=== PATIENT | male | born 1950 | race Caucasian/White ===

== ENCOUNTER 2024-10-31 23:27 | Inpatient (IN) | payer OTHER, SELFPAY ==
[2024-10-31] VITALS (11 sets, daily range): BP systolic 95–106; BP diastolic 52–68; BMI 27.0
[2024-10-31 21:43] LABS: Glucose - Point of Care 233 mg/dl (70-99)
[2024-10-31 22:02] LABS: Hematocrit 40.4 % (39.0-52.0); Hemoglobin 13.2 g/dL (13.0-18.0); Mean Corp Hgb Conc. 32.7 g/dL (33.0-37.0); Mean Corpuscular Volume 89.6 fL (80.0-94.0); Nucleated Red Blood Cells % 0 % (-); Platelet Count 220 10^3/uL (130-400); Red Cell Dist. Width 15.3 % (11.5-14.5)
--- NOTE | 2024-10-31 22:09 | ED.GENMED ---
History of Present Illness
<Jael Neely MD - Last Filed: 10/31/24 22:11>
General
Chief Complaint: Weakness
Time Seen by Provider: 10/31/24 21:45
<Eliud Macias Jr., PA-C - Last Filed: 10/31/24 22:27>
General
Source: patient
Exam Limitations: none
Nursing documentation reviewed up to this point in time: agreed with
History of Present Illness
History of Present Illness:
74-year-old male past medical history of hypertension hyperlipidemia, diabetes, hypothyroidism presenting to the emergency department today with concerns of generalized weakness over the past few days. Had an episode where he syncopized 3 days ago
but did not seek any medical care at that time. He claims that the weakness fatigue and lightheadedness is only with exertion otherwise at rest feels generally well
Past History
<Jael Neely MD - Last Filed: 10/31/24 22:11>
Past History
ED Past Medical History: HTN, Hypercholesterolemia and IDDM
ED Past Surgical History: Appendectomy and Tonsilectomy
Social History
Tobacco: Former smoker
Alcohol: Occasional
Drug: None
Personal:
Living: with family
Employment: Employed
Family History
Family History: Early CAD (Brother with AL and CABG in his 30s. Mom with early CAD)
Review of Systems
<Eliud Macias Jr., PA-C - Last Filed: 10/31/24 22:27>
Review of Systems
Allergies reviewed?: Yes
All Other Systems: ROS reviewed and negative except as documented in HPI and ROS
Phy Exam
<Eliud Macias Jr., PA-C - Last Filed: 10/31/24 22:27>
Physical Exam
Physical Exam:
GENERAL: Alert , in no apparent distress
EYE: pupils equal and reactive
NECK: Supple, no significant adenopathy.
ENT: o/p clr, mmm.
CARDIAC: Bradycardic regular
LUNGS: Clear breath sounds bilaterally, no acute respiratory distress, no wheezes/rales/rhonchi
ABDOMEN: Soft, without focal tenderness, no r/g, no cvat
NEUROLOGICAL: Alert and oriented, no focal neuro deficits
SKIN: Warm and dry, skin intact.
MUSCULOSKELETAL: No edema, well perfused.
PSYCH: Normal and appropriate interaction.
Course
<Jael Neely MD - Last Filed: 10/31/24 22:11>
Orders/Labs/Results
Orders:
Orders
10/31/24 21:29
Electrocardiogram (*1) Urgent
Reason for Study: Bradycardia / Tachycardia
EKG- Treatment ONCE
10/31/24 21:53
Add On- LAB Urgent
Tests Added?: magnesium ,TSH free t4
CT Head W/o Iv Contrast Urgent
Comment:
Reason For Exam: fal hit head
10/31/24 21:54
Complete Blood Count/With Diff Urgent
Comprehensive Metabolic Panel Urgent
Free T4 Urgent
Comment: ADD ON
Magnesium Urgent
Comment: ADD ON
TSH Urgent
Comment: ADD ON
10/31/24 22:05
Troponin I Urgent
10/31/24 22:22
0.9% Sodium Chloride 500 ml [Nss] 500 ml IV BOLUS
Abnormal Lab Results
10/31/24 10/31/24
21:42 21:54
WBC 22.5 H 10^3/uL
(4.8-10.8)
RBC 4.51 L 10^6/uL
(4.70-6.10)
MCHC 32.7 L g/dL
(33.0-37.0)
RDW 15.3 H %
(11.5-14.5)
MPV 11.3 H fL
(7.4-10.4)
Abs Immat Gran (auto) 0.1 H 10^3/uL
(0-0.05)
Absolute Neuts (auto) 18.2 H 10^3/uL
(1.4-6.5)
Absolute Monos (auto) 2.3 H 10^3/uL
(0.1-0.6)
Neutrophils % 81.1 H %
(42.2-75.2)
Lymphocytes % 7.9 L %
(20.5-51.1)
Monocytes % 10.1 H %
(1.7-9.3)
BUN 62 H mg/dl
(9-20)
Creatinine 2.1 H mg/dL
(0.7-1.3)
Glucose 244 H mg/dl
(70-99)
Total Bilirubin 1.7 H mg/dl
(0.2-1.3)
AST 115 H U/L
(17-59)
ALT 57 H U/L
(0-50)
POC Glucose 233 H mg/dl
(70-99)
10/31/24 21:54
10/31/24 21:54
Vital Signs
Initial and Last Documented VS:
Initial Vital Signs
Temp Pulse Resp BP Pulse Ox
98.2 F 48 16 105/52 98
10/31/24 21:32 10/31/24 21:32 10/31/24 21:32 10/31/24 21:32 10/31/24 21:32
Last Documented Vital Signs
Temp Pulse Resp BP Pulse Ox
98.2 F 49 15 105/52 96
10/31/24 21:32 10/31/24 21:45 10/31/24 21:45 10/31/24 21:34 10/31/24 21:45
<Eliud Macias Jr., SHAN - Last Filed: 10/31/24 22:27>
Orders/Labs/Results
Orders:
Orders
10/31/24 21:29
Electrocardiogram (*1) Urgent
Reason for Study: Bradycardia / Tachycardia
EKG- Treatment ONCE
10/31/24 21:53
Add On- LAB Urgent
Tests Added?: magnesium ,TSH free t4
CT Head W/o Iv Contrast Urgent
Comment:
Reason For Exam: fal hit head
10/31/24 21:54
Complete Blood Count/With Diff Urgent
Comprehensive Metabolic Panel Urgent
Free T4 Urgent
Comment: ADD ON
Magnesium Urgent
Comment: ADD ON
TSH Urgent
Comment: ADD ON
10/31/24 22:05
Troponin I Urgent
10/31/24 22:22
0.9% Sodium Chloride 500 ml [Nss] 500 ml IV BOLUS
Abnormal Lab Results
10/31/24 10/31/24
21:42 21:54
WBC 22.5 H 10^3/uL
(4.8-10.8)
RBC 4.51 L 10^6/uL
(4.70-6.10)
MCHC 32.7 L g/dL
(33.0-37.0)
RDW 15.3 H %
(11.5-14.5)
MPV 11.3 H fL
(7.4-10.4)
Abs Immat Gran (auto) 0.1 H 10^3/uL
(0-0.05)
Absolute Neuts (auto) 18.2 H 10^3/uL
(1.4-6.5)
Absolute Monos (auto) 2.3 H 10^3/uL
(0.1-0.6)
Neutrophils % 81.1 H %
(42.2-75.2)
Lymphocytes % 7.9 L %
(20.5-51.1)
Monocytes % 10.1 H %
(1.7-9.3)
BUN 62 H mg/dl
(9-20)
Creatinine 2.1 H mg/dL
(0.7-1.3)
Glucose 244 H mg/dl
(70-99)
Total Bilirubin 1.7 H mg/dl
(0.2-1.3)
AST 115 H U/L
(17-59)
ALT 57 H U/L
(0-50)
POC Glucose 233 H mg/dl
(70-99)
10/31/24 21:54
10/31/24 21:54
Vital Signs
Initial and Last Documented VS:
Initial Vital Signs
Temp Pulse Resp BP Pulse Ox
98.2 F 48 16 105/52 98
10/31/24 21:32 10/31/24 21:32 10/31/24 21:32 10/31/24 21:32 10/31/24 21:32
Last Documented Vital Signs
Temp Pulse Resp BP Pulse Ox
98.2 F 49 15 105/52 96
10/31/24 21:32 10/31/24 21:45 10/31/24 21:45 10/31/24 21:34 10/31/24 21:45
<Eliud Macias Jr., PA-C - Last Filed: 10/31/24 22:27>
MDM/Problems Addressed
MDM/Problems Addressed:
74-year-old male presenting to the emergency department today with concerns of lightheadedness fatigue weakness for the past few days. Has syncopal episode a few days ago but did not seek any medical care. Initial EKG showing complete heart block.
He denies any current symptoms at rest. Heart rate in the 40s Case discussed immediately with cardiology who is aware of the case recommending serial troponins and n.p.o. after midnight. Pads were placed as well. Labs showing potential
dehydration was given some fluids also elevated white count 22.5.
<Eliud Macias Jr., PA-C - Last Filed: 10/31/24 22:27>
*Critical Care Note
Total Time (30-74mins, 75-104mins- exclusive of procedures): Not Applicable (Critical care statement: A total of 40 minutes of critical care time was provided for this patient. This includes management of unstable vital signs, evaluation of the
patient at bedside, reviewing the patient's pertinent medical records, discussion with consultants, review of old EKGs and review of)
ED Attending Note
<Jael Neely MD - Last Filed: 10/31/24 22:11>
ED Attending Note
Patient seen and examined by attending physician: Yes
I performed the substantive portion of visit, reviewed & personally made and approve the management plan that is documented in note by myself or MANSI.: Yes
ED Attending Note:
I have seen and evaluated the patient with a [id number] encounter. I have spoken to the [PA] and involved in the medical history, the physical exam, medical decision making.
Evaluation and management service: agree unless noted differently below.
Results interpretation: agree unless noted differently below.
74-year-old man with history of diabetes, hypertension, hyperlipidemia presenting to the emergency department with weakness. Patient states that he had a syncopal event a few days ago. Since then he has been extremely weak. He did hit his head.
He did not lose consciousness. He is not on any blood thinners. Per medics patient's heart rate was in the 40s. His blood pressure was normal. He denies any lightheadedness dizziness. No chest pain. No shortness of breath. No recent tick
bites or history of Lyme. No problems with his potassium that he is aware of. No recent illnesses. No problems with his thyroid. During my evaluation patient is resting comfortably. His heart rate is in the 40s. His abdomen is benign. He does
have a small abrasion to the right side of his forehead. EKG obtained per my interpretation is consistent with complete heart block. His blood pressure is normal. Pads have been placed on patient. Will check blood work including thyroid and
magnesium. Will notify cardiology.
-
Portions of this chart may have been created with voice recognition software.� Occasional wrong word or��sound alike� substitutions may have occurred due to the inherent limitations of voice recognition software.
Discharge Plan
Departure
Patient Disposition: Admit
Date of Disposition: 10/31/24
Time of Disposition: 22:26
Admit to: IMU
Admit to doctor: Timothy
Presentation/result/management discussed w/ accepting MD/DO: Hospitalist
Patient with high blood pressure during this ER visit?: No
Condition: Fair
Covid-19: Not Applicable
Discharge Problem:
Complete heart block, Leukocytosis, ROSANGELA (acute kidney injury)
Prescriptions:
No Action
losartan [Cozaar] 50 MG tablet
50 mg PO DAILY
fluticasone propionate [Flovent Diskus] 50 MCG blister with device
2 spray intranasal DAILY
citalopram 40 MG tablet
40 mg PO DAILY
simvastatin 20 MG tablet
20 mg PO DAILY
montelukast 10 MG tablet
10 mg PO QPM
metformin 500 MG tablet extended release 24 hr
500 mg PO DAILY
sitagliptin phos-metformin [Janumet] 1 EACH tablet
1 ea PO BID
insulin glargine [Lantus Solostar U-100 Insulin] 300 UNITS/3 ML insulin pen
20 units SC HS
tamsulosin [Flomax] 0.4 MG capsule
0.4 mg PO DAILY Qty: 7 0RF
cephalexin 500 MG tablet
500 mg PO TID 5 Days Qty: 15 0RF
Referrals:
Becky Steinberg MD [Family Provider, Internal Medicine]
Interventions
Interventions:
*Risk Screen - Suicide Last Done: 10/31/24 21:32
*General Assessment Last Done: 10/31/24 21:32
*Neglect/Abuse Screening Last Done: 10/31/24 21:32
*ED- Fall Risk Assessment Last Done: 10/31/24 21:53
*ED COVID-19 Vaccine History Last Done: 10/31/24 21:53
Discharge Date and Time
Print Language: [id number]
[2024-10-31 22:21] LABS: ALT (SGPT) 57 U/L (0-50); AST (SGOT) 115 U/L (17-59); Albumin 3.8 g/dl (3.5-5.0); Alkaline Phosphatase 84 U/L (38-126); Blood Urea Nitrogen 62 mg/dl (9-20); Calcium 8.7 mg/dl (8.4-10.2); Carbon Dioxide 22 mmol/L (22-30); Chloride 101 mmol/L (98-107); Estimated Creatinine Clearance 31 ml/min; Glucose 244 mg/dl (70-99); Magnesium 1.8 mg/dl (1.6-2.3); Potassium 5.1 mmol/L (3.5-5.1); Sodium 135 mmol/L (135-145); Total Protein 6.9 g/dl (6.3-8.2); eGFR 32.42
[2024-10-31] MEDS: NSS 500 IV (22:39)
[2024-10-31 22:47] LABS: TSH 3.13 uIU/ml (0.47-4.68)
[2024-10-31 23:05] LABS: Troponin I 50.900 ng/ml
--- NOTE | 2024-10-31 23:14 | HPS.HSE ---
Family Physician
-
Family Physician: Becky Steinberg
Chief Complaint
-
Fatigue, Myalgias
History of Present Illness
Patient is a 74y M with PMH significant for hypertension and DM-II who presents to ED complaining of fatigue and myalgias since last . Patient reports onset of joint pain, muscle aches and general fatigue on . he felt very
lightheaded and passed out in his home that evening. He did not seek medical attention at that time. Patient notes that he has felt extremely fatigued with nausea, body aches and severe fatigue since that time. He has felt lightheaded, but has
had no additional syncope. He thought he may have some vial illness. He tested himself at home for COVID x 2. Both were negative. After the second negative test today, he presented to the ED for further evaluation.
Patient denies any prior history of similar symptoms. No personal history of NH, CVA, etc. He does have family history of heart disease (mother, brother).
In the ED, patient denies any chest pain or dyspnea. He feels very fatigued and lightheaded with any activity.
He is noted on tele / EKG to be in heart block with heart rates in the 30s-40s.
Medical History
Past Medical History
Past Medical History: Reports Other
Additional Past Medical History:
Hypertension
DM-II
Double Vision (s/p cataract surgery)
Nephrolithiasis
Past Surgical History: Reports Other
Additional Past Surgical History:
Cataracts
Appendectomy
T&A
Cysto / Stent
Social History
Tobacco: Former Smoker (Quit smoking 20 years ago. Approx 40+ pack years total use.)
Alcohol: None
Drug: None
Living: With Family
Family History
Family History: Other (Mother: CAD Brother: CAD )
Allergies / Home Medications
Allergies reflects when Allergies were last updated in [facility] [facility].
Home Medications with original date entered in [employer] [facility]
Allergy/Medication List:
Allergies
Allergy/AdvReac Type Severity Reaction Status Date / Time
IV Contrast Allergy Unknown Uncoded 10/31/24 21:31
Home Medications
insulin glargine 100 unit/mL (3 mL) subcutaneous pen (Lantus Solostar U-100 Insulin) 40 units SC HS 04/06/14
losartan 50 mg tablet (Cozaar) 25 mg PO DAILY 04/06/14
metformin 500 mg tablet,extended release 24 hr 1,000 mg PO BID 04/06/14
sitagliptin phosphate 100 mg tablet (Januvia) 100 mg PO BID 10/31/24
thyroid (pork) 15 mg tablet (TRANSFER AND PUMPHOUSE OPERATOR Thyroid) 15 mg PO DAILY 10/31/24
Review of Systems
-
History Source: Patient
A 12 point ROS was completed and negative except as noted: Yes
Constitutional: Reports Fatigue; Denies Fever or Chills
EENT: Denies Sore Throat
Respiratory: Reports Cough; Denies Trouble Breathing
Cardiac: Reports Syncope; Denies Chest Pain or Diaphoresis
Abdomen/GI: Reports Nausea; Denies Abdominal Pain, Vomiting, Diarrhea, Bloody Stools or Black Stools
: Denies Dysuria or Frequency
Musculoskeletal: Reports Joint Pain and Muscle Pain; Denies Edema
Neurological: Reports Dizzy; Denies Headache
Psych: Denies Depression or Anxiety
Physical Exam
Vital Signs
Vital Signs
Temp Pulse Resp BP Pulse Ox
98.2 F 49 16 105/52 96
10/31/24 21:32 10/31/24 21:45 10/31/24 22:43 10/31/24 21:34 10/31/24 21:45
Physical Exam
General: Other (74y M in no acute distress. )
HEENT: Moist mucous membranes, PERRLA and Other (Poor dentition.)
Respiratory: Other (Decreased at bases. Otherwise clear. Mild cough noted during exam.)
Cardiac: S1/S2, Irregular Rhythm, Bradycardia and Murmur (II/ STEPHANIE)
GI: Soft, Non Tender, Non Distended and Normal Bowel Sounds
Musculoskeletal: No Clubbing, No Cyanosis and No Edema
Neuro: AO x 3
Laboratory Results
-
10/31/24 21:54
10/31/24 21:54
Laboratory Results
Total Bilirubin 1.7 mg/dl (0.2-1.3) H 10/31/24 21:54
AST 115 U/L (17-59) H 10/31/24 21:54
ALT 57 U/L (0-50) H 10/31/24 21:54
Alkaline Phosphatase 84 U/L (38-126) 10/31/24 21:54
Troponin I 50.900 ng/ml H* 10/31/24 22:19
Impression/Plan
-
A/P: Patient is a 74y M with PMH significant for hypertension and DM-II who presents to ED complaining of myalgias and fatigue x 5 days.
ACS / NH
- Admit for further evaluation and treatment.
- EKG with wide-complex QRS and heart block (see below).
- Initial troponin is 50.
- Suspect initial NH on with onset of syncope / symptoms.
- IV heparin, ASA.
- Follow troponin top peak, serial EKGs, etc.
- Cardiology consulted - prob ischemic evaluation.
Complete Heart Block
- Likely secondary to AMI as noted above.
- Heart rates in 30s - 40s. Patient awake and conversant. Minimal symptoms at rest.
- External pads in place.
- Monitor on telemetry overnight.
- Avoid any chronotropic medications.
- Follow for changes. Cardiology evaluation.
- PPM if needed.
ROSANGELA v CKD
- SCr = 2.1. Only prior baseline is 1.4 from 2021.
- ? ROSANGELA or progression of CKD.
- Hold ARB acutely.
- Follow for changes in renal function over the next 48-72 hours to establish baseline.
Leukocytosis
- ? stress response due to AMI, etc.
- Afebrile, no other clear signs of infection.
- COVID negative at home x 2.
- Observe off of abx for now.
- Follow temperature curve, monitor for any new / focal symptoms, etc.
Benign Hypertension
- Stable. Hold ARB acutely.
DM-II
- Stable. Continue basal insulin at decreased dose.
- Follow glucose and cover with SSI as needed.
- Update A1C.
Hypothyroidism
- TFTs are normal. Continue current thyroid replacement.
DVT Prophylaxis: On IV Heparin
Code Status: Full
[2024-11-01] VITALS (34 sets, daily range): BP systolic 93–130; BP diastolic 55–89; BMI 25.9
[2024-11-01 00:43] LABS: INR 1.44; PT 17.8 Sec (11.4-14.6)
--- NOTE | 2024-11-01 00:45 | PTCARENOTE ---
Rec'd pt from er via stretcher on monitor, pacer pads on, CHG bath done on adm, pt oriented to ICU routine, VENETIE IRA, speech garbled, oriented, cooperative, follows commands, Complete heart block rate 39, weak distal pulses, no edema, skin warm/dry, RA,
lungs decr in bases, sat p5, + bowel sounds, no bm, abd soft, NPO, urinal at bedside
0115- started on hep gtt per order
0125- c/o nausea- comp 5mg iv given
[2024-11-01 00:57] LABS: Glucose - Point of Care 229 mg/dl (70-99)
[2024-11-01] MEDS: HEPARIN 4000 UNITS IV (01:05)
[2024-11-01] MEDS: HEPARIN 25000 UNITS/250 ML IV (01:06)
[2024-11-01] MEDS: NSS 1000 IV ×3 (01:08→18:44)
[2024-11-01] MEDS: LANTUS 0.2 UNITS SC (01:16)
[2024-11-01] MEDS: COMPAZINE 5 MG IV ×2 (01:27→12:31)
[2024-11-01 01:28] LABS: APTT 31.2 Sec (23.4-35.0)
[2024-11-01 04:29] LABS: Hematocrit 38.4 % (39.0-52.0); Hemoglobin 12.7 g/dL (13.0-18.0); Mean Corp Hgb Conc. 33.1 g/dL (33.0-37.0); Mean Corpuscular Volume 88.5 fL (80.0-94.0); Platelet Count 203 10^3/uL (130-400); Red Cell Dist. Width 15.1 % (11.5-14.5)
--- NOTE | 2024-11-01 04:29 | PTCARENOTE ---
sys reviewed, bladder scanned for 240ml,
[2024-11-01 04:53] LABS: Blood Urea Nitrogen 67 mg/dl (9-20); Calcium 8.1 mg/dl (8.4-10.2); Carbon Dioxide 22 mmol/L (22-30); Chloride 105 mmol/L (98-107); Estimated Creatinine Clearance 36 ml/min; Glucose 223 mg/dl (70-99); HDL Cholesterol 33 mg/dl; LDL Cholesterol, Calculated 80 mg/dl; Potassium 4.7 mmol/L (3.5-5.1); Sodium 136 mmol/L (135-145); Very Low Density Lipoprotein 18 mg/dl (0-30); eGFR 39.01
[2024-11-01 04:57] LABS: Troponin I 43.400 ng/ml
[2024-11-01 05:41] LABS: Hepatitis C Antibody Negative (Negative)
[2024-11-01] MEDS: ARMOUR THYROID 15 MG PO (07:36)
[2024-11-01] MEDS: LOW STRENGTH ASPIRIN 81 MG PO (07:36)
[2024-11-01 07:51] LABS: Glucose - Point of Care 176 mg/dl (70-99)
--- NOTE | 2024-11-01 08:31 | CON.CAR ---
Consultation
Consultation Request
Date/Time Consultation Requested: 11/01/2024 at 0051 hours
Date/Time Consultation Performed: 11/01/2024 at 0830 hours
Requesting Provider: Christian Aguirre DO
Performing Provider: Brandon Bueno MD
Reason for Consultation: Symptomatic heart block, recent NC
Medical History
-
Chief Complaint: POLLACK, fatigue, Syncope on with back pain for hours
History of Present Illness:
PCP: Jessica Dior DO
HPI: Mr. Natanael Henson is a 74-year-old gentleman with longstanding diabetes mellitus. 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 He is and has 2 children.
On October 27 in the evening he developed upper back and shoulder pain that he described as a tightness. Shortly after that he had a syncopal episode. Later that evening he had continued pain but he thinks it only lasted about a total of 1
hour from about 6 PM to 7 PM culminating in the syncopal episode. He was able to fall asleep. That night he awoke with marked diaphoresis.
Over the next several days he noted fatigue and shortness of breath with activity. He finally came into the ER where he was in complete heart block and had a positive troponin.
Past Medical History
Past Medical History: NIDDM (Type II DM on insulin)
Past Surgical History: Appendectomy, Tonsilectomy and Other (cataract)
Social History
Tobacco: Former Smoker (1.5 to 2 PPD for 20+ years, quit 20 yrs ago)
Personal:
Living: With Family
Family History
Family History: Early CAD (brother NC in 30s, later had CABG and in his 70s) and Cancer (sister of met bladder cancer)
Allergies / Home Medications
Allergy/AdvReac Type Severity Reaction Status Date / Time
IV Contrast Allergy Unknown Uncoded 10/31/24 21:31
�Medication �Instructions �Recorded �Confirmed �Type
insulin glargine 100 unit/mL (3 40 units SC HS 04/06/14 10/31/24 History
mL) subcutaneous pen (Lantus
Solostar U-100 Insulin)
losartan 50 mg tablet (Cozaar) 25 mg PO DAILY 04/06/14 10/31/24 History
metformin 500 mg tablet,extended 1,000 mg PO BID 04/06/14 10/31/24 History
release 24 hr
sitagliptin phosphate 100 mg 100 mg PO BID 10/31/24 10/31/24 History
tablet (Januvia)
thyroid (pork) 15 mg tablet (VOCATIONAL EDUCATION TEACHER 15 mg PO DAILY 10/31/24 10/31/24 History
Thyroid)
Review of Systems
-
History Source: Patient and Family
All other systems: Negative unless noted (see HPI as well)
Constitutional: Other (fatigue, POLLACK)
Respiratory: Trouble Breathing
Abdomen/GI: No Symptoms
Physical Exam
Vital Signs
Temp Pulse Resp BP Pulse Ox
97.0 F 43 26 127/68 95
11/01/24 08:00 11/01/24 05:00 11/01/24 05:00 11/01/24 05:00 11/01/24 05:00
Lab Results
11/01/24 04:18
11/01/24 04:18
Troponin I Cancelled 11/01/24 12:51
Physical Exam
General: Well Developed, Well Nourished and No Apparent Distress
HEENT: Normocephalic and Anicteric
Respiratory: Clear
Cardiac: S1/S2 and Regular Rhythm (but slow); Negative Murmur
GI: Soft and Non Tender
Musculoskeletal: No Clubbing and No Edema
Skin: Warm and Dry
Neuro: AO x 3
Psych: Calm
Impression / Plan
-
PCP Sabina Dior DO
Recent inferior STEMI is suspected based on clinical data and EKG
Symptomatic complete heart block. The mechanism heart block is likely high vagal tone related to the recent inferior STEMI.
Acute kidney injury. Baseline creatinine not known.
Longstanding diabetes mellitus, type II on insulin
Family history of premature CAD
Former heavy smoker probably at least a [id number] history
Plan:
Agree with aspirin, heparin for now, statin
Echo
Elective cardiac catheterization with possible PCI. I would prefer catheterization today. Discussed with interventional cardiology Dr. Ferreira.He may have multivessel disease and other Rivelsa straight strategy may be appropriate. Anatomy may favor
medical treatment
He may benefit from temporary pacing support given the elevated BUN/creatinine I suspect his heart block is symptomatic beyond dyspnea on exertion and fatigue
He might require permanent pacing if heart block does not resolve in a reasonable time. With IMI heart block usually resolves
Further plans can be based upon integrating clinical data, echocardiographic data, catheterization data and clinical course
His Ansley was updated by phone call by me
Data Reviewed
-
EKG: Tracing Personally Visualized and interpreted (Sinus at 100 bpm with CHB and V rate at 41 bpm RBBB perinfarct block (widen hump at end of QRS in inf leads) inf ST-T changes of recent NC)
Radiology: Image Personally Visualized and interpreted (Portable, lungs clear)
CT Scan: Report Reviewed by me (CT head I- (no contrast): NAD)
Ultrasound: Other (I ordered echo)
Old Records: Requested (Requested labs from PCP)
[2024-11-01] MEDS: NOVOLOG FLEXPEN-MODERATE RESISTANCE 1 UNITS SC ×3 (08:32→18:43)
[2024-11-01 09:27] LABS: Glycohemoglobin (HgbA1c) 9.0 % (4.0-5.6)
[2024-11-01 09:37] LABS: APTT 45.2 Sec (23.4-35.0)
--- NOTE | 2024-11-01 10:10 | CARDSERVLU ---
Echocardiogram with [facility]ason completed after protocol screening completed. Allergies verified.
Patent IV site: __R FA___
IV site flushed with 0.9% NaCl pre and post administration.
Diluted bolus method utilized to enhance visualization of ventricular stewart.
Total volume given: __2.5__ mL
Patient tolerated all procedures well without complications.
[2024-11-01 10:51] LABS: ALT (SGPT) 66 U/L (0-50); AST (SGOT) 123 U/L (17-59); Albumin 3.6 g/dl (3.5-5.0); Alkaline Phosphatase 84 U/L (38-126); Total Protein 6.4 g/dl (6.3-8.2)
--- NOTE | 2024-11-01 11:11 | PTCARENOTE ---
Cardiology saw pt and called with with update. Echo completed. Plan; cardiac cath poss. pacer. abd US r/t LFT and c/o abd pain previously. Obtain records, obtain urine. Pt aware of POC. No change in physical assessment. CB in reach- instructed to
use.
--- NOTE | 2024-11-01 11:30 | W.PN.HOSP.TC ---
Today's Communication/Plan
-
IVF
USS abdomen
Eventual statin
Assessment / Plan
Assessment / Plan
74-year-old male with fatigue and myalgias. Patient had lightheadedness and passed out on he did not seek attention. When he fell he had some viral illness. He felt lightheaded which Made him come to the ER. Had abdominal pain and had a
large BM on . Has a cough.
EKG reviewed by me-ST elevations in inferior leads
CVS: S1-S2 normal
Chest: CTA B/L
Abdomen: Soft, mild discomfort with palpation. No guarding or rigidity. Bowel sounds present
Extremities: No edema
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
Rash- purplish on right leg, left ankle, right upper arm.
# Acute [place]
Probably happened on when he had symptoms of syncope
Continue aspirin. Add statin when LFTS better. Continue heparin drip
Hold ARB as below. Hold BB due to HB.
Troponin trending down
EKG with complete heart block and wide-complex QRS likely secondary to ischemia
External pacer pads
Cardiology consulted
Echo today
Cardiac cath planned for later today- Discussed about Possibility of KIMBERLY
# ROSANGELA , Possible CKD.
Creatinine was 1.4 in 2021
Hold ARB, hold metformin
Mixed data on pre contrast exposure bicarb prophylaxis-will proceed with bicarb prophylaxis prior to cath today.
Follow creatinine to R/O KIMBERLY
# Leukocytosis-likely stress reaction
Chest x-ray unremarkable
Check urinalysis
Watch temperature
If develops fever get blood cultures
Hanh elevated LFT and had abd pain get USS abdomen.
# Hypertension-hold ARB follow blood pressure
# Diabetes-A1c-
Patient uses Lantus insulin 40 units at night, Januvia 100 mg p.o. twice daily, metformin 1000 mg p.o. twice daily as outpatient
Got 20 units of Lantus last night
Start 40 units of Lantus tonight.
Restart Januvia once not n.p.o. anymore
Accu-Cheks and sliding scale coverage
# Hypothyroidism-continue replacement
# Hyperlipidemia-patient has had intolerance to statin in the past and also LFTs elevated. Will discuss and maybe start Pravastatin when LFTS better. benefits discussed.
# Elevated AST and ALT-USS.
# Longstanding rash at least since 2013- Pt says he got Biopsy and was told it is from Diabetes. he doesn't remember the name of the Derm.
# Ex-smoker
# DVT prophylaxis-IV heparin
# Full code
Discussed with cardiology. Plan reviewed
D/W and son at bed side
D/W RN at bed side
Get records from PCP
Total Critical Care Time 33 minutes. I was immediately available to the patient and staff. I personally examined, reviewed labs, diagnostic images/reports, interpretations, treatment plans, discussed patient care with other providers and family ,
entered orders as appropriate and documented the medical record.
Part of this note was created using voice recognition system. Occasional wrong word or��sound alike� substitutions may have inadvertently occurred due to the inherent limitations of voice recognition software. If noted kindly bring it to my
attention for correction.
Anticipated Discharge: > 48 hours
Subjective/Interval History
-
Date of Service: November 01, 2024
Objective Data
-
Labs:
Laboratory Results
11/01/24 11/01/24 11/01/24
00:23 00:51 04:18
WBC Cancelled 20.2 H
Hgb Cancelled 12.7 L
Hct Cancelled 38.4 L
Plt Count Cancelled 203
PT 17.8 H
INR 1.44
APTT 31.2 Cancelled
Sodium 136
Potassium 4.7
Chloride 105
Carbon Dioxide 22
BUN 67 H
Creatinine 1.8 H
Glucose 223 H
Calcium 8.1 L
Total Bilirubin 1.3
AST 123 H
ALT 66 H
Alkaline Phosphatase 84
11/01/24 11/01/24 11/01/24
07:46 08:23 09:07
WBC
Hgb
Hct
Plt Count
PT
INR
APTT Cancelled Cancelled 45.2 H
Sodium
Potassium
Chloride
Carbon Dioxide
BUN
Creatinine
Glucose
Calcium
Total Bilirubin
AST
ALT
Alkaline Phosphatase
11/01/24
15:30
WBC
Hgb
Hct
Plt Count
PT
INR
APTT Pending
Sodium
Potassium
Chloride
Carbon Dioxide
BUN
Creatinine
Glucose
Calcium
Total Bilirubin
AST
ALT
Alkaline Phosphatase
Vital Signs:
Vital Signs
Temp Pulse Resp BP Pulse Ox
97.0 F 43 26 127/68 96
11/01/24 08:00 11/01/24 05:00 11/01/24 05:00 11/01/24 05:00 11/01/24 08:00
I&O
10/31/24 11/01/24 11/02/24
06:59 06:59 06:59
Intake Total 540 / 675 542 / 542
Output Total 350 / 350
Balance 540 / 675 192 / 192
--- NOTE | 2024-11-01 11:51 | CM ---
Initial assessment completed with . Patient and live in a 2 story home with B/B on 2nd and 1/2 bath on 1st, 1 step to enter. 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 No HC-POA. Support system
is and step-son. PCP is Wesley Duff in [place]. PCP is Dr. Joyce Dior. Discharge POC: Anticipate home with HH VN. Preference is [facility]. Will forward referral.
[2024-11-01 11:54] LABS: Glucose - Point of Care 158 mg/dl (70-99)
[2024-11-01 13:03] LABS: Troponin I 37.900 ng/ml
--- NOTE | 2024-11-01 15:19 | PTCARENOTE ---
abd US completed, Results pending. Pt aware of outstanding Urine sample, will obtain BS if needed per protocol. Pt awaiting cardiac cath
--- NOTE | 2024-11-01 16:00 | PTCARENOTE ---
pt transported to cardiac cath.
[2024-11-01 16:18] LABS: APTT 54.8 Sec (23.4-35.0)
--- NOTE | 2024-11-01 18:19 | PTCARENOTE ---
received pt from cardiac cath. awake and alert, denies pain but endorses slight nausea. 97.7, HR 39 3rd degree HB 22 91%RA 118/59 accu check 157. right R band 10cc air, no bleeding or hematoma. brisk cap. refill. temp pacer in place rate 30 10
output. obtaining orders to restart heparin, diet, etc. spouse at bedside.
[2024-11-01 18:22] LABS: Glucose - Point of Care 157 mg/dl (70-99)
[2024-11-01 18:47] LABS: Hematocrit 38.0 % (39.0-52.0); Hemoglobin 12.2 g/dL (13.0-18.0); Mean Corp Hgb Conc. 32.1 g/dL (33.0-37.0); Mean Corpuscular Volume 90.0 fL (80.0-94.0); Platelet Count 225 10^3/uL (130-400); Red Cell Dist. Width 15.4 % (11.5-14.5)
--- NOTE | 2024-11-01 18:57 | W.PN.UPDATE ---
Update Note
Progress Note Update
Transfer orders to ICU placed, discussed with Dr. Issac Harrison (hospitalist).
[2024-11-01 18:58] LABS: APTT 73.2 Sec (23.4-35.0)
--- NOTE | 2024-11-01 19:16 | W.PN.UPDATE ---
Update Note
Progress Note Update
Called Dr. Zion Villatoro, cardiology invasive, when to resume heparin gtt. Recommendations received to resume heparin gtt at previous rate 1200 at 8pm with NO BOLUS. Orders placed and RN updated.
--- NOTE | 2024-11-01 19:50 | ITS.CL.PN ---
Anatomy And Physiology Instructor - Procedure Note
Procedure
Procedure Note:
CARDIAC CATHETERIZATION REPORT
Date of Procedure: 11/01/2024
Referring: Dr. Brandon Bueno MD
Indication: NSTEMI, complete heart block
PROCEDURE(S)
1. left heart catheterization
2. coronary angiography
3. temporary venous pacemaker insertion
ACCESS:
1. 6F right radial artery (closure: radial band)
2. 6F right internal jugular vein (sutured at 42 cm)
CATHETERS
1. 5F balloon tipped temporary venous pacemaker
2. 6F JR4
3. 6F JL3.5
MODERATE SEDATION: 45 minutes of moderate sedation was utilized. An independent medical device engineer was present to assist with and help manage the patient's level of consciousness and physiologic status.
TEMPORARY VENOUS PACEMAKER
Under fluoroscopic guidance a 5 Nepalese balloon tipped temporary venous pacemaker wire was floated into the RV and demonstrated to course medially in an UPPER SORBIAN projection away from the RV free wall. The TVP was proven to capture with a threshold of 1 mA
after which she was set the backup at a rate of 80 bpm and 10 mA output. The sheath was sewn in place at 42 cm depth and the excess catheter secured with Tegaderm.
HEMODYNAMIC DATA
LV 99/21 (EDP 28) mmHg
AO 106/57 (mean 74) mmHg
CORONARY ANGIOGRAPHY
Dominance: Right
LM: Large with minimal disease.
LAD: Large vessel giving rise to a moderate caliber D1 before wrapping around the apex. There is a 95% stenosis just distal to the takeoff of D1 and mild to moderate disease that extends to the mid vessel. The D1 itself has severe proximal disease
and a focal severe stenosis in the mid body.
LCx: Large vessel giving rise to a small OM1 and large bifurcating OM2. There is a focal 80% stenosis in proximal aspect of the the upper branch of the OM2 as well as focal up to 50% disease in the proximal aspect of the lower branch.
RCA: Large vessel that is 100% occluded distally with no collaterals. There is also a long 50% stenosis proximally and diffuse mild-moderate disease otherwise.
RADIATION: dose 389 mGy; DAP 29.3 Gy*cm2; fluoroscopy time 7.6 min
CONCLUSIONS
1. Severe three-vessel coronary artery disease as described with 100% stenosis of the distal RCA that is likely the culprit lesion for the patient's NSTEMI and complete heart block, complex bifurcation disease involving the proximal LAD and moderate
caliber diagonal, as well as complex bifurcation disease involving a large circumflex marginal branch.
2. Severely elevated LV filling pressure and no significant aortic stenosis on hemodynamic pullback
RECOMMENDATIONS
1. Heart team discussion regarding ideal revascularization strategy: Given his triple-vessel disease with diabetes and reduced ejection fraction, he fits a category of patient demonstrate to benefit most from surgical revascularization when
feasible. This would ideally be accomplished with ESPINO-LAD and additional grafts to the diagonal and both branches of the OM2. Revascularization of the LAD/diagonal could be accomplished percutaneously with moderate complexity (dedicated
bifurcation strategy would be utilized). If a percutaneous approach is chosen, the OM2 would also likely require a bifurcation strategy for revascularization and could be medically managed initially. The RPDA should not be revascularized with either
strategy as the territory appears to be infarcted based on lack of ongoing chest pain, akinesis on TTE, and lack of collateral flow.
2. Cont. heparin drip for now.
3. Con. ASA, avoid P2Y12
4. For now, no GDMT to HFrEF (BB contraindicated given CHB, BOYD/ARB/ARNI/MRA/SGLT2i held pending ROSANGELA improvement)
5. Monitor for renal recovery
6. Received 400 cc IVF in the lab for renal protection. May require diuresis but hold for now given lack of s/s of volume overload.
Copy to: Dr. Becky Steinberg MD (PCP)
Signed: Zion Villatoro MD, PhD
--- NOTE | 2024-11-01 19:59 | PTCARENOTE ---
Rec'd pt resting in bed, at bedside, denies pain, Complet heart block, R IJ temp pacer via RIJ cordis, Rate 30, v demand, R Rad site intact, TR band removal per protocal R rad art weak, Distal pulses weak, no edema, skin warm/dry, RA, lungs
decr in bases, Fine Left base crackles, sat 95, + bowel sounds, no bm, abd soft, poor appetite, urinal at bedside; Quintin gtt restarted at 1200 units/hr per order at 1999
[2024-11-01 21:07] LABS: Glucose - Point of Care 166 mg/dl (70-99)
[2024-11-01] MEDS: XANAX 0.25 MG PO (21:14)
[2024-11-01] MEDS: LANTUS 0.4 UNITS SC (21:15)
--- NOTE | 2024-11-01 21:15 | PTCARENOTE ---
scat insp wheezes, Sukumar Mercado NP aware, resp rx ordered & given by therapist, xanax 0.25mg po given for anx, temp pacer rate incr to 80, MA 10 by Sukumar Mercado NP, pt refused crestor stating he had side affects when he took it before
2119 TR band off, dsg applied, pt aware to call if any bleeding
2129- decr to 70ml/hr per order, lasix 20mg iv given per order
[2024-11-01] MEDS: VENTOLIN NEBULES 2.5 MG INH (21:16)
[2024-11-01] MEDS: CRESTOR PO (21:19)
[2024-11-01] MEDS: LASIX 20 MG IV (21:32)
--- NOTE | 2024-11-01 21:34 | W.PN.UPDATE ---
Update Note
Progress Note Update
Received patient after cardiac cath. Orders placed for pacer rate 30 MA 10 V demand and chest xray s/p pacer placement. Heparin gtt orders placed to resume at 1200 at 8pm with no bolus. Noted by Dr. Donovan 100% occluded RCA, severe LAD/diag
disease which need to be revascularized consultation for CT surgery placed for CABG vs complex stenting. Dr. Donovan advised increasing rate of pacer to 80 bpm for more chronotropy and cardiac output. Continue heparin gtt given severity of LAD.
Orders and consult placed to Ct surgery, Gasper Huitron PAC for Ctsurgery aware of consult. Patieint having some inspiratory wheezing, did have some fine crackles earlier but not now, chest xray does not show pulmonary edema. Ordered albuterol
prn nebulized treatment and 20mg IV lasix.
[2024-11-01 22:39] LABS: Urine Character Clear (Clear)
[2024-11-01 22:47] LABS: Urine Red Blood Cell 0-2 /HPF (0-2); Urine White Cell 0-2 /HPF (0-5)
--- NOTE | 2024-11-01 23:25 | PTCARENOTE ---
sys reviewed, sat 89% on RA, 2 liters nc applied, sat incr to 95, lungs w/ bibas crackles, K Jess STORYBOARD ARTIST aware- will cont to monitor
[2024-11-02] VITALS (24 sets, daily range): BP systolic 105–138; BP diastolic 67–88; BMI 26.5
--- NOTE | 2024-11-02 00:07 | PTCARENOTE ---
CHG bath done, linens changeed
[2024-11-02] MEDS: HEPARIN 25000 UNITS/250 ML IV ×2 (00:54→17:16)
[2024-11-02 02:18] LABS: Hematocrit 37.6 % (39.0-52.0); Hemoglobin 13.0 g/dL (13.0-18.0); Mean Corp Hgb Conc. 34.6 g/dL (33.0-37.0); Mean Corpuscular Volume 86.8 fL (80.0-94.0); Platelet Count 198 10^3/uL (130-400); Red Cell Dist. Width 15.3 % (11.5-14.5)
[2024-11-02 02:19] LABS: INR 1.55; PT 18.8 Sec (11.4-14.6)
[2024-11-02 02:20] LABS: APTT 44.5 Sec (23.4-35.0)
[2024-11-02 02:24] LABS: ALT (SGPT) 184 U/L (0-50); AST (SGOT) 399 U/L (17-59); Albumin 3.2 g/dl (3.5-5.0); Alkaline Phosphatase 91 U/L (38-126); Blood Urea Nitrogen 65 mg/dl (9-20); Calcium 7.3 mg/dl (8.4-10.2); Carbon Dioxide 19 mmol/L (22-30); Chloride 109 mmol/L (98-107); Estimated Creatinine Clearance 46 ml/min; Glucose 159 mg/dl (70-99); Magnesium 1.8 mg/dl (1.6-2.3); Potassium 4.6 mmol/L (3.5-5.1); Sodium 138 mmol/L (135-145); Total Protein 6.1 g/dl (6.3-8.2); eGFR 52.74
[2024-11-02] MEDS: MAGNESIUM SULFATE 102 GRAMS IV (03:21)
--- NOTE | 2024-11-02 03:23 | PTCARENOTE ---
1 gm mag sulfate hung over 1hr per order
--- NOTE | 2024-11-02 03:53 | PTCARENOTE ---
sys reviewed, lungs w/ bibas crackles,no wheezing, sat 98-99, K Jess, Warehouse Logistics Coordinator aware, will cont to monitor
[2024-11-02] MEDS: NSS 1000 IV (04:55)
--- NOTE | 2024-11-02 07:17 | CON.INTV ---
Consultation
Consultation Request
Date/Time Consultation Requested: 11/01/2024
Date/Time Consultation Performed: 11/02/2024
Requesting Provider: Christian Aguirre
Performing Provider: Mary Duke
Reason for Consultation: Acute FL
Medical History
-
Chief Complaint: Fatigue
History of Present Illness:
Patient is a 74-year-old gentleman with long history of diabetes who developed nonspecific symptoms of upper back and shoulder pain 3 days prior to her presentation to the hospital. Also reported syncope episode. He also reported significant
fatigue which eventually brought him to the emergency room. Further workup was suggestive of a complete heart block as well as elevated troponin consistent with acute myocardial infarction. Patient was noted to have inferior wall ST elevation FL.
He was taken to [facility] and had coronary angiography performed which showed 100% RCA stenosis and significant otherwise coronary artery disease. He also had a temporary pacemaker placed. Postprocedure he was admitted to ICU and bicycle subassembler
consultation was requested for further input.
Past Medical History: Reports Other
Additional Past Medical History:
Hypertension
DM-II
Double Vision (s/p cataract surgery)
Nephrolithiasis
Past Surgical History: Reports Other
Additional Past Surgical History:
Cataracts
Appendectomy
T&A
Cysto / Stent
Social History
Tobacco: Former Smoker (Quit smoking 20 years ago. Approx 40+ pack years total use.)
Alcohol: None
Drug: None
Living: With Family
Family History
Family History: Other (Mother: CAD Brother: CAD )
Allergies / Home Medications
Allergies
Allergy/AdvReac Type Severity Reaction Status Date / Time
Iodinated Contrast Media Allergy iv contrast Verified 11/01/24 18:18
Home Medications
�Medication �Instructions �Recorded �Confirmed �Last Taken �Type
insulin glargine 100 unit/mL (3 40 units SC HS Diabetes 04/06/14 10/31/24 Unknown History
mL) subcutaneous pen (Lantus
Solostar U-100 Insulin)
losartan 50 mg tablet (Cozaar) 25 mg PO DAILY Blood Pressure 04/06/14 10/31/24 Unknown History
metformin 500 mg tablet,extended 1,000 mg PO BID Diabetes 04/06/14 10/31/24 Unknown History
release 24 hr
sitagliptin phosphate 100 mg 100 mg PO BID Diabetes 10/31/24 10/31/24 Unknown History
tablet (Januvia)
thyroid (pork) 15 mg tablet (C WEB DEVELOPER 15 mg PO DAILY Thyroid 10/31/24 10/31/24 Unknown History
Thyroid)
Review of Systems
-
Hematologic/Lymphatic: Other (All 14 systems reviewed and negative except as stated above in the history of present illness.)
Vitals / Labs / Diagnostic Testing
Vital Signs
Temp Pulse Resp BP Pulse Ox
97.7 F 81 18 109/83 98
11/02/24 03:45 11/02/24 06:00 11/02/24 06:00 11/02/24 06:00 11/02/24 06:00
Lab Data
11/02/24 01:57
11/02/24 01:57
Laboratory Results
11/01/24 11/01/24 11/01/24
07:46 08:23 09:07
PT
INR
APTT Cancelled Cancelled 45.2 H
11/01/24 11/01/24 11/02/24
15:56 18:33 01:57
PT 18.8 H
INR 1.55
APTT 54.8 H 73.2 H Cancelled
11/02/24
01:57
PT
INR
APTT 44.5 H
Diagnostic Testing:
Physical Exam
-
HEENT: Normocephalic
Cardiovascular: S1/S2 and Other (Currently paced rhythm)
Respiratory: Clear and Non-Labored Respirations
GI: Soft and Non Distended
Neurology: Awake and Alert
Skin: Warm
General: Comfortable
Assessment
-
#1. Inferior wall STEMI with multivessel coronary artery disease
- 100% RCA occlusion noted, significant coronary artery disease
- S/p angiography 11/01
- Aspirin, heparin drip. Also on Zetia and rosuvastatin.
- CT surgery consult for further input regarding possible coronary artery bypass graft vs complex PCI
#2. Complete heart block
- Suspected related to RCA infarction.
- S/p temporary pacemaker, currently paced rhythm
- Avoid beta-blockers or other puma blocking agents
- With EF 35%, patient might need AICD
#3. ROSANGELA on admission with underlying CKD
- Admission creatinine was 2.1, currently 1.4 which is his baseline
- Discontinue IV fluids
#4. DM
- Currently on glargine and sliding scale insulin
#5. h/o HTN
- Hold beta-blockers in view of heart block
#6. Hypothyroidism
- Currently on thyroid Pratt
#7. h/o Smoking
- Patient states he quit many years ago however reports occasional wheezing, cough with expectoration. Suspect patient might have underlying COPD. Patient reluctant to use any inhalers. Will add as needed albuterol nebulization. Patient will
need outpatient follow-up with pulmonary clinic for pulmonary function testing and 6-minute walk test etc.
Critical Care time 65 mins -- The patient is admitted for acute critical illness for the treatment of vital organ failure and/or prevention of further life-threatening conditions. Total care includes time spent in review of history, physical exam,
medications, hemodynamic/ventilator parameters, laboratory data, imaging and discussion with house staff, pharmacy, respiratory therapy, screening nurse, and nursing.
Data:
CXR 10/2024: Right internal jugular temporary pacing wire extending into the right ventricle, distal tip directed slightly superiorly.
ECHO 10/2024: LV ejection fraction is approximately 35%, by visual assessment. Akinesis of
the basal to mid inferoseptal, inferior, and inferolateral stewart.
Enlarged right ventricular size. Reduced right ventricular systolic function.
Mild to moderate tricuspid regurgitation. Estimated pulmonary artery pressure
of 35-40 mmHg. The IVC is dilated and does not collapse.
C and Temp Pacemaker insertion 10/2024: 1. Severe three-vessel coronary artery disease as described with 100% stenosis of the distal RCA that is likely the culprit lesion for the patient's NSTEMI and complete heart block, complex bifurcation
disease involving the proximal LAD and moderate caliber diagonal, as well as complex bifurcation disease involving a large circumflex marginal branch.
2. Severely elevated LV filling pressure and no significant aortic stenosis on hemodynamic pullback
[2024-11-02 07:35] LABS: Glucose - Point of Care 130 mg/dl (70-99)
[2024-11-02] MEDS: NOVOLOG FLEXPEN-MODERATE RESISTANCE SC (08:07)
[2024-11-02] MEDS: ARMOUR THYROID 15 MG PO (08:13)
[2024-11-02] MEDS: LOW STRENGTH ASPIRIN 81 MG PO (08:16)
[2024-11-02] MEDS: ZETIA 10 MG PO (08:17)
--- NOTE | 2024-11-02 08:36 | PTCARENOTE ---
Received pt awake and alert. He is tremulous, ABSENTEE-SHAWNEE. Repeating questions. Left FAw/Heparin @1400units/hr. Right IJ Cordis with NSS @70ml/hr with TVP Rate 80, MA 10. Good peripheral pulses. No edema. Lungs with bibasilar crackles. Tolerating 2 liters
nasal cannula, pulse ox 96%. Instructed on the use of and IS. Was only able to pull in 500ml's. +BSx4. Safe environment maintained. Will continue to monitor.
[2024-11-02 09:00] LABS: APTT 60.4 Sec (23.4-35.0)
[2024-11-02] MEDS: XANAX 0.25 MG PO ×2 (09:33→20:00)
--- NOTE | 2024-11-02 09:36 | W.PN.CD ---
Today's Communication / Plan
-
IV heparin
CT Surgery evaluation
Monitor for need for a dose of Lasix
Continue Temp pacing support at 80 bpm
Very high risk situation, critially ill, more than 35 min spent caring for pt today
Impression / Plan
-
PCP Sabina Dior, DO
CAD
- Recent inferior STEMI is based on clinical data, EKG, and confirmed by finding 100% RCA
- Severe LAD, Diag, LCx/OM, and 100% RCA => CT Surgery and Interventional cardiology are discussing options for revascularization
- Anticipate CABG or PCI Thu/Thursday
- IV heparin
Symptomatic complete heart block.
- The mechanism heart block is likely high vagal tone related to the recent inferior STEMI
- Given severe LAD disease he may have distal conduction disease as well
- Temp pacer set at 80 bpm
- Today: He is still in CHB and V paced at 40 bpm
- May need device prior to discharge (would be a BiV ICD)
Acute Heart Failure, HFrEF from ischemic cardiomyopathy
- LVEF by echo 35%
- LVEDP at cath 28
-One dose of diuretic yesterday
- Monitor
- Add GDMT as clinical status allows => Mostly PRN Lasix now and after recovery from revascularization and from ROSANGELA then add GDMT as able
Acute kidney injury on top of CKD
- Likely from poor cardiac output with SC/LV dysfxn/bradycardia Baseline creatinine not known
- Baseline Cr 1.4 in 2021
- Cr better after cath and with pacing support
Longstanding diabetes mellitus, type II on insulin
Family history of premature CAD
Former heavy smoker probably at least a [id number] history
?Hx of HTN, ARB might have been for kidney protection and not HTN
Mixed hyperlipidemia with low HDL
- Goal LDL now <55
-When LFTs better => statin
Elevated LFTs
- Monitor
- May need workup
Subjective:
Comfortable at rest
Physical Exam
Vital Signs/Labs
Vital Signs
Temp Pulse Resp BP Pulse Ox
97.6 F 80 29 114/79 97
11/02/24 08:00 11/02/24 08:00 11/02/24 08:00 11/02/24 08:00 11/02/24 08:00
11/01/24 11/02/24 11/03/24
06:59 06:59 06:59
Actual Weight 79.5 kg 81.4 kg
11/02/24 01:57
11/02/24 01:57
PT 18.8 Sec (11.4-14.6) H 11/02/24 01:57
INR 1.55 11/02/24 01:57
APTT 60.4 Sec (23.4-35.0) H 11/02/24 08:32
Magnesium 1.8 mg/dl (1.6-2.3) 11/02/24 01:57
Triglycerides 94 mg/dl (10-149) 11/01/24 04:18
LDL Cholesterol, Calc 80 mg/dl 11/01/24 04:18
VLDL Cholesterol, Calc 18 mg/dl (0-30) 11/01/24 04:18
HDL Cholesterol 33 mg/dl 11/01/24 04:18
TSH 3.13 uIU/ml (0.47-4.68) 10/31/24 21:54
Free T4 1.66 ng/dl (0.78-2.19) 10/31/24 21:54
LAB Results
10/31/24 11/01/24 11/01/24
22:19 00:51 04:18
Troponin I 50.900 H* Cancelled 43.400 H*
11/01/24 11/01/24 11/01/24
06:51 12:25 12:51
Troponin I Cancelled 37.900 H* Cancelled
11/01/24
16:30
Troponin I Cancelled
Data Reviewed
-
Date of Service: November 02, 2024
--- NOTE | 2024-11-02 09:40 | W.PN.HOSP.TC ---
Today's Communication/Plan
-
Stop IV fluids
1 dose of [address] surgery decision
Suspect LFTs likely secondary to hepatic congestion
Follow creatinine
Check pricing for SGLT2 inhibitors
Assessment / Plan
Assessment / Plan
74-year-old male with fatigue and myalgias. Patient had lightheadedness and passed out on he did not seek attention. When he fell he had some viral illness. He felt lightheaded which Made him come to the ER. Had abdominal pain and had a
large BM on . Has a cough.
EKG reviewed by me-ST elevations in inferior leads
CVS: S1-S2 normal, sm at apex
Chest: CTA B/L
Abdomen: Soft, NT. No guarding or rigidity. Bowel sounds present
Extremities: No edema
TELEPHONER: Patient has tremors both resting and intention, he does have mild rigidity/cogwheeling
Rash- purplish on right leg, left ankle, right upper arm.
Ultrasound of the abdomen-fatty infiltration, simple bilateral renal cyst. Small right pleural effusion
Cardiac cath 11/01/2024-severe three-vessel CAD with 100% stenosis of distal RCA, complex bifurcation disease involving proximal LAD and moderate caliber diagonal as well as complex disease involving large circumflex marginal branch. Severe elevated
LV filling pressure. No significant AAS
Echo 11/01/2024-EF 35%. Akinesis of the basal and mid inferoseptal, inferior and inferolateral stewart. Enlarged RV size. Reduced RV SF. Mild to moderate TR. PA pressure 35 to 40 mmHg. IVC is dilated
# Acute MT
Ischemic cardiomyopathy
Probably happened on when he had symptoms of syncope
Continue aspirin. Patient is hesitant to take statin . Crestor started along with Zetia
Continue heparin drip
Hold ARB as below. Hold BB due to HB.
Troponin trending down
EKG with complete heart block and wide-complex QRS likely secondary to ischemia
Patient has transvenous pacer adjusted to heart rate 80. Pacer spikes noted on rhythm strip
Cardiology consulted and following
Echo as above
Cannot do goal-directed therapy secondary to hypotension, heart block. Hold off on beta-freddie/Arni/ARB.
Will check pricing for SGLT2 inhibitor
CT surgery evaluation-pending notes. I was told that the plan is for outpatient CABG evaluation
Patient may need pacer placement
May likely need stenting to the complex lesions prior to discharge
# ROSANGELA , Possible CKD.
Creatinine was 1.4 in 2021
Hold ARB, hold metformin
Follow creatinine to R/O KIMBERLY
Creatinine 1.4 today
# Tremors-need to rule out Parkinson disease.
May also have essential tremors-cannot use any beta-blockers because of heart block
Eventually needs to follow-up with a neurologist
# Leukocytosis-likely stress reaction
Chest x-ray unremarkable
Urinalysis unremarkable
Watch temperature
If develops fever get blood cultures
USS abdomen without any infectious etiology
# Hypertension-hold ARB follow blood pressure
# [id number]
Poor control as outpatient
Patient uses Lantus insulin 40 units at night, Januvia 100 mg p.o. twice daily, metformin 1000 mg p.o. twice daily as outpatient
Continue 40 units of Lantus .
Check pricing for SGLT2 inhibitors
Accu-Cheks and sliding scale coverage
# Hypothyroidism-continue replacement
# Hyperlipidemia-patient has had intolerance to statin in the past and also LFTs elevated. Will discuss and maybe start Pravastatin when LFTS better. benefits discussed.
# Elevated AST and ALT-USS only shows fatty liver. Suspect hepatic congestion. 20 mg of Lasix
# Longstanding rash at least since 2013- Pt says he got Biopsy and was told it is from Diabetes. he doesn't remember the name of the Derm.
# Ex-smoker
# DVT prophylaxis-IV heparin
# Full code
D/W RN at bed side
Get records from PCP
Total Critical Care Time 31 minutes. I was immediately available to the patient and staff. I personally examined, reviewed labs, diagnostic images/reports, interpretations, treatment plans, discussed patient care with other providers and family ,
entered orders as appropriate and documented the medical record.
Part of this note was created using voice recognition system. Occasional wrong word or��sound alike� substitutions may have inadvertently occurred due to the inherent limitations of voice recognition software. If noted kindly bring it to my
attention for correction.
Anticipated Discharge: > 48 hours
Subjective/Interval History
-
Date of Service: November 02, 2024
Objective Data
-
Labs:
Laboratory Results
11/02/24 11/02/24 11/02/24
01:57 01:57 08:32
WBC 18.4 H
Hgb 13.0
Hct 37.6 L
Plt Count 198
PT 18.8 H
INR 1.55
APTT Cancelled 44.5 H 60.4 H
Sodium 138
Potassium 4.6
Chloride 109 H
Carbon Dioxide 19 L
BUN 65 H
Creatinine 1.4 H
Glucose 159 H
Calcium 7.3 L
Total Bilirubin 1.2
AST 399 H
ALT 184 H
Alkaline Phosphatase 91
11/02/24
15:30
WBC
Hgb
Hct
Plt Count
PT
INR
APTT Pending
Sodium
Potassium
Chloride
Carbon Dioxide
BUN
Creatinine
Glucose
Calcium
Total Bilirubin
AST
ALT
Alkaline Phosphatase
Vital Signs:
Vital Signs
Temp Pulse Resp BP Pulse Ox
97.6 F 80 29 114/79 97
11/02/24 08:00 11/02/24 08:00 11/02/24 08:00 11/02/24 08:00 11/02/24 08:00
I&O
11/01/24 11/02/24 11/03/24
06:59 06:59 06:59
Intake Total 540 / 675 2473 / 2557 492 / 492
Output Total 2575 / 2575
Balance 540 / 675 -102 / -18 492 / 492
--- NOTE | 2024-11-02 09:57 | CONSULT.CT ---
Consultation
-
Date/Time Consultation Performed: 11/02/24 1000
Requesting Provider: Irving
Performing Provider: Muriel Escobar PA-C for Tacho Wilks MD
Reason for Consultation: CABG vs complex stenting
Patient History
Physicians
Family Physician: Jessica Dior,
Inpatient Nursing Aide: [facility]
History of Present Illness
74 y/o male with PMHx of HTN, T2DM on lantus and oral meds, double vision, CHEHALIS presents to the ED after syncopal episode and generalized weakness for several days. 6 days ago, pt returned home from food shopping and had a syncopal episode while home
alone. He awoke without recollection of the event. He did hit his head and has a small bruise medial to his right eyebrow. He reports shoulder and joint pain and had nausea with 2 episodes of near-vomiting. Overnight he had chills and diaphoresis.
He called his PCP's office the next day, but was unable to speak to her. He and his felt he might have a viral illness. He took a COVID test the following day and it was negative, but he thought it might be too early to tell, so he planned to
repeat it in 48 hours, per instructions on the test. He continued to have weakness and fatigue throughout the weekend, and 2 days later, had difficulty getting out of bed. His repeat COVID test was negative. At this point, his called 911 and he
was brought to [facility] via ambulance. He denies ARDON, dizziness, cough, chest pain, SOB, POLLACK, palpitations, back pain, urinary symptoms, diarrhea, constipation.
In the ED, WBC 22.5, cr 2.1, glucose 244, trop 50.9. CT head negative. ECG showed CHB with HR in 30s. Pacer pads were placed and he was admitted for further work-up and evaluation.
Echo showed EF 35% with akinesis of the basal to mid inferoseptal, inferior, and inferolateral stewart. Prior echo on 04/2014 showed EF of 50-55%.
Cardiac catherization showed severe three-vessel coronary artery disease with 100% stenosis of the distal RCA, complex bifurcation disease involving the proximal LAD and moderate caliber diagonal, as well as complex bifurcation disease involving a
large circumflex marginal branch.
Past Medical History
- HTN
- T2DM, on insulin
- double vision
- CHEHALIS, wears hearing aids
Past Surgical History
- tonsillectomy as child
- appendectomy
Family History
Family Medical History: Early CAD (Brother: DE/CABG; Mother: CAD)
Social History
Alcohol: Occasional
Drug: None
Tobacco: Former Smoker (cigarettes)
Personal:
Living: With Spouse
Employment: Retired
Allergies
Allergy/AdvReac Type Severity Reaction Status Date / Time
Iodinated Contrast Media Allergy iv contrast Verified 11/01/24 18:18
Home Medications
�Medication �Instructions �Recorded �Confirmed �Type
insulin glargine 100 unit/mL (3 40 units SC HS Diabetes 04/06/14 10/31/24 History
mL) subcutaneous pen (Lantus
Solostar U-100 Insulin)
losartan 50 mg tablet (Cozaar) 25 mg PO DAILY Blood Pressure 04/06/14 10/31/24 History
metformin 500 mg tablet,extended 1,000 mg PO BID Diabetes 04/06/14 10/31/24 History
release 24 hr
sitagliptin phosphate 100 mg 100 mg PO BID Diabetes 10/31/24 10/31/24 History
tablet (Januvia)
thyroid (pork) 15 mg tablet (CARE TRANSITIONS NURSE 15 mg PO DAILY Thyroid 10/31/24 10/31/24 History
Thyroid)
Review of Systems
-
History Source: Patient
General: Reports Fatigue, Night Sweats and Chills
HEENT: Denies Visual Changes (no new changes)
Respiratory: Denies SOB, POLLACK or Cough
Cardiac: Reports Nausea and Vomiting; Denies Chest Pain, Known Vascular Disease or Edema
Abdomen/GI: Denies Diarrhea or Constipation
: Denies Dysuria or Frequency
Musculoskeletal: Reports Arthralgias and Joint Pain
Skin: Reports Rash (B/L LE chronic non-pruritic rash)
Neurological: Reports Syncope and Weakness; Denies Headaches or Dizzy
Physical Exam
Vital Signs
Temp 97.6 F 11/02/24 08:00
Temp route: Oral 11/02/24 08:00
Pulse 80 11/02/24 08:00
Rhythm: V paced (venticular) 11/02/24 03:49
With- PVC's Monomorphic 11/01/24 19:48
Resp Rate 29 11/02/24 08:00
Blood pressure 114/79 11/02/24 08:00
Blood pressure extremity used: Left upper arm 11/01/24 19:43
Position: Lying 11/01/24 19:43
MAP (cuff-Adalberto Monitor) 89 11/02/24 08:00
SaO2 97 11/02/24 08:00
Nasal Cannula flow liters per minute 2 11/02/24 03:49
Oxygen Mode of Delivery Room air 11/01/24 21:20
Acceptable pain level during hospitalization? 0 10/31/24 21:32
Can the patient verbally communicate their pain? Yes 11/01/24 01:34
Actual Weight 179 lb 7.3 oz 11/02/24 03:20
Body Mass Index (BMI) 26.5 11/02/24 03:20
Labs
11/02/24 01:57
11/02/24 01:57
PT 18.8 Sec (11.4-14.6) H 11/02/24 01:57
APTT 60.4 Sec (23.4-35.0) H 11/02/24 08:32
Hemoglobin A1c 9.0 % (4.0-5.6) H 11/01/24 04:18
Troponin I Cancelled 11/01/24 16:30
Urinalysis
Urine Color Yellow 11/01/24 22:22
Urine Clarity Clear (Clear) 11/01/24 22:22
Urine pH 5.0 (5.0-9.0) 11/01/24 22:22
Ur Specific [place] 1.015 (<1.030) 11/01/24 22:22
Urine Ketones Negative (Negative) 11/01/24 22:22
Ur Occult Blood Reflex Negative (Negative) 11/01/24 22:22
Urine Bilirubin Negative (Negative) 11/01/24 22:22
Leukocyte Esterase Rfl Negative (Negative) 11/01/24 22:22
Urine RBC 0-2 /HPF (0-2) 11/01/24 22:22
Urine WBC (Reflex) 0-2 /HPF (0-5) 11/01/24 22:22
Ur Squamous Epith Cells 3-5 /LPF (Few) 11/01/24 22:22
Urine Bacteria (Reflex) Few (Negative) A 11/01/24 22:22
Urine Glucose Negative (Negative) 11/01/24 22:22
Urine Albumin (Reflex) 1+ (Neg - Trace) A 11/01/24 22:22
Diagnostic Studies
Echo 11/01/24:
LV ejection fraction is approximately 35%, by visual assessment. Akinesis of the basal to mid inferoseptal, inferior, and inferolateral stewart.
Enlarged right ventricular size. Reduced right ventricular systolic function.
Mild to moderate tricuspid regurgitation. Estimated pulmonary artery pressure of 35-40 mmHg.
Compared to previous echo on 04/06/2014, LVEF has declined (previously 50-55%) with new regional wall motion abnormalities as specified.
Cardiac Catheterization 11/01/24:
- Severe three-vessel coronary artery disease with 100% stenosis of the distal RCA that is likely the culprit lesion for the patient's NSTEMI and complete heart block, complex bifurcation disease involving the proximal LAD and moderate caliber
diagonal, as well as complex bifurcation disease involving a large circumflex marginal branch.
- Severely elevated LV filling pressure and no significant aortic stenosis on hemodynamic pullback
Exam
General: Well Developed, Well Nourished and No Apparent Distress
HEENT: Normocephalic, Moist Mucous Membranes and Other (right glabella with hematoma and small vertical scar)
Neck: Negative JVD or Carotid Bruit
Respiratory: Clear; Negative Wheezes, Crackles or Rhonchi
Cardiac: Regular Rhythm and Other (temporary wires in place and pacing at 80bpm); Negative Murmur, Rub or Gallop
GI: Soft, Non Tender and Non Distended
Skin: Warm, Dry and Other (chronic LE skin changes)
Neuro: AO x 3
Extremities: Pulses (good DP/PT pulses b/l) and Other; Negative Lower Level Edema, Lower Level Cyanosis or Lower Level Clubbing
Assessment / Plan
-
74 y/o M with PMHx of HTN, T2DM, family history of early CAD presents to ED with syncopal episode and generalized weakness, fatigue, and joint pain.
NSTEMI/CAD
- Peak troponin 50.9
- Severe multivessel CAD including total occlusion of RCA
- Continue heparin drip
- Cath will be reviewed and multidisciplinary discussion will determine if CABG or complex PCI is best option for revascularization
- If plan is for CABG, will obtain pre-op imaging and labs as needed
Complete Heart Block
- Likely from NSTEMI
- Currently with temporary pacer via right IJ, pacing at 80 bpm
- May need ICD placement prior to discharge
- Continue to hold Beta freddie
Diabetes Mellitus
- Hgb A1c = 9.0
- Lantus restarted, ISS
- Hold oral medications for now
HLD
- Started on Crestor and Zetia
Syncope/Head trauma
- Small hematoma, healing well
- No obvious sequelae
- CT head negative
- Continue to monitor
Will discuss with Dr. Wilks.
Thank you for the opportunity to participate in the care of this patient. Will follow.
[2024-11-02] MEDS: LASIX 20 MG IV (11:49)
[2024-11-02 11:58] LABS: Glucose - Point of Care 230 mg/dl (70-99)
[2024-11-02] MEDS: NOVOLOG FLEXPEN-MODERATE RESISTANCE 3 UNITS SC ×2 (12:40→18:04)
--- NOTE | 2024-11-02 14:41 | SUR.PHASEI ---
No changes. He remains 100% v-paced @80. His is at the bedside. Heparin as ordered and KVO via right IJ Cordis.
--- NOTE | 2024-11-02 15:20 | PTCARENOTE ---
Repositioned. Partial CHG bath given. SBD dressing to sacrum intact. Blanchable red on sacrum. Poor inspiratory effort. Bibasilar crackles. Asking for 'the breathing mask' a neb treatment. He stated he always feels short of breath. Pulse ox 97% on 2
liters nasal cannula. Respiratory therapist notified.
[2024-11-02] MEDS: VENTOLIN NEBULES 2.5 MG INH (15:27)
--- NOTE | 2024-11-02 15:59 | CM ---
Discharge POC: TBD. Cardiac cath done. Surgical consult. High risk.
[2024-11-02 16:13] LABS: APTT 76.1 Sec (23.4-35.0)
[2024-11-02 16:55] LABS: Glucose - Point of Care 233 mg/dl (70-99)
--- NOTE | 2024-11-02 17:23 | PTCARENOTE ---
Pt's Son Zeb provided an update over the phone at the request of his mother. Supportive care provided.
[2024-11-02] MEDS: CRESTOR PO (18:05)
[2024-11-02 22:02] LABS: Glucose - Point of Care 283 mg/dl (70-99)
[2024-11-02] MEDS: LANTUS 0.4 UNITS SC (22:02)
--- NOTE | 2024-11-02 22:21 | PTCARENOTE ---
Pt received at 19:00, Ox3-forgetful at times, flat affect. Pt stated that he felt anxious and was requesting PRN xanax, given as ordered. Hand tremors noted, unchanged. R IJ cordis w/ temporary pacer-VVI rate: 80, mA: 10. 100% vpaced. Weak but
palpable DP pulses. RA, pulse ox 93-97%, breath sounds diminished. Encouraged I/S-500cc, reinforced proper technique, instead of taking deep breath pt exhales harshly. +bowel sounds, no BM since admission, pt unsure of last prior BM. Pt voids in
urinal. mira urine. Fingerstick blood glucose = 283, lantus given as ordered, novolog sliding scale increased from moderate to high resistance. x1 order for 8 units novolog.
[2024-11-02 22:22] LABS: APTT 90.1 Sec (23.4-35.0)
[2024-11-02] MEDS: NOVOLOG FLEXPEN 8 UNITS SC (22:28)
[2024-11-03] VITALS (24 sets, daily range): BP systolic 98–143; BP diastolic 62–99; BMI 26.6
[2024-11-03] MEDS: XANAX 0.25 MG PO ×2 (02:10→19:15)
[2024-11-03 04:20] LABS: Hematocrit 39.8 % (39.0-52.0); Hemoglobin 13.0 g/dL (13.0-18.0); Mean Corp Hgb Conc. 32.7 g/dL (33.0-37.0); Mean Corpuscular Volume 89.4 fL (80.0-94.0); Platelet Count 200 10^3/uL (130-400); Red Cell Dist. Width 15.1 % (11.5-14.5)
[2024-11-03 04:40] LABS: APTT 89.5 Sec (23.4-35.0)
[2024-11-03 05:16] LABS: Blood Urea Nitrogen 43 mg/dl (9-20); Calcium 7.4 mg/dl (8.4-10.2); Carbon Dioxide 29 mmol/L (22-30); Chloride 104 mmol/L (98-107); Estimated Creatinine Clearance 59 ml/min; Glucose 184 mg/dl (70-99); Magnesium 2.1 mg/dl (1.6-2.3); Potassium 4.0 mmol/L (3.5-5.1); Sodium 138 mmol/L (135-145); eGFR > 60.00
--- NOTE | 2024-11-03 05:28 | PTCARENOTE ---
Pt desat to 83% on RA while asleep, placed back on 2L NC. Otherwise assessment unchanged. Heparin gtt continues, therapeutic.
--- NOTE | 2024-11-03 07:13 | PN.DE.MGMTRT ---
Insulin Management
- -
11/03/2024 Diabetes Management Consult
Patient admitted 10/31 with c/o weakness; NStEMI, complete heart block. Cardiac cath 11/01 - severe multivessel CAD. PMH HTN, HLD, diabetes, hypothyroid. Prior to admission was taking lantus 40 units @ hs, metformin 1000 mg BID, Januvia 100 mg
daily. A1C on admission 9%. Cr today 1.1, eGFR > 60.
Patient is awake, alert and oriented, resting in bed, able to discuss diabetes care. Family at bedside, very supportive. Patient states he has the DexCom G6 at home but did not know how to start it. Encouraged to bring it in and we will
assist, both appreciative of the help.
Currently patient is receiving lantus 40 units @ hs with high corrective insulin. Glucose range 130 to 283, received 3 units novolog corrective with each meal. Will start 5 units AC novolog today, change high corrective to moderate corrective.
Continue hs lantus 40 units.
Will not start SGLT2 due to possibility of CABG. Will not resume metformin due to s/p Cardiac Cath.
Will follow
Discussed with nurse.
Diabetes History
- -
Type of Diabetes: 2 requiring insulin
Pre-Admission Diabetes Regimen
11/03/24
04:00
Creatinine 1.1
Lab Results
Hemoglobin A1c 9.0 % (4.0-5.6) H 11/01/24 04:18
Insulin Pump Settings
IP Diabetes Regimen
11/02/24 11/02/24 11/02/24
07:34 11:57 16:54
Glucose
POC Glucose 130 H 230 H 233 H
11/02/24 11/03/24
22:01 04:00
Glucose 184 H
POC Glucose 283 H
Meal type: Lunch
Meal type: Breakfast
Amount consumed: 55%
Amount consumed: 100%
Patient Education
[2024-11-03 07:24] LABS: Glucose - Point of Care 115 mg/dl (70-99)
[2024-11-03] MEDS: NOVOLOG FLEXPEN 5 UNITS SC ×3 (07:42→16:24)
[2024-11-03] MEDS: ARMOUR THYROID 15 MG PO (08:04)
[2024-11-03] MEDS: LOW STRENGTH ASPIRIN 81 MG PO (08:04)
[2024-11-03] MEDS: ZETIA PO (08:04)
--- NOTE | 2024-11-03 08:09 | PTCARENOTE ---
[place] on hold per Dr. Harrison given elevated AST/ALT. Pt is aware.
--- NOTE | 2024-11-03 08:20 | W.PN.CD ---
Today's Communication / Plan
-
NPO@MN for PPM tomorrow
start dapa and consider low dose ARB
beta freddie after PPM
CABG next week inpatient vs. discharge and plan for outpatient in coming weeks, TBD
Impression / Plan
-
PCP Sabina Dior, DO
CAD
- Recent inferior STEMI is based on clinical data, EKG, and confirmed by finding 100% RCA
- Severe LAD, Diag, LCx/OM, and 100% RCA => MD discussion re: best revas plan - plan for CABG given complex anatomy, HFrEF, diabetes; will try to delay several weeks to allow inferior scar healing, possible discharge to home after PPM with
outpatient CABG though severity of LAD disease concerning, currently patient with no ischemic symptoms
- not having symptoms suggestive of ongoing ischemia / unstable disease, can stop IV heparin at this point
Symptomatic complete heart block.
- TVP interrogated today with CHB with sinus rate ~100, V escape at 60; put back to 80 backup rate as seems to be helping his cardiac output, promoting renal recovery, etc.
- plan for conduction system PPM tomorrow
Acute Heart Failure, HFrEF from ischemic cardiomyopathy
- LVEF by echo 35%
- LVEDP at cath 28
-improved with diuresis
- Add GDMT as clinical status allows => can start dapa, low dose ARB (noting will need to be held prior to CABG), BB after PPM
Acute kidney injury on top of CKD
- Likely from poor cardiac output with NC/LV dysfxn/bradycardia Baseline creatinine not known
- Baseline Cr 1.4 in 2021
- Cr better after cath and with pacing support
Longstanding diabetes mellitus, type II on insulin
Family history of premature CAD
Former heavy smoker probably at least a 30-jzin-dwri history
?Hx of HTN, ARB might have been for kidney protection and not HTN
Mixed hyperlipidemia with low HDL
-Goal LDL now <55
-start statin, hold if LFTs cont. to worsen
Elevated LFTs
- Monitor
- May need workup
Discussed plan extensively with nursing, patient/family, EP, and CT surgery colleagues.
Subjective:
Comfortable at rest
Physical Exam
Vital Signs/Labs
Vital Signs
Temp Pulse Resp BP Pulse Ox
36.6 C 80 29 125/75 96
11/03/24 07:30 11/03/24 07:00 11/03/24 07:00 11/03/24 07:00 11/03/24 06:00
11/02/24 11/03/24 11/04/24
06:59 06:59 06:59
Actual Weight 81.4 kg 81.7 kg
11/03/24 04:00
11/03/24 04:00
PT 18.8 Sec (11.4-14.6) H 11/02/24 01:57
INR 1.55 11/02/24 01:57
APTT 89.5 Sec (23.4-35.0) H 11/03/24 04:00
Magnesium 2.1 mg/dl (1.6-2.3) 11/03/24 04:00
Triglycerides 94 mg/dl (10-149) 11/01/24 04:18
LDL Cholesterol, Calc 80 mg/dl 11/01/24 04:18
VLDL Cholesterol, Calc 18 mg/dl (0-30) 11/01/24 04:18
HDL Cholesterol 33 mg/dl 11/01/24 04:18
TSH 3.13 uIU/ml (0.47-4.68) 10/31/24 21:54
Free T4 1.66 ng/dl (0.78-2.19) 10/31/24 21:54
LAB Results
10/31/24 11/01/24 11/01/24
22:19 00:51 04:18
Troponin I 50.900 H* Cancelled 43.400 H*
11/01/24 11/01/2411/01/25
06:51 12:25 12:51
Troponin I Cancelled 37.900 H* Cancelled
11/01/24
16:30
Troponin I Cancelled
Physical Exam
Constitutional: No acute distress
Cardiovascular: Rhythm & rate is regular
Respiratory: Respiratory effort normal
Neuro/Psych: AO x 3
Data Reviewed
-
Date of Service: November 03, 2024
Medical Decision Making: Reviewed Test Results and Review of Case with other Provider
EKG: Tracing Personally Visualized and interpreted
Echo: Tracing Personally Visualized and interpreted
X-Ray/CT/US/MRI/NUC/PET: Image Personally Visualized and interpreted
Labs: Labs Reviewed by me
[2024-11-03] MEDS: HEPARIN 25000 UNITS/250 ML IV ×2 (09:18→23:04)
[2024-11-03] MEDS: VENTOLIN NEBULES 2.5 MG INH (10:02)
--- NOTE | 2024-11-03 10:09 | W.PN.HOSP.TC ---
Today's Communication/Plan
-
Start Farxiga
Lasix 20 mg
Case management to check pricing for Entresto.
Assessment / Plan
Assessment / Plan
74-year-old male with fatigue and myalgias. Patient had lightheadedness and passed out on he did not seek attention. When he fell he had some viral illness. He felt lightheaded which Made him come to the ER. Had abdominal pain and had a
large BM on . Has a cough.
EKG reviewed by me-ST elevations in inferior leads
CVS: S1-S2 normal, sm at apex
Chest: CTA B/L
Abdomen: Soft, NT. No guarding or rigidity. Bowel sounds present
Extremities: No edema
CONTINUING EDUCATION SPECIALIST: Patient has tremors both resting and intention, he does have mild rigidity/cogwheeling
Rash- purplish on right leg, left ankle, right upper arm.
Ultrasound of the abdomen-fatty infiltration, simple bilateral renal cyst. Small right pleural effusion
Cardiac cath 11/01/2024-severe three-vessel CAD with 100% stenosis of distal RCA, complex bifurcation disease involving proximal LAD and moderate caliber diagonal as well as complex disease involving large circumflex marginal branch. Severe elevated
LV filling pressure. No significant AAS
Echo 11/01/2024-EF 35%. Akinesis of the basal and mid inferoseptal, inferior and inferolateral stewart. Enlarged RV size. Reduced RV SF. Mild to moderate TR. PA pressure 35 to 40 mmHg. IVC is dilated
# Acute IA
Ischemic cardiomyopathy
Probably happened on when he had symptoms of syncope
Continue aspirin, Crestor started along with Zetia
Continue heparin drip
Hold ARB as below. Hold BB due to HB.
Troponin trending down
EKG with complete heart block and wide-complex QRS likely secondary to ischemia
Patient has transvenous pacer adjusted to heart rate 80. With out pacer support patient still is in complete heart block-tested by cardiology in the room today
Echo as above
Cannot do goal-directed therapy secondary to hypotension, heart block. Holding off on off on beta-freddie/Arni/ARB. Probably we can start ARB/Arni soon.
Start SGLT2 inhibitor-Jardiance is $[address] surgery evaluation noted.
Patient may need pacer placement
May likely need stenting to the complex lesions prior to discharge with outpatient CABG
Cardiology and cardiothoracic surgery to come up with the plan
# ROSANGELA , CKD is unlikely.
Creatinine improving with diuresis
Creatinine was 1.4 in 2021
Follow creatinine to R/O KIMBERLY
Creatinine 1.1 today
# Tremors-need to rule out Parkinson disease.
May also have essential tremors-cannot use any beta-blockers because of heart block
Eventually needs to follow-up with a neurologist
# Leukocytosis-likely stress reaction
Chest x-ray unremarkable
Urinalysis unremarkable
Watch temperature
If develops fever get blood cultures
USS abdomen without any infectious etiology
# Hypertension-blood pressure on the low side. Possibly we can restart ARB or add Arni. No beta-blockers given heart block
# Ntlqkehv-D0a-3.0
Poor control as outpatient
Patient uses Lantus insulin 40 units at night, Januvia 100 mg p.o. twice daily, metformin 1000 mg p.o. twice daily as outpatient
Continue 40 units of Lantus . NovoLog 5 AC started
Start SGLT2 inhibitors
Accu-Cheks and sliding scale coverage
# Hypothyroidism-continue replacement
# Hyperlipidemia-patient has had intolerance to statin in the past and also LFTs elevated. Will discuss and maybe start Pravastatin when LFTS better. benefits discussed.
# Elevated AST and ALT-USS only shows fatty liver. Suspect hepatic congestion. 20 mg of Lasix again today
# Longstanding rash at least since 2013- Pt says he got Biopsy and was told it is from Diabetes. he doesn't remember the name of the Derm.
# Ex-smoker
# DVT prophylaxis-IV heparin
# Full code
D/W RN at bed side
Discussed with patient's and son at bedside
Discussed with cardiology at bedside
Total Critical Care Time 32 minutes. I was immediately available to the patient and staff. I personally examined, reviewed labs, diagnostic images/reports, interpretations, treatment plans, discussed patient care with other providers and family ,
entered orders as appropriate and documented the medical record.
Part of this note was created using voice recognition system. Occasional wrong word or��sound alike� substitutions may have inadvertently occurred due to the inherent limitations of voice recognition software. If noted kindly bring it to my
attention for correction.
Anticipated Discharge: > 48 hours
Subjective/Interval History
-
Date of Service: November 03, 2024
Objective Data
-
Labs:
Laboratory Results
11/02/24 11/03/24
22:02 04:00
WBC 15.4 H
Hgb 13.0
Hct 39.8
Plt Count 200
APTT 90.1 H 89.5 H
Sodium 138
Potassium 4.0
Chloride 104
Carbon Dioxide 29
BUN 43 H
Creatinine 1.1
Glucose 184 H
Calcium 7.4 L
Vital Signs:
Vital Signs
Temp Pulse Resp BP Pulse Ox
98 F 80 28 113/78 95
11/03/24 07:30 11/03/24 09:25 11/03/24 09:25 11/03/24 09:25 11/03/24 10:05
I&O
11/02/24 11/03/24 11/04/24
06:59 06:59 06:59
Intake Total 2473 / 2557 1706 / 1706 52 / 52
Output Total 2575 / 2575 2100 / 2100 200 / 200
Balance -102 / -18 -394 / -394 -148 / -148
[2024-11-03 10:43] LABS: ALT (SGPT) 135 U/L (0-50); AST (SGOT) 106 U/L (17-59); Albumin 3.1 g/dl (3.5-5.0); Alkaline Phosphatase 100 U/L (38-126); Total Protein 6.1 g/dl (6.3-8.2)
--- NOTE | 2024-11-03 11:19 | CM ---
Consult for Entresto pricing . Called [facility] [phone] they said can not give pricing without order and auth.
Called [employer] [phone] spoke with Theresa and Anita pt needs auth for Entresto auth [employer] .
Pt has met deductible and is a 3 tier med .
MD aware of above.
CM will continue to assess and assist with discharge planning.
PLAN Will depend of hospital course of care
[2024-11-03] MEDS: SYMBICORT 160/4.5 MCG INHALER INH (11:24)
[2024-11-03] MEDS: LASIX 20 MG IV (11:35)
[2024-11-03] MEDS: MIRALAX 17 GRAMS PO (11:37)
[2024-11-03] MEDS: SENOKOT-S 1 TABLET PO ×2 (11:37→19:15)
[2024-11-03 11:48] LABS: Vitamin D, 25-OH*** 24.4 ng/mL (30-80)
--- NOTE | 2024-11-03 11:48 | PTCARENOTE ---
2 assist OOB to the chair. Gait steady. He felt slightly dizzy, BP WNL. He remained 100% v-paced @ 80. Family at the bedside. S/P neb treatment. Expiratory wheeze resolved in right base. Fine crackles in right base remain. Lasix administered as
ordered.Safe environment maintained. Written material provided on Farxiga, diabetes & heart disease and carb counting. will bring in glucose meter to ensure he knows how to properly monitor his glucose. Safe environment maintained.
[2024-11-03 11:57] LABS: Glucose - Point of Care 86 mg/dl (70-99)
[2024-11-03 12:21] LABS: Vitamin B12 490 pg/ml (239-931)
[2024-11-03] MEDS: NSS 1000 IV (13:00)
--- NOTE | 2024-11-03 13:04 | W.PN.INTV ---
Today's Communication / Plan
Recommendations
- Add Symbicort, 2 puffs twice a day
- Continue albuterol as needed
- Agree with diuresis, monitor renal function closely
-Add MiraLAX and stool softener
Assessment
-
Patient is a 74-year-old gentleman with long history of diabetes who developed nonspecific symptoms of upper back and shoulder pain 3 days prior to her presentation to the hospital. Also reported syncope episode. He also reported significant
fatigue which eventually brought him to the emergency room. Further workup was suggestive of a complete heart block as well as elevated troponin consistent with acute myocardial infarction. Patient was noted to have inferior wall ST elevation OH.
He was taken to [facility] and had coronary angiography performed which showed 100% RCA stenosis and significant otherwise coronary artery disease. He also had a temporary pacemaker placed. Postprocedure he was admitted to ICU and software quality tester
consultation was requested for further input.
#1. Inferior wall STEMI with multivessel coronary artery disease
- 100% RCA occlusion noted, significant coronary artery disease
- S/p angiography 11/01
- Aspirin, heparin drip. Also on Zetia and rosuvastatin.
- CT surgery consult for further input regarding possible coronary artery bypass graft vs complex PCI
#2. Complete heart block
- Suspected related to RCA infarction.
- S/p temporary pacemaker, currently paced rhythm
- Avoid beta-blockers or other puma blocking agents
- With EF 35%, patient might need AICD
#2a. Heart failure with reduced ejection fraction, acute.
- Continue diuretics, currently on Lasix daily, -1.2 L fluid balance
- Creatinine improving with diuresis
- In view of recent ROSANGELA, hold off BOYD-I or ARB for now
#3. ROSANGELA on admission with underlying CKD
- Admission creatinine was 2.1, currently 1.1
- Suspect cardiorenal syndrome considering improving with diuresis, -1.2 L fluid balance last 24 hours.
#4. DM
- Currently on glargine and sliding scale insulin
#5. h/o HTN
- Hold beta-blockers in view of heart block
#6. Hypothyroidism
- Currently on thyroid [place]
#7. h/o Smoking with suspected underlying COPD
- Patient states he quit many years ago however reports occasional wheezing, cough with expectoration. Suspect patient might have underlying COPD. Patient had been reluctant to use any inhalers. Patient will need outpatient follow-up with
pulmonary clinic for pulmonary function testing and 6-minute walk test etc.
- 11/03, wheezing on exam, responded well to albuterol nebulized. Patient agree for inhaler trial, start Symbicort 160 x 4.5, 2 puffs twice a day.
Critical Care time 45 mins -- The patient is admitted for acute critical illness for the treatment of vital organ failure and/or prevention of further life-threatening conditions. Total care includes time spent in review of history, physical exam,
medications, hemodynamic/ventilator parameters, laboratory data, imaging and discussion with house staff, pharmacy, respiratory therapy, sucker machine operator, and nursing.
Data:
CXR 10/2024: Right internal jugular temporary pacing wire extending into the right ventricle, distal tip directed slightly superiorly.
ECHO 10/2024: LV ejection fraction is approximately 35%, by visual assessment. Akinesis of
the basal to mid inferoseptal, inferior, and inferolateral stewart.
Enlarged right ventricular size. Reduced right ventricular systolic function.
Mild to moderate tricuspid regurgitation. Estimated pulmonary artery pressure
of 35-40 mmHg. The IVC is dilated and does not collapse.
LHC and Temp Pacemaker insertion 10/2024: 1. Severe three-vessel coronary artery disease as described with 100% stenosis of the distal RCA that is likely the culprit lesion for the patient's NSTEMI and complete heart block, complex bifurcation
disease involving the proximal LAD and moderate caliber diagonal, as well as complex bifurcation disease involving a large circumflex marginal branch.
2. Severely elevated LV filling pressure and no significant aortic stenosis on hemodynamic pullback
Subjective Dataa
Subjective Data
Date of Service:
Date of Service: November 03, 2024
Subjective:
Comfortably sitting in bed in no acute distress. Had mild wheezing earlier and received breathing treatment.
Review of Systems
Genitourinary: Other (No new symptoms reported)
Objective Data
Data Reviewed
Vital Signs / I&O / Oxygen:
Vital Signs
Temp Pulse Resp BP Pulse Ox
97.7 F 80 23 143/88 95
11/03/24 12:00 11/03/24 11:36 11/03/24 11:36 11/03/24 11:36 11/03/24 11:36
Intake and Output
11/02/24 11/03/24 11/04/24
06:59 06:59 06:59
Intake Total 2473 / 2557 1706 / 1706 396 / 396
Output Total 2575 / 2575 2100 / 2100 650 / 650
Balance -102 / -18 -394 / -394 -254 / -254
SaO2 95
Nasal Cannula flow liters per 2
minute
Physical Exam
General: Comfortable
HEENT: Normocephalic
Cardiovascular: S1-S2
Respiratory: Wheeze (Faint end expiratory wheezing on exam)
GI: Soft and Non Distended
Neurology: Awake, Alert and Oriented
Skin: Warm
Labs/Micro/Reports
Lab Data
11/03/24 04:00
11/03/24 04:00
Laboratory Results
11/02/24 11/02/24 11/03/24
15:46 22:02 04:00
APTT 76.1 H 90.1 H 89.5 H
[2024-11-03 16:24] LABS: Glucose - Point of Care 139 mg/dl (70-99)
--- NOTE | 2024-11-03 16:33 | PTCARENOTE ---
Pt eating a snack which will also be his dinner. Glucose better managed. brought in his home glucose meter which ended up being a Dexcom G-6. Lu Pa notified via TT.
[2024-11-03] MEDS: CRESTOR PO (16:35)
--- NOTE | 2024-11-03 20:00 | PTCARENOTE ---
on assessment pt AAOx3, denies pain and SOB at this time, Vpaced on the monitor, pacer set at rate 80 and MA 10, 97% on 2L NC, pt states feeling anxious, PRN meds given, see TREVOR, NPO at 0000 for pacemaker placement in the AM, voids in urinal, hep
gtt infusing per MD order, cordis with 10ml/hour intact, call salazar in reach
[2024-11-03] MEDS: SYMBICORT 160/4.5 MCG INHALER 2 PUFF INH (20:12)
[2024-11-03 21:59] LABS: Glucose - Point of Care 124 mg/dl (70-99)
[2024-11-03] MEDS: LANTUS 0.36 UNITS SC (21:59)
[2024-11-04] VITALS (25 sets, daily range): BP systolic 91–147; BP diastolic 66–107; BMI 26.2
--- NOTE | 2024-11-04 | PTCARENOTE ---
no changes from prior assessment, denies pain and SOB, call salazar in reach
[2024-11-04] MEDS: XANAX 0.25 MG PO ×3 (02:27→23:26)
[2024-11-04 04:22] LABS: Hematocrit 36.6 % (39.0-52.0); Hemoglobin 12.3 g/dL (13.0-18.0); Mean Corp Hgb Conc. 33.6 g/dL (33.0-37.0); Mean Corpuscular Volume 87.6 fL (80.0-94.0); Platelet Count 199 10^3/uL (130-400); Red Cell Dist. Width 14.9 % (11.5-14.5)
[2024-11-04 04:31] LABS: APTT 89.1 Sec (23.4-35.0)
[2024-11-04 05:18] LABS: ALT (SGPT) 103 U/L (0-50); AST (SGOT) 77 U/L (17-59); Albumin 2.9 g/dl (3.5-5.0); Alkaline Phosphatase 78 U/L (38-126); Blood Urea Nitrogen 29 mg/dl (9-20); Calcium 7.4 mg/dl (8.4-10.2); Carbon Dioxide 30 mmol/L (22-30); Chloride 105 mmol/L (98-107); Estimated Creatinine Clearance 72 ml/min; Glucose 99 mg/dl (70-99); Potassium 4.0 mmol/L (3.5-5.1); Sodium 138 mmol/L (135-145); Total Protein 5.7 g/dl (6.3-8.2); eGFR > 60.00
--- NOTE | 2024-11-04 05:40 | PTCARENOTE ---
pt c/o anxiety, PRN meds given see TREVOR NPO at 0000, call salazar in reach
[2024-11-04] MEDS: VENTOLIN NEBULES 2.5 MG INH ×2 (07:40→19:44)
[2024-11-04] MEDS: SYMBICORT 160/4.5 MCG INHALER 2 PUFF INH ×2 (07:40→19:42)
--- NOTE | 2024-11-04 08:14 | W.ICD.CONTRA ---
Post ICD/PATTERN SCRATCHER-D
-
History of [place]?: Yes
LV Function
Left ventricular function study result?: Ejection Fraction </= 35%
ACEI/ARB/ARNI
Patient already on ACEI/ARB/ARNI: Yes
Beta-Ulises
Patient already on Beta Ulises: No
Beta Ulises Contraindication: 2nd-3rd AV Block, No Pacer
--- NOTE | 2024-11-04 08:25 | PN.DE.MGMTRT ---
Insulin Management
- -
11/04/2024: Diabetes Management Consult
Patient admitted 10/31 with c/o weakness; NSTEMI, complete heart block. Cardiac cath 11/01 - severe multivessel CAD.
PMH: HTN, HLD, T2DM and Hypothyroid. Prior to admission was taking Lantus 40 units @ hs, Metformin 1000 mg BID, Januvia 100 mg daily. A1C on admission 9%. Cr 0.9, eGFR > 60 today.
Patient awake, alert and oriented, very pleasant, resting in bed, offers no complaints, able to discuss diabetes care. Family at bedside, very supportive.
Pt is NPO for pacemaker/ICD placement today.
Patient's brought in his DexCom G6, explained to pt and that we will assist him in placing the device once plans for surgery have been finalized.
Currently patient is receiving Lantus 36 units @ hs with NovoLog 5 units AC and low corrective insulin.
Glucose range 86 to 139. Will make no changes to current regimen: Lantus 36 units @ HS, NovoLog 5 units AC and moderate corrective.
Will not start SGLT2 due to possibility of CABG. Will not resume Metformin due to s/p Cardiac Cath and planned procedure today.
Will cont to follow. Discussed with nurse at bedside.
Diabetes History
- -
Type of Diabetes: 2 requiring insulin
Pre-Admission Diabetes Regimen
11/03/24 11/04/24
04:00 04:03
Creatinine 1.1 0.9
Lab Results
Hemoglobin A1c 9.0 % (4.0-5.6) H 11/01/24 04:18
Insulin Pump Settings
IP Diabetes Regimen
11/03/24 11/03/24 11/03/24
04:00 11:55 16:23
Glucose 184 H
POC Glucose 86 139 H
11/03/24 11/04/24
21:58 04:03
Glucose 99
POC Glucose 124 H
Meal type: Breakfast
Patient Education
--- NOTE | 2024-11-04 09:39 | W.PN.UPDATE ---
Addendum entered and electronically signed by Brandon Bueno MD 11/04/24 09:47:
Today I checked his underlying rhythm is sinus/sinus tach and V pacing at 40 bpm. He is now 8 days from infarct. Will proceed to BiV ICD today. two runs NSVT in last 24 hours (5 and 6 beats, monomorphic).
Original Note:
Update Note
Progress Note Update
I have examined this patient prior to performance of the scheduled procedure. His condition is improved from the time of the History and Physical and the patient is able to undergo the scheduled procedure.
The best device for this patient less than 40 days from [place] and in need of guideline directed pacemaker therapy is an ICD given his LVEF of </= 35%. He also has severe heart failure and asymptomatic NSVT within the last 24 hours.
From the document:
JACChttps://www.jacc.org/journal/jacc.�2024 [phone]
ACC/AHA/ASE/HFSA/HRS/SCAI/SCCT/SCMR 2024 Appropriate Use Criteria for Implantable Cardioverter-Defibrillators, Cardiac Resynchronization Therapy, and Pacing
Pre-Existing CM or Permanent PM Needed
'however, when the LVEF is severely reduced (<=35%) and the patient requires permanent PM implantation early (<=0 days) following [place] or (<= months) after revascularization, ICD therapy is preferable to PM implantation (Table 2.1.4)'
[2024-11-04] MEDS: LOW STRENGTH ASPIRIN 81 MG PO (09:52)
[2024-11-04] MEDS: ARMOUR THYROID 15 MG PO (09:52)
--- NOTE | 2024-11-04 09:54 | W.PN.HOSP.TC ---
Today's Communication/Plan
-
Patient is for pacemaker/ICD today
CT surgery planned as outpatient
Can start SGLT2 inhibitors and Diovan tomorrow.
Has to be low doses in order not to drop blood pressure as he is recovering from ROSANGELA
Hold off on ARNI until plans are finalized for CT surgery
If blood pressure is stable in the afternoon we can consider another dose of Lasix today. Held as BP borderline and may need sedation.
Assessment / Plan
Assessment / Plan
74-year-old male with fatigue and myalgias. Patient had lightheadedness and passed out on he did not seek attention. When he fell he had some viral illness. He felt lightheaded which Made him come to the ER. Had abdominal pain and had a
large BM on . Has a cough.
EKG reviewed by me-ST elevations in inferior leads
CVS: S1-S2 normal, sm at apex
Chest: Few rales scattered
Abdomen: Soft, NT. No guarding or rigidity. Bowel sounds present
Extremities: No edema
Rash- purplish on right leg, left ankle, right upper arm.
Ultrasound of the abdomen-fatty infiltration, simple bilateral renal cyst. Small right pleural effusion
Cardiac cath 11/01/2024-severe three-vessel CAD with 100% stenosis of distal RCA, complex bifurcation disease involving proximal LAD and moderate caliber diagonal as well as complex disease involving large circumflex marginal branch. Severe elevated
LV filling pressure. No significant AAS
Echo 11/01/2024-EF 35%. Akinesis of the basal and mid inferoseptal, inferior and inferolateral stewart. Enlarged RV size. Reduced RV SF. Mild to moderate TR. PA pressure 35 to 40 mmHg. IVC is dilated
# Acute NC
Ischemic cardiomyopathy
Probably happened on when he had symptoms of syncope
Continue aspirin, Crestor started along with Zetia
Off heparin drip
Can be started on an ARB .
Hold BB due to heart block. Needs a beta-freddie to be started after pacemaker
ICD also planned because of NSVT
Start SGLT2 inhibitor-Jardiance is $47 per month
Hold off on ARNI until CT surgery plans finalized
Troponin trending down
EKG with complete heart block and wide-complex QRS likely secondary to ischemia
Patient has transvenous pacer adjusted to heart rate 80. With out pacer support patient still is in complete heart block-tested by cardiology in the room today
Echo as above
CT surgery evaluation noted.
Patient is for pacemaker placement today
# ROSANGELA , CKD ruled out
Creatinine improving with diuresis
# Tremors-need to rule out Parkinson disease.
May also have essential tremors-cannot use any beta-blockers because of heart block
Eventually needs to follow-up with a neurologist
# Leukocytosis-likely stress reaction
Chest x-ray unremarkable
Urinalysis unremarkable
Watch temperature
If develops fever get blood cultures
USS abdomen without any infectious etiology
# Hypertension-blood pressure on the low side. Possibly we can restart ARB or add Arni. No beta-blockers given heart block
# Lfmqhwwp-V1x-8.0
Poor control as outpatient
Patient uses Lantus insulin 40 units at night, Januvia 100 mg p.o. twice daily, metformin 1000 mg p.o. twice daily as outpatient
Continue 40 units of Lantus . NovoLog 5 AC started
Start SGLT2 inhibitors tomorrow.
Accu-Cheks and sliding scale coverage
# Hypothyroidism-continue replacement
# Hyperlipidemia-patient has had intolerance to statin in the past and also LFTs elevated. Will discuss and maybe start Pravastatin when LFTS better. benefits discussed.
# Elevated AST and ALT-USS only shows fatty liver. Suspect hepatic congestion. 20 mg of Lasix again today in the afternoon after the procedure as long as blood pressure stable
# Longstanding rash at least since 2013- Pt says he got Biopsy and was told it is from Diabetes. he doesn't remember the name of the Derm.
# Ex-smoker
# DVT prophylaxis-subcutaneous Lovenox
# Full code
Discussed with patient's and son at bedside
Discussed with nursing
Total Critical Care Time 321minutes. I was immediately available to the patient and staff. I personally examined, reviewed labs, diagnostic images/reports, interpretations, treatment plans, discussed patient care with other providers and family ,
entered orders as appropriate and documented the medical record.
Part of this note was created using voice recognition system. Occasional wrong word or��sound alike� substitutions may have inadvertently occurred due to the inherent limitations of voice recognition software. If noted kindly bring it to my
attention for correction.
Anticipated Discharge: 24 - 48 hours
Subjective/Interval History
-
Date of Service: November 04, 2024
Objective Data
-
Labs:
Laboratory Results
11/04/24
04:03
WBC 13.4 H
Hgb 12.3 L
Hct 36.6 L
Plt Count 199
APTT 89.1 H
Sodium 138
Potassium 4.0
Chloride 105
Carbon Dioxide 30
BUN 29 H
Creatinine 0.9
Glucose 99
Calcium 7.4 L
Total Bilirubin 1.0
AST 77 H
ALT 103 H
Alkaline Phosphatase 78
Vital Signs:
Vital Signs
Temp Pulse Resp BP Pulse Ox
97.3 F 80 26 105/67 93
11/04/24 07:17 11/04/24 09:42 11/04/24 09:42 11/04/24 09:42 11/04/24 09:42
I&O
11/03/24 11/04/24 11/05/24
06:59 06:59 06:59
Intake Total 1706 / 1706 984 / 1010 46 / 46
Output Total 2100 / 2100 1450 / 1450
Balance -394 / -394 -466 / -440 46 / 46
[2024-11-04] MEDS: NOVOLOG FLEXPEN SC ×3 (09:55→18:00)
--- NOTE | 2024-11-04 10:26 | PTCARENOTE ---
Report called to flower shop laborer/designer @2043.
--- NOTE | 2024-11-04 10:32 | ECGCV ---
Dr. Bueno notified of 4bt VT via TT @ 8562. He is aware of several other episodes when he assessed his overnight recordings. Pt asymptomatic.
--- NOTE | 2024-11-04 10:49 | PTCARENOTE ---
Pt to labview programmer via bed monitored with 100% v-paced @80. NSS kvo via right IJ cordis. Both FA IV's flushed and patent with blood return.
--- NOTE | 2024-11-04 12:08 | W.PN.INTV ---
Today's Communication / Plan
Recommendations
- Continue Symbicort twice a day at discharge
- Outpatient follow-up with pulmonary clinic
- Once patient transferred out of ICU, casting house laborer service will sign off.
Assessment
-
Patient is a 74-year-old gentleman with long history of diabetes who developed nonspecific symptoms of upper back and shoulder pain 3 days prior to her presentation to the hospital. Also reported syncope episode. He also reported significant
fatigue which eventually brought him to the emergency room. Further workup was suggestive of a complete heart block as well as elevated troponin consistent with acute myocardial infarction. Patient was noted to have inferior wall ST elevation CA.
He was taken to [facility] and had coronary angiography performed which showed 100% RCA stenosis and significant otherwise coronary artery disease. He also had a temporary pacemaker placed. Postprocedure he was admitted to ICU and casting house laborer
consultation was requested for further input.
#1. Inferior wall STEMI with multivessel coronary artery disease
- 100% RCA occlusion noted, significant coronary artery disease
- S/p angiography 11/01
- Aspirin, heparin drip. Also on Zetia and rosuvastatin.
- CT surgery consulted for further input regarding possible coronary artery bypass graft vs complex PCI
#2. Complete heart block
- Suspected related to RCA infarction.
- S/p temporary pacemaker, currently V paced rhythm
- Avoid beta-blockers or other puma blocking agents
- With EF 35%, patient will need AICD
- Scheduled for the AICD placement 11/04
#2a. Heart failure with reduced ejection fraction, acute.
- Fluid balance -460 mL
- Intermittently getting diuresis
- Creatinine improving with diuresis
- In view of recent ROSANGELA, hold off BOYD-I or ARB for now
#3. ROSANGELA on admission
- Admission creatinine was 2.1, currently 0.9
- Suspect cardiorenal syndrome considering improving with diuresis
- Continue to monitor
#4. DM
- Currently on glargine and sliding scale insulin
#5. h/o HTN
- Hold beta-blockers in view of heart block
#6. Hypothyroidism
- Currently on thyroid [place]
#7. h/o Smoking with suspected underlying COPD
- Patient states he quit many years ago however reports occasional wheezing, cough with expectoration. Suspect patient might have underlying COPD. Patient had been reluctant to use any inhalers. Patient will need outpatient follow-up with
pulmonary clinic for pulmonary function testing and 6-minute walk test etc.
- 11/03, wheezing on exam, responded well to albuterol nebulized. Patient agree for inhaler trial, started Symbicort 160 x 4.5, 2 puffs twice a day.
- No wheezing or cough this morning
Critical Care time 43 mins -- The patient is admitted for acute critical illness for the treatment of vital organ failure and/or prevention of further life-threatening conditions. Total care includes time spent in review of history, physical exam,
medications, hemodynamic/ventilator parameters, laboratory data, imaging and discussion with house staff, pharmacy, respiratory therapy, escrow closer, and nursing.
Data:
CXR 10/2024: Right internal jugular temporary pacing wire extending into the right ventricle, distal tip directed slightly superiorly.
ECHO 10/2024: LV ejection fraction is approximately 35%, by visual assessment. Akinesis of
the basal to mid inferoseptal, inferior, and inferolateral stewart.
Enlarged right ventricular size. Reduced right ventricular systolic function.
Mild to moderate tricuspid regurgitation. Estimated pulmonary artery pressure
of 35-40 mmHg. The IVC is dilated and does not collapse.
LHC and Temp Pacemaker insertion 10/2024: 1. Severe three-vessel coronary artery disease as described with 100% stenosis of the distal RCA that is likely the culprit lesion for the patient's NSTEMI and complete heart block, complex bifurcation
disease involving the proximal LAD and moderate caliber diagonal, as well as complex bifurcation disease involving a large circumflex marginal branch.
2. Severely elevated LV filling pressure and no significant aortic stenosis on hemodynamic pullback
Subjective Dataa
Subjective Data
Date of Service:
Date of Service: November 04, 2024
Subjective:
Patient comfortably lying in bed in no acute distress. No dyspnea reported. No chest pain. N.p.o. for the procedure.
Review of Systems
Genitourinary: Other (All 14 systems reviewed and negative except as stated above in the history of present illness.)
Objective Data
Data Reviewed
Vital Signs / I&O / Oxygen:
Vital Signs
Temp Pulse Resp BP Pulse Ox
97.6 F 80 24 110/69 94
11/04/24 10:37 11/04/24 10:00 11/04/24 10:00 11/04/24 10:00 11/04/24 10:37
Intake and Output
11/03/24 11/04/24 11/05/24
06:59 06:59 06:59
Intake Total 1706 / 1706 984 / 1010 56 / 56
Output Total 2100 / 2100 1450 / 1450
Balance -394 / -394 -466 / -440 56 / 56
SaO2 94
Nasal Cannula flow liters per 2
minute
Physical Exam
General: Comfortable
HEENT: Normocephalic
Cardiovascular: S1-S2
Respiratory: Wheeze (Faint end expiratory wheezing on exam)
GI: Soft and Non Distended
Neurology: Awake, Alert and Oriented
Skin: Warm
Labs/Micro/Reports
Lab Data
11/04/24 04:03
11/04/24 04:03
Laboratory Results
11/04/24
04:03
APTT 89.1 H
--- NOTE | 2024-11-04 13:08 | PTCARENOTE ---
Family provided update for transfer to IVU post procedure. Awaiting Dr. Bueno to provide family update.
--- NOTE | 2024-11-04 13:20 | PTCARENOTE ---
Family updated that his procedure is over and going to recovery. He is downgraded to IVU but will be coming back to this room until room becomes available. While updating the family in the room, the monitor alarmed VF with rate >200. Attempted to
call cath labx2 @ext 2043. See cath note.
--- NOTE | 2024-11-04 13:40 | PTCARENOTE ---
Family is aware of the events that occurred regarding VF w/1 shock from ICD. No questions at this time. I did state that they should clarify sometime before he goes for CT surgery his advanced directives. They agreed and will discuss this with him.
Supportive care given.
[2024-11-04] MEDS: DEXTROSE 50% SYRINGE 12.5 GRAMS IV (13:49)
--- NOTE | 2024-11-04 13:51 | PTCARENOTE ---
pt returned to procedure room 4- See [facility] documentation.
--- NOTE | 2024-11-04 13:52 | W.PN.UPDATE ---
Update Note
Progress Note Update
STS RISK SCORE
Procedure Type:�Isolated CABG
Perioperative Outcome Estimate %
Operative Mortality 4.92%
Morbidity & Mortality 18.7%
Stroke 2.38%
Renal Failure 4.95%
Reoperation 3.69%
Prolonged Ventilation 11.7%
Deep Sternal Wound Infection 0.137%
Long Hospital Stay (>14 days) 14.3%
Short Hospital Stay (<6 days)* 21.6%
Clinical Summary
Planned Surgery: Isolated CABG, Urgent, First cardiovascular surgery
Demographics: 74 year old, male, 81.4kg, 175cm, BMI: 26.6 kg/m�
Lab Values: Creatinine: 0.9 mg/dL, Hematocrit: 36.6%, WBC Count: 13.4 10�/�L, Platelet Count: 221404 cells/�L
PreOp Medications: Insulin diabetes control
Substance Abuse: Former smoker
Risk Factors / Comorbidities: Insulin-dependent Diabetes Mellitus, Hypertension
Cardiac Status: Chronic heart failure, NYHA Class II, Ejection Fraction = 35%
Coronary Artery Disease: 3 vessels diseased, Proximal LAD Stenosis >=70%, STEMI, [place]: 1 to 7 Days
Valve Disease: Trivial/Trace AR, Mild MR, Moderate TR
Arrhythmia: Recent 3?? Degree Block
[2024-11-04 13:56] LABS: Glucose - Point of Care 69 mg/dl (70-99)
--- NOTE | 2024-11-04 14:00 | PTCARENOTE ---
pt arrived from farm laborer via the bed, monitored with left arm in a sling. He is awake and alert. TAYLOR. He is describing how he just went off into a dream state and felt peace and verbalized that he is not afraid to . Supportive care provided. He
is 100% pace in the 80's, v-paved to AV paced. Good peripheral pulses. No edema. Lungs posteriorly remain dim. He was encouraged to take deep breaths more frequently due to sling and that his breath sounds are dim. He verbalized his understanding
and demonstrated deep breathing. He arrived with simple mask 6 liters. Placed on 2 liters nasal cannula. Glucose on arrival was 126, s/p hypoglycemia 15 minutes prior and received D50. +BSx4. No BM for 8 days now. Care team aware. Pt encouraged to
increase fruit/fiber intake. CHG bath provided due to episode of VF w/1 shock from ICD with diaphoresis. Rash/discoloration to his legs unchanged. Sacral foam dressing peeled back, sacrum pink and intact. Right neck incision dressing CDI. Left wrist
dressing CDI. Left ACW with medicated dressing CDI. He denies pain. Left arm sling intact. Heels elevated on pillow. His and son at the bedside. Supportive care provided. Safe environment maintained. Will continue to monitor.
[2024-11-04 14:14] LABS: Glucose - Point of Care 126 mg/dl (70-99)
--- NOTE | 2024-11-04 14:51 | ITS.CL.ICD ---
[employer] - ICD
Implantable Cardioverter Defibrillator
Procedure Report:
Date of Procedure: November 04, 2024.
Procedures: ICD implant.
Indication: Symptomatic bradycardia from complete heart block that is not anticipated to resolve. Primary prevention ICD. NYHA heart failure class: III for1 week. LVEF 35%. QRS duration 168 ms from RV pacing with a LBBB. Nonsustained ventricular
tachycardia. Ischemic cardiomyopathy. Myocardial infarction 8 days ago. Life expectancy exceed 1 year.
Performing physician: Brandon Bueno MD, [facility].
Implants:
Pulse Generator: Medtronic; Model# [id number]; Serial# [id number].
Atrial Lead: Medtronic: Model# 5076-52cm; Serial# [id number].
Right Ventricular Lead: Medtronic; Model# [id number]; Serial# [id number].
Left Ventricular Lead: Medtronic; Model# 4798-88cm; Serial# [id number].
Technique: A time out was performed. The procedure site was identified. The patient was lightly anesthetized/sedated by the anesthesia service. The plan was minimal sedation. Preoperative cefazolin was administered. The patient was prepped and
draped in the usual fashion. Local anesthetic was applied to the left prepectoral subcutaneous tissue. A 3 inch incision was made along the left deltopectoral groove. Dissection was carried to the fascia. The left cephalic vein was easily isolated
and proximal and distal control with 2-0 Vicryl suture. Using a micropuncture needle to access the cephalic vein under direct visualization a wire was advanced into the central circulation. A 7 Fr introducer was placed to allow two additional 0.35 J
wires to be advanced and a retained guidewire technique was employed. The leads were introduced with hemostatic peel away introducer sheaths. The ventricular lead was placed at the right ventricular apical septum. The ventricular lead was secured to
the pectoralis muscle and fascia with two 0-silk sutures. The atrial lead was then placed in the right atrial appendage. The atrial lead was secured to the pectoralis muscle and fascia with two 0-silk sutures. The coronary sinus was accessed with
the aid of the Attain Command Sure Valve 6250VC system with a Extended Hook sheath with less than 2 minutes of effort. Coronary sinus venography revealed a branching lateral vein of medium caliber. The left ventricular lead was placed in the lateral
vein with the aid of an inner-canula with the tip terminating between mid and apical laterally but pole 4 was basal and poled 3 basal to mid. The LV lead was fixated with clockwise turns. The LV lead was secured to the pectoralis muscle and
fascia. 8 volt pacing did not capture the diaphragm from any lead. A subcutaneous pocket was created with blunt dissection. Hemostasis was excellent. The leads were appropriately attached to the device. The pocket was irrigated with antibiotic
solution. The device and leads were placed in the pocket. The incision was closed in three layers with absorbable suture. Steri-strips and a a silver impregnated dressing were placed. Estimated blood loss was 10 ml. There were no complications.
Fluoroscopy time: 6.7 minutes and DAP 3.38 GyCM2. The device was then interrogated after skin closure. The transvenous temporary pacemaker was removed using usual technique under fluoroscopic control after the device was placed and during pocket
closure. The right internal jugular introducer sheath was removed and hemostasis achieved with manual pressure.
System Analysis:
RA lead: P: 1.1 mV; Threshold: 0.5 V @ 0.4 ms; Impedance: 361 ohms.
RV lead: R: 11.1 mV (paced from temp wire); Threshold: 0.5 V @ 0.4 ms; Impedance: 513 ohms.
LV lead (pacing V3=>V2): R: 9 mV (paced from the temp wire); Threshold: 1 V @ 0.4 ms; Impedance: 437 ohms.
The VV time from the paced configuration is 133 ms. Vector express so that there are many good pacing factors to choose from.
Final Programming: Tachy: VT/VF:188 bpm; Shailesh: DDDR 60-120 bpm.
Conclusion: Uncomplicated BiV CD implant. The ICD system is MRI safe/conditional.
Recommendation: Routine post ICD care.
cc: Jessica Dior DO.
--- NOTE | 2024-11-04 15:54 | ITS.CL.ICD ---
Rn Acute Dialysis - ICD
Implantable Cardioverter Defibrillator
Procedure Report:
Date of procedure: November 04, 2024.
Indication: Ventricular fibrillation cardiac arrest happening with in 1 hour of biventricular ICD implantation for primary prevention purposes with complete heart block, heart failure, and recent myocardial infarction. The patient has left the
procedure room and was being transported back to his room when he lost consciousness with seizure activity. ICD interrogation revealed spontaneous ventricular fibrillation with appropriate ICD shock that terminated the arrhythmia.
Procedure performed: Lead to fluoroscopy and device interrogation.
Performing physician Brandon Bueno MD.
Procedural details: The patient was brought back to the electrophysiology laboratory. The leads were examined with multiplane fluoroscopy revealing stable right atrial, right ventricular, and coronary sinus lead placement. There is no unusual
motion/movement of the leads. The ICD system was interrogated. All 3 leads had similar amplitudes, impedances, and thresholds. An echocardiogram was performed while the patient was in the electrophysiology lab. Please see the separate report. There
were no acute changes in the echocardiogram.
Conclusion: No ICD related complications that could have directly caused the patient's ventricular fibrillation arrest.
Plan: Return back to the patient's room for careful observation. If arrhythmias recur amiodarone should be initiated.
cc: Jessica Dior DO
--- NOTE | 2024-11-04 16:00 | PTCARENOTE ---
Resumed care from previous RN. Patient A&Ox4, on 2LNC, Biventricular AICD left upper chest inserted today, Left arm immobilizer in place, AV paced on the monitor, HR in the 80s, BP WNL, continent with urine.
Patient had a hypoglycemia episode in the afternoon, protocol followed.
--- NOTE | 2024-11-04 16:03 | W.PN.UPDATE ---
Update Note
Progress Note Update
EP Update:
Biventricular ICD implant went very smoothly without complication. During transport back to his hospital bed he lost consciousness and seizure type activity was identified. He then regained consciousness. ICD interrogation revealed ventricular
fibrillation and was terminated by ICD therapy. The patient was brought back to the EP lab where fluoroscopy showed stable leads. Interrogation confirmed a stable lead function. An echocardiogram revealed no acute abnormalities. He was transported
to his room.
Impression:
Spontaneous ventricular fibrillation cardiac arrest.
The fact that the VF arrest occurred less than 30 minutes after ICD implant we need to watch him closely and watch his device function.
Nonsustained VT has been seen today.
He is at high risk for recurrent VT VF but for now we will hold off on instituting amiodarone as the sustained episode might have been somehow precipitated by device implantation.
Plan:
If VT VF are seen outside of the immediate device implantation time. I would suggest that amiodarone be added to his medical regimen.
[2024-11-04 16:16] LABS: Glucose - Point of Care 162 mg/dl (70-99)
--- NOTE | 2024-11-04 16:34 | CM ---
ICD implant today. Discharge POC: Await therapy evaluation and recommendation.
[2024-11-04] MEDS: SENOKOT-S 1 TABLET PO ×2 (17:02→20:12)
[2024-11-04] MEDS: LOVENOX 40 MG SC (17:02)
[2024-11-04] MEDS: CRESTOR 20 MG PO (17:06)
[2024-11-04] MEDS: MIRALAX 17 GRAMS PO (17:06)
[2024-11-04] MEDS: ANCEF 5 IV (17:21)
[2024-11-04] MEDS: ZETIA PO (17:57)
[2024-11-04] MEDS: NSS IV (17:58)
[2024-11-04 18:01] LABS: Glucose - Point of Care 170 mg/dl (70-99)
[2024-11-04] MEDS: NOVOLOG FLEXPEN-MODERATE RESISTANCE 1 UNITS SC (18:07)
--- NOTE | 2024-11-04 20:00 | PTCARENOTE ---
Received pt. at 1900. Pt. currently awake, alert, and oriented. Denies pain/discomfort. Afebrile. Heart rhythm paced. Blood pressure normotensive. Currently on 2L nasal cannula. Lungs sound diminished. PO diet, good appetite. Voiding in urinal
without issue. Skin as documented. Discussed plan of care. Vital signs stable at this time.
[2024-11-04] MEDS: LANTUS 0.4 UNITS SC (21:49)
[2024-11-04 21:53] LABS: Glucose - Point of Care 229 mg/dl (70-99)
[2024-11-04] MEDS: TYLENOL 650 MG PO (23:25)
[2024-11-05] VITALS (24 sets, daily range): BP systolic 98–131; BP diastolic 59–78; BMI 26.1
[2024-11-05] MEDS: ANCEF 5 IV (02:56)
[2024-11-05 03:12] LABS: Glucose - Point of Care 156 mg/dl (70-99)
[2024-11-05 03:42] LABS: Hematocrit 36.5 % (39.0-52.0); Hemoglobin 11.9 g/dL (13.0-18.0); Mean Corp Hgb Conc. 32.6 g/dL (33.0-37.0); Mean Corpuscular Volume 88.0 fL (80.0-94.0); Platelet Count 198 10^3/uL (130-400); Red Cell Dist. Width 14.8 % (11.5-14.5)
[2024-11-05 04:03] LABS: Blood Urea Nitrogen 24 mg/dl (9-20); Calcium 8.2 mg/dl (8.4-10.2); Carbon Dioxide 30 mmol/L (22-30); Chloride 104 mmol/L (98-107); Estimated Creatinine Clearance 72 ml/min; Glucose 149 mg/dl (70-99); Potassium 3.9 mmol/L (3.5-5.1); Sodium 138 mmol/L (135-145); eGFR > 60.00
[2024-11-05] MEDS: NOVOLOG FLEXPEN-MODERATE RESISTANCE SC ×3 (07:35→17:21)
[2024-11-05] MEDS: NOVOLOG FLEXPEN 5 UNITS SC ×3 (07:36→17:50)
--- NOTE | 2024-11-05 07:40 | PTCARENOTE ---
Received pt awake and alert eating his breakfast. He is very pleasant. Left ACW dressing CDI with left arm splint intact. Left FA 20g and right fa#20g protective catheter both flushed and patent. Lungs dim in both bases, right base with late
expiratory wheeze and right base late inspiratory rales. RA pulse ox 98%. No BM for over a week now. I explained to him that it is imperative that he have a BM today and that he get OOB to the chair. He verbalized his understanding. Red/maroon
discoloration to his L/E's unchanged. +BSx4. Appetite improving. Voiding in the urinal. Sacrum with silicone border dressing. Skin pink and intact. Safe environment maintained. Will continue to monitor.
[2024-11-05 07:42] LABS: Glucose - Point of Care 84 mg/dl (70-99)
[2024-11-05] MEDS: SYMBICORT 160/4.5 MCG INHALER 2 PUFF INH ×2 (07:47→19:09)
[2024-11-05] MEDS: FARXIGA PO (08:42)
[2024-11-05] MEDS: ARMOUR THYROID 15 MG PO (08:42)
[2024-11-05] MEDS: DIOVAN 40 MG PO (08:44)
[2024-11-05] MEDS: SENOKOT-S 1 TABLET PO ×2 (08:44→20:14)
[2024-11-05] MEDS: VITAMIN D3 (cholecalciferol) 50 MCG PO (08:45)
[2024-11-05] MEDS: LOW STRENGTH ASPIRIN 81 MG PO (08:45)
[2024-11-05] MEDS: ZETIA 10 MG PO (08:45)
[2024-11-05] MEDS: MILK OF MAGNESIA 30 ML PO (08:45)
[2024-11-05] MEDS: MIRALAX 17 GRAMS PO (08:46)
[2024-11-05] MEDS: CRESTOR PO (08:49)
[2024-11-05] MEDS: TYLENOL 650 MG PO ×3 (09:05→22:21)
--- NOTE | 2024-11-05 09:30 | PTCARENOTE ---
2 assist OOB to chair. He stood for several minutes and was able to transfer weight from left to right & vice versa. He verbalized how weak he felt. He was encouraged to stay in the chair most of the day and that we would have him stand up hourly.
He verbalized his understanding. His is at the bedside. Left arm immobilizer remained on during transfer. Left ACW dressing remains CDI. Sacral dressing peeled back for skin assessment. Sacrum without any reddened areas.
--- NOTE | 2024-11-05 09:45 | W.PN.INTV ---
Today's Communication / Plan
Recommendations
- KCl p.o. x 1 now
- Defer beta-freddie initiation to cardiology service
- Patient likely can transfer out of ICU
Assessment
-
Patient is a 74-year-old gentleman with long history of diabetes who developed nonspecific symptoms of upper back and shoulder pain 3 days prior to her presentation to the hospital. Also reported syncope episode. He also reported significant
fatigue which eventually brought him to the emergency room. Further workup was suggestive of a complete heart block as well as elevated troponin consistent with acute myocardial infarction. Patient was noted to have inferior wall ST elevation [place].
He was taken to [facility] and had coronary angiography performed which showed 100% RCA stenosis and significant otherwise coronary artery disease. He also had a temporary pacemaker placed. Postprocedure he was admitted to ICU and horse shoer
consultation was requested for further input.
#1. Inferior wall STEMI with multivessel coronary artery disease
- 100% RCA occlusion noted, significant coronary artery disease
- S/p angiography 11/01
- Aspirin, heparin drip. Also on Zetia and rosuvastatin.
- CT surgery consulted for further input regarding possible coronary artery bypass graft vs complex PCI
#2. Complete heart block
- Suspected related to RCA infarction.
- S/p temporary pacemaker initially
- With EF 35%, s/p AICD on 11/04
#2a. Heart failure with reduced ejection fraction, acute.
- Creatinine improved with diuresis
- ROSANGELA resolved. Valsartan started
#2b. V. Fib s/p AICD firing, soon after AICD placement (11/04)
- Patient awake, alert. Did not require any CPR.
- Keeping K and Mg at 4 and respectively. Replacing Po Kcl
- Bets blockers initiation deferred to Cardiology service.
- Continue Telemetry monitoring.
#3. ROSANGELA on admission
- Admission creatinine was 2.1, improved
- Suspect cardiorenal syndrome considering improving with diuresis
- Continue to monitor
#4. DM
- Currently on glargine and sliding scale insulin
#5. h/o HTN
- better controlle
#6. Hypothyroidism
- Currently on thyroid [place]
#7. h/o Smoking with suspected underlying COPD
- Patient states he quit many years ago however reports occasional wheezing, cough with expectoration. Suspect patient might have underlying COPD. Patient had been reluctant to use any inhalers. Patient will need outpatient follow-up with
pulmonary clinic for pulmonary function testing and 6-minute walk test etc.
- 11/03, wheezing on exam, responded well to albuterol nebulized. Patient agree for inhaler trial, started Symbicort 160 x 4.5, 2 puffs twice a day
- No wheezing or cough this morning
Critical Care time 42 mins -- The patient is admitted for acute critical illness for the treatment of vital organ failure and/or prevention of further life-threatening conditions. Total care includes time spent in review of history, physical exam,
medications, hemodynamic/ventilator parameters, laboratory data, imaging and discussion with house staff, pharmacy, respiratory therapy, cutter operator tile, and nursing.
Data:
CXR 10/2024: Right internal jugular temporary pacing wire extending into the right ventricle, distal tip directed slightly superiorly.
ECHO 10/2024: LV ejection fraction is approximately 35%, by visual assessment. Akinesis of
the basal to mid inferoseptal, inferior, and inferolateral stewart.
Enlarged right ventricular size. Reduced right ventricular systolic function.
Mild to moderate tricuspid regurgitation. Estimated pulmonary artery pressure
of 35-40 mmHg. The IVC is dilated and does not collapse.
C and Temp Pacemaker insertion 10/2024: 1. Severe three-vessel coronary artery disease as described with 100% stenosis of the distal RCA that is likely the culprit lesion for the patient's NSTEMI and complete heart block, complex bifurcation
disease involving the proximal LAD and moderate caliber diagonal, as well as complex bifurcation disease involving a large circumflex marginal branch.
2. Severely elevated LV filling pressure and no significant aortic stenosis on hemodynamic pullback
Subjective Dataa
Subjective Data
Date of Service:
Date of Service: November 05, 2024
Subjective:
Comfortably sitting in chair, no acute distress
Review of Systems
Genitourinary: Other (No new events )
Objective Data
Data Reviewed
Vital Signs / I&O / Oxygen:
Vital Signs
Temp Pulse Resp BP Pulse Ox
98.6 F 82 23 105/65 95
11/05/24 08:00 11/05/24 08:44 11/05/24 08:00 11/05/24 08:44 11/05/24 08:39
Intake and Output
11/04/24 11/05/24 11/06/24
06:59 06:59 06:59
Intake Total 984 / 1010 396 / 396
Output Total 1450 / 1450 1370 / 1370
Balance -466 / -440 -974 / -974
SaO2 95
Nasal Cannula flow liters per 2
minute
Physical Exam
General: Comfortable
HEENT: Normocephalic
Cardiovascular: S1-S2
Respiratory: Wheeze (Resolved )
GI: Soft and Non Distended
Neurology: Awake, Alert and Oriented
Skin: Warm
Labs/Micro/Reports
Lab Data
11/05/24 03:28
11/05/24 03:28
[2024-11-05] MEDS: KCL 20 MEQ PO (10:10)
[2024-11-05] MEDS: FARXIGA 10 MG PO (10:10)
--- NOTE | 2024-11-05 10:32 | W.PN.HOSP.TC ---
Today's Communication/Plan
-
Bowel regimen
Hold off on SGLT2 inhibitors until CABG plans are finalized as I am being told may happen next week
Consider starting beta-freddie
watch on Tele
Assessment / Plan
Assessment / Plan
74-year-old male with fatigue and myalgias. Patient had lightheadedness and passed out on he did not seek attention. When he fell he had some viral illness. He felt lightheaded which Made him come to the ER. Had abdominal pain and had a
large BM on . Has a cough.
EKG reviewed by me-ST elevations in inferior leads
CVS: S1-S2 normal, sm at apex
Chest: Few rales scattered
Abdomen: Soft, NT. No guarding or rigidity. Bowel sounds present
Extremities: No edema
Rash- purplish on right leg, left ankle, right upper arm.
Ultrasound of the abdomen-fatty infiltration, simple bilateral renal cyst. Small right pleural effusion
Cardiac cath 11/01/2024-severe three-vessel CAD with 100% stenosis of distal RCA, complex bifurcation disease involving proximal LAD and moderate caliber diagonal as well as complex disease involving large circumflex marginal branch. Severe elevated
LV filling pressure. No significant AAS
Echo 11/01/2024-EF 35%. Akinesis of the basal and mid inferoseptal, inferior and inferolateral stewart. Enlarged RV size. Reduced RV SF. Mild to moderate TR. PA pressure 35 to 40 mmHg. IVC is dilated
# Acute [place]
Ischemic cardiomyopathy
Probably happened on when he had symptoms of syncope
Continue aspirin, Crestor started along with Zetia. He doesn't want to take Crestor. Changed to Pravastatin.
Started on an ARB .
SGLT2 inhibitor-Jardiance is $47 per month-Hold until CABG plans are finalized hold off on ARNI until CT surgery plans finalized
Troponin trending down
EKG with complete heart block and wide-complex QRS likely secondary to ischemia
Patient has transvenous pacer adjusted to heart rate 80. With out pacer support patient still is in complete heart block-tested by cardiology in the room today
Echo as above
CT surgery evaluation ongoing. Timing of CABG not determined yet
S/P Pacer/AICD placed 11/04/24
11/04/24-Patient had a brief episode of ventricular fibrillation and was terminated by ICD therapy. He was brought back to the EP lab which showed stable leads. Intervention confirmed stable lead function. Echo without any pericardial effusion.
This is felt to be secondary to device implantation therefore holding off on antiarrhythmic therapy for now.
Consider starting beta-blockers
# ROSANGELA , CKD ruled out
Creatinine improving with diuresis
# Constipation-continue bowel regimen. Magnesium citrate ordered
# Tremors-need to rule out Parkinson disease.
May also have essential tremors-cannot use any beta-blockers because of heart block
Eventually needs to follow-up with a neurologist
# Leukocytosis-likely stress reaction
Chest x-ray unremarkable
Urinalysis unremarkable
Watch temperature
If develops fever get blood cultures
USS abdomen without any infectious etiology
# Hypertension-blood pressure on the low side. Possibly we can restart ARB or add Arni. No beta-blockers given heart block
# Ompuplph-R3s-2.0
Poor control as outpatient
Patient uses Lantus insulin 40 units at night, Januvia 100 mg p.o. twice daily, metformin 1000 mg p.o. twice daily as outpatient
Continue 40 units of Lantus . NovoLog 5 AC started
SGLT2 inhibitors started. Hold as I am being told patient may get CABG during the hospital stay possibly Thursday?
Accu-Cheks and sliding scale coverage
# Hypothyroidism-continue replacement
# Hyperlipidemia-patient has had intolerance to statin in the past and also LFTs elevated. Patient does not want to take Crestor. I discussed about pravastatin and ordered.
# Elevated AST and ALT-USS only shows fatty liver. Suspect hepatic congestion. 20 mg of Lasix again today
# Longstanding rash at least since 2013- Pt says he got Biopsy and was told it is from Diabetes. he doesn't remember the name of the Derm.
# Ex-smoker
# DVT prophylaxis-subcutaneous Lovenox
# Full code
Discussed with patient's at bedside
Discussed with nursing at bedside
Time over 50 min
Part of this note was created using voice recognition system. Occasional wrong word or��sound alike� substitutions may have inadvertently occurred due to the inherent limitations of voice recognition software. If noted kindly bring it to my
attention for correction.
Anticipated Discharge: > 48 hours
Subjective/Interval History
-
Date of Service: November 05, 2024
Objective Data
-
Labs:
Laboratory Results
11/05/24
03:28
WBC 12.8 H
Hgb 11.9 L
Hct 36.5 L
Plt Count 198
Sodium 138
Potassium 3.9
Chloride 104
Carbon Dioxide 30
BUN 24 H
Creatinine 0.9
Glucose 149 H
Calcium 8.2 L
Vital Signs:
Vital Signs
Temp Pulse Resp BP Pulse Ox
98.6 F 82 23 105/65 95
11/05/24 08:00 11/05/24 08:44 11/05/24 08:00 11/05/24 08:44 11/05/24 08:39
I&O
11/04/24 11/05/24 11/06/24
06:59 06:59 06:59
Intake Total 984 / 1010 396 / 396
Output Total 1450 / 1450 1370 / 1370
Balance -466 / -440 -974 / -974
--- NOTE | 2024-11-05 11:27 | PTCARENOTE ---
Glucose 74. Clarifying mealtime Insulin with Dr. Harrison.
[2024-11-05 11:33] LABS: Glucose - Point of Care 74 mg/dl (70-99)
--- NOTE | 2024-11-05 13:08 | PTCARENOTE ---
Pt in chair since 929. S/P repositioning due to right buttock pain. No redness or bruising noted. , Now reclined in the chair. He is tired. Room conducive to rest. Call salazar within reach. Safe environment maintained.
--- NOTE | 2024-11-05 14:45 | PTCARENOTE ---
Pt stated he wasn't feeling well. He appeared tired. SBP 106, 100% v-paced 80's, glucose 116. He was assisted back to bed and given Xanax for anxiety. He stated he was tired.
[2024-11-05] MEDS: LASIX 20 MG IV (14:55)
[2024-11-05 14:59] LABS: Glucose - Point of Care 116 mg/dl (70-99)
[2024-11-05 14:59] LABS: Magnesium 2.1 mg/dl (1.6-2.3)
[2024-11-05] MEDS: XANAX 0.25 MG PO ×2 (15:01→22:21)
--- NOTE | 2024-11-05 15:30 | W.PN.CD ---
Addendum entered and electronically signed by Pito Bernabe MD 11/05/24 16:52:
Patient seen and examined in collaboration with PGY 2 Resident; agree with below.
- Patient with no cardiac complaints today.
- Physical examination: Regular rate and rhythm, no significant murmur, rubs, or gallops; clear to auscultation bilaterally; no edema.
- LVEF 35%; volume status is stable.
- Stable status-post ICD implantation.
- CABG planned for next week.
- Continue current medications.
- Discussed with patient's at bedside.
Original Note:
Documented by User: Miguel Ascencio MD, Resident 11/05/24 15:39
Today's Communication / Plan
-
* Transfer out of ICU.
* Hold off on BB/amiodarone for now.
Impression / Plan
-
PCP Sabina Dior, DO
CAD
- Recent inferior STEMI is based on clinical data, EKG, and confirmed by finding 100% RCA
- Severe LAD, Diag, LCx/OM, and 100% RCA => MD discussion re: best revas plan - plan for CABG given complex anatomy, HFrEF, diabetes
- Tentatively scheduled for OR next week.
- not having symptoms suggestive of ongoing ischemia / unstable disease
Symptomatic complete heart block.
- S/p PPM 11-04-24
V. Fib 30 minutes after ICD placement
- Spontaneous ventricular fibrillation cardiac arrest, terminated by ICD therapy.
- Nonsustained VTs observed since.
- If VT VF are seen consistently outside of the post-implantation time, can add amiodarone
Acute Heart Failure, HFrEF from ischemic cardiomyopathy
- LVEF by echo 35%
- LVEDP at cath 28
-improved with diuresis
- Add GDMT as clinical status allows => can start dapa, low dose ARB (noting will need to be held prior to CABG).
- Hold BB for now; previous SOB on BB and soft blood pressures as of now; can consider BB eventually
Acute kidney injury on top of CKD
- Likely from poor cardiac output with FL/LV dysfxn/bradycardia Baseline creatinine not known
- Baseline Cr 1.4 in 2021
- Cr better after cath and with pacing support
Longstanding diabetes mellitus, type II on insulin
Family history of premature CAD
Former heavy smoker probably at least a [id number] history
?Hx of HTN, ARB might have been for kidney protection and not HTN
Mixed hyperlipidemia with low HDL
-Goal LDL now <55
-start statin, hold if LFTs worsen
Elevated LFTs
- Monitor
- May need workup
Discussed plan extensively with nursing, patient/family, EP, and CT surgery colleagues.
Subjective:
Comfortable at rest
Physical Exam
Vital Signs/Labs
Vital Signs
Temp Pulse Resp BP Pulse Ox
98 F 81 17 99/64 95
11/05/24 14:52 11/05/24 15:00 11/05/24 15:00 11/05/24 15:00 11/05/24 15:00
11/04/24 11/05/24 11/06/24
06:59 06:59 06:59
Actual Weight 80.5 kg 80.1 kg
11/05/24 03:28
11/05/24 03:28
PT 18.8 Sec (11.4-14.6) H 11/02/24 01:57
INR 1.55 11/02/24 01:57
APTT 89.1 Sec (23.4-35.0) H 11/04/24 04:03
Magnesium 2.1 mg/dl (1.6-2.3) 11/05/24 03:28
Triglycerides 94 mg/dl (10-149) 11/01/24 04:18
LDL Cholesterol, Calc 80 mg/dl 11/01/24 04:18
VLDL Cholesterol, Calc 18 mg/dl (0-30) 11/01/24 04:18
HDL Cholesterol 33 mg/dl 11/01/24 04:18
TSH 3.13 uIU/ml (0.47-4.68) 10/31/24 21:54
Free T4 1.66 ng/dl (0.78-2.19) 10/31/24 21:54
Physical Exam
Constitutional: No acute distress and Comfortable
EENT: Anicteric and Moist mucous membranes
Cardiovascular: Rhythm & rate is regular and Pedal edema present (trace BL LE)
Respiratory: Respiratory effort normal
Neuro/Psych: AO x 3
Data Reviewed
-
Date of Service: November 05, 2024

Documented by User: Pito Bernabe MD 11/05/24 16:50
Data Reviewed
-
EKG: Tracing Personally Visualized and interpreted (Telemetry: A-V paced)
Echo: Report Reviewed by me (EF 35%)
Medical Tests (PFT, Pathology etc): Other (Cardiac catheterization: Severe multivessel CAD)
Labs: Labs Reviewed by me
--- NOTE | 2024-11-05 16:00 | TRANSFER ---
Transferred via bed to 2252, monitored with 2 liters nasal cannula. Belongings and medication from room sent with pt and given to Vielka JUAREZ. Report called to Vielka.
[2024-11-05 17:08] LABS: Glucose - Point of Care 70 mg/dl (70-99)
--- NOTE | 2024-11-05 17:27 | PTCARENOTE ---
11/05/24 1700 Received patient into [facility] via bed. Patient arrived AAO x3, Placed on potline monitor- AV paced, afebrile, VSS. Pt on 2L NC at 96%. Pt's lungs clear, decreased, rales at left base. Pt with no complaints of chest pain, shortness of breath
or palpitations. Oriented patient to room and surroundings, discussed plan of care, medications. Will continue to monitor.
[2024-11-05] MEDS: LOVENOX 40 MG SC (17:37)
[2024-11-05] MEDS: PRAVACHOL 40 MG PO (17:38)
[2024-11-05] MEDS: VENTOLIN NEBULES 2.5 MG INH (19:09)
--- NOTE | 2024-11-05 21:17 | PTCARENOTE ---
Rec'd pt at change of shift. Pt AAO*3, VSS, and AV paced on TELE monitor. Pt reports pain at pacer site, tylenol given as ordered. updated on plan of care and denies any questions or concerns. Pt resting with call salazar in reach, plan of care
ongoing, bed alarm active, and high fall risk precautions. See MAR and flowchart for full pt care and assessment.
[2024-11-05 22:18] LABS: Glucose - Point of Care 123 mg/dl (70-99)
[2024-11-05] MEDS: LANTUS 0.4 UNITS SC (22:19)
[2024-11-06] VITALS (8 sets, daily range): BP systolic 95–108; BP diastolic 59–72; BMI 25.8
[2024-11-06 04:11] LABS: ALT (SGPT) 48 U/L (0-50); AST (SGOT) 63 U/L (17-59); Albumin 3.0 g/dl (3.5-5.0); Alkaline Phosphatase 92 U/L (38-126); Blood Urea Nitrogen 21 mg/dl (9-20); Calcium 8.6 mg/dl (8.4-10.2); Carbon Dioxide 32 mmol/L (22-30); Chloride 101 mmol/L (98-107); Estimated Creatinine Clearance 65 ml/min; Glucose 108 mg/dl (70-99); Magnesium 2.1 mg/dl (1.6-2.3); Potassium 3.8 mmol/L (3.5-5.1); Sodium 138 mmol/L (135-145); Total Protein 5.7 g/dl (6.3-8.2); eGFR > 60.00
[2024-11-06 08:04] LABS: Glucose - Point of Care 64 mg/dl (70-99)
[2024-11-06] MEDS: NOVOLOG FLEXPEN-MODERATE RESISTANCE SC ×2 (08:04→13:00)
[2024-11-06] MEDS: ZETIA 10 MG PO (08:18)
[2024-11-06] MEDS: VITAMIN D3 (cholecalciferol) 50 MCG PO (08:18)
[2024-11-06] MEDS: SENOKOT-S 1 TABLET PO ×2 (08:18→20:28)
[2024-11-06] MEDS: DIOVAN 40 MG PO (08:18)
[2024-11-06] MEDS: ARMOUR THYROID 15 MG PO (08:18)
[2024-11-06] MEDS: MIRALAX 17 GRAMS PO (08:18)
[2024-11-06] MEDS: LOW STRENGTH ASPIRIN 81 MG PO (08:18)
[2024-11-06 08:24] LABS: Glucose - Point of Care 98 mg/dl (70-99)
[2024-11-06] MEDS: SYMBICORT 160/4.5 MCG INHALER 2 PUFF INH ×2 (08:26→20:05)
[2024-11-06] MEDS: NOVOLOG FLEXPEN SC (08:59)
[2024-11-06 10:19] LABS: Glucose - Point of Care 164 mg/dl (70-99)
[2024-11-06 12:13] LABS: Glucose - Point of Care 195 mg/dl (70-99)
[2024-11-06] MEDS: NOVOLOG FLEXPEN 3 UNITS SC ×2 (13:00→16:54)
[2024-11-06] MEDS: TYLENOL 650 MG PO ×2 (13:04→20:28)
--- NOTE | 2024-11-06 13:44 | W.PN.HOSP.TC ---
Today's Communication/Plan
-
Await CT surgery plans
Assessment / Plan
Assessment / Plan
74-year-old male with fatigue and myalgias. Patient had lightheadedness and passed out on he did not seek attention. When he fell he had some viral illness. He felt lightheaded which Made him come to the ER. Had abdominal pain and had a
large BM on . Has a cough.
Seen earlier. Late documentation
CT chest with IV contrast-small pericardial effusion. Coronary artery calcifications. Small bilateral pleural effusions with accompanying bilateral lower lobe subsegmental atelectasis left greater than right. Small focus of left upper lobe
opacification with some air bronchograms may represent pneumonia and/or scarring. Malignancy would be unlikely
CVS: S1-S2 normal, sm at apex
Chest: Few rales scattered
Abdomen: Soft, NT. No guarding or rigidity. Bowel sounds present
Extremities: No edema
Rash- purplish on right leg, left ankle, right upper arm.
Ultrasound of the abdomen-fatty infiltration, simple bilateral renal cyst. Small right pleural effusion
Cardiac cath 11/01/2024-severe three-vessel CAD with 100% stenosis of distal RCA, complex bifurcation disease involving proximal LAD and moderate caliber diagonal as well as complex disease involving large circumflex marginal branch. Severe elevated
LV filling pressure. No significant AAS
Echo 11/01/2024-EF 35%. Akinesis of the basal and mid inferoseptal, inferior and inferolateral stewart. Enlarged RV size. Reduced RV SF. Mild to moderate TR. PA pressure 35 to 40 mmHg. IVC is dilated
# Acute [place]
Ischemic cardiomyopathy
Probably happened on when he had symptoms of syncope
Continue aspirin, Crestor started along with Zetia. He doesn't want to take Crestor. Changed to Pravastatin.
Started on an ARB .
SGLT2 inhibitor-Jardiance is $47 per month-Hold until CABG plans are finalized hold off on ARNI until CT surgery plans finalized
Troponin trending down
EKG with complete heart block and wide-complex QRS likely secondary to ischemia
Patient has transvenous pacer adjusted to heart rate 80. With out pacer support patient still is in complete heart block-tested by cardiology in the room today
Echo as above
CT surgery evaluation ongoing. Timing of CABG not determined yet
S/P Pacer/AICD placed 11/04/24
11/04/24-Patient had a brief episode of ventricular fibrillation and was terminated by ICD therapy. He was brought back to the EP lab which showed stable leads. Intervention confirmed stable lead function. Echo without any pericardial effusion.
This is felt to be secondary to device implantation therefore holding off on antiarrhythmic therapy for now.
Consider starting beta-blockers
# ROSANGELA , CKD ruled out
Creatinine improving with diuresis
# Constipation-resolved
# Tremors-need to rule out Parkinson disease.
May also have essential tremors-cannot use any beta-blockers because of heart block
Eventually needs to follow-up with a neurologist
# Leukocytosis-likely stress reaction
Chest x-ray unremarkable
Urinalysis unremarkable
Watch temperature
If develops fever get blood cultures
USS abdomen without any infectious etiology
# Hypertension-blood pressure on the low side.
# Ilslxfbc-A1d-4.0
Poor control as outpatient
Patient uses Lantus insulin 40 units at night, Januvia 100 mg p.o. twice daily, metformin 1000 mg p.o. twice daily as outpatient
40 units of Lantus . NovoLog 5 AC started
Decreased Lantus to 36 units and NovoLog to 3 AC
SGLT2 inhibitors started. Hold as I am being told patient may get CABG during the hospital stay possibly Thursday?
Accu-Cheks and sliding scale coverage
# Hypothyroidism-continue replacement
# Hyperlipidemia-patient has had intolerance to statin in the past and also LFTs elevated. Patient does not want to take Crestor. I discussed about pravastatin and ordered.
# Elevated AST and ALT-USS only shows fatty liver. Suspect hepatic congestion. Improved
# Longstanding rash at least since 2013- Pt says he got Biopsy and was told it is from Diabetes. he doesn't remember the name of the Derm.
# Ex-smoker
# DVT prophylaxis-subcutaneous Lovenox
# Full code
Discussed with nursing at bedside
Part of this note was created using voice recognition system. Occasional wrong word or��sound alike� substitutions may have inadvertently occurred due to the inherent limitations of voice recognition software. If noted kindly bring it to my
attention for correction.
Anticipated Discharge: > 48 hours
Subjective/Interval History
-
Date of Service: November 06, 2024
Objective Data
-
Labs:
Laboratory Results
11/06/24
02:57
Sodium 138
Potassium 3.8
Chloride 101
Carbon Dioxide 32 H
BUN 21 H
Creatinine 1.0
Glucose 108 H
Calcium 8.6
Total Bilirubin 0.6
AST 63 H
ALT 48
Alkaline Phosphatase 92
Vital Signs:
Vital Signs
Temp Pulse Resp BP Pulse Ox
97.6 F 85 20 107/62 97
11/06/24 11:46 11/06/24 11:46 11/06/24 11:46 11/06/24 11:46 11/06/24 11:46
I&O
11/05/24 11/06/24 11/07/24
06:59 06:59 06:59
Intake Total 396 / 396 960 / 960
Output Total 1370 / 1370 2570 / 3070 825 / 825
Balance -974 / -974 -1610 / -2110 -825 / -825
--- NOTE | 2024-11-06 14:07 | W.PN.CD ---
Addendum entered and electronically signed by Pito Bernabe MD 11/06/24 16:47:
Patient seen and examined in collaboration with PGY 2 Resident; agree with below.
- No major events overnight; no cardiac complaints today.
- Physical examination: Regular rate and rhythm, no murmurs, rubs, or gallops; lungs clear to auscultation bilaterally; no edema.
- Telemetry: AV paced rhythm.
- Acute HFrEF (LVEF 35%); compensated on examination.
- Remains stable status-post ICD implantation.
- CABG planned for this week.
- Continue current medication regimen.
Original Note:
Documented by User: Miguel Ascencio MD, Resident 11/06/24 14:09
Today's Communication / Plan
-
* Continue current management.
* CT surgery expected this week.
Impression / Plan
-
PCP Sabina Dior, DO
CAD
- Recent inferior STEMI is based on clinical data, EKG, and confirmed by finding 100% RCA
- Severe LAD, Diag, LCx/OM, and 100% RCA => MD discussion re: best revas plan - plan for CABG given complex anatomy, HFrEF, diabetes
- Tentatively scheduled for OR next week.
- not having symptoms suggestive of ongoing ischemia / unstable disease
Symptomatic complete heart block.
- S/p PPM 11-04-24
V. Fib 30 minutes after ICD placement
- Spontaneous ventricular fibrillation cardiac arrest, terminated by ICD therapy.
- Nonsustained VTs observed since.
- If VT VF are seen consistently outside of the post-implantation time, can add amiodarone
Acute Heart Failure, HFrEF from ischemic cardiomyopathy
- LVEF by echo 35%
- LVEDP at cath 28
-improved with diuresis
- Add GDMT as clinical status allows => can start dapa, low dose ARB (noting will need to be held prior to CABG).
- Hold BB for now; previous SOB on BB and soft blood pressures as of now; can consider BB eventually
- Stable volume status.
Acute kidney injury on top of CKD
- Likely from poor cardiac output with [place]/LV dysfxn/bradycardia Baseline creatinine not known
- Baseline Cr 1.4 in 2021
- Cr better after cath and with pacing support
Longstanding diabetes mellitus, type II on insulin
Family history of premature CAD
Former heavy smoker probably at least a 11-byqz-rzhk history
?Hx of HTN, ARB might have been for kidney protection and not HTN
Mixed hyperlipidemia with low HDL
-Goal LDL now <55
-start statin, hold if LFTs worsen
Elevated LFTs
- Monitor
- May need workup
Discussed plan extensively with nursing, patient/family, EP, and CT surgery colleagues.
Subjective:
Comfortable at rest
Physical Exam
Vital Signs/Labs
Vital Signs
Temp Pulse Resp BP Pulse Ox
97.6 F 85 20 107/62 97
11/06/24 11:46 11/06/24 11:46 11/06/24 11:46 11/06/24 11:46 11/06/24 11:46
11/05/24 11/06/24 11/07/24
06:59 06:59 06:59
Actual Weight 80.1 kg 79.1 kg
11/05/24 03:28
11/06/24 02:57
PT 18.8 Sec (11.4-14.6) H 11/02/24 01:57
INR 1.55 11/02/24 01:57
APTT 89.1 Sec (23.4-35.0) H 11/04/24 04:03
Magnesium 2.1 mg/dl (1.6-2.3) 11/06/24 02:57
Triglycerides 94 mg/dl (10-149) 11/01/24 04:18
LDL Cholesterol, Calc 80 mg/dl 11/01/24 04:18
VLDL Cholesterol, Calc 18 mg/dl (0-30) 11/01/24 04:18
HDL Cholesterol 33 mg/dl 11/01/24 04:18
TSH 3.13 uIU/ml (0.47-4.68) 10/31/24 21:54
Free T4 1.66 ng/dl (0.78-2.19) 10/31/24 21:54
Physical Exam
Constitutional: No acute distress and Comfortable
EENT: Anicteric and Moist mucous membranes
Cardiovascular: Rhythm & rate is regular and Pedal edema present (trace BL LE)
Respiratory: Respiratory effort normal
Neuro/Psych: AO x 3
Data Reviewed
-
Date of Service: November 06, 2024

Documented by User: Pito Bernabe MD 11/06/24 16:45
Data Reviewed
-
EKG: Tracing Personally Visualized and interpreted (Telemetry: AV paced)
Labs: Labs Reviewed by me
[2024-11-06] MEDS: LASIX 20 MG PO (14:26)
[2024-11-06] MEDS: KCL 40 MEQ PO (14:26)
--- NOTE | 2024-11-06 16:27 | PTCARENOTE ---
11/06/24 Received patient from previous shift resting comfortably in bed. 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 Pt with no chest pain, shortness of breath or palpitations. Pt with complaints of left shoulder pain/pacer site. Tylenol given as ordered. Pt OOB
chair for a couple hours today. Pt had CT chest as ordered. Awaiting CT surgery- plan is for CABG some time this week. Discussed plan of care with patient and , answered questions, support given.
[2024-11-06 16:54] LABS: Glucose - Point of Care 197 mg/dl (70-99)
[2024-11-06] MEDS: PRAVACHOL 40 MG PO (16:55)
[2024-11-06] MEDS: NOVOLOG FLEXPEN-MODERATE RESISTANCE 1 UNITS SC (16:55)
[2024-11-06] MEDS: LOVENOX 40 MG SC (16:55)
[2024-11-06] MEDS: VENTOLIN NEBULES 2.5 MG INH (20:08)
[2024-11-06] MEDS: XANAX 0.25 MG PO (20:28)
[2024-11-06 22:03] LABS: Glucose - Point of Care 283 mg/dl (70-99)
[2024-11-06] MEDS: LANTUS 0.36 UNITS SC (22:10)
--- NOTE | 2024-11-06 22:39 | PTCARENOTE ---
~8925-0846: Handoff report received from dayshift RN. Patient AOx4, AV paced 80s-90s on tele, 2L NC satting mid 90s. Patient puresed lip breathing however denies SOB at this time, occassional dry cough present, diminished basees and RENATA crackles
present. Pt c/o pain in L shoulder s/p PPM/IACD implant, PRN tylenol given. L upper chest dressing CDI. Petechiae rash on BLE GHAZAL and Butt red (POA) at this time. Patient turning and repositioning in bed. All needs met at this time, call salazar within
reach.
~[id number]: Patient in stable condition, Lantus given per order. All needs met at this time, call salazar within reach. Handoff report given to nightshift RN.
--- NOTE | 2024-11-06 23:47 | PTCARENOTE ---
Assumed care of pt at 2300. Pt AAO*3, VSS, and AV paced on TELE monitor. Pt reports aching at pacemaker site but refuses further medication. Pt updated on plan of care and maintained on high fall risk precautions. Pt currently resting with call
salazar in reach and plan of care ongoing. See MAR and flowchart for full care and assessment.
[2024-11-07] VITALS (7 sets, daily range): BP systolic 89–110; BP diastolic 65–79; BMI 25.7
--- NOTE | 2024-11-07 00:48 | W.PN.CT ---
Assessment / Plan
-
Assessment:
-Severe 3v CAD
-Inferior VA
-Weakness/Fatigue
-Syncopal episode
-HFrEF/ICM (LVEF 35%; was 50-55% per echo 04/2014)
-CHB S/P Transvenous pacer, 11/01/24
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
-Mild-moderate TR
-HTN
-Hyperlipidemia
-Hypothyroidism
-T2DM (hgb A1C 9.0)
-ROSANGELA (peaked @ 2.1)
-Transaminitis
-Small pericardial effusion, per CTA 11/06
-Small bilateral pleural effusion, per CTA 11/06
-Former tobacco use (quit 20 years ago, ~40 pk/yr)
-Diplopia S/p cataract surgery
-LAC COURTE OREILLES S/P hearing aids
-Renal calculi S/P cystoscopy with renal stents
-S/P T&A
-S/P Appendectomy
Plan:
-Cont. current medical management per primary team
-Cont. current meds (ASA, Zetia, Pravachol, [place] Thyroid)
-Will hold both Farxiga and Valsartan 2-3 days prior to surgery
-Ongoing preop workup/medical optimization
-Will need ICD turned off in OR
-For CABG +/- SHEMAR clip, by Dr. Wilks on Monday 10/09
Subjective
-
Date of Service: November 07, 2024
Objective Data
-
PT 18.8 Sec (11.4-14.6) H 11/02/24 01:57
INR 1.55 11/02/24 01:57
APTT 89.1 Sec (23.4-35.0) H 11/04/24 04:03
Vital Signs
Vital Signs
Temp Pulse Resp BP Pulse Ox
98.3 F 83 16 102/67 98
11/06/24 21:58 11/06/24 23:00 11/06/24 21:58 11/06/24 22:00 11/06/24 23:15
CT Intake/Output/Weight
11/06/24 11/06/24 11/07/24
06:59 18:59 06:59
Intake Total 480 / 960
Output Total 1450 / 3070 1224 / 2074 / 2074
Balance -970 / -2109 -1224 / -2074 - / -2074
SaO2: 98
[2024-11-07 03:21] LABS: Glucose - Point of Care 185 mg/dl (70-99)
[2024-11-07 04:13] LABS: Hematocrit 36.1 % (39.0-52.0); Hemoglobin 11.5 g/dL (13.0-18.0); Mean Corp Hgb Conc. 31.9 g/dL (33.0-37.0); Mean Corpuscular Volume 88.0 fL (80.0-94.0); Platelet Count 171 10^3/uL (130-400); Red Cell Dist. Width 14.8 % (11.5-14.5)
[2024-11-07 04:39] LABS: ALT (SGPT) 42 U/L (0-50); AST (SGOT) 54 U/L (17-59); Albumin 2.8 g/dl (3.5-5.0); Alkaline Phosphatase 90 U/L (38-126); Blood Urea Nitrogen 19 mg/dl (9-20); Calcium 8.5 mg/dl (8.4-10.2); Carbon Dioxide 31 mmol/L (22-30); Chloride 102 mmol/L (98-107); Estimated Creatinine Clearance 65 ml/min; Glucose 192 mg/dl (70-99); Magnesium 2.0 mg/dl (1.6-2.3); Potassium 4.1 mmol/L (3.5-5.1); Sodium 136 mmol/L (135-145); Total Protein 5.5 g/dl (6.3-8.2); eGFR > 60.00
--- NOTE | 2024-11-07 05:40 | W.PN.CT ---
Today's Communication / Plan
-
Plan:
-Cont. current medical management per primary team
-Cont. current meds (ASA, Zetia, Pravachol, [place] Thyroid)
-Will hold both Farxiga and Valsartan 2-3 days prior to surgery
-Ongoing preop workup/medical optimization
-Will need ICD turned off in OR
-For CABG +/- SHEMAR clip, by Dr. Wilks on Monday 10/09
Assessment / Plan
-
Assessment:
-Severe 3v CAD
-Inferior [place]
-Weakness/Fatigue
-Syncopal episode
-HFrEF/ICM (LVEF 35%; was 50-55% per echo 04/2014)
-CHB S/P Transvenous pacer, 11/01/24
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
-Mild-moderate TR
-HTN
-Hyperlipidemia
-Hypothyroidism
-T2DM (hgb A1C 9.0)
-ROSANGELA (peaked @ 2.1)
-Transaminitis
-Small pericardial effusion, per CTA 11/06
-Small bilateral pleural effusion, per CTA 11/06
-Former tobacco use (quit 20 years ago, ~40 pk/yr)
-Diplopia S/p cataract surgery
-YUHAAVIATAM S/P hearing aids
-Renal calculi S/P cystoscopy with renal stents
-S/P T&A
-S/P Appendectomy
Discussed patient care with: Cardiology, Nursing, Respiratory Therapy, Pharmacy and Care Team
Subjective
-
Date of Service: November 07, 2024
No issues overnight. Denies CP/SOB/Weakness
Objective Data
-
Lab Results
11/07/24 03:31
11/07/24 03:31
PT 18.8 Sec (11.4-14.6) H 11/02/24 01:57
INR 1.55 11/02/24 01:57
APTT 89.1 Sec (23.4-35.0) H 11/04/24 04:03
Vital Signs
Vital Signs
Temp Pulse Resp BP Pulse Ox
98.3 F 81 16 102/72 93
11/07/24 03:24 11/07/24 03:24 11/07/24 03:24 11/07/24 03:24 11/07/24 03:24
CT Intake/Output/Weight
11/06/24 11/06/24 11/07/24
06:59 18:59 06:59
Intake Total 480 / 960
Output Total 1450 / 3070 1225 / 3175 1950 / 3175
Balance -970 / -2110 -1225 / -3175 -1950 / -3175
SaO2: 93 (RA)
Physical Exam
-
General: Awake, Oriented and AOx3
Cardiovascular: Regular rate & rhythm (A/V paced @ 84 ) and No Murmurs
Respiratory: Decreased Breath Sounds (at bases, otherwise clear)
Sternum: Stable
Extremities: No Edema
Data Reviewed
-
Lab Results: Results Reviewed
Medications: Active Meds Reviewed
Chest X-Ray: Report Reviewed and Image Reviewed
CT Scan: Report Reviewed and Image Reviewed
ECG: Report Reviewed and Image Reviewed
[2024-11-07 07:09] LABS: Glucose - Point of Care 129 mg/dl (70-99)
--- NOTE | 2024-11-07 07:51 | W.PN.CD ---
Today's Communication / Plan
-
start low dose beta freddie
hold arb/sglt2i starting today
Impression / Plan
-
PCP Sabina Dior, DO
CAD
- Recent inferior STEMI is based on clinical data, EKG, and confirmed by finding 100% RCA
- Severe LAD, Diag, LCx/OM, and 100% RCA => MD discussion re: best revas plan - plan for CABG given complex anatomy, HFrEF, diabetes
- scheduled for OR thursday
- not having symptoms suggestive of ongoing ischemia / unstable disease
Symptomatic complete heart block.
- S/p PPM 11-04-24
- device functioning normally, A sensed and V paced
V. Fib 30 minutes after ICD placement
- Spontaneous ventricular fibrillation cardiac arrest, terminated by ICD therapy.
- Nonsustained VTs observed since, non in past 24 hours
- If VT VF are seen consistently outside of the post-implantation time, can add amiodarone
Acute Heart Failure, HFrEF from ischemic cardiomyopathy
- LVEF by echo 35%
- LVEDP at cath 28
-improved with diuresis
- Add GDMT as clinical status allows => hold dapa and arb now pending OR thursday
- start low dose beta freddie now that has PPM in place
Acute kidney injury on top of CKD, resolved
- Likely from poor cardiac output with UT/LV dysfxn/bradycardia Baseline creatinine not known
- Baseline Cr 1.4 in 2021
- Cr better after cath and with pacing support
Longstanding diabetes mellitus, type II on insulin
Family history of premature CAD
Former heavy smoker probably at least a 80-itzn-mpxy history
?Hx of HTN, ARB might have been for kidney protection and not HTN
Mixed hyperlipidemia with low HDL
-Goal LDL now <55
-start statin, hold if LFTs worsen
Elevated LFTs
- Monitor
- May need workup
Subjective:
Comfortable at rest
Physical Exam
Vital Signs/Labs
Vital Signs
Temp Pulse Resp BP Pulse Ox
36.7 C 83 18 102/72 97
11/07/24 07:04 11/07/24 06:00 11/07/24 07:04 11/07/24 03:24 11/07/24 07:04
11/06/24 11/07/24 11/08/24
06:59 06:59 06:59
Actual Weight 79.1 kg 78.9 kg
11/07/24 03:31
11/07/24 03:31
PT 18.8 Sec (11.4-14.6) H 11/02/24 01:57
INR 1.55 11/02/24 01:57
APTT 89.1 Sec (23.4-35.0) H 11/04/24 04:03
Magnesium 2.0 mg/dl (1.6-2.3) 11/07/24 03:31
Triglycerides 94 mg/dl (10-149) 11/01/24 04:18
LDL Cholesterol, Calc 80 mg/dl 11/01/24 04:18
VLDL Cholesterol, Calc 18 mg/dl (0-30) 11/01/24 04:18
HDL Cholesterol 33 mg/dl 11/01/24 04:18
TSH 3.13 uIU/ml (0.47-4.68) 10/31/24 21:54
Free T4 1.66 ng/dl (0.78-2.19) 10/31/24 21:54
Physical Exam
Constitutional: No acute distress
Cardiovascular: Rhythm & rate is regular
Respiratory: Respiratory effort normal
Neuro/Psych: AO x 3
Data Reviewed
-
Date of Service: November 07, 2024
Medical Decision Making: Reviewed Test Results
Labs: Labs Reviewed by me
[2024-11-07] MEDS: SYMBICORT 160/4.5 MCG INHALER 2 PUFF INH ×2 (08:11→19:39)
[2024-11-07] MEDS: NOVOLOG FLEXPEN-MODERATE RESISTANCE SC (08:29)
--- NOTE | 2024-11-07 08:29 | PN.DE.MGMTRT ---
Insulin Management
- -
11/07/2024: Diabetes Management Follow up
Patient admitted 10/31 with c/o weakness; NSTEMI, complete heart block. Cardiac cath 11/01 - severe multivessel CAD.
PMH: HTN, HLD, T2DM and Hypothyroid. Prior to admission was taking Lantus 40 units @ hs, Metformin 1000 mg BID, Januvia 100 mg daily. A1C on admission 9%. Cr 0.9, eGFR > 60 today.
Patient awake, alert and oriented, very pleasant, resting in bed, offers no complaints, able to discuss diabetes care. at bedside, very supportive.
POD # 3 S/P pacemaker/ICD placement. Noted for an episode of Hypoglycemia yesterday morning to 64, AC NovoLog dose was reduced from 5 units to 3 units. No further episodes of hypoglycemia. Received Lantus 36 units @ HS, 3AM glucose was 192 V, FBG
127 this AM.
Will make no changes to current regimen: Lantus 36 units @ HS, NovoLog 3 units AC and low corrective.
Will not start SGLT2 due to possibility of CABG and will cont to HOLD Metformin in light of upcoming surgery.
Will cont to follow. Discussed with nurse at bedside.
Patient's brought in his DexCom G6, explained to pt and that we will assist him in placing the device once plans for surgery have been finalized.
Diabetes History
- -
Type of Diabetes: 2 requiring insulin
Pre-Admission Diabetes Regimen
11/07/24
03:31
Creatinine 1.0
Lab Results
Hemoglobin A1c 9.0 % (4.0-5.6) H 11/01/24 04:18
Insulin Pump Settings
IP Diabetes Regimen
11/06/24 11/06/24 11/06/24
10:19 12:10 16:52
Glucose
POC Glucose 164 H 195 H 197 H
11/06/24 11/07/24 11/07/24
22:02 03:21 03:31
Glucose 192 H
POC Glucose 283 H 185 H
11/07/24
07:08
Glucose
POC Glucose 129 H
Patient Education
[2024-11-07] MEDS: ARMOUR THYROID 15 MG PO (08:30)
[2024-11-07] MEDS: VITAMIN D3 (cholecalciferol) 50 MCG PO (08:30)
[2024-11-07] MEDS: SENOKOT-S 1 TABLET PO ×2 (08:31→21:27)
[2024-11-07] MEDS: ZETIA 10 MG PO (08:31)
[2024-11-07] MEDS: LOW STRENGTH ASPIRIN 81 MG PO (08:31)
[2024-11-07] MEDS: MIRALAX 17 GRAMS PO (08:31)
[2024-11-07] MEDS: NOVOLOG FLEXPEN 3 UNITS SC (08:32)
[2024-11-07] MEDS: TOPROL XL 25 MG PO (08:36)
--- NOTE | 2024-11-07 10:14 | CM ---
Reviewed chart. Mr. Domingo was transferred to IVU. Met with MrAngelo and Mrs. Domingo to review discharge plans. He states prior to admission he resides with his spouse in a two story home with one step to enter. He states he has a full flight of steps
to get to bedroom/full bathroom. He states he has a powder room on the first floor. He states prior to admission he was independent with ambulation and adls. He states he does not have any DME in the home. He states he has a prescription plan and
uses [facility]. His spouse states she will be home to assist in his care if needed. Medical work-up in progress. The discharge plan is to return home with [facility] when medically stable.
--- NOTE | 2024-11-07 10:42 | W.PN.HOSP.TC ---
Today's Communication/Plan
-
Encouraged incentive spirometry
Beta-freddie started
Hold Diovan and SGLT2 inhibitors
CT surgery plans awaited
Assessment / Plan
Assessment / Plan
74-year-old male with fatigue and myalgias. Patient had lightheadedness and passed out on he did not seek attention. When he fell he had some viral illness. He felt lightheaded which Made him come to the ER. Had abdominal pain and had a
large BM on . Has a cough.
CT chest with IV contrast-small pericardial effusion. Coronary artery calcifications. Small bilateral pleural effusions with accompanying bilateral lower lobe subsegmental atelectasis left greater than right. Small focus of left upper lobe
opacification with some air bronchograms may represent pneumonia and/or scarring. Malignancy would be unlikely
CVS: S1-S2 normal, sm at apex
Chest: Few rales scattered
Abdomen: Soft, NT. No guarding or rigidity. Bowel sounds present
Extremities: No edema
Rash- purplish on right leg, left ankle, right upper arm.
Ultrasound of the abdomen-fatty infiltration, simple bilateral renal cyst. Small right pleural effusion
Cardiac cath 11/01/2024-severe three-vessel CAD with 100% stenosis of distal RCA, complex bifurcation disease involving proximal LAD and moderate caliber diagonal as well as complex disease involving large circumflex marginal branch. Severe elevated
LV filling pressure. No significant AAS
Echo 11/01/2024-EF 35%. Akinesis of the basal and mid inferoseptal, inferior and inferolateral stewart. Enlarged RV size. Reduced RV SF. Mild to moderate TR. PA pressure 35 to 40 mmHg. IVC is dilated
# Acute [place]
Ischemic cardiomyopathy
Probably happened on when he had symptoms of syncope
Continue aspirin, Crestor started along with Zetia. He doesn't want to take Crestor. Changed to Pravastatin.
Started on an ARB .
SGLT2 inhibitor-Jardiance is $47 per month-Hold until CABG plans are finalized hold off on ARNI until CT surgery plans finalized
Troponin trending down
EKG with complete heart block and wide-complex QRS likely secondary to [id number] started
Patient has transvenous pacer adjusted to heart rate 80. With out pacer support patient still is in complete heart block-tested by cardiology in the room today
Echo as above
CT surgery evaluation ongoing. Timing of CABG not determined yet
S/P Pacer/AICD placed 11/04/24
11/04/24-Patient had a brief episode of ventricular fibrillation and was terminated by ICD therapy. He was brought back to the EP lab which showed stable leads. Intervention confirmed stable lead function. Echo without any pericardial effusion.
This is felt to be secondary to device implantation therefore holding off on antiarrhythmic therapy for now.
Beta-freddie started
# ROSANGELA , CKD ruled out
Creatinine has normalized
# Constipation-resolved
# Tremors-need to rule out Parkinson disease.
May also have essential tremors-cannot use any beta-blockers because of heart block
Eventually needs to follow-up with a neurologist
# Leukocytosis-likely stress reaction
Chest x-ray unremarkable
Urinalysis unremarkable
Watch temperature
If develops fever get blood cultures
USS abdomen without any infectious etiology
# Hypertension-blood pressure on the low side. Beta-freddie started. Diovan on hold
# [id number]-0.0
Poor control as outpatient
Patient uses Lantus insulin 40 units at night, Januvia 100 mg p.o. twice daily, metformin 1000 mg p.o. twice daily as outpatient
40 units of Lantus . NovoLog 5 AC started
Decreased Lantus to 38 units and NovoLog to 4 AC
SGLT2 inhibitors started. Hold as I am being told patient may get CABG during the hospital stay possibly thursday?
Accu-Cheks and sliding scale coverage
# Hypothyroidism-continue replacement
# Hyperlipidemia-patient has had intolerance to statin in the past and also LFTs elevated. Patient does not want to take Crestor. I discussed about pravastatin and ordered.
# Elevated AST and ALT-USS only shows fatty liver. Suspect hepatic congestion. Improved
# Longstanding rash at least since 2013- Pt says he got Biopsy and was told it is from Diabetes. he doesn't remember the name of the Derm.
# Ex-smoker
# DVT prophylaxis-subcutaneous Lovenox
# Full code
Discussed with nursing at bedside
Discussed with at bedside
Discussed with cardiology
Part of this note was created using voice recognition system. Occasional wrong word or��sound alike� substitutions may have inadvertently occurred due to the inherent limitations of voice recognition software. If noted kindly bring it to my
attention for correction.
Anticipated Discharge: > 48 hours
Subjective/Interval History
-
Date of Service: November 07, 2024
Objective Data
-
Labs:
Laboratory Results
11/07/24
03:31
WBC 12.8 H
Hgb 11.5 L
Hct 36.1 L
Plt Count 171
Sodium 136
Potassium 4.1
Chloride 102
Carbon Dioxide 31 H
BUN 19
Creatinine 1.0
Glucose 192 H
Calcium 8.5
Total Bilirubin 0.5
AST 54
ALT 42
Alkaline Phosphatase 90
Vital Signs:
Vital Signs
Temp Pulse Resp BP Pulse Ox
98.0 F 80 16 97/65 97
11/07/24 07:04 11/07/24 08:12 11/07/24 08:12 11/07/24 07:07 11/07/24 08:12
I&O
11/06/24 11/07/24 11/08/24
06:59 06:59 06:59
Intake Total 960 / 960
Output Total 2570 / 3070 3175 / 3175 275 / 275
Balance -1610 / -2110 -3175 / -3175 -275 / -275
[2024-11-07 11:34] LABS: Glucose - Point of Care 200 mg/dl (70-99)
[2024-11-07] MEDS: NOVOLOG FLEXPEN 4 UNITS SC ×2 (11:57→17:36)
[2024-11-07] MEDS: NOVOLOG FLEXPEN-MODERATE RESISTANCE 1 UNITS SC (11:58)
[2024-11-07 16:31] LABS: Glucose - Point of Care 217 mg/dl (70-99)
[2024-11-07] MEDS: NOVOLOG FLEXPEN-MODERATE RESISTANCE 3 UNITS SC (17:35)
[2024-11-07] MEDS: LOVENOX 40 MG SC (17:35)
[2024-11-07] MEDS: PRAVACHOL 40 MG PO (17:36)
[2024-11-07 21:31] LABS: Glucose - Point of Care 199 mg/dl (70-99)
[2024-11-07] MEDS: LANTUS 0.38 UNITS SC (21:32)
[2024-11-07] MEDS: TYLENOL 650 MG PO (21:41)
[2024-11-07] MEDS: XANAX 0.25 MG PO (21:42)
[2024-11-08] VITALS (8 sets, daily range): BP systolic 94–133; BP diastolic 64–84; BMI 25.7
--- NOTE | 2024-11-08 00:35 | SUR.PHASEI ---
Assumed care on pt at 1900,aaox3, AV paced on tele monitor, HR 80's, 2L O2 NC sat on mid 96%, POLLACK, occ dry crnp cough ,diminished bases. L upper chest Aquacel dressing CDI. Pt c/o generalized discomfort, tylenol PRN given at bedtime with + effect.
call salazar within reach, POC ongoing.
[2024-11-08 04:14] LABS: Blood Urea Nitrogen 20 mg/dl (9-20); Calcium 8.6 mg/dl (8.4-10.2); Carbon Dioxide 34 mmol/L (22-30); Chloride 100 mmol/L (98-107); Estimated Creatinine Clearance 65 ml/min; Glucose 150 mg/dl (70-99); Magnesium 2.0 mg/dl (1.6-2.3); Potassium 4.3 mmol/L (3.5-5.1); Sodium 137 mmol/L (135-145); eGFR > 60.00
--- NOTE | 2024-11-08 05:09 | W.PN.CT ---
Today's Communication / Plan
-
Plan:
-Cont. current medical management per primary team
-Cont. current meds (ASA, Zetia, Pravachol, [place] Thyroid)
-Will hold both Farxiga and Valsartan 2-3 days prior to surgery
-Ongoing preop workup/medical optimization
-Will need ICD turned off in OR
-For CABG +/- SHEMAR clip, by Dr. Wilks tomorrow 11/09
-Will cont. to closely monitor
Assessment / Plan
-
Assessment:
-Severe 3v CAD
-Inferior [place]
-Weakness/Fatigue
-Syncopal episode
-HFrEF/ICM (LVEF 35%; was 50-55% per echo 04/2014)
-CHB S/P Transvenous pacer, 11/01/24
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
-Mild-moderate TR
-HTN
-Hyperlipidemia
-Hypothyroidism
-T2DM (hgb A1C 9.0)
-ROSANGELA (peaked @ 2.1)
-Transaminitis
-Small pericardial effusion, per CTA 11/06
-Small bilateral pleural effusion, per CTA 11/06
-Former tobacco use (quit 20 years ago, ~40 pk/yr)
-Diplopia S/p cataract surgery
-[place] S/P hearing aids
-Renal calculi S/P cystoscopy with renal stents
-S/P T&A
-S/P Appendectomy
Discussed patient care with: Cardiology, Nursing, Respiratory Therapy, Pharmacy and Care Team
Subjective
-
Date of Service: November 08, 2024
No issues overnight. Denies CP/SOB
Objective Data
-
Lab Results
11/07/24 03:31
11/08/24 03:24
PT 18.8 Sec (11.4-14.6) H 11/02/24 01:57
INR 1.55 11/02/24 01:57
APTT 89.1 Sec (23.4-35.0) H 11/04/24 04:03
Vital Signs
Vital Signs
Temp Pulse Resp BP Pulse Ox
97.9 F 82 20 102/67 95
11/08/24 03:19 11/08/24 03:17 11/08/24 03:19 11/08/24 03:17 11/08/24 03:19
CT Intake/Output/Weight
11/07/24 11/07/24 11/08/24
06:59 18:59 06:59
Intake Total 480 / 480
Output Total 1950 / 3175 475 / 975 500 / 975
Balance -1950 / -3175 -475 / -495 -20 / -495
SaO2: 95 (2L)
Physical Exam
-
General: Awake, Oriented and AOx3
Cardiovascular: Regular rate & rhythm, No Murmurs and No Gallop
Respiratory: Decreased Breath Sounds (at bases with left basilar rhonchi)
Extremities: Edema +1
Data Reviewed
-
Lab Results: Results Reviewed
Medications: Active Meds Reviewed
Chest X-Ray: Report Reviewed and Image Reviewed
CT Scan: Report Reviewed and Image Reviewed
ECG: Report Reviewed and Image Reviewed
[2024-11-08 07:15] LABS: Glucose - Point of Care 138 mg/dl (70-99)
[2024-11-08] MEDS: SYMBICORT 160/4.5 MCG INHALER 2 PUFF INH ×2 (07:54→19:53)
--- NOTE | 2024-11-08 08:06 | PN.DE.MGMTRT ---
Insulin Management
- -
11/08/2024: Diabetes Management Follow up
Patient admitted 10/31 with c/o weakness; NSTEMI, complete heart block. Cardiac cath 11/01 - severe multivessel CAD.
PMH: HTN, HLD, T2DM and Hypothyroid. Prior to admission was taking Lantus 40 units @ hs, Metformin 1000 mg BID, Januvia 100 mg daily. A1C on admission 9%. Cr 0.9, eGFR > 60 today.
Patient awake, alert and oriented, agitated, not happy with having multiple people listen to his heart and lungs, resting in bed, states he wants to sign out AMA, Dr. Harrison @ bedside also. Patient not provoked.
POD # 4 S/P pacemaker/ICD placement.
No further episodes of hypoglycemia (64 fasting 11/06, lantus dose reduced from 40 to 38). Received Lantus 38 units @ HS, fasting this AM 138. Will continue lantus 38 units @ hs. Glucose pre meal 11/07 200 and 217. Will increase AC novolog from 4
units to 5 units with low corrective AC.
Patient for possible OR for CABG 11/09, will not resume metformin or SGLT2.
Will cont to follow. Discussed with nurse at bedside.
Patient's brought in his DexCom G6, explained to pt and that we will assist him in placing the device once plans for surgery have been finalized.
Diabetes History
- -
Type of Diabetes: 2 requiring insulin
Pre-Admission Diabetes Regimen
11/08/24
03:24
Creatinine 1.0
Lab Results
Hemoglobin A1c 9.0 % (4.0-5.6) H 11/01/24 04:18
Insulin Pump Settings
IP Diabetes Regimen
11/07/24 11/07/24 11/07/24
11:32 16:30 21:30
Glucose
POC Glucose 200 H 217 H 199 H
11/08/24 11/08/24
03:24 07:14
Glucose 150 H
POC Glucose 138 H
Meal type: Dinner
Meal type: Lunch
Amount consumed: 100%
Amount consumed: 100%
Patient Education
--- NOTE | 2024-11-08 08:22 | RESPNOTE ---
pt found off O2, RA SpO2 91-92%. pt instructed he may leave O2 off if resting.
[2024-11-08] MEDS: NOVOLOG FLEXPEN-MODERATE RESISTANCE SC (09:08)
[2024-11-08] MEDS: ARMOUR THYROID 15 MG PO (09:09)
[2024-11-08] MEDS: LOW STRENGTH ASPIRIN 81 MG PO (09:10)
[2024-11-08] MEDS: VITAMIN D3 (cholecalciferol) 50 MCG PO (09:10)
[2024-11-08] MEDS: SENOKOT-S 1 TABLET PO ×2 (09:10→19:40)
[2024-11-08] MEDS: ZETIA 10 MG PO (09:10)
[2024-11-08] MEDS: TOPROL XL 25 MG PO (09:11)
[2024-11-08] MEDS: MIRALAX PO (09:16)
[2024-11-08] MEDS: NOVOLOG FLEXPEN SC (09:21)
[2024-11-08] MEDS: NOVOLOG FLEXPEN 5 UNITS SC ×3 (09:25→17:24)
--- NOTE | 2024-11-08 09:45 | W.PN.HOSP.TC ---
Addendum entered and electronically signed by Issac Harrison MD 11/08/24 14:10:
stage 1 PI sacrum
Original Note:
Today's Communication/Plan
-
CABG planned for tomorrow
Speech evaluation
Assessment / Plan
Assessment / Plan
74-year-old male with fatigue and myalgias. Patient had lightheadedness and passed out on he did not seek attention. When he fell he had some viral illness. He felt lightheaded which Made him come to the ER. Had abdominal pain and had a
large BM on . Has a cough.
CT chest with IV contrast-small pericardial effusion. Coronary artery calcifications. Small bilateral pleural effusions with accompanying bilateral lower lobe subsegmental atelectasis left greater than right. Small focus of left upper lobe
opacification with some air bronchograms may represent pneumonia and/or scarring. Malignancy would be unlikely
CVS: S1-S2 normal, sm at apex
Chest: Few rales scattered
Abdomen: Soft, NT. No guarding or rigidity. Bowel sounds present
Extremities: No edema
Patient not in a good mood today, feels that everybody have been bothering him too much. He does not want people to take a listen to his heart and lungs multiple times a day.
Ultrasound of the abdomen-fatty infiltration, simple bilateral renal cyst. Small right pleural effusion
Cardiac cath 11/01/2024-severe three-vessel CAD with 100% stenosis of distal RCA, complex bifurcation disease involving proximal LAD and moderate caliber diagonal as well as complex disease involving large circumflex marginal branch. Severe elevated
LV filling pressure. No significant AAS
Echo 11/01/2024-EF 35%. Akinesis of the basal and mid inferoseptal, inferior and inferolateral steawrt. Enlarged RV size. Reduced RV SF. Mild to moderate TR. PA pressure 35 to 40 mmHg. IVC is dilated
CT chest-coronary calcification, small pericardial effusion, small bilateral pleural effusions with bilateral lower lobe subsegmental atelectasis. Small focus of left upper lobe opacification pneumonia/scarring. Malignancy would be unlikely cannot
be excluded short-term follow-up of the CT
# Acute [place]
Ischemic cardiomyopathy
Probably happened on when he had symptoms of syncope
Continue aspirin, Crestor started along with Zetia. He doesn't want to take Crestor. Changed to Pravastatin.
Started on an ARB , but on Hold for CABG.
SGLT2 inhibitor-Jardiance is $47 per month-Hold until CABG , hold off on ARNI until CABG
EKG with complete heart block and wide-complex QRS likely secondary to [id number] started
Patient has transvenous pacer adjusted to heart rate 80. With out pacer support patient still is in complete heart block-tested by cardiology in the room today
Echo as above
S/P Pacer/AICD placed 11/04/24
11/04/24-Patient had a brief episode of ventricular fibrillation and was terminated by ICD therapy. He was brought back to the EP lab which showed stable leads. Intervention confirmed stable lead function. Echo without any pericardial effusion.
This is felt to be secondary to device implantation therefore holding off on antiarrhythmic therapy for now.
Beta-freddie started
CABG on 11/09/24
# ROSANGELA , CKD ruled out
Creatinine has normalized
# Constipation-resolved
# Tremors-need to rule out Parkinson disease.
May also have essential tremors-cannot use any beta-blockers because of heart block
Eventually needs to follow-up with a neurologist
# Leukocytosis-likely stress reaction
If develops fever get blood cultures
USS abdomen without any infectious etiology
with lingering cough get speech eval to R/O aspiration.
# Hypertension-blood pressure on the low side. Beta-freddie started. Diovan on hold
# [id number]-9.0
Poor control as outpatient
Patient uses Lantus insulin 40 units at night, Januvia 100 mg p.o. twice daily, metformin 1000 mg p.o. twice daily as outpatient
40 units of Lantus . NovoLog 5 AC started
Decreased Lantus to 38 units and NovoLog to 4 AC
SGLT2 inhibitors started. Hold as I am being told patient may get CABG during the hospital stay possibly thursday?
Accu-Cheks and sliding scale coverage
# Hypothyroidism-continue replacement
# Hyperlipidemia-patient has had intolerance to statin in the past and also LFTs elevated. Patient does not want to take Crestor. I discussed about pravastatin and ordered.
# Elevated AST and ALT-USS only shows fatty liver. Suspect hepatic congestion. Improved
# Longstanding rash at least since 2013- Pt says he got Biopsy and was told it is from Diabetes. he doesn't remember the name of the Derm.
# Ex-smoker
# DVT prophylaxis-subcutaneous Lovenox
# Full code
Discussed with nursing at bedside
Discussed with Lu Pa at bed side.
Discussed with cardiology
Part of this note was created using voice recognition system. Occasional wrong word or��sound alike� substitutions may have inadvertently occurred due to the inherent limitations of voice recognition software. If noted kindly bring it to my
attention for correction.
Anticipated Discharge: > 48 hours
Subjective/Interval History
-
Date of Service: November 08, 2024
Objective Data
-
Labs:
Laboratory Results
11/08/24
03:24
Sodium 137
Potassium 4.3
Chloride 100
Carbon Dioxide 34 H
BUN 20
Creatinine 1.0
Glucose 150 H
Calcium 8.6
Vital Signs:
Vital Signs
Temp Pulse Resp BP Pulse Ox
98.2 F 85 16 105/64 92
11/08/24 07:01 11/08/24 09:11 11/08/24 08:00 11/08/24 09:11 11/08/24 08:00
I&O
11/07/24 11/08/24 11/09/24
06:59 06:59 06:59
Intake Total 480 / 480
Output Total 3175 / 3175 1275 / 1275
Balance -3175 / -3175 -795 / -795
[2024-11-08 11:38] LABS: Glucose - Point of Care 234 mg/dl (70-99)
--- NOTE | 2024-11-08 11:42 | W.PN.CD ---
Addendum entered and electronically signed by Bunny Quinones MD 11/08/24 14:20:
I saw and examined the patient.
The TENNIS PLAYER's note was reviewed and I agree with the note.
Comment:
74M with HTN & NIDDM who presented with upper back and shoulder tightness then had syncope and developed SOB prompting evaluation -> recent inferior STEMI based on clinical data and EKG -> LHC with MVCAD. Planning for CABG tomorrow with Dr. Wilks.
Physical exam with regular rate and rhythm, no murmurs, clear lungs, no lower extremity edema.
CABG tomorrow with Dr. Wilks. Continue aspirin and beta-freddie. Monitor telemetry for recurrent NSVT. Hold other GDMT for the OR.
Original Note:
Today's Communication / Plan
-
NSVT - 6 beats at 06:53 & 5 beats at 05:23 this morning - cannot increase BB due to BP limitations, can consider amiodarone
CABG in am with Dr. Wilks
Impression / Plan
-
I/P: 74M with HTN & NIDDM who presented with upper back and shoulder tightness then had syncope and developed SOB prompting evaluation -> recent inferior STEMI based on clinical data and EKG -> LHC with MVCAD
Outpatient Soiled Linen Distributor: will be Dr. Bueno
PCP: Sabina Dior DO
CAD
- Recent inferior STEMI is based on clinical data, EKG, and confirmed by finding 100% RCA
- LHC: Severe LAD, Diag, LCx/OM, and 100% RCA => plan for CABG given complex anatomy, HFrEF, diabetes
- Scheduled for OR TOMMORROW
- Not having symptoms suggestive of ongoing ischemia / unstable disease
Symptomatic complete heart block - S/p PPM 11-04-24
- Device functioning normally, A sensed and V paced
Ventricular fibrillation - 30 minutes after ICD placement
- Spontaneous ventricular fibrillation cardiac arrest, terminated by ICD therapy.
- NSVT on telemetry this morning, 6 beats & 5 beats
- Can consider amiodarone
HFrEF (EF 35%) - acute on chronic
Ischemic cardiomyopathy
- LVEDP at cath 28 - Diuresed
- GDMT as tolerated:
-BOYD/ARB/ARNI: Hold (for OR tomorrow)
-SGLT2 inhibitor: Hold (for OR tomorrow)
-Aldosterone agonist: Can consider post operatively if BP allows
-Beta freddie: Metoprolol succinate 25mg daily
-Isosorbide/Hydralazine:�Not indicated
-ICD: Implanted (MDT)
-Trend daily weight & I/O
Mixed hyperlipidemia
- TC 131, LDL 80, HDL 33, TG 94 -> started on pravastatin, consider high intensity statin
- Goal LDL now <55
ROSANGELA superimposed on CKD - resolved
- Likely from poor cardiac output with MN/LV dysfxn/bradycardia
- Baseline Cr 1.4 in 2021
- Cr better after cath and with pacing support
Type II DM, longstanding, uncontrolled, Hgba1c 9.0%
History of HTN, follow
Elevated LFTs, improved
Former heavy smoker probably at least a 13-qdzw-djwu history, continued cessation recommended
SUBJECTIVE:
Denies CP, SOB, and dizziness. Frustrated with length of stay.
Physical Exam
Vital Signs/Labs
Vital Signs
Temp Pulse Resp BP Pulse Ox
98.2 F 82 16 106/72 92
11/08/24 07:01 11/08/24 11:35 11/08/24 08:00 11/08/24 11:35 11/08/24 08:00
11/07/24 11/08/24 11/09/24
06:59 06:59 06:59
Actual Weight 78.9 kg 78.9 kg
11/07/24 03:31
11/08/24 03:24
PT 18.8 Sec (11.4-14.6) H 11/02/24 01:57
INR 1.55 11/02/24 01:57
APTT 89.1 Sec (23.4-35.0) H 11/04/24 04:03
Magnesium 2.0 mg/dl (1.6-2.3) 11/08/24 03:24
Triglycerides 94 mg/dl (10-149) 11/01/24 04:18
LDL Cholesterol, Calc 80 mg/dl 11/01/24 04:18
VLDL Cholesterol, Calc 18 mg/dl (0-30) 11/01/24 04:18
HDL Cholesterol 33 mg/dl 11/01/24 04:18
TSH 3.13 uIU/ml (0.47-4.68) 10/31/24 21:54
Free T4 1.66 ng/dl (0.78-2.19) 10/31/24 21:54
Physical Exam
Constitutional: No acute distress and Comfortable
EENT: Anicteric and Moist mucous membranes
Cardiovascular: Rhythm & rate is regular, Pedal edema is absent and S1S2 is normal
Respiratory: Respiratory effort normal and Lungs clear to auscul.
GI: Soft, Distention absent, Flat, Non tender and Normal bowel sounds
Neuro/Psych: AO x 3
Other: Skin (warm and dry)
Data Reviewed
-
Date of Service: November 08, 2024
Labs: Labs Reviewed by me
[2024-11-08] MEDS: NOVOLOG FLEXPEN-MODERATE RESISTANCE 3 UNITS SC ×2 (12:54→17:25)
--- NOTE | 2024-11-08 13:22 | PTOTSP ---
Dysphagia Evaluation
WFL-mild oral stage differences including prolonged but functional mastication of solids related to missing dentition. Infrequent dry cough noted in absence of PO, also noted with dry solids. Passed 3 oz swallow. Denied history of dysphagia or
repeated PNAs.
Recommend:
1. IDDSI Level 7 Regular, Thin Liquids
2. General aspiration and reflux precautions
3. Dysphagia f/u to re-assess swallowing after cardiac surgery and determine if/when instrumental swallowing assessment warranted.
--- NOTE | 2024-11-08 13:34 | PN.CDI ---
CDI
- -
CDI:
Physician Documentation Request
Admit Date: 10/31/24 23:27
Dear Doctor Hunter,
Please review the following and provide your response in the progress notes.
Clinical Indicators:
Selected Entries
11/01/24
08:00
Pressure injury stage [Present on admission Sacrum] Stage 1
Physician documentation of the type and location of wounds is required for compliant documentation. Based on the above clinical findings and your assessment, please provide the following in your progress note:
Yes, Stage 1 sacrum pressure injury, POA
No, Stage 1 sacrum pressure injury
Other (please specify)
Location of the ulcer/wound, including laterality.
Type (etiology) of ulcer/wound:
- Diabetic ulcer
- Arterial (ischemic) ulcer
- Traumatic wound
- Pressure (decubitus) ulcer
- Other
For a pressure ulcer, please also include the stage* of the ulcer:
- Stage 1 - Skin intact, non-blanchable redness
- Stage 2 - Partial thickness loss of dermis, includes intact or open blister
- Stage 3 - Full thickness tissue not including bone, tendon or muscle
- Stage 4 - Full thickness tissue loss, including exposed bone, tendon or muscle
- Unstageable - Full thickness loss in which the base of the ulcer is covered by slough (yellow, ascencio, garsia, green or brown) and/or eschar (ascencio, brown or black) in the wound bed.
- Unable to determine
Use of terms such as suspected, likely, concern for, or probable (associated with a specific diagnosis that is being evaluated, monitored, or treated as if it exists) are acceptable and can be coded in the inpatient setting, when documented at the
time of discharge.
Thank you,
Tracy Blank RN BSN CCDS
CDI Specialist
Please contact via tiger text
Please use your independent medical judgment in providing your response.
*Source: National Pressure Ulcer Advisory Panel (NPUAP)
--- NOTE | 2024-11-08 13:42 | CM ---
Reviewed chart. Met with and Mrs. Domingo to review discharge plans. Prior to admission he resides with his spouse in a two story home with one step to enter. He has a full flight of steps to get to bedroom/full bathroom. He has a powder room
on the first floor. Prior to admission he was independent with ambulation and adls. He does not have any DME in the home. He has a prescription plan and uses [facility]. His spouse will be home to assist in his care if needed. Will need
to see his functional level after surgery to see if he will have any skilled care needs. Medical work-up in progress. The discharge plan is to return hoe with his spouse and a home visit by the Transitional Care Nurse when medically stable.
Went to review pre-op and post -op routines and he requested not to given any information. Gave his spouse the Cardiothoracic Surgery Educational Booklet. The plan is for CABG on 11/09/24.
--- NOTE | 2024-11-08 14:36 | W.PN.UPDATE ---
Update Note
Progress Note Update
CARDIAC SURGERY ATTENDING:
It was my pleasure to meet with Mr. Natanael Henson and his at bedside this afternoon. I have reviewed his medical history, cardiac catheterization images, and all other pertinent studies. He will benefit from surgical coronary
revascularization. I anticipate JUSTIN to LAD, GSV to major diagonal branch, and GSVs to upper and lower branches of his obtuse marginal (lower obtuse marginal manage require intraoperative assessment). I will also consider concurrent exclusion of
his left atrial appendage. The patient's LVEF is reduced at approximate 35%. He has no significant valvular pathologies. He is currently on hospital day #8 after delayed presentation of inferior WA, suspected on , 10/27/2024. His RV
function was also slightly reduced, but based on his laboratory numbers and resolution of his ALI, I anticipate his RV function has improved. Will reassess and preoperative CHLOE. It is my hope that his procedure will not require periprocedural
mechanical circulatory systems, but will assure that these technologies are available if necessary.
I had a greater than 60-minute conversation with Mr. Henson and his . We reviewed his pathology, discussed the proposed operative intervention to great detail, reviewed the operative risks (including, but not limited to, , stroke, WA,
arrhythmia, PNA, ROSANGELA/F, bleeding, and infection), discussed expected in-hospital postprocedural course, and reviewed the expected outpatient recovery. All questions were answered to the best of my abilities. The patient is agreeable to proceed.
Given their expertise in this area, I have asked my physician business assistant colleagues to further evaluate the patient's lower extremities to be confident that we have greater saphenous vein conduit.
Thank you for the opportunity to spend the care of this kind gentleman.
Tacho Wilks MD
[phone]
STS mortality: 4.92; morbidity: 18.7
[2024-11-08 16:50] LABS: Glucose - Point of Care 235 mg/dl (70-99)
[2024-11-08] MEDS: PRAVACHOL 40 MG PO (17:24)
--- NOTE | 2024-11-08 17:31 | PTCARENOTE ---
Discussed all nursing measures prior to implementation. VSS. Discussed plan to transfer to CVICU, pre op. Report given to MINI LAB OPERATOR. Pt transferred to room 2261.
[2024-11-08] MEDS: TYLENOL 650 MG PO ×2 (18:14→22:23)
--- NOTE | 2024-11-08 18:28 | PTCARENOTE ---
Received pt from IVU RN. AAO x 3. Sitting in the chair eating dinner. C.o Lt shoulder discomfort , tylenol administered. AV paced on monitor. Pre op education given to patient and family
--- NOTE | 2024-11-08 20:00 | PTCARENOTE ---
Patient received sitting in chair, AAOX3, complains of left shoulder discomfort. 100% AV paced on monitor, no edema noted. Lungs clear, on room air. Abdomen round with hypoactive bowel sounds. Red rash noted on bilateral lower extremities. Left
chest aquacell clean dry and intact #22 g in RFA flushed and patent.
--- NOTE | 2024-11-08 21:05 | PTCARENOTE ---
Addendum entered by Luly Montes RN 11/08/24 22:06:
Patient clipped, given CHG shower, linens changed.
Original Note:
pa
[2024-11-08 21:58] LABS: Glucose - Point of Care 220 mg/dl (70-99)
[2024-11-08] MEDS: LANTUS 0.2 UNITS SC (22:23)
[2024-11-08] MEDS: LANTUS SC (22:28)
[2024-11-09] VITALS (24 sets, daily range): BP systolic 66–125; BP diastolic 44–85; BMI 25.9
[2024-11-09] MEDS: MAGNESIUM OXIDE 500 MG PO (05:00)
[2024-11-09] MEDS: LOPRESSOR 25 MG PO (05:00)
[2024-11-09] MEDS: PROTONIX 40 MG PO (05:00)
[2024-11-09] MEDS: BACTROBAN 2% OINTMENT 1 APPLIC NASAL ×2 (05:00→19:11)
[2024-11-09 05:05] LABS: Hematocrit 36.7 % (39.0-52.0); Hemoglobin 11.9 g/dL (13.0-18.0); Mean Corp Hgb Conc. 32.4 g/dL (33.0-37.0); Mean Corpuscular Volume 89.1 fL (80.0-94.0); Platelet Count 176 10^3/uL (130-400); Red Cell Dist. Width 14.9 % (11.5-14.5)
--- NOTE | 2024-11-09 05:15 | PTCARENOTE ---
CHG bath given, linens changed, pre op meds given, no changes in assessment
[2024-11-09 05:18] LABS: ALT (SGPT) 45 U/L (0-50); AST (SGOT) 44 U/L (17-59); Albumin 3.1 g/dl (3.5-5.0); Alkaline Phosphatase 80 U/L (38-126); Blood Urea Nitrogen 22 mg/dl (9-20); Calcium 8.8 mg/dl (8.4-10.2); Carbon Dioxide 37 mmol/L (22-30); Chloride 100 mmol/L (98-107); Estimated Creatinine Clearance 65 ml/min; Glucose 174 mg/dl (70-99); Magnesium 2.0 mg/dl (1.6-2.3); Potassium 4.3 mmol/L (3.5-5.1); Sodium 139 mmol/L (135-145); Total Protein 6.0 g/dl (6.3-8.2); eGFR > 60.00
--- NOTE | 2024-11-09 07:05 | PTCARENOTE ---
Patient transported to CVOR
--- NOTE | 2024-11-09 07:19 | PN.DE.MGMTRT ---
Insulin Management
- -
11/09/2024: Diabetes Management Follow up
Patient admitted 10/31 with c/o weakness; NSTEMI, complete heart block. Cardiac cath 11/01 - severe multivessel CAD.
PMH: HTN, HLD, T2DM and Hypothyroid. Prior to admission was taking Lantus 40 units @ hs, Metformin 1000 mg BID, Januvia 100 mg daily. A1C on admission 9%. Cr 1, eGFR > 60 today.
Patient in OR for CABG today at the time of my visit.
POD # 5 S/P pacemaker/ICD placement.
No further episodes of hypoglycemia (64 fasting 11/06, lantus dose reduced from 40 to 38). Received reduced dose of Lantus 20 units @ HS, fasting this AM 174. Patient to start critical care glycemic protocol s/p OR today.
Will cont to follow. Discussed with nurse.
Patient's brought in his DexCom G6, explained to pt and that we will assist him in placing the device once plans for surgery have been finalized.
Diabetes History
- -
Type of Diabetes: 2 requiring insulin
Pre-Admission Diabetes Regimen
11/09/24
04:30
Creatinine 1.0
Lab Results
Hemoglobin A1c 9.0 % (4.0-5.6) H 11/01/24 04:18
Insulin Pump Settings
IP Diabetes Regimen
11/08/24 11/08/24 11/08/24
11:37 16:49 21:57
Glucose
POC Glucose 234 H 235 H 220 H
11/09/24
04:30
Glucose 174 H
POC Glucose
Meal type: Breakfast
Amount consumed: 100%
Patient Education
[2024-11-09 08:03] LABS: ACT+ - POC 126 Seconds (82-134)
[2024-11-09 08:04] LABS: Urine Character Slightly Cloudy (Clear)
[2024-11-09] MEDS: SYMBICORT 160/4.5 MCG INHALER INH (08:12)
[2024-11-09 08:25] LABS: Urine Squamous Cell >30 /LPF (Few)
[2024-11-09 08:26] LABS: Urine Red Blood Cell 0-2 /HPF (0-2)
--- NOTE | 2024-11-09 08:51 | CM ---
Patient planned for OR today for planned CABG.
Reviewed initial assessment; patient resides w/ spouse in a private, 2 STH w/ 1 RANJAN. Patient is functionally indep. prior to admission without the use of any assisted device.
Anticipated DC plan is for home w/ CT Transitional Care RN.
CM to follow.
--- NOTE | 2024-11-09 09:06 | W.PN.UPDATE ---
Update Note
Progress Note Update
Patient is in the OR and not in the room
Transferred to CT surgery service
Please let us know if we can help again in the patient's care
[2024-11-09 10:10] LABS: ACT+ - POC 526 Seconds (82-134)
[2024-11-09 10:28] LABS: B.E. - POC 7.6 mmol/L; Glucose - POC 195 mg/dl (70-99); HCO3 - POC 32 mmol/L (21-28); Hematocrit - POC 33 % PCV (42-52); Hemodilution- POC No; Hemoglobin Calculated - POC 11.2; Ionized Calcium - POC 1.15 mmol/L (1.15-1.33); Lactate - POC 0.64 mmol/L (0.36-0.75); O2 Saturation %Calculated-POC 99.8 % (94-98); PCO2 - POC 45 mmHg (35-48); PO2 - POC 228 mmHg (83-108); POC Comment PRE; Potassium - POC 4.1 mmol/L (3.5-5.1); Sodium - POC 139 mmol/L (136-145); Specimen Type - POC Arterial; pH - POC 7.47 (7.35-7.45)
[2024-11-09 10:39] LABS: ACT+ - POC 572 Seconds (82-134)
[2024-11-09 10:54] LABS: B.E. - POC 11.4 mmol/L; Glucose - POC 158 mg/dl (70-99); HCO3 - POC 35 mmol/L (21-28); Hematocrit - POC 28 % PCV (42-52); Hemodilution- POC Yes; Hemoglobin Calculated - POC 9.6; Ionized Calcium - POC 1.06 mmol/L (1.15-1.33); Lactate - POC 0.59 mmol/L (0.36-0.75); O2 Saturation %Calculated-POC 100.0 % (94-98); PCO2 - POC 42 mmHg (35-48); PO2 - POC 472 mmHg (83-108); POC Comment CPB; Potassium - POC 4.1 mmol/L (3.5-5.1); Sodium - POC 138 mmol/L (136-145); Specimen Type - POC Arterial; pH - POC 7.53 (7.35-7.45)
[2024-11-09 11:03] LABS: ACT+ - POC 545 Seconds (82-134)
[2024-11-09 11:30] LABS: B.E. - POC 9.3 mmol/L; Glucose - POC 134 mg/dl (70-99); HCO3 - POC 32 mmol/L (21-28); Hematocrit - POC 24 % PCV (42-52); Hemodilution- POC Yes; Hemoglobin Calculated - POC 8.2; Ionized Calcium - POC 0.97 mmol/L (1.15-1.33); Lactate - POC 0.83 mmol/L (0.36-0.75); O2 Saturation %Calculated-POC 100.0 % (94-98); PCO2 - POC 32 mmHg (35-48); PO2 - POC 469 mmHg (83-108); POC Comment CPB; Potassium - POC 4.4 mmol/L (3.5-5.1); Sodium - POC 138 mmol/L (136-145); Specimen Type - POC Arterial; pH - POC 7.60 (7.35-7.45)
[2024-11-09 11:37] LABS: ACT+ - POC 484 Seconds (82-134)
[2024-11-09 11:56] LABS: B.E. - POC 9.4 mmol/L; Glucose - POC 115 mg/dl (70-99); HCO3 - POC 32 mmol/L (21-28); Hematocrit - POC 23 % PCV (42-52); Hemodilution- POC Yes; Hemoglobin Calculated - POC 7.9; Ionized Calcium - POC 1.01 mmol/L (1.15-1.33); Lactate - POC 3.35 mmol/L (0.36-0.75); O2 Saturation %Calculated-POC 100.0 % (94-98); PCO2 - POC 35 mmHg (35-48); PO2 - POC 351 mmHg (83-108); POC Comment CPB; Potassium - POC 3.7 mmol/L (3.5-5.1); Sodium - POC 141 mmol/L (136-145); Specimen Type - POC Arterial; pH - POC 7.57 (7.35-7.45)
[2024-11-09 12:05] LABS: ACT+ - POC 552 Seconds (82-134)
[2024-11-09 12:21] LABS: B.E. - POC 9.9 mmol/L; Glucose - POC 85 mg/dl (70-99); HCO3 - POC 32 mmol/L (21-28); Hematocrit - POC 23 % PCV (42-52); Hemodilution- POC Yes; Hemoglobin Calculated - POC 7.7; Ionized Calcium - POC 0.97 mmol/L (1.15-1.33); Lactate - POC 3.00 mmol/L (0.36-0.75); O2 Saturation %Calculated-POC 100.0 % (94-98); PCO2 - POC 32 mmHg (35-48); PO2 - POC 401 mmHg (83-108); POC Comment CPB; Potassium - POC 4.1 mmol/L (3.5-5.1); Sodium - POC 140 mmol/L (136-145); Specimen Type - POC Arterial; pH - POC 7.61 (7.35-7.45)
[2024-11-09 12:30] LABS: ACT+ - POC 561 Seconds (82-134)
[2024-11-09 12:49] LABS: B.E. - POC 7.6 mmol/L; Glucose - POC 88 mg/dl (70-99); HCO3 - POC 31 mmol/L (21-28); Hematocrit - POC 24 % PCV (42-52); Hemodilution- POC Yes; Hemoglobin Calculated - POC 8.3; Ionized Calcium - POC 0.98 mmol/L (1.15-1.33); Lactate - POC 2.37 mmol/L (0.36-0.75); O2 Saturation %Calculated-POC 100.0 % (94-98); PCO2 - POC 38 mmHg (35-48); PO2 - POC 411 mmHg (83-108); POC Comment WARM; Potassium - POC 4.1 mmol/L (3.5-5.1); Sodium - POC 143 mmol/L (136-145); Specimen Type - POC Arterial; pH - POC 7.52 (7.35-7.45)
[2024-11-09 12:52] LABS: ACT+ - POC 457 Seconds (82-134)
[2024-11-09 13:17] LABS: ACT+ - POC 123 Seconds (82-134)
[2024-11-09] MEDS: ANCEF 10 IV ×2 (13:18→15:07)
[2024-11-09] MEDS: ARMOUR THYROID PO (13:26)
[2024-11-09] MEDS: NOVOLOG FLEXPEN-MODERATE RESISTANCE SC ×2 (13:26)
[2024-11-09] MEDS: LOW STRENGTH ASPIRIN PO (13:26)
[2024-11-09] MEDS: NOVOLOG FLEXPEN SC ×4 (13:26→17:30)
[2024-11-09] MEDS: MIRALAX PO (13:27)
[2024-11-09] MEDS: ZETIA PO (13:27)
[2024-11-09] MEDS: SENOKOT-S PO ×2 (13:27→19:19)
[2024-11-09] MEDS: TOPROL XL PO (13:27)
[2024-11-09] MEDS: VITAMIN D3 (cholecalciferol) PO (13:27)
[2024-11-09 13:44] LABS: B.E. - POC 7.5 mmol/L; Glucose - POC 137 mg/dl (70-99); HCO3 - POC 32 mmol/L (21-28); Hematocrit - POC 25 % PCV (42-52); Hemodilution- POC Yes; Hemoglobin Calculated - POC 8.7; Ionized Calcium - POC 1.26 mmol/L (1.15-1.33); Lactate - POC 1.66 mmol/L (0.36-0.75); O2 Saturation %Calculated-POC 100.0 % (94-98); PCO2 - POC 45 mmHg (35-48); PO2 - POC 462 mmHg (83-108); Potassium - POC 3.7 mmol/L (3.5-5.1); Sodium - POC 141 mmol/L (136-145); Specimen Type - POC Arterial; pH - POC 7.46 (7.35-7.45)
--- NOTE | 2024-11-09 13:46 | W.CVOR.SURPR ---
CVOR Surgeon Immed Pre Op
-
I have examined this patient prior to performance of the scheduled procedure.
The patient's condition is unchanged from the time of the dictated/written History and
Physical and the patient is able to undergo the scheduled procedure.
--- NOTE | 2024-11-09 13:46 | W.IMMPOSTOP ---
Addendum entered and electronically signed by Tacho Wilks MD 11/09/24 14:44:
[id number]
Original Note:
Surgical Immed Post Op Note
-
CARDIAC SURGERY OPERATIVE NOTE:
Preoperative Dx:
MVCAD
S/P delayed presentation of inferior STEMI
Recent mild ROSANGELA - resolved
Recent mild ALI - resolved
Postoperative Dx:
Same
[place] syndrome
Procedures:
1) Median sternotomy
2) Lysis of left pleural-pleural adhesions w/ electrocautery (~20min)
3) Takedown of JUSTIN (narrow pedicle)
4) Endoscopic harvest/prep of RLE GSV
5) Lysis of pericardial adhesions w/ blunt & electrocautery dissection (~10min)
6) CABG x 4 (JUSTIN to LAD, GSV to D1, GSV to OM2 upper branch, GSV to OM2 lower branch)
7) ELAA (45mm AtriClip)
Surgeon:
Tacho Wilks M.D.
Assistants:
Evelina PlattAAngelo-Denny; endoscopic harvest/prep of RLE GSV; director of first impressions throughout
Evelina CostaA.-C.; closure of RLE incisions, [id number]-[id number] sternotomy closure
Anesthesia:
Eliud Phillips M.D. and Rosy Hart C.R.N.A.
Perfusion:
Yaneth Moscoso C.C.P.; XC: 104min, CPB 152min
Findings:
Dense left [id number] adhesions
Significant post-VT pericarditis w/ significant inflammation of pericardium and epicardium - minor adhesions
JUSTIN was healthy conduit w/ very brisk blood flow; ELD 2.5mm
GSV was healthy conduit w/ ELD 3.5-4.0mm
LAD with scattered calcifications throughout its course; ELD 2.75mm at midpoint anastomosis
D1 with scattered calcifications throughout its course; ELD 2.50mm
OM2 (upper) scant/mild calcifications; ELD 2.50mm
OM2 (lower) moderate scattered calcifications; ELD 2.00mm
SHEMAR was of bi-lobed windsock morphology - successfully occluded at its base; confirmed w/ post-CHLOE
Excellent flow in all grafts on transit-time U/S flow probe assessment
Pre-CHLOE: LVEF 31%, uthey-oi-cnzk MR, mild AI
Post-CHLOE: LVEF 40%, unchanged valves, SHEMAR confirmed excluded
Complications:
None
Transfusions:
1pk PLTS
1U PRBC
Implants:
AtriClip 45mm; LOT [id number]
CT x 4 (B/L pleural, inferior mediastinal, superior mediastinal)
Sternal wires x 8
Sternal 'X' plate w/ 8 - 14mm screws
Condition:
79 paced; 95/65; 46/33; CVP 25; CO/CI: 3.8/2.0 (starting CI 1.3-1.4)
GTTS: epinephrine 4, levophed 6, precedex 0.5, insulin 1
Stable/guarded to CVICU
[2024-11-09 14:30] LABS: Glucose - Point of Care 158 mg/dl (70-99)
[2024-11-09 14:44] LABS: B.E. 4.7 mmol/L; HCO3 29.8 mmol/L (21-28); O2 Saturation % 99.7 % (94-98); PCO2 46 mmHg (35-48); PO2 157 mmHg (83-108); Potassium 4.0 mMOL/L (3.5-5.1); Sodium 135 mMOL/L (136-145)
[2024-11-09 14:50] LABS: Hematocrit 25.1 % (39.0-52.0); Hemoglobin 8.5 g/dL (13.0-18.0); Platelet Count 153 10^3/uL (130-400)
[2024-11-09] MEDS: CALCIUM GLUCONATE 100 IV ×2 (14:54→17:58)
[2024-11-09 15:00] LABS: Glucose - Point of Care 153 mg/dl (70-99)
[2024-11-09 15:00] LABS: Blood Urea Nitrogen 20 mg/dl (9-20); Estimated Creatinine Clearance 81 ml/min; Glucose 152 mg/dl (70-99); INR 1.79; Magnesium 2.8 mg/dl (1.6-2.3); PT 21.3 Sec (11.4-14.6)
[2024-11-09 15:01] LABS: APTT 33.9 Sec (23.4-35.0)
--- NOTE | 2024-11-09 15:07 | W.PN.UPDATE ---
Update Note
Progress Note Update
IV fluids: 1500 mL
Crystalloid:� 1400 mL
U.O.:� 500 mL
UF:� 1800 mL
Blood:� 1 pRBC's & 1 plt
Wires:� none
Inotropes:� Epinephrine (4)
Pressors:� Levophed (2)
Sedatives:� Precedex (0.5)
�
NEURO: sedated on Precedex, pupils +2mm B/L
RESP: #8OT @22cm> 500/40%/16/5. Lungs clear B/L. 2 mediastinal (10 cc on arrival) and R/L pleural (5 cc on arrival) chest tubes to -20cm suction. Sanguineous drainage
CV: RRR +S1, S2, no S3, no�rub, no murmur. Aquacel to median sternotomy. RIJ w/[place] locked @ 49cm. PA 41/26; CVP 20; C.O 3.12/CI 1.60
ABD: round, soft, no BS
EXT: no edema, +2/4 DP pulses B/L, no femoral bruit, LLE BOYD wrap intact; R radial A-line intact
: [place] with clear yellow urine
�
A/P: POD #0 s/p CABG x 4 (ESPINO-LAD, SVG-upper OM2, SVG-lower OM2, SVG-Dx) and eLAA (#45)
CHLOE: EF�40%
- Presented as inferior STEMI on 10/31, HFrEF (30%), ischemic cardiomyopathy
- initiate DAPT & GDMT as able
- wean and extubate
- continue inotropic with Epi, wean levo as tolerated
�
# acute surgical blood loss anemia-expected
- trend CBC
�
#symptomatic CHB
- s/p MDT BiV AICD with Dr. Bueno on 11/04/24
- interrogated s/p CABG by MDT rep
# T2DM (A1C 9.0%)
- insulin infusion x 48h
- diabetic INDUSTRIAL RELATIONS OFFICER consulted
�
# Hyperlipidemia
- resume�high-intensity stain therapy when tolerating PO
#ROSANGELA on superimposed CKD
- ROSANGELA on admission with peak 2.1 and baseline 1.4 in 2021
- suspect secondary to low CO s/p STEMI
- Pre-op Cr 1.0, now
- follow BMP
[2024-11-09] MEDS: NEURONTIN PO ×3 (15:08→22:33)
[2024-11-09] MEDS: NSS 500 IV (15:09)
[2024-11-09] MEDS: TYLENOL PO ×2 (15:10→22:34)
[2024-11-09] MEDS: DEMEROL 12.5 MG IV (15:21)
--- NOTE | 2024-11-09 15:24 | PTCARENOTE ---
ca repleted, demerol given for shivering per ctnp recc. pt arousing to voice now.
--- NOTE | 2024-11-09 15:27 | PTCARENOTE ---
assumed care of patient @ 1400. received pt from CVOR intubated, sedated. Pupils equal and reactive. pt not currently arousable. AV paced with intrinsic pacemaker at 80 on tele monitor w/ occasional PVCs. +pp - E. Titrating levo to keep SBP 90-130.
CVP ~ 14, PAPs 40s/20s. 8.0 ET tube 23 @ lip on SIMV 16,500, 5/5 40 % pulling good volumes. lungs sound clear anteriorly. suctioned for thin clear secretions. belly hypoactive. [place] present draining clear yellow urine. MSI aquacel CDI, RU chest
wall pacer aquacel CDI, SVG sites covered by edgardo wrap CDI. R IJ cordis with swan at 49, R radial a line, PIV x2 all patent. central lines zeroed and flushed with good waveforms. received on levo at 4, precedex .5, insulin per protocol, epi at 4.
Per Dr. Wilks, to awake and extubate, and wean levo first keeping epi on .
output 3.12
index 1.6
SVR 1538
--- NOTE | 2024-11-09 15:37 | W.PN.CD ---
Addendum entered and electronically signed by Bunny Quinones MD 11/09/24 17:57:
I saw and examined the patient.
The TIRE REPAIRMAN's note was reviewed and I agree with the note.
Comment:
74-year-old with hypertension and diabetes who presented with recent inferior STEMI found to have multivessel coronary artery disease, now status post CABG x 4 on 11/09/[address] Wilks.
At the time of my exam he is intubated and tolerating CPAP setting. He is on levo 4 and epi 4. He opens his eyes to voice and follows simple commands. He has a regular rate and rhythm, no murmurs, clear lungs, and no lower extremity edema. [address] Postop ECG is AV paced.
Continue routine postoperative care per CT surgery. Wean vasoactive infusions as tolerated. Continue DAPT, statin, and beta-freddie. Additional GDMT on hold perioperatively. Resume as tolerated.
No recurrent NSVT on telemetry. Continue to monitor. ICD in place.
Original Note:
Today's Communication / Plan
-
Close post-op monitoring and care with weaning of drips and vent as tolerated per CT surgery/CVICU protocol.
Impression / Plan
-
I/P: 74M with HTN & NIDDM who presented with upper back and shoulder tightness then had syncope and developed SOB prompting evaluation -> recent inferior STEMI based on clinical data and EKG -> LHC with MVCAD
Outpatient Street Supervisor: will be Dr. Bueno
PCP: Sabina Dior DO
CAD, recent inferior STEMI:
-LHC: Severe LAD, Diag, LCx/OM, and 100% RCA
-now s/p CABG x 4 (JUSTIN to LAD, GSV to D1, GSV to OM2 upper branch, GSV to OM2 lower branch) and ELAA (45mm AtriClip), Dr. Wilks 11/09/24
-post-op intubated/ventilated
-CT's and [place] in place
-post-op EKG and tele paced rhythm
-intra-op CHLOE EF 31%
-on epi and levo drips currently, which require intensive monitoring
-ASA, statin, BB
Symptomatic complete heart block - S/p bi-v ICD 11-04-24
-Device functioning normally, A sensed and V paced
-follow telemetry
-dressing intact
Ventricular fibrillation - 30 minutes after ICD placement
-Spontaneous ventricular fibrillation cardiac arrest, terminated by ICD therapy.
-NSVT reported on note from yesterday, none now- follow telemetry. Can consider amiodarone.
HFrEF (EF 35%) - acute on chronic
Ischemic cardiomyopathy
-LVEDP at cath 28 - Diuresed
-GDMT as able post-op
-monitor volume status
Mixed hyperlipidemia
- TC 131, LDL 80, HDL 33, TG 94 -> started on pravastatin, consider high intensity statin prior to d/c
- Goal LDL now <55
ROSANGELA superimposed on CKD - resolved
- Likely from poor cardiac output with MS/LV dysfxn/bradycardia
- Baseline Cr 1.4 in 2021
- Cr better after cath and with pacing support
-creat now normal
Type II DM, longstanding, uncontrolled, Hgba1c 9.0%: diabetic provider following
History of HTN, follow
Elevated LFTs, improved
Former heavy smoker probably at least a 90-oqbj-srwf history, continued cessation recommended .
Physical Exam
Vital Signs/Labs
Vital Signs
Temp Pulse Resp BP Pulse Ox
97.9 F 82 16 78/50 99
11/09/24 15:00 11/09/24 15:04 11/09/24 15:00 11/09/24 15:00 11/09/24 15:04
11/08/24 11/09/24 11/10/24
06:59 06:59 06:59
Actual Weight 78.9 kg 79.5 kg
11/09/24 14:28
PT 21.3 Sec (11.4-14.6) H 11/09/24 14:28
INR 1.79 11/09/24 14:28
APTT 33.9 Sec (23.4-35.0) 11/09/24 14:28
Magnesium 2.8 mg/dl (1.6-2.3) H 11/09/24 14:28
Triglycerides 94 mg/dl (10-149) 11/01/24 04:18
LDL Cholesterol, Calc 80 mg/dl 11/01/24 04:18
VLDL Cholesterol, Calc 18 mg/dl (0-30) 11/01/24 04:18
HDL Cholesterol 33 mg/dl 11/01/24 04:18
TSH 3.13 uIU/ml (0.47-4.68) 10/31/24 21:54
Free T4 1.66 ng/dl (0.78-2.19) 10/31/24 21:54
Physical Exam
Constitutional: No acute distress
EENT: Anicteric
Cardiovascular: Rhythm & rate is regular
Respiratory: Lungs clear to auscul. and Other (intubated/ventilated)
Neuro/Psych: Other (sedated/intubated)
Other: Skin (midsternal incision dressing CDI, left pectoral dressing CDI)
Data Reviewed
-
Date of Service: November 09, 2024
EKG: Tracing Personally Visualized and interpreted (AV dual paced rhythm )
Echo: Tracing Personally Visualized and interpreted (EF 31% on intraop CHLOE)
X-Ray/CT/US/MRI/NUC/PET: Report Reviewed by me (CXR: Postop cardiothoracic surgery with support apparatus in position, as noted above. No pneumothorax.)
Labs: Labs Reviewed by me
--- NOTE | 2024-11-09 15:40 | W.PN.INTV ---
Today's Communication / Plan
Recommendations
Continue with SBT trial however pCO2 was mildly elevated so would wait until patient more awake and consider rechecking Epoc before extubating to assure that pCO2 remained stable, otherwise if he is awake with hypercapnia then would extubate to
BiPAP for 1-2 hours, and then resume BiPAP with sleep unless pCO2 normalizes prior
Postoperative management as per cardiothoracic surgery
Continue Levophed + epinephrine with goal MAP >65, goal CI >2
Trend MVO2 with goal >65�70
Maintain SaO2 >90-94%
Continue DAPT + Pravachol
Continue with PO amiodarone
Monitor for arrhythmias
Replete K>4, Mg>2
Project Management Professor/pulmonary services will continue to follow along while patient remains in the CVICU
Assessment
-
Patient is a 74-year-old gentleman with long history of diabetes who developed nonspecific symptoms of upper back and shoulder pain 3 days prior to her presentation to the hospital. Also reported syncope episode. He also reported significant
fatigue which eventually brought him to the emergency room. Further workup was suggestive of a complete heart block as well as elevated troponin consistent with acute myocardial infarction. Patient was noted to have inferior wall ST elevation [place].
He was taken to [facility] and had coronary angiography performed which showed 100% RCA stenosis and significant otherwise coronary artery disease. He also had a temporary pacemaker placed. Postprocedure he was admitted to ICU and side show entertainer
consultation was requested for further input.
#1. Inferior wall STEMI with multivessel coronary artery disease s/p CABG x 4 with left atrial appendage exclusion with 45 mm AtriClip (POD #0)
Severe three-vessel CAD seen on [facility] from 11/01/2024 with a 100% stenosis of the distal RCA which is the likely culprit of the patient's NSTEMI and complete heart block
Today (11/09/2024) patient underwent CABG x 4 with left atrial appendage exclusion
Continue aspirin, Plavix, metoprolol, Pravachol and amiodarone
Ventilator settings reviewed
FiO2 will be weaned to maintain SpO2 >90-94%
Minute ventilation will be adjusted
Arterial blood gases will be monitored
Spontaneous breathing trial will be attempted with hopeful extubation after anesthesia/sedation wear off
prn nebulized bronchodilators - not currently bronchospastic
Pulmonary artery catheter parameters will be followed
Pressors/antihypertensive/inotropes/diuretics will be provided as needed
Maintain MAP>65
Replete electrolytes with K>4, Mg>2
Monitor chest tube output (bilateral pleural chest tubes + mediastinal chest tubes x 2)
Monitor hemoglobin
Monitor platelet count and coags
Transfuse blood products as needed to maintain Hb>7g/dL, plt>50k (given post-operative status)
CT surgery managing chest tubes
Monitor blood sugar to maintain euglycemia with goal BG 110-140
Insulin drip per protocol
Aspiration precautions
VAP prevention protocol
DVT prophylaxis
Early nutrition
Early mobilization
#2. Complete heart block
Suspected related to RCA infarction.
S/p temporary pacemaker initially
With EF 35%, s/p AICD on 11/04
#2a. Heart failure with reduced ejection fraction, acute.
Creatinine improved with diuresis
ROSANGELA resolved. Valsartan started
#2b. V. Fib s/p AICD firing, soon after AICD placement (11/04)
Patient awake, alert. Did not require any CPR.
Keeping K and Mg at 4 and respectively. Replacing Po Kcl
Bets blockers initiation deferred to Cardiology service.
Continue Telemetry monitoring.
#3. ROSANGELA on admission
Admission creatinine was 2.1, improved
Suspect cardiorenal syndrome considering improving with diuresis
Continue to monitor
#4. DM
Now on insulin drip s/p CABG
Goal BG 110-140mg/dL
#5. h/o HTN
Anti-hypertensives currently on hold
#6. Hypothyroidism
Currently on thyroid [place]
#7. h/o Smoking with suspected underlying COPD
Patient states he quit many years ago however reports occasional wheezing, cough with expectoration. Suspect patient might have underlying COPD. Patient had been reluctant to use any inhalers. Patient will need outpatient follow-up with pulmonary
clinic for pulmonary function testing and 6-minute walk test etc.
Continue with Symbicort 160 mcg with prn albuterol
Continue CVICU level of care.
Critical care statement: A total of 38 minutes of critical care time was provided for this patient today. This includes management of unstable vital signs, evaluation of the patient at bedside, reviewing the patient's pertinent medical records
including radiographs, microbiology, laboratory evaluations, and discussion with primary team, consultants, pharmacy, nutrition, physical therapy, case management, charge nurse, critical care nursing, and respiratory therapy.
Data:
CXR 10/2024: Right internal jugular temporary pacing wire extending into the right ventricle, distal tip directed slightly superiorly.
CXR 11/09/2024: Postop cardiothoracic surgery with support apparatus in position
ECHO 10/2024: LV ejection fraction is approximately 35%, by visual assessment. Akinesis of
the basal to mid inferoseptal, inferior, and inferolateral stewart.
Enlarged right ventricular size. Reduced right ventricular systolic function.
Mild to moderate tricuspid regurgitation. Estimated pulmonary artery pressure
of 35-40 mmHg. The IVC is dilated and does not collapse.
LHC and Temp Pacemaker insertion 10/2024: 1. Severe three-vessel coronary artery disease as described with 100% stenosis of the distal RCA that is likely the culprit lesion for the patient's NSTEMI and complete heart block, complex bifurcation
disease involving the proximal LAD and moderate caliber diagonal, as well as complex bifurcation disease involving a large circumflex marginal branch.
2. Severely elevated LV filling pressure and no significant aortic stenosis on hemodynamic pullback
Subjective Dataa
Subjective Data
Date of Service:
Date of Service: November 09, 2024
Chief Complaint: Project Management Professor Follow Up
Subjective:
Patient was seen today after his CABG + left atrial appendage clip. We had previously been following with him and last time seen by our service was 11/05/2024. Now being called back to see him given that he is post CT surgical procedure. He
underwent a CABG x 4.
When I saw the patient, he was intubated on CPAP trial at 5/5 with 40% FiO2, with PIP at 12 cmH2O, VTe 504 cc and breathing at 19 breaths/min. Currently on epinephrine drip at 4 mcg/min, Levophed at 5 mcg/min, and on insulin drip at 3 units/hr.
Current heart rate 87, BP via A-line 98/58, BP via NIBP: 91/69 and saturating 100%. PAP 31/19 and CO/CI: 3.01/1.54, respectively. Chest tubes x [address]
Review of Systems
General: Unobtainable - Sedation (and intubated)
Objective Data
Data Reviewed
Vital Signs / I&O / Oxygen:
Vital Signs
Temp Pulse Resp BP Pulse Ox
98.0 F 85 16 102/85 94
11/09/24 04:00 11/09/24 05:01 11/08/24 19:57 11/09/24 05:01 11/09/24 05:00
Intake and Output
11/08/24 11/09/24 11/10/24
06:59 06:59 06:59
Intake Total 480 / 480
Output Total 1275 / 1275 725 / 725
Balance -795 / -795 -725 / -725
SaO2 94
Nasal Cannula flow liters per 2
minute
Physical Exam
General: Respiratory Distress (negative) and Comfortable
HEENT: Normocephalic, Anicteric and Other (ETT in place)
Cardiovascular: S1-S2, Rub (Positive), Peripheral Edema (negative) and Other (V paced)
Respiratory: Wheeze (negative), Crackles (negative), Rhonchi (negative), Non-Labored Respirations and ET Tube (Mechanical breath sounds heard bilaterally)
GI: Soft, Non Distended, Non Tender and Normal Bowel Sounds
Neurology: Tremors (negative) and Other (Sedated)
Skin: Dry, Cyanosis (negative), Jaundice (negative) and Other (Cool feet bilaterally (L >R), otherwise remainder of lower extremities are warm)
[2024-11-09 16:02] LABS: Glucose - Point of Care 161 mg/dl (70-99)
[2024-11-09 17:01] LABS: Glucose - Point of Care 135 mg/dl (70-99)
--- NOTE | 2024-11-09 17:26 | PTCARENOTE ---
pt more awake, initiating breaths on ventilator, placed on CPAP by RT at 1724
[2024-11-09] MEDS: PACERONE PO ×2 (17:28→22:33)
[2024-11-09] MEDS: PRAVACHOL PO (17:32)
[2024-11-09 17:55] LABS: B.E. - POC 3.4 mmol/L; Blood Urea Nitrogen - POC 17 mg/dl (3-120); Chloride - POC 106 mmol/L (96-111); Creatinine - POC 0.86 mg/dl (0.3-1.0); Glucose - POC 113 mg/dl (70-99); HCO3 - POC 29 mmol/L (21-28); Hematocrit - POC 25 % PCV (42-52); Hemodilution- POC No; Hemoglobin Calculated - POC 8.4; Ionized Calcium - POC 1.14 mmol/L (1.15-1.33); Lactate - POC 1.78 mmol/L (0.36-0.75); O2 Saturation %Calculated-POC 98.1 % (94-98); PCO2 - POC 50 mmHg (35-48); PO2 - POC 110 mmHg (83-108); Potassium - POC 3.7 mmol/L (3.5-5.1); Sodium - POC 144 mmol/L (136-145); Specimen Type - POC Arterial; pH - POC 7.37 (7.35-7.45)
--- NOTE | 2024-11-09 17:55 | PTCARENOTE ---
EPOC gas and 4 hour h&h drawn at bedside by ctnp. c02 is high at 50 so will wait to extubate, pt is still sleepy however no periods of anpea. H and H stable , K and CA low, will replete.
[2024-11-09] MEDS: KCL 50 IV (17:58)
[2024-11-09 18:06] LABS: Glucose - Point of Care 120 mg/dl (70-99)
[2024-11-09] MEDS: LR 250 ML IV (18:20)
[2024-11-09 18:41] LABS: B.E. - POC -0.4 mmol/L; Blood Urea Nitrogen - POC 14 mg/dl (3-120); Chloride - POC 111 mmol/L (96-111); Creatinine - POC 0.83 mg/dl (0.3-1.0); Glucose - POC 86 mg/dl (70-99); HCO3 - POC 24 mmol/L (21-28); Hematocrit - POC 20 % PCV (42-52); Hemodilution- POC No; Hemoglobin Calculated - POC 6.7; Ionized Calcium - POC 1.13 mmol/L (1.15-1.33); Lactate - POC 1.62 mmol/L (0.36-0.75); O2 Saturation %Calculated-POC 99.2 % (94-98); PCO2 - POC 39 mmHg (35-48); PO2 - POC 140 mmHg (83-108); Potassium - POC 3.6 mmol/L (3.5-5.1); Sodium - POC 146 mmol/L (136-145); Specimen Type - POC Arterial; pH - POC 7.41 (7.35-7.45)
[2024-11-09 18:54] LABS: Hematocrit 24.9 % (39.0-52.0); Hemoglobin 8.2 g/dL (13.0-18.0); Platelet Count 159 10^3/uL (130-400)
--- NOTE | 2024-11-09 19:00 | PTCARENOTE ---
bedside report received from previous RN. pt extubated @ 1840 by respiratory therapist to 6LNC. bilateral breath sounds present. POX 100%. pt AAOx4. c/o sternal incision pain. see MAR for PRN medicine technologist. V.paced/AV paced on monitor via PPM, 80s-90s.
bilateral radial and DP pulses palpable. heart tones clear. Levo gtt infusing @ 5mcg, Epi gtt infusing @ 4mcg. SBP 90s-110s. last CI 1.58, last MvO2 65.1. RIJ cordis + swan intact w KVOs infusing. right radial art line intact. CT x4 intact to -20cm
wall suction, drainage WNL, no air leak present. [place] catheter intact, draining CYU. UO adequate. hypoactive bowel sounds present. Insulin gtt infusing per glycemic protocol. all surgical sites stable. pt washed with CHG wipes. gown and linens
changed. turning/repositioning Q2H and as needed. see worklist for full assessment, VS, and interventions. pt resting between care.
[2024-11-09 19:01] LABS: Glucose - Point of Care 108 mg/dl (70-99)
[2024-11-09] MEDS: LOW STRENGTH ASPIRIN 81 MG PO (19:11)
[2024-11-09] MEDS: ANCEF 5 IV (19:11)
[2024-11-09] MEDS: DILAUDID 0.5 MG IV (19:11)
[2024-11-09] MEDS: SYMBICORT 160/4.5 MCG INHALER 2 PUFF INH (19:16)
[2024-11-09] MEDS: ZOFRAN 4 MG IV (20:45)
[2024-11-09 21:08] LABS: Glucose - Point of Care 118 mg/dl (70-99)
[2024-11-09 21:15] LABS: B.E. 3.7 mmol/L; HCO3 29.9 mmol/L (21-28); O2 Saturation % 99.0 % (94-98); PCO2 53 mmHg (35-48); PO2 135 mmHg (83-108); Potassium 5.8 mMOL/L (3.5-5.1)
[2024-11-09 22:09] LABS: Blood Urea Nitrogen 21 mg/dl (9-20); Calcium 8.9 mg/dl (8.4-10.2); Carbon Dioxide 30 mmol/L (22-30); Chloride 105 mmol/L (98-107); Estimated Creatinine Clearance 65 ml/min; Glucose 117 mg/dl (70-99); Potassium 5.9 mmol/L (3.5-5.1); Sodium 139 mmol/L (135-145); eGFR > 60.00
[2024-11-09 22:34] LABS: Glucose - Point of Care 117 mg/dl (70-99)
[2024-11-09] MEDS: DEXTROSE 50% SYRINGE 25 GRAMS IV (22:34)
[2024-11-09] MEDS: NOVOLIN R 10 UNITS IV (22:37)
[2024-11-09] MEDS: CALCIUM GLUCONATE 500 MG IV (22:45)
[2024-11-09 23:48] LABS: Glucose - Point of Care 152 mg/dl (70-99)
--- NOTE | 2024-11-09 23:49 | PTCARENOTE ---
Assumed care of patient at 2300. Patient is AOx4, follows commands appropriately, moves all extremities. Lung sounds are diminished at the bases, saO2 97% on 2L via NC, CTx4: 2xmeds draining red sanguineous to one atrium and R/L pleural draining red
sanguineous to another atrium. Patient has nonproductive occasional moist cough. Heart sounds are audible, there is a rub present on auscultation, patient has normal palpable radial pulses and weak but palpable dorsalis pedis pulses. Patient has
trace R pedal edema. Patient has PPM with DDDR settings 60-130. Patient is 100% paced vpaced with occasional av pacing. There is a [place] draining clear yellow urine. Patient has hypoactive BS in all four quadrants and reports nausea following intake
of ice chips maintained NPO for now. Patient has sternal incision with aquacell dressing that is CDI, L chest incision with aquacell dressing that is CDI, R groin puncture approx with surg adhesive [employer], RLE incision with BOYD wrap that is CDI.
Patient has generalized rash purpura in appearance predominantly in the BLE and R elbow that was present prior to admission. Patient has R IJ cordis with swan floated at 49cm, R FA PIV, R hand PIV and R Radial radha. Patient is on the following
gtts: insulin gtt col 2, Levo@6, Epi@4, Cordis/VIP KVO. No c/o pain at this time. Call salazar within reach.
[2024-11-10] VITALS (30 sets, daily range): BP systolic 59–120; BP diastolic 60–78; BMI 27.6
[2024-11-10 00:26] LABS: B.E. 3.8 mmol/L; HCO3 29.1 mmol/L (21-28); O2 Saturation % 99.1 % (94-98); PCO2 47 mmHg (35-48); PO2 106 mmHg (83-108); Potassium 5.6 mMOL/L (3.5-5.1)
[2024-11-10 00:46] LABS: Glucose - Point of Care 125 mg/dl (70-99)
[2024-11-10] MEDS: LOKELMA 10 GRAM PO ×2 (01:25→19:59)
--- NOTE | 2024-11-10 02:15 | PTCARENOTE ---
Post insulin administration for hyperkalemia sugar checks completed last accucheck showed bs of 125. Insulin gtt titrated per protocol. ABG drawn and K revealed to be 5.6 from 5.8. Received orders for lokelma. Attempted ice chips and sips with
patient prior to ensure patient could tolerate po intake. Patient able to tolerate lokelma without nausea.
[2024-11-10 03:10] LABS: Glucose - Point of Care 99 mg/dl (70-99)
[2024-11-10] MEDS: ANCEF 5 IV ×2 (03:15→12:09)
[2024-11-10] MEDS: MUCINEX 600 MG PO ×3 (03:15→21:58)
[2024-11-10] MEDS: LR 250 ML IV (03:58)
[2024-11-10 04:00] LABS: Hematocrit 25.8 % (39.0-52.0); Hemoglobin 8.5 g/dL (13.0-18.0); Mean Corp Hgb Conc. 32.9 g/dL (33.0-37.0); Mean Corpuscular Volume 87.8 fL (80.0-94.0); Platelet Count 164 10^3/uL (130-400); Red Cell Dist. Width 15.5 % (11.5-14.5)
[2024-11-10 04:10] LABS: Blood Urea Nitrogen 23 mg/dl (9-20); Calcium 8.6 mg/dl (8.4-10.2); Carbon Dioxide 30 mmol/L (22-30); Chloride 106 mmol/L (98-107); Estimated Creatinine Clearance 54 ml/min; Glucose 114 mg/dl (70-99); Magnesium 2.5 mg/dl (1.6-2.3); Potassium 5.7 mmol/L (3.5-5.1); Sodium 139 mmol/L (135-145); eGFR > 60.00
[2024-11-10] MEDS: ROXICODONE 5 MG PO ×3 (04:19→21:51)
[2024-11-10 05:12] LABS: Glucose - Point of Care 122 mg/dl (70-99)
[2024-11-10] MEDS: NOVOLIN R INSULIN INFUSION 100 IV (05:34)
--- NOTE | 2024-11-10 05:37 | PTCARENOTE ---
Patient reassessed. Remains V/AV paced on the monitor. AM labs obtained. EKG obtained. K at 5.7 this AM. Patient given 250 LR for low UOP low CI. Last UOP for hour was 15 mL. CI at 1.77. CT PA aware. Given 5 Lizy for pain. Pain at 1 on reassessment.
Levo @4. Epi@4.
[2024-11-10] MEDS: ADRENALIN 250 IV (05:59)
[2024-11-10] MEDS: TYLENOL 1000 MG PO ×3 (06:09→21:51)
--- NOTE | 2024-11-10 06:38 | W.PN.CT ---
Today's Communication / Plan
-
-pod #1
-hemodynamically and neurologically intact, in nsr with V-pacing, occasional PVCs
-elevated K 5.8-5.9 last night - tx with Ca gluconate, Insulin with D50, and Lokelma 10 gram x1--K 5.7 this am. Gave 40 iv Lasix before 7am. Re-check bmp @ 9 am
-CI 1.77, CO 3.46, SVR 1479, mVO2 45.1. Drips: Epi 4, Levo 4, Insulin
-CT outputs: 2 meds 190/250 , 2 pleur 192/310 in 12/24 hrs
-wean Epi as tolerated
-maintain swan, cordis, a-line, [place]
-encourage IS, OOB
Assessment / Plan
-
- s/p CABG x 4 (JUSTIN to LAD, GSV to D1, GSV to OM2 upper branch, GSV to OM2 lower branch); ELAA (45mm AtriClip); Lysis of pericardial adhesions w/ blunt & electrocautery dissection; Lysis of left pleural-pleural adhesions w/ electrocautery on
11/09/[address] Wilks, pod #1
- Pre-CHLOE: LVEF 31%, [id number]-af-fyfq MR, mild AI
- Post-CHLOE: LVEF 40%, unchanged valves, SHEMAR confirmed excluded
-Severe 3v CAD
-Inferior SC
-Weakness/Fatigue
-Syncopal episode
-HFrEF/ICM (LVEF 35%; was 50-55% per echo 04/2014)
-CHB S/P Transvenous pacer, 11/01/24
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
-Mild-moderate TR
-HTN
-Hyperlipidemia
-Hypothyroidism
-T2DM (hgb A1C 9.0)
-ROSANGELA (peaked @ 2.1)
-Transaminitis
-Small pericardial effusion, per CTA 11/06
-Small bilateral pleural effusion, per CTA 11/06
-Former tobacco use (quit 20 years ago, ~40 pk/yr)
-Diplopia S/p cataract surgery
-PASS[place]QU[place]DY S/P hearing aids
-Renal calculi S/P cystoscopy with renal stents
-S/P T&A
-S/P Appendectomy
-Acute postop blood loss anemia
-Acute postop atelectasis
-Acute postop pericarditis
-Acute postop hyperkalemia
-Acute postop hypovolemia with subsequent hypervolemia
Discussed patient care with: Nursing and Care Team
Subjective
-
Date of Service: November 10, 2024
Objective Data
-
PT 21.3 Sec (11.4-14.6) H 11/09/24 14:28
INR 1.79 11/09/24 14:28
APTT 33.9 Sec (23.4-35.0) 11/09/24 14:28
Vital Signs
Vital Signs
Temp Pulse Resp BP Pulse Ox
98.6 F 84 20 114/78 98
11/10/24 00:00 11/10/24 00:30 11/10/24 00:00 11/10/24 00:28 11/10/24 00:30
CT Intake/Output/Weight
11/09/24 11/09/24 11/10/24
06:59 18:59 06:59
Intake Total 573.0 / 1077.5 504.5 / 1077.5
Output Total 725 / 725 503 / 973 470 / 973
Balance -725 / -725 70.0 / 104.5 34.5 / 104.5
SaO2: 98
Physical Exam
-
General: Awake and AOx3
Cardiovascular: Regular rate & rhythm, No Murmurs and Rub
Respiratory: Decreased Breath Sounds
Sternum: Stable
Incision: Clean, Dry and Intact
Extremities: No Edema (2+ DP on L and 1+ DP on R)
Abdomen: soft, nontender, nondistended, +decreased bowel sounds
Data Reviewed
-
Lab Results: Results Reviewed
Medications: Active Meds Reviewed
Chest X-Ray: Report Reviewed and Image Reviewed
ECG: Report Reviewed and Image Reviewed
[2024-11-10] MEDS: LASIX 40 MG IV (06:44)
[2024-11-10 07:15] LABS: Glucose - Point of Care 125 mg/dl (70-99)
[2024-11-10] MEDS: SYMBICORT 160/4.5 MCG INHALER 2 PUFF INH ×2 (07:41→20:30)
--- NOTE | 2024-11-10 07:47 | PN.DE.MGMTRT ---
Insulin Management
- -
11/10/2024: Diabetes Management Follow up
Patient admitted 10/31 with c/o weakness; NSTEMI, complete heart block. Cardiac cath 11/01 - severe multivessel CAD.
PMH: HTN, HLD, T2DM and Hypothyroid. Prior to admission was taking Lantus 40 units @ hs, Metformin 1000 mg BID, Januvia 100 mg daily. A1C on admission 9%. Cr 1, eGFR > 60 today.
POD 1 s/p CABG x 4 today. Patient is awake alert and oriented able to discuss diabetes care. He is very receptive today.
Patient on critical care glycemic protocol, glucose range 117 to 153, requiring .8 to 3.5 units of insulin per hour. Per protocol will continue glycemic protocol insulin infusion and assess for readiness to transition in AM 6/13.
Will cont to follow. Discussed with nurse.
Patient's brought in his DexCom G6, explained to pt and that we will assist him in placing the device once plans for surgery have been finalized.
POD # 6 S/P pacemaker/ICD placement.
Diabetes History
- -
Type of Diabetes: 2 requiring insulin
Pre-Admission Diabetes Regimen
11/09/24 11/09/24 11/10/24
14:28 21:34 03:33
Creatinine 0.8 1.0 1.2
Lab Results
Hemoglobin A1c 9.0 % (4.0-5.6) H 11/01/24 04:18
Insulin Pump Settings
IP Diabetes Regimen
11/09/24 11/09/24 11/09/24
14:24 14:28 14:58
Glucose 152 H
POC Glucose 158 H 153 H
11/09/24 11/09/24 11/09/24
16:00 17:00 18:05
Glucose
POC Glucose 161 H 135 H 120 H
11/09/24 11/09/24 11/09/24
18:59 21:07 21:34
Glucose 117 H
POC Glucose 108 H 118 H
11/09/24 11/09/24 11/10/24
22:32 23:44 00:44
Glucose
POC Glucose 117 H 152 H 125 H
11/10/24 11/10/24 11/10/24
03:08 03:33 05:07
Glucose 114 H
POC Glucose 99 122 H
11/10/24
07:05
Glucose
POC Glucose 125 H
Patient Education
--- NOTE | 2024-11-10 08:00 | PTCARENOTE ---
Received from overnight houseperson RN; AAOx3, responds spontaneously to RN and follows commands; [place]; Tremors throughout all extremities; Anxious, flat, forgetful; VSS; AV paced with PVC's on monitor; Left chest AICD and PPM in place - settings DDDR 60-130;
+1 right pedal edema; +1 DP and +2 radial pulses; Shallow respirations; Productive, harsh cough with ascencio, thick sputum; CTx4 connected to -20 cm wall suction draining serosanguineous drainage - no tidaling, crepitus, or air leak; Lungs diminished at
bases; Hypoactive BS; [place] catheter draining clear, yellow urine; Surgical incisions intact; PIVx2 - #22 RAC, #18 right hand; Right radial A-line in place, RIJ Cordis with [place]-gaurav floated to 49 cm - all lines zeroed and level; Levo, epinephrine,
and insulin infusing - see nursing flowsheets for further details; See nursing documentation for further information
--- NOTE | 2024-11-10 08:07 | W.PN.ANS.POP ---
Anesthesia Post Operative
- Anesthesia Post Op Note
Vital Signs Stable-See Nursing Note: Yes
Airway Patent: Yes
Adequate Pain Control: Yes
Change in Mental Status: No
Current Postoperative Nausea & Vomiting: No
Anesthesia Complications: No
General Anesthetic Recall: No
Unplanned Admission: No
Post Op Hydration Adequate: Yes
- -
Selected Entries
11/10/24
07:31 11/10/24
07:45 11/10/24
07:47
Pulse 85
Resp Rate 16
SaO2 97
Nasal Cannula flow liters per minute 2
Arterial Systolic Pressure 128
Arterial Diastolic Pressure 61
MAP (V-Ruvv-Yafhfbv Monitor) 81
Pulmonary Artery Systolic Pressure 33
Pulmonary Artery Diastolic Pressure 17
Right Atrial Pressure (RA) 12
Cardiac Output 3.76
Cardiac Index 1.93
--- NOTE | 2024-11-10 08:10 | W.PN.INTV ---
Today's Communication / Plan
Recommendations
Continue weaning down Levophed + epinephrine drips as tolerated
Goal MAP >65+ keep CI >2
MVO2 is low at 45 - > continue to monitor and goal is >65-70
Postoperative management as per cardiothoracic surgery
Maintain SaO2 >90-94%
Continue DAPT + Pravachol
Continue with PO amiodarone
Monitor for arrhythmias
Goal BG 110-140; continue insulin gtt, which will stop tomorrow
Replete K>4, Mg>2
Distribution Field Technician/pulmonary services will continue to follow along while patient remains in the CVICU
Assessment
-
Patient is a 74-year-old gentleman with long history of diabetes who developed nonspecific symptoms of upper back and shoulder pain 3 days prior to her presentation to the hospital. Also reported syncope episode. He also reported significant
fatigue which eventually brought him to the emergency room. Further workup was suggestive of a complete heart block as well as elevated troponin consistent with acute myocardial infarction. Patient was noted to have inferior wall ST elevation [place].
He was taken to [facility] and had coronary angiography performed which showed 100% RCA stenosis and significant otherwise coronary artery disease. He also had a temporary pacemaker placed. Postprocedure he was admitted to ICU and plastic molding operator
consultation was requested for further input.
#1. Inferior wall STEMI with multivessel coronary artery disease s/p CABG x 4 with left atrial appendage exclusion with 45 mm AtriClip (POD #1)
Severe three-vessel CAD seen on [facility] from 11/01/2024 with a 100% stenosis of the distal RCA which is the likely culprit of the patient's NSTEMI and complete heart block
On 11/09/2024, he underwent CABG x 4 with left atrial appendage exclusion
Continue aspirin, Plavix, metoprolol, Pravachol and amiodarone
Patient was successfully extubated on 11/09/2024, and is currently on 2 L/min nasal cannula saturating 98% and breathing comfortably
Continue to wean down O2 flow rate to maintain SpO2 >90-94%
prn nebulized bronchodilators - not currently bronchospastic
Encourage incentive spirometer use q1hr while awake
Pulmonary artery catheter parameters will be followed
Pressors/antihypertensive/inotropes/diuretics will be provided as needed
Maintain MAP>65
Replete electrolytes with K>4, Mg>2
Monitor chest tube output (bilateral pleural chest tubes + mediastinal chest tubes x 2)
Monitor hemoglobin
Monitor platelet count and coags
Transfuse blood products as needed to maintain Hb>7g/dL, plt>50k (given post-operative status)
CT surgery managing chest tubes
Monitor blood sugar to maintain euglycemia with goal BG 110-140
Insulin drip per protocol
Aspiration precautions
DVT prophylaxis
Early nutrition
Early mobilization
#2. Complete heart block
Suspected related to RCA infarction.
S/p temporary pacemaker initially
With EF 35%, s/p AICD on 11/04
#2a. Heart failure with reduced ejection fraction, acute.
Creatinine improved with diuresis
ROSANGELA resolved. Valsartan started on 11/05 with last dose on 11/06 --> currently off all antihypertensives as he is now on Levophed + epinephrine drips
Defer GDMT to cardiology depending on BP, sCr and serum [K] levels
#2b. V. Fib s/p AICD firing, soon after AICD placement (11/04)
Patient awake, alert. Did not require any CPR.
Keeping K and Mg at 4 and respectively. Replacing Po Kcl
Bets blockers initiation deferred to Cardiology service.
Continue Telemetry monitoring.
#3. ROSANGELA on admission
Admission creatinine was 2.1, improved and is now 1.3
Suspect cardiorenal syndrome considering improving with diuresis
Continue to monitor
#4. DM2 (uncontrolled with HbA1c: 9 on 11/01/2024)
Now on insulin drip s/p CABG
Goal BG 110-140mg/dL
#5. h/o HTN
Anti-hypertensives currently on hold
#6. Hypothyroidism
Was taking thyroid [place] from 11/01 until 11/08/2024; recommend to restart this
#7. h/o Smoking with suspected underlying COPD
Patient states he quit many years ago however reports occasional wheezing, cough with expectoration. Suspect patient might have underlying COPD. Patient had been reluctant to use any inhalers. Patient will need outpatient follow-up with pulmonary
clinic for pulmonary function testing and 6-minute walk test etc.
Continue with Symbicort 160 mcg with prn albuterol
Continue CVICU level of care.
Critical care statement: A total of 41 minutes of critical care time was provided for this patient today. This includes management of unstable vital signs, evaluation of the patient at bedside, reviewing the patient's pertinent medical records
including radiographs, microbiology, laboratory evaluations, and discussion with primary team, consultants, pharmacy, nutrition, physical therapy, case management, charge nurse, critical care nursing, and respiratory therapy.
Data:
CXR 10/2024: Right internal jugular temporary pacing wire extending into the right ventricle, distal tip directed slightly superiorly.
CXR 11/09/2024: Postop cardiothoracic surgery with support apparatus in position
ECHO 10/2024: LV ejection fraction is approximately 35%, by visual assessment. Akinesis of
the basal to mid inferoseptal, inferior, and inferolateral stewart.
Enlarged right ventricular size. Reduced right ventricular systolic function.
Mild to moderate tricuspid regurgitation. Estimated pulmonary artery pressure
of 35-40 mmHg. The IVC is dilated and does not collapse.
LHC and Temp Pacemaker insertion 10/2024: 1. Severe three-vessel coronary artery disease as described with 100% stenosis of the distal RCA that is likely the culprit lesion for the patient's NSTEMI and complete heart block, complex bifurcation
disease involving the proximal LAD and moderate caliber diagonal, as well as complex bifurcation disease involving a large circumflex marginal branch.
2. Severely elevated LV filling pressure and no significant aortic stenosis on hemodynamic pullback
Subjective Dataa
Subjective Data
Date of Service:
Date of Service: November 10, 2024
Chief Complaint: Distribution Field Technician Follow Up
Subjective:
Patient seen and evaluated today at bedside. Patient's , Ansley, present at bedside. Patient currently on 2 L/min nasal cannula saturating 98%. Currently on Levophed at 1 mcg/min, epinephrine at 3 mcg/min, and insulin at 2 units/hr. Heart
rate 80, BP via A-line 93/49, BP via NIBP 89/64, PAP 30/16, and CO/CI: 3.73/1.91, respectively. Patient currently denies ARDON, nausea, fevers or chills, although he does feel weak, fatigued, low energy and overall does not feel well.
Review of Systems
General: Other (Negative unless mentioned above)
Objective Data
Data Reviewed
Vital Signs / I&O / Oxygen:
Vital Signs
Temp Pulse Resp BP Pulse Ox
98.9 F 83 17 104/71 97
11/10/24 16:00 11/10/24 16:00 11/10/24 16:00 11/10/24 16:00 11/10/24 16:00
Intake and Output
11/09/24 11/10/24 11/11/24
06:59 06:59 06:59
Intake Total 1479.5 / 1532.1 703.2 / 703.2
Output Total 725 / 725 1325 / 1375 770 / 770
Balance -725 / -725 154.5 / 157.1 -66.8 / -66.8
SaO2 [SIMV] 100
SaO2 97
Nasal Cannula flow liters per 2
minute
Physical Exam
General: Respiratory Distress (negative) and Comfortable
HEENT: Normocephalic and Anicteric
Cardiovascular: S1-S2, Rub (Positive) and Peripheral Edema (negative)
Respiratory: Wheeze (negative), Crackles (Bilateral (L >R)), Rhonchi (negative) and Non-Labored Respirations
GI: Soft, Distended (Abdominal obesity), Non Tender and Normal Bowel Sounds
Neurology: Awake, Tremors (negative) and Other (Drowsy)
Skin: Dry, Cyanosis (negative), Jaundice (negative) and Other (Cool feet bilaterally (L >R), otherwise remainder of lower extremities are warm)
Labs/Micro/Reports
Lab Data
11/10/24 03:33
Laboratory Results
11/09/24 11/10/24
21:03 00:19
pH 7.36 7.40
pCO2 53 H 47
pO2 135 H 106
HCO3 29.9 H 29.1 H
O2 Delivery Level
[2024-11-10] MEDS: MAGNESIUM OXIDE PO (08:25)
--- NOTE | 2024-11-10 08:32 | PTOTSP ---
INFORMATION OFFICER Note
New orders required s/p anesthesia for CABG. Will f/u if/when orders received.
[2024-11-10] MEDS: ZETIA 10 MG PO (08:39)
[2024-11-10] MEDS: VITAMIN D3 (cholecalciferol) 50 MCG PO (08:39)
[2024-11-10] MEDS: PROTONIX 40 MG PO (08:39)
[2024-11-10] MEDS: LIDOCAINE 4% PATCH 1 PATCH TOPICAL (08:40)
[2024-11-10] MEDS: PACERONE 200 MG PO ×3 (08:40→21:52)
[2024-11-10] MEDS: PLAVIX 75 MG PO (08:40)
[2024-11-10] MEDS: SENOKOT-S 1 TABLET PO (08:40)
[2024-11-10] MEDS: LOW STRENGTH ASPIRIN 81 MG PO (08:40)
[2024-11-10] MEDS: NEURONTIN 100 MG PO ×3 (08:40→21:52)
[2024-11-10] MEDS: BACTROBAN 2% OINTMENT 1 APPLIC NASAL ×2 (08:41→20:06)
[2024-11-10 09:24] LABS: Glucose - Point of Care 76 mg/dl (70-99)
[2024-11-10] MEDS: NOVOLOG FLEXPEN SC ×3 (09:34→16:35)
[2024-11-10 10:05] LABS: Blood Urea Nitrogen 26 mg/dl (9-20); Calcium 8.5 mg/dl (8.4-10.2); Carbon Dioxide 29 mmol/L (22-30); Chloride 104 mmol/L (98-107); Estimated Creatinine Clearance 50 ml/min; Glucose 82 mg/dl (70-99); Potassium 5.4 mmol/L (3.5-5.1); Sodium 138 mmol/L (135-145); eGFR 57.65
--- NOTE | 2024-11-10 10:05 | W.PN.CD ---
Today's Communication / Plan
-
Agree with care
As recovers will add GDMT for HFrEF
Impression / Plan
-
Background: 74M with HTN & NIDDM who presented with upper back and shoulder tightness then had syncope and developed SOB prompting evaluation -> recent inferior STEMI based on clinical data and EKG -> [facility] with [facility]
Outpatient Geospatial Applications Developer: will be Dr. Bueno
PCP: Sabina Dior, DO
CAD, recent inferior STEMI
- CABG on 11/09/2024
Multivessel CAD
Teetee's noted at time of CABG based on appearance of pericardium
Ischemic cardiomyopathy, LVEF at [facility] at CABG 11/10/2024: 31%, by echo about 35%
Acquired complete heart block
Spontaneous VF arrest (less than 30 min after biv ICD placed 11/04/2024)
NSVT more than 4 days from AK and before VF arrest
HFrEF (EF 35%), LVEDP at cath 28
Mixed hyperlipidemia (mild) TC 131, LDL 80, HDL 33, TG 94. Goal LDL < 55.
ROSANGELA superimposed on CKD - resolved. Likely from poor cardiac output with AK/LV dysfxn/bradycardia
- Baseline Cr 1.4 in 2021
Type II DM, longstanding, uncontrolled, Hgba1c 9.0%: diabetic provider following
History of HTN
Elevated LFTs, improved
Former heavy smoker probably at least a [id number]-udba history, continued cessation recommended
Subjective:
Chest sore, looks great
Physical Exam
Vital Signs/Labs
Vital Signs
Temp Pulse Resp BP Pulse Ox
98.5 F 81 18 93/61 98
11/10/24 09:00 11/10/24 10:00 11/10/24 09:00 11/10/24 10:00 11/10/24 09:45
11/09/24 11/10/24 11/11/24
06:59 06:59 06:59
Actual Weight 79.5 kg 84.7 kg
11/10/24 03:33
PT 21.3 Sec (11.4-14.6) H 11/09/24 14:28
INR 1.79 11/09/24 14:28
APTT 33.9 Sec (23.4-35.0) 11/09/24 14:28
Magnesium 2.5 mg/dl (1.6-2.3) H 11/10/24 03:33
Triglycerides 94 mg/dl (10-149) 11/01/24 04:18
LDL Cholesterol, Calc 80 mg/dl 11/01/24 04:18
VLDL Cholesterol, Calc 18 mg/dl (0-30) 11/01/24 04:18
HDL Cholesterol 33 mg/dl 11/01/24 04:18
TSH 3.13 uIU/ml (0.47-4.68) 10/31/24 21:54
Free T4 1.66 ng/dl (0.78-2.19) 10/31/24 21:54
Physical Exam
Constitutional: No acute distress
EENT: Anicteric
Cardiovascular: Rhythm & rate is regular and Pedal edema is absent
Respiratory: Respiratory effort normal and Lungs clear to auscul.
GI: Soft and Distention absent
Neuro/Psych: AO x 3
Data Reviewed
-
Date of Service: November 10, 2024
[2024-11-10 10:13] LABS: Glucose - Point of Care 85 mg/dl (70-99)
[2024-11-10 11:07] LABS: Glucose - Point of Care 116 mg/dl (70-99)
--- NOTE | 2024-11-10 12:00 | PTCARENOTE ---
Epinephrine and norepinephrine infusions continuing to be weaned; BMP rechecked
--- NOTE | 2024-11-10 12:02 | CM ---
CM following for DC planning needs.
Patient is POD#[address] Surgery.
DC plan remains for home w/ CT Transitional Care RN. Pt. resides w/ spouse in a private, [facility]. 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
CM to follow.
[2024-11-10] MEDS: NSS IV (13:14)
[2024-11-10 13:17] LABS: Glucose - Point of Care 106 mg/dl (70-99)
[2024-11-10 13:17] LABS: Glucose - Point of Care 166 mg/dl (70-99)
[2024-11-10 14:10] LABS: Glucose - Point of Care 161 mg/dl (70-99)
[2024-11-10 16:12] LABS: Glucose - Point of Care 119 mg/dl (70-99)
--- NOTE | 2024-11-10 16:49 | PTCARENOTE ---
Epinephrine weaned as per CVNP Brenda C.; Patient resting comfortably in bed; Patient allergies updated in patient chart
[2024-11-10 18:03] LABS: Glucose - Point of Care 197 mg/dl (70-99)
[2024-11-10] MEDS: PRAVACHOL 40 MG PO (18:09)
[2024-11-10] MEDS: LEVOPHED 250 IV (18:38)
[2024-11-10 19:03] LABS: Blood Urea Nitrogen 33 mg/dl (9-20); Calcium 8.2 mg/dl (8.4-10.2); Carbon Dioxide 26 mmol/L (22-30); Chloride 101 mmol/L (98-107); Estimated Creatinine Clearance 41 ml/min; Glucose 191 mg/dl (70-99); Potassium 5.9 mmol/L (3.5-5.1); Sodium 132 mmol/L (135-145); eGFR 44.93
[2024-11-10 19:16] LABS: Glucose - Point of Care 158 mg/dl (70-99)
[2024-11-10] MEDS: BUMEX 2 MG IV (19:52)
[2024-11-10] MEDS: NOVOLIN R 10 UNITS IV (19:53)
--- NOTE | 2024-11-10 20:00 | PTCARENOTE ---
Assumed care of Patient @1900. Alert and oriented Pupils round, reactive, and equal. has baseline tremors. AV paced 100% on monitor, heart rate 80's. On levo @1, Epi @ 2. VSS; DP present and weak and radial pulses present; Lungs clear, 2L NC
CT X 4 draining serosanguineous, ;Normal active BS; Temp [place] catheter in place draining yellow clear. Urine output low, bumex given; Trace/ +1 generalized edema present; A-line in right radial artery - line zeroed and level; Right IJ TLC present,
PIV X 2, insulin infusing; K+ 5.9 Ca+ Gluconate, D50 Lokelma and insulin given .. See nursing flowsheets for further details.
[2024-11-10] MEDS: DEXTROSE 50% SYRINGE 25 GRAMS IV (20:08)
[2024-11-10] MEDS: CALCIUM GLUCONATE 1000 MG IV (20:14)
[2024-11-10 20:53] LABS: Glucose - Point of Care 118 mg/dl (70-99)
[2024-11-10] MEDS: SENOKOT-S PO (21:29)
[2024-11-10 21:52] LABS: B.E. 0.8 mmol/L; HCO3 25.3 mmol/L (21-28); O2 Saturation % 99.0 % (94-98); PCO2 39 mmHg (35-48); PO2 94 mmHg (83-108); Potassium 4.7 mMOL/L (3.5-5.1)
[2024-11-10] MEDS: FLEXERIL 5 MG PO (21:53)
[2024-11-10] MEDS: REMOVE LIDOCAINE PATCH 1 PATCH REMOVE (21:58)
[2024-11-10 22:05] LABS: Glucose - Point of Care 83 mg/dl (70-99)
[2024-11-10 22:06] LABS: Potassium 4.7 mmol/L (3.5-5.1)
[2024-11-10 23:28] LABS: Glucose - Point of Care 119 mg/dl (70-99)
[2024-11-11] VITALS (32 sets, daily range): BP systolic 74–117; BP diastolic 52–76; PULSE 80; BMI 28.0
[2024-11-11 00:37] LABS: Glucose - Point of Care 108 mg/dl (70-99)
--- NOTE | 2024-11-11 00:57 | PTCARENOTE ---
Patient resting comfortable, VSS, Remains on Levo @1, CI 1.84- Epi weaned to 1.5 per provider order. Bumex given Urine output improved. Repeat labs K 4.7. please see workflow for detail assessment.
[2024-11-11 01:17] LABS: Glucose - Point of Care 90 mg/dl (70-99)
[2024-11-11 02:07] LABS: Potassium 4.8 mmol/L (3.5-5.1)
[2024-11-11 02:50] LABS: Glucose - Point of Care 89 mg/dl (70-99)
[2024-11-11] MEDS: ADRENALIN 250 IV (02:51)
[2024-11-11 03:09] LABS: Hematocrit 23.9 % (39.0-52.0); Hemoglobin 7.6 g/dL (13.0-18.0); Mean Corp Hgb Conc. 31.8 g/dL (33.0-37.0); Mean Corpuscular Volume 89.8 fL (80.0-94.0); Platelet Count 161 10^3/uL (130-400); Red Cell Dist. Width 15.8 % (11.5-14.5)
[2024-11-11 03:46] LABS: Blood Urea Nitrogen 36 mg/dl (9-20); Calcium 8.0 mg/dl (8.4-10.2); Carbon Dioxide 31 mmol/L (22-30); Chloride 99 mmol/L (98-107); Estimated Creatinine Clearance 38 ml/min; Glucose 83 mg/dl (70-99); Magnesium 2.4 mg/dl (1.6-2.3); Potassium 5.1 mmol/L (3.5-5.1); Sodium 135 mmol/L (135-145); eGFR 41.78
--- NOTE | 2024-11-11 04:19 | PTCARENOTE ---
Patient VSS , contines on Levo @ 1 an Epi @1.5. Patient denies pain at this time. Bathed and labs drawn.
[2024-11-11 05:08] LABS: Glucose - Point of Care 93 mg/dl (70-99)
[2024-11-11] MEDS: TYLENOL 1000 MG PO ×2 (05:50→18:26)
--- NOTE | 2024-11-11 06:37 | W.PN.CT ---
Today's Communication / Plan
-
-pod #2
-hemodynamically and neurologically intact, av-paced, occasional PVCs
-elevated K 5.9 last night - tx with Ca gluconate, Insulin with D50, Lokelma 10 gram x1 and 2 mg iv Bumex. K 5.1 this am
-CI 1.61, CO 3.13, SVR 1328, mVO2 59.0. Drips: Epi 1.5, Insulin. Levo is off
-CT outputs: 2 meds 160/340 , 2 pleur 185/385 in 12/24 hrs
-Cr is trending up - 1.7 today (1.6 on 11/10). Hg 7.6 today. Will give 1 pRBC and more Bumex today
-follow Cr and K
-wean Epi as tolerated
-maintain swan, cordis, a-line, England
-encourage IS, OOB
Assessment / Plan
-
- s/p CABG x 4 (JUSTIN to LAD, GSV to D1, GSV to OM2 upper branch, GSV to OM2 lower branch); ELAA (45mm AtriClip); Lysis of pericardial adhesions w/ blunt & electrocautery dissection; Lysis of left pleural-pleural adhesions w/ electrocautery on
11/09/[address] Wilks, pod #2
- Pre-[facility]: LVEF 31%, [id number] MR, mild AI
- Post-[facility]: LVEF 40%, unchanged valves, SHEMAR confirmed excluded
-Severe 3v CAD
-Inferior MT
-Weakness/Fatigue
-Syncopal episode
-HFrEF/ICM (LVEF 35%; was 50-55% per echo 04/2014)
-CHB S/P Transvenous pacer, 11/01/24
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
-Mild-moderate TR
-HTN
-Hyperlipidemia
-Hypothyroidism
-T2DM (hgb A1C 9.0)
-ROSANGELA (peaked @ 2.1)
-Transaminitis
-Small pericardial effusion, per CTA 11/06
-Small bilateral pleural effusion, per CTA 11/06
-Former tobacco use (quit 20 years ago, ~40 pk/yr)
-Diplopia S/p cataract surgery
-NENANA S/P hearing aids
-Renal calculi S/P cystoscopy with renal stents
-S/P T&A
-S/P Appendectomy
-Acute postop blood loss anemia
-Acute postop atelectasis
-Acute postop pericarditis
-Acute postop hyperkalemia
-Acute postop hypovolemia with subsequent hypervolemia
Discussed patient care with: Nursing and Care Team
Subjective
-
Date of Service: November 11, 2024
Objective Data
-
Lab Results
11/11/24 02:57
11/11/24 02:57
PT 21.3 Sec (11.4-14.6) H 11/09/24 14:28
INR 1.79 11/09/24 14:28
APTT 33.9 Sec (23.4-35.0) 11/09/24 14:28
Vital Signs
Vital Signs
Temp Pulse Resp BP Pulse Ox
99.3 F 81 18 109/68 98
11/11/24 06:00 11/11/24 06:00 11/11/24 06:00 11/11/24 06:00 11/11/24 06:00
CT Intake/Output/Weight
11/10/24 11/10/24 11/11/24
06:59 18:59 06:59
Intake Total 906.5 / 1532.1 802.8 / 1808.6 1005.8 / 1808.6
Output Total 822 / 1375 910 / 2405 1495 / 2405
Balance 84.5 / 157.1 -107.2 / -596.4 -489.2 / -596.4
SaO2: 98
Physical Exam
-
General: Awake and AOx3
Cardiovascular: Regular rate & rhythm, No Murmurs and Rub
Respiratory: Decreased Breath Sounds
Sternum: Stable
Incision: Clean, Dry and Intact
Extremities: No Edema (2+ DP on L and 1+ DP on R)
Abdomen: soft, nontender, nondistended, +decreased bowel sounds
Data Reviewed
-
Lab Results: Results Reviewed
Medications: Active Meds Reviewed
Chest X-Ray: Report Reviewed and Image Reviewed
ECG: Report Reviewed and Image Reviewed
[2024-11-11 07:02] LABS: Glucose - Point of Care 107 mg/dl (70-99)
[2024-11-11] MEDS: SYMBICORT 160/4.5 MCG INHALER 2 PUFF INH ×2 (07:34→17:39)
--- NOTE | 2024-11-11 07:53 | PN.DE.MGMTRT ---
Insulin Management
- -
11/11/2024: Diabetes Management Follow up
Patient admitted 10/31 with c/o weakness; NSTEMI, complete heart block. Cardiac cath 11/01 - severe multivessel CAD.
PMH: HTN, HLD, T2DM and Hypothyroid. Prior to admission was taking Lantus 40 units @ hs, Metformin 1000 mg BID, Januvia 100 mg daily. A1C on admission 9%. Cr 1, eGFR > 60 today.
POD # 2 s/p CABG x 4. Patient is awake alert and oriented. resting in bed, flat affect, unable to discuss diabetes care.
Remains on critical care glycemic protocol, glucose range 89 to 108, requiring 0.4 to 2 units of insulin per hour.
Will plan to transition off glycemic protocol insulin infusion today at 14:30.
Give NPH 20 units @ 1300, turn insulin drip off at 14:30. Start Lantus 25 units @ HS, AC NovoLog 4 units and moderate corrective with meals @ 16:30.
Pt was requiring higher dose of Lantus 38 units prior to surgery, however, he is noted for poor appetite and not eating much.
He may require Lantus dose adjusted as his appetite improves and glucose starts to trend up.
Will cont to follow. Discussed with nurse and instructed to hold AC insulin if pt does not eat.
Patient's brought in his DexCom G6, explained to pt and that we will assist him in placing the device once plans for surgery have been finalized.
POD # 6 S/P pacemaker/ICD placement.
Diabetes History
- -
Type of Diabetes: 2 requiring insulin
Pre-Admission Diabetes Regimen
11/10/24 11/10/24 11/11/24
09:20 17:58 02:57
Creatinine 1.3 1.6 H 1.7 H
Lab Results
Hemoglobin A1c 9.0 % (4.0-5.6) H 11/01/24 04:18
Insulin Pump Settings
IP Diabetes Regimen
11/10/24 11/10/24 11/10/24
09:20 10:11 11:06
Glucose 82
POC Glucose 76 85 116 H
11/10/24 11/10/24 11/10/24
12:04 13:06 14:07
Glucose
POC Glucose 106 H 166 H 161 H
11/10/24 11/10/24 11/10/24
16:10 17:57 17:58
Glucose 191 H
POC Glucose 119 H 197 H
11/10/24 11/10/24 11/10/24
19:15 20:51 22:04
Glucose
POC Glucose 158 H 118 H 83
11/10/24 11/11/24 11/11/24
23:27 00:36 01:16
Glucose
POC Glucose 119 H 108 H 90
11/11/24 11/11/24 11/11/24
02:49 02:57 05:06
Glucose 83
POC Glucose 89 93
11/11/24
06:59
Glucose
POC Glucose 107 H
Meal type: Dinner
Meal type: Breakfast
Amount consumed: 80%
Amount consumed: 80%
Patient Education
[2024-11-11] MEDS: NOVOLOG FLEXPEN 4 UNITS SC ×2 (08:03→16:37)
[2024-11-11] MEDS: BACTROBAN 2% OINTMENT 1 APPLIC NASAL ×2 (08:04→20:00)
[2024-11-11] MEDS: LIDOCAINE 4% PATCH TOPICAL (08:07)
--- NOTE | 2024-11-11 08:10 | W.PN.INTV ---
Today's Communication / Plan
Recommendations
Continue weaning down Levophed + epinephrine drips as tolerated
Goal MAP >65+ keep CI >2
MVO2 improved from 45.1 yesterday to was high at 59 earlier this morning- > continue to monitor and goal is >65-70
Postoperative management as per cardiothoracic surgery
Maintain SaO2 >90-94%
Continue DAPT + Pravachol
Continue with PO amiodarone
Monitor for arrhythmias
Goal BG 110-140; continue insulin gtt
Replete K>4, Mg>2
Outpatient Program Coordinator/pulmonary services will continue to follow along while patient remains in the CVICU
Assessment
-
Patient is a 74-year-old gentleman with long history of diabetes who developed nonspecific symptoms of upper back and shoulder pain 3 days prior to her presentation to the hospital. Also reported syncope episode. He also reported significant
fatigue which eventually brought him to the emergency room. Further workup was suggestive of a complete heart block as well as elevated troponin consistent with acute myocardial infarction. Patient was noted to have inferior wall ST elevation [place].
He was taken to [facility] and had coronary angiography performed which showed 100% RCA stenosis and significant otherwise coronary artery disease. He also had a temporary pacemaker placed. Postprocedure he was admitted to ICU and division operations manager
consultation was requested for further input.
#1. Inferior wall STEMI with multivessel coronary artery disease s/p CABG x 4 with left atrial appendage exclusion with 45 mm AtriClip (POD #2)
Severe three-vessel CAD seen on [facility] from 11/01/2024 with a 100% stenosis of the distal RCA which is the likely culprit of the patient's NSTEMI and complete heart block
On 11/09/2024, he underwent CABG x 4 with left atrial appendage exclusion
Continue aspirin, Plavix, Pravachol and amiodarone; metoprolol DC'd
Patient was successfully extubated on 11/09/2024, and is currently on 2 L/min nasal cannula saturating 97% and breathing comfortably
Continue to wean down O2 flow rate to maintain SpO2 >90-94%
prn nebulized bronchodilators - not currently bronchospastic
Encourage incentive spirometer use q1hr while awake
Pulmonary artery catheter parameters will be followed
Pressors/antihypertensive/inotropes/diuretics will be provided as needed
Maintain MAP>65
Replete electrolytes with K>4, Mg>2
Monitor chest tube output (bilateral pleural chest tubes + mediastinal chest tubes x 2)
Monitor hemoglobin
Monitor platelet count and coags
Transfuse blood products as needed to maintain Hb>7g/dL, plt>50k (given post-operative status)
CT surgery managing chest tubes
Monitor blood sugar to maintain euglycemia with goal BG 110-140
Insulin drip per protocol
Aspiration precautions
DVT prophylaxis
Early nutrition
Early mobilization
#2. Complete heart block
Suspected related to RCA infarction.
S/p temporary pacemaker initially
With EF 35%, s/p AICD on 11/04
#2a. Heart failure with reduced ejection fraction, acute.
Creatinine had improved with diuresis, but now back in ROSANGELA since 11/10
Valsartan started on 11/05 with last dose on 11/06 --> currently off all antihypertensives as he is now on Levophed + epinephrine drips
Defer GDMT to cardiology depending on BP, sCr and serum [K] levels
#2b. V. Fib s/p AICD firing, soon after AICD placement (11/04)
Patient awake, alert. Did not require any CPR.
Replete K>4, Mg>2
Bets blockers initiation deferred to Cardiology service.
Continue Telemetry monitoring.
#3. ROSANGELA on admission
Admission creatinine was 2.1; had improved to 1 but now is back to 1.6-1.7 as of 11/10
Suspect cardiorenal syndrome considering improving with diuresis
Continue to monitor
#4. DM2 (uncontrolled with HbA1c: 9 on 11/01/2024)
Now on insulin drip s/p CABG
Goal BG 110-140mg/dL
#5. h/o HTN
Anti-hypertensives currently on hold
#6. Hypothyroidism
Was taking thyroid Dora from 11/01 until 11/08/2024; recommend to restart this
#7. h/o Smoking with suspected underlying COPD
Patient states he quit many years ago however reports occasional wheezing, cough with expectoration. Suspect patient might have underlying COPD. Patient had been reluctant to use any inhalers. Patient will need outpatient follow-up with pulmonary
clinic for pulmonary function testing and 6-minute walk test etc.
Continue with Symbicort 160 mcg with prn albuterol
Continue CVICU level of care.
Critical care statement: A total of 37 minutes of critical care time was provided for this patient today. This includes management of unstable vital signs, evaluation of the patient at bedside, reviewing the patient's pertinent medical records
including radiographs, microbiology, laboratory evaluations, and discussion with primary team, consultants, pharmacy, nutrition, physical therapy, case management, charge nurse, critical care nursing, and respiratory therapy.
Data:
CXR 10/2024: Right internal jugular temporary pacing wire extending into the right ventricle, distal tip directed slightly superiorly.
CXR 11/09/2024: Postop cardiothoracic surgery with support apparatus in position
ECHO 10/2024: LV ejection fraction is approximately 35%, by visual assessment. Akinesis of
the basal to mid inferoseptal, inferior, and inferolateral stewart.
Enlarged right ventricular size. Reduced right ventricular systolic function.
Mild to moderate tricuspid regurgitation. Estimated pulmonary artery pressure
of 35-40 mmHg. The IVC is dilated and does not collapse.
LHC and Temp Pacemaker insertion 10/2024: 1. Severe three-vessel coronary artery disease as described with 100% stenosis of the distal RCA that is likely the culprit lesion for the patient's NSTEMI and complete heart block, complex bifurcation
disease involving the proximal LAD and moderate caliber diagonal, as well as complex bifurcation disease involving a large circumflex marginal branch.
2. Severely elevated LV filling pressure and no significant aortic stenosis on hemodynamic pullback
Subjective Dataa
Subjective Data
Date of Service:
Date of Service: November 11, 2024
Chief Complaint: Outpatient Program Coordinator Follow Up
Subjective:
Patient was seen and evaluated today at bedside. Resting in bed in no acute distress. Currently on insulin drip at 0.2 units/hr, Levophed at 1 mcg/min, and epinephrine at 1 mcg/min. Currently saturating 97% on 2 L/min nasal cannula, heart rate
80, BP via A-line 101/48, PAP 36/18, and CO/CI: 3.7/1.9, respectively. Patient remains drowsy and feels fatigued but denies SOB, ARDON, nausea, fevers or chills.
Review of Systems
General: Other (Negative unless mentioned above)
Objective Data
Data Reviewed
Vital Signs / I&O / Oxygen:
Vital Signs
Temp Pulse Resp BP Pulse Ox
99.3 F 80 15 101/65 97
11/11/24 09:00 11/11/24 09:00 11/11/24 09:00 11/11/24 09:00 11/11/24 09:00
Intake and Output
11/10/24 11/11/24 11/12/24
06:59 06:59 06:59
Intake Total 1479.5 / 1532.1 1808.6 / 1808.6 173.7 / 173.7
Output Total 1325 / 1375 2405 / 2405 325 / 325
Balance 154.5 / 157.1 -596.4 / -596.4 -151.3 / -151.3
SaO2 [SIMV] 100
SaO2 97
Nasal Cannula flow liters per 2
minute
Physical Exam
General: Respiratory Distress (negative) and Comfortable
HEENT: Normocephalic and Anicteric
Cardiovascular: S1-S2, Rub (Positive) and Peripheral Edema (negative)
Respiratory: Wheeze (negative), Crackles (Bilateral (L >R)), Rhonchi (negative), Non-Labored Respirations and Chest Tube (Mediastinal chest tubes x 2 & bilateral pleural chest tubes)
GI: Soft, Distended (Abdominal obesity), Non Tender and Normal Bowel Sounds
Neurology: Awake, Tremors (negative) and Other (Drowsy at times)
Skin: Dry, Cyanosis (negative), Jaundice (negative) and Other (Cool feet bilaterally (L >R), otherwise remainder of lower extremities are warm)
Labs/Micro/Reports
Lab Data
11/11/24 02:57
11/11/24 02:57
Laboratory Results
11/10/24
21:39
pH 7.42
pCO2 39
pO2 94
HCO3 25.3
O2 Delivery Level
[2024-11-11] MEDS: BUMEX 2 MG IV (08:19)
[2024-11-11] MEDS: LOW STRENGTH ASPIRIN 81 MG PO (08:21)
[2024-11-11] MEDS: VITAMIN D3 (cholecalciferol) 50 MCG PO (08:21)
[2024-11-11] MEDS: MUCINEX 600 MG PO ×2 (08:21→20:07)
[2024-11-11] MEDS: SENOKOT-S 1 TABLET PO ×2 (08:21→20:05)
[2024-11-11] MEDS: ZETIA 10 MG PO (08:21)
[2024-11-11] MEDS: PLAVIX 75 MG PO (08:22)
[2024-11-11] MEDS: PROTONIX 40 MG PO (08:22)
[2024-11-11] MEDS: NEURONTIN 100 MG PO (08:22)
[2024-11-11] MEDS: PACERONE 200 MG PO ×3 (08:24→22:22)
[2024-11-11 09:09] LABS: Glucose - Point of Care 173 mg/dl (70-99)
--- NOTE | 2024-11-11 09:29 | PTCARENOTE ---
Received from biological chemist RN; AAOx3, drowsy but responds spontaneously to RN and follows commands; CHILKOOT; Tremors throughout all extremities; Flat, forgetful; VSS; AV paced with PVC's on monitor; Friction rub present; Left chest AICD and PPM in place
- settings DDDR 60-130; Trace B/L LE edema; +1 DP and +2 radial pulses; Shallow respirations; Productive, harsh cough with ascencio, thick sputum; CTx4 connected to -20 cm wall suction draining serosanguineous drainage - no tidaling, crepitus, or air
leak; Lungs diminished at bases; IS 500 ml; Hypoactive BS; [place] catheter draining clear, yellow urine; Surgical incisions intact; PIVx2 - #22 RAC, #18 right hand; Right radial A-line in place, RIJ Cordis with Fork-gaurav floated to 49 cm - all lines
zeroed and level; Levo, epinephrine, and insulin infusing - see nursing flowsheets for further details; See nursing documentation for further information
CO: 4.04
CI: 2.07
SVR: 1,029
[2024-11-11 11:10] LABS: Glucose - Point of Care 137 mg/dl (70-99)
--- NOTE | 2024-11-11 11:39 | PTCARENOTE ---
assumed care of patient @ 1100. Assisted previous RN pulling chest tubes, all 4 chest tubes pulled and tied w/o incident. pt tolerated well. Pt AOx3, drowsy this morning, flat affect and spirits. pt feels like he is never going to get better.
emotional support and reassurance provided . pt AV paced current 80 BPM. Lungs diminished at the bases on 2L satting high 90s. belly round, obese, poor appetite. encouraged to eat. Stenal aquacel CDI, Pacer site GHAZAL CDI, sacral foam intact. R IJ
cordis with swan at 49, R radial a line, piv x2 all patent. central lines zeroed, flushed. epi at 1, levo per protocol. plan to give NPH at 1300 and turn drip off at 1430. call salazar within reach .
[2024-11-11 12:32] LABS: Glucose - Point of Care 84 mg/dl (70-99)
[2024-11-11 13:05] LABS: Glucose - Point of Care 98 mg/dl (70-99)
[2024-11-11] MEDS: NOVOLOG FLEXPEN SC (13:06)
[2024-11-11] MEDS: NOVOLIN N vial 0.2 UNITS SC (13:09)
--- NOTE | 2024-11-11 14:51 | PTCARENOTE ---
insulin drip d/cd. long conversation w/ patient about need for progressive mobility. with the help of 2 other RNs, assisted pt to side of bed, then stood and walked to chair. pt c/o mild dizziness, slightly unsteady gait. pt now resting in chair
comfortably. epi turned off per CTNP
[2024-11-11 14:58] LABS: Glucose - Point of Care 231 mg/dl (70-99)
[2024-11-11] MEDS: TYLENOL PO (15:11)
[2024-11-11 15:48] LABS: Glucose - Point of Care 222 mg/dl (70-99)
[2024-11-11] MEDS: NOVOLOG FLEXPEN 2 UNITS SC (16:12)
--- NOTE | 2024-11-11 16:19 | CM ---
dc plans remain home with f/u ct transitional care nurse when medically stable
[2024-11-11 16:34] LABS: Glucose - Point of Care 226 mg/dl (70-99)
--- NOTE | 2024-11-11 17:04 | W.PN.CD ---
Today's Communication / Plan
-
Agree with care
As improves add GDMT for CAD/HFrEF
Impression / Plan
-
Background: 74M with HTN & NIDDM who presented with upper back and shoulder tightness then had syncope and developed SOB prompting evaluation -> recent inferior STEMI based on clinical data and EKG -> C with [facility]
Outpatient Hand Carver: will be Dr. Bueno
PCP: Sabina Dior, DO
CAD, recent inferior STEMI
- CABG on 11/09/2024
Multivessel CAD
Teetee's noted at time of CABG based on appearance of pericardium
Ischemic cardiomyopathy, LVEF at [facility] at CABG 11/10/2024: 31%, by echo about 35%
Acquired complete heart block
Spontaneous VF arrest (less than 30 min after biv ICD placed 11/04/2024). MDT checked device on 11/10/2024 => leads perfect.
NSVT more than 4 days from GA and before VF arrest. Several episodes of NSVT in last 24-48 hours (after CABG)
HFrEF (EF 35%), LVEDP at cath 28
Mixed hyperlipidemia (mild) TC 131, LDL 80, HDL 33, TG 94. Goal LDL < 55.
ROSANGELA superimposed on CKD - resolved. Likely from poor cardiac output with GA/LV dysfxn/bradycardia
- Baseline Cr 1.4 in 2021
Type II DM, longstanding, uncontrolled, Hgba1c 9.0%: diabetic provider following
History of HTN
Elevated LFTs, improved
Former heavy smoker probably at least a [id number] history, continued cessation recommended
Subjective:
Feeling a bit better
Physical Exam
Vital Signs/Labs
Vital Signs
Temp Pulse Resp BP Pulse Ox
99.6 F 82 16 108/76 97
11/11/24 16:00 11/11/24 16:00 11/11/24 16:00 11/11/24 15:00 11/11/24 16:00
11/10/24 11/11/24 11/12/24
06:59 06:59 06:59
Actual Weight 84.7 kg 85.8 kg
11/11/24 02:57
11/11/24 02:57
PT 21.3 Sec (11.4-14.6) H 11/09/24 14:28
INR 1.79 11/09/24 14:28
APTT 33.9 Sec (23.4-35.0) 11/09/24 14:28
Magnesium 2.4 mg/dl (1.6-2.3) H 11/11/24 02:57
Triglycerides 94 mg/dl (10-149) 11/01/24 04:18
LDL Cholesterol, Calc 80 mg/dl 11/01/24 04:18
VLDL Cholesterol, Calc 18 mg/dl (0-30) 11/01/24 04:18
HDL Cholesterol 33 mg/dl 11/01/24 04:18
TSH 3.13 uIU/ml (0.47-4.68) 10/31/24 21:54
Free T4 1.66 ng/dl (0.78-2.19) 10/31/24 21:54
Physical Exam
Constitutional: No acute distress
EENT: Anicteric
Cardiovascular: Rhythm & rate is regular and Pedal edema is absent
Respiratory: Respiratory effort normal and Lungs clear to auscul.
GI: Soft and Distention absent
Other: Cardiac Device Site (Dressing removed by me. Steri Strips left, looks perfect)
Data Reviewed
-
Date of Service: November 11, 2024
[2024-11-11] MEDS: NOVOLOG FLEXPEN-MODERATE RESISTANCE SC (17:11)
[2024-11-11] MEDS: PRAVACHOL 40 MG PO (18:27)
--- NOTE | 2024-11-11 19:02 | PTCARENOTE ---
c.i off epi 1.95, orders recieved to de line. assisted pt back into bed
[2024-11-11 19:55] LABS: Glucose - Point of Care 277 mg/dl (70-99)
--- NOTE | 2024-11-11 20:00 | PTCARENOTE ---
Assumed care of patient @1900. Patient alert and oriented, follows all commands. Affect Flat,, patient stated he is is tired and discouraged slow progress. AV 100% paced. BP stable drips off. HR in 80's. Patient was de-lined, PA catheter removed,
dressing changed on Cordis CDI and Right Radial Arterial line removed. Pressure held for 5 minutes, pressure, dressing applied. CDI. 2 X PIV CDI flushed. On 2 L NC, saturation at 97%. Lungs clear and diminished at bases. Able to clear
secretions with productive cough. Bowels sounds present on aucitation. England drain clear yellow urine. Patient pain managed with PRN medication, Please see workfkow for detail assessment.
[2024-11-11] MEDS: ROXICODONE 5 MG PO (20:06)
[2024-11-11] MEDS: FLEXERIL 5 MG PO (20:06)
[2024-11-11] MEDS: REMOVE LIDOCAINE PATCH 1 PATCH REMOVE (22:18)
[2024-11-11] MEDS: NSS 500 IV (22:18)
[2024-11-11] MEDS: LANTUS 0.25 UNITS SC (22:26)
[2024-11-11 22:29] LABS: Glucose - Point of Care 252 mg/dl (70-99)
[2024-11-12] VITALS (24 sets, daily range): BP systolic 72–117; BP diastolic 53–76; PULSE 79; O2SAT 94–97; BMI 27.8
--- NOTE | 2024-11-12 | PTCARENOTE ---
Patient resting comfortably, call light within reach, VSS.
--- NOTE | 2024-11-12 04:01 | W.PN.CT ---
Addendum entered and electronically signed by Tacho Wilks MD 11/12/24 09:11:
I saw and examined the patient.
The PA's note was reviewed and I agree with the note.
Comment:
POD#3 s/p CABG x 4, ELAA
Doing well. Off inotropes and vasopressors; de-lined
Creat 1.8 today, continue to follow, continue diuresis
OOB/IS/ambulate
Original Note:
Today's Communication / Plan
-
-pod #3
-no issues overnight, feels sleepy - Gabapentin is held, minimize narcotics
-av-paced with occasional PVCs
-Epi was weaned off 11/11 and delined
-got 1 pRBC on 11/11 for Hg 7.6 - Hg today 8.5
-diuresed with 2 mg iv Bumex on 11/11 (UO 1400)
-Cr continues to trend up - 1.8 today (1.7 on 11/11, 1.6 on 11/10 and 1.0 preop). UO 50-75 per hr
-K has been elevated upto 5.9 postop, requiring several doses of Ca, Insulin w/D50 and Lokelma. K 4.1 today - follow
-holding BB d/t low BP 90s
-holding Colchicine, Farxiga, and Mg d/t elevated Cr
-encourage IS, OOB
Assessment / Plan
-
- s/p CABG x 4 (JUSTIN to LAD, GSV to D1, GSV to OM2 upper branch, GSV to OM2 lower branch); ELAA (45mm AtriClip); Lysis of pericardial adhesions w/ blunt & electrocautery dissection; Lysis of left pleural-pleural adhesions w/ electrocautery on
11/09/[address] Wilks, pod #3
- Pre-[facility]LO[facility]: LVEF 31%, uravg-xt-ozuc MR, mild AI
- Post-[facility]E: LVEF 40%, unchanged valves, SHEMAR confirmed excluded
-Severe 3v CAD
-Inferior HI
-Weakness/Fatigue
-Syncopal episode
-HFrEF/ICM (LVEF 35%; was 50-55% per echo 04/2014)
-CHB S/P Transvenous pacer, 11/01/24
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
-Mild-moderate TR
-HTN
-Hyperlipidemia
-Hypothyroidism
-T2DM (hgb A1C 9.0)
-ROSANGELA (peaked @ 2.1)
-Transaminitis
-Small pericardial effusion, per CTA 11/06
-Small bilateral pleural effusion, per CTA 11/06
-Former tobacco use (quit 20 years ago, ~40 pk/yr)
-Diplopia S/p cataract surgery
-NOTTAWASEPPI POTAWATOMI S/P hearing aids
-Renal calculi S/P cystoscopy with renal stents
-S/P T&A
-S/P Appendectomy
-Acute postop blood loss anemia
-Acute postop atelectasis
-Acute postop pericarditis
-Acute postop hyperkalemia
-Acute postop hypovolemia with subsequent hypervolemia
Discussed patient care with: Nursing and Care Team
Subjective
-
Date of Service: November 12, 2024
Objective Data
-
PT 21.3 Sec (11.4-14.6) H 11/09/24 14:28
INR 1.79 11/09/24 14:28
APTT 33.9 Sec (23.4-35.0) 11/09/24 14:28
Vital Signs
Vital Signs
Temp Pulse Resp BP Pulse Ox
97.5 F 80 18 97/64 99
11/12/24 01:00 11/12/24 01:15 11/12/24 01:00 11/12/24 01:00 11/12/24 01:15
CT Intake/Output/Weight
11/11/24 11/11/24 11/12/24
06:59 18:59 06:59
Intake Total 1005.8 / 1808.6 775.9 / 1030.9 255 / 1030.9
Output Total 1495 / 2405 1610 / 5 345 / 5
Balance -489.2 / -596.4 -834.1 / -924.1 -90 / -924.1
SaO2: 99
Physical Exam
-
General: Awake and AOx3
Cardiovascular: Regular rate & rhythm, No Murmurs and Rub
Respiratory: Decreased Breath Sounds
Sternum: Stable
Incision: Clean, Dry and Intact
Extremities: No Edema (2+ DP on L and 1+ DP on R)
Abdomen: soft, nontender, nondistended, +decreased bowel sounds
Data Reviewed
-
Lab Results: Results Reviewed
Medications: Active Meds Reviewed
Chest X-Ray: Report Reviewed and Image Reviewed
ECG: Report Reviewed and Image Reviewed
[2024-11-12 04:14] LABS: Hematocrit 26.1 % (39.0-52.0); Hemoglobin 8.5 g/dL (13.0-18.0); Mean Corp Hgb Conc. 32.6 g/dL (33.0-37.0); Mean Corpuscular Volume 89.4 fL (80.0-94.0); Platelet Count 162 10^3/uL (130-400); Red Cell Dist. Width 15.2 % (11.5-14.5)
--- NOTE | 2024-11-12 04:17 | PTCARENOTE ---
patient sleeping, vital signs stable on 2 L NC 99%, salinas care completed. labs sent
[2024-11-12 04:31] LABS: Blood Urea Nitrogen 45 mg/dl (9-20); Calcium 7.6 mg/dl (8.4-10.2); Carbon Dioxide 30 mmol/L (22-30); Chloride 98 mmol/L (98-107); Estimated Creatinine Clearance 36 ml/min; Glucose 120 mg/dl (70-99); Magnesium 2.2 mg/dl (1.6-2.3); Potassium 4.1 mmol/L (3.5-5.1); Sodium 133 mmol/L (135-145); eGFR 39.01
[2024-11-12] MEDS: TYLENOL 1000 MG PO ×3 (06:23→21:56)
[2024-11-12 07:41] LABS: Glucose - Point of Care 99 mg/dl (70-99)
[2024-11-12] MEDS: NOVOLOG FLEXPEN-MODERATE RESISTANCE SC ×2 (07:41→11:38)
[2024-11-12] MEDS: NOVOLOG FLEXPEN 4 UNITS SC ×3 (07:41→16:52)
[2024-11-12] MEDS: LIDOCAINE 4% PATCH TOPICAL (07:47)
[2024-11-12] MEDS: BACTROBAN 2% OINTMENT 1 APPLIC NASAL ×2 (08:15→20:31)
[2024-11-12] MEDS: ZETIA 10 MG PO (08:16)
[2024-11-12] MEDS: VITAMIN D3 (cholecalciferol) 50 MCG PO (08:16)
[2024-11-12] MEDS: PLAVIX 75 MG PO (08:16)
[2024-11-12] MEDS: PROTONIX 40 MG PO (08:16)
[2024-11-12] MEDS: MUCINEX 600 MG PO ×2 (08:16→20:31)
[2024-11-12] MEDS: SENOKOT-S 1 TABLET PO ×2 (08:16→20:31)
[2024-11-12] MEDS: LOW STRENGTH ASPIRIN 81 MG PO (08:16)
[2024-11-12] MEDS: PACERONE 200 MG PO ×3 (08:16→21:56)
[2024-11-12] MEDS: SYMBICORT 160/4.5 MCG INHALER 2 PUFF INH ×2 (08:22→17:41)
--- NOTE | 2024-11-12 08:22 | W.PN.INTV ---
Today's Communication / Plan
Recommendations
Postoperative management as per cardiothoracic surgery
All chest tubes removed and PA catheter removed
Goal MAP >65
Maintain SaO2 >90-94%
Continue DAPT + Pravachol
Continue with PO amiodarone
Monitor for arrhythmias
Encourage incentive spirometer
Goal BG 110-140
Replete K>4, Mg>2
Patient is being downgraded to CVICU�telemetry status. No additional recommendations at this time. Fish Cutting Machine Operator/Pulmonary service will now sign off. Please reconsult if there are any additional questions/concerns, or if patient's respiratory
status deteriorates.
Assessment
-
Patient is a 74-year-old gentleman with long history of diabetes who developed nonspecific symptoms of upper back and shoulder pain 3 days prior to her presentation to the hospital. Also reported syncope episode. He also reported significant
fatigue which eventually brought him to the emergency room. Further workup was suggestive of a complete heart block as well as elevated troponin consistent with acute myocardial infarction. Patient was noted to have inferior wall ST elevation [place].
He was taken to Fluid Pump Operator and had coronary angiography performed which showed 100% RCA stenosis and significant otherwise coronary artery disease. He also had a temporary pacemaker placed. Postprocedure he was admitted to ICU and transportation supervisor
consultation was requested for further input.
#1. Inferior wall STEMI with multivessel coronary artery disease s/p CABG x 4 with left atrial appendage exclusion with 45 mm AtriClip (POD #2)
Severe three-vessel CAD seen on [facility] from 11/01/2024 with a 100% stenosis of the distal RCA which is the likely culprit of the patient's NSTEMI and complete heart block
On 11/09/2024, he underwent CABG x 4 with left atrial appendage exclusion
Continue aspirin, Plavix, Pravachol and amiodarone; metoprolol DC'd
Patient was successfully extubated on 11/09/2024, and is currently on 2 L/min nasal cannula saturating 97-98% and breathing comfortably
Continue to wean down O2 flow rate to maintain SpO2 >90-94%
If unable to wean off oxygen or if resting SaO2 is <96% on room air then check home O2 assessment prior to discharge
prn nebulized bronchodilators - not currently bronchospastic
Encourage incentive spirometer use q1hr while awake
PA catheter removed
Pressors/antihypertensive/inotropes/diuretics will be provided as needed
Maintain MAP>65
Replete electrolytes with K>4, Mg>2
All 4 chest tubes pulled yesterday (bilateral pleural chest tubes + mediastinal chest tubes x 2)
Monitor hemoglobin
Monitor platelet count and coags
Transfuse blood products as needed to maintain Hb>7g/dL, plt>50k (given post-operative status)
Monitor blood sugar to maintain euglycemia with goal BG 110-140
Insulin now DC'd; recommend to use ISS to maintain BG goal as above
Aspiration precautions
DVT prophylaxis
Early nutrition
Early mobilization
#2. Complete heart block
Suspected related to RCA infarction.
S/p temporary pacemaker initially
With EF 35%, s/p AICD on 11/04
#2a. Heart failure with reduced ejection fraction, acute.
Creatinine had improved with diuresis, but now back in ROSANGELA since 11/10
Valsartan started on 11/05 with last dose on 11/06 --> currently off all antihypertensives; was on Levophed and epinephrine drip yesterday, now DC'd
Defer GDMT to cardiology depending on BP, sCr and serum [K] levels
#2b. V. Fib s/p AICD firing, soon after AICD placement (11/04)
Patient awake, alert. Did not require any CPR.
Replete K>4, Mg>2
Bets blockers initiation deferred to Cardiology service.
Continue Telemetry monitoring.
#3. ROSANGELA on admission
Admission creatinine was 2.1; had improved to 1 but now is back to 1.8 as of 11/12
Suspect cardiorenal syndrome considering improving with diuresis
Continue to monitor
#4. DM2 (uncontrolled with HbA1c: 9 on 11/01/2024)
Now off insulin drip
Recommend to use ISS to keep BG at goal of 110-140mg/dL
#5. h/o HTN
Anti-hypertensives currently on hold
#6. Hypothyroidism
Was taking thyroid [place] from 11/01 until 11/08/2024; recommend to restart this
#7. h/o Smoking with suspected underlying COPD
Patient states he quit many years ago however reports occasional wheezing, cough with expectoration. Suspect patient might have underlying COPD. Patient had been reluctant to use any inhalers. Patient will need outpatient follow-up with pulmonary
clinic for pulmonary function testing and 6-minute walk test etc.
Continue with Symbicort 160 mcg with prn albuterol
Patient is being downgraded to CVICU�telemetry status. No additional recommendations at this time. Fish Cutting Machine Operator/Pulmonary service will now sign off. Thank you for allowing us to be involved in the care of this patient. Please reconsult if there
are any additional questions/concerns, or if patient's respiratory status deteriorates.
Data:
CXR 10/2024: Right internal jugular temporary pacing wire extending into the right ventricle, distal tip directed slightly superiorly.
CXR 11/09/2024: Postop cardiothoracic surgery with support apparatus in position
ECHO 10/2024: LV ejection fraction is approximately 35%, by visual assessment. Akinesis of
the basal to mid inferoseptal, inferior, and inferolateral stewart.
Enlarged right ventricular size. Reduced right ventricular systolic function.
Mild to moderate tricuspid regurgitation. Estimated pulmonary artery pressure
of 35-40 mmHg. The IVC is dilated and does not collapse.
LHC and Temp Pacemaker insertion 10/2024: 1. Severe three-vessel coronary artery disease as described with 100% stenosis of the distal RCA that is likely the culprit lesion for the patient's NSTEMI and complete heart block, complex bifurcation
disease involving the proximal LAD and moderate caliber diagonal, as well as complex bifurcation disease involving a large circumflex marginal branch.
2. Severely elevated LV filling pressure and no significant aortic stenosis on hemodynamic pullback
Total time spent today was 58 minutes for this encounter. Time includes reviewing laboratory test/imaging results, reviewing pertinent medical records, obtaining and reviewing medical history, performing an appropriate exam, ordering medications,
tests and procedures. Time also includes documentation of this encounter, coordinating patient care and communicating with other healthcare professionals. Total time does not include separately billed tests performed on this date of service.
Subjective Dataa
Subjective Data
Date of Service:
Date of Service: November 12, 2024
Chief Complaint: Fish Cutting Machine Operator Follow Up
Subjective:
Patient seen and evaluated today at bedside. Doing well, resting in bed in no acute distress. Saturating 98% on 2 L/min. BP 105/66 and heart rate 80. Feels tired overall, denies ARDON, nausea, fevers or chills.
Review of Systems
General: Other (Negative unless mentioned above)
Objective Data
Data Reviewed
Vital Signs / I&O / Oxygen:
Vital Signs
Temp Pulse Resp BP Pulse Ox
97.8 F 80 15 107/67 97
11/12/24 12:00 11/12/24 12:00 11/12/24 12:00 11/12/24 12:00 11/12/24 12:00
Intake and Output
11/11/24 11/12/24 11/13/24
06:59 06:59 06:59
Intake Total 1808.6 / 1808.6 1105.9 / 1115.9 300 / 300
Output Total 2405 / 2405 2250 / 2290 235 / 235
Balance -596.4 / -596.4 -1144.1 / -1174.1 65 / 65
SaO2 [SIMV] 100
SaO2 97
Nasal Cannula flow liters per 2
minute
Physical Exam
General: Respiratory Distress (negative) and Comfortable
HEENT: Normocephalic and Anicteric
Cardiovascular: S1-S2, Rub (Positive) and Peripheral Edema (negative)
Respiratory: Wheeze (negative), Crackles (Bilateral (L >R)), Rhonchi (negative) and Non-Labored Respirations
GI: Soft, Distended (Abdominal obesity), Non Tender and Normal Bowel Sounds
Neurology: Awake, Tremors (negative) and Other (Drowsy at times)
Skin: Dry, Cyanosis (negative), Jaundice (negative) and Other (Cool feet bilaterally (L >R), otherwise remainder of lower extremities are warm)
Labs/Micro/Reports
Lab Data
11/12/24 03:43
11/12/24 03:43
--- NOTE | 2024-11-12 08:25 | PTCARENOTE ---
Patient received from night assistant resting oob in chair, sleepy but arousable and appropriate. AV paced w/LCW ppm, SaO2 @ 97% on 2lnc. RIJ Cordis w/kvo infusing. All procedural sites stable. England catheter to gravity. Patient updated to plan of care
for the day, in agreement. See work list for full assessment and interventions performed.
[2024-11-12 11:41] LABS: Glucose - Point of Care 143 mg/dl (70-99)
[2024-11-12] MEDS: NSS IV (11:41)
[2024-11-12] MEDS: BUMEX 2 MG IV (11:49)
--- NOTE | 2024-11-12 12:04 | PTCARENOTE ---
VS obtained, assessment stable. OOB having lunch, at bedside.
--- NOTE | 2024-11-12 16:10 | PTCARENOTE ---
VS obtained, assessment unchanged. at bedside. Dinner ordered. States pain controlled at this time.
[2024-11-12 16:45] LABS: Glucose - Point of Care 284 mg/dl (70-99)
[2024-11-12] MEDS: NOVOLOG FLEXPEN-MODERATE RESISTANCE 5 UNITS SC (16:52)
[2024-11-12 16:55] LABS: Glucose - Point of Care 261 mg/dl (70-99)
[2024-11-12] MEDS: PRAVACHOL 40 MG PO (18:01)
--- NOTE | 2024-11-12 20:00 | PTCARENOTE ---
assumed care of pt from previous RN. pt A&Ox4, resting in chair at time of assessment. 100% A/V paced w/ PPM. POX 99% on 2 L NC. abd s/n, +BS. salinas catheter draining clear, yellow urine. all surgical sites stable, CDI. R IJ cordis w/ KVO. PIV x2
intact. see worklist for complete nursing assessment, interventions, VS, and I&Os.
[2024-11-12] MEDS: REMOVE LIDOCAINE PATCH REMOVE (20:31)
[2024-11-12 21:56] LABS: Glucose - Point of Care 260 mg/dl (70-99)
[2024-11-12] MEDS: LANTUS 0.25 UNITS SC (21:56)
[2024-11-13] VITALS (30 sets, daily range): BP systolic 77–135; BP diastolic 47–85; PULSE 81; BMI 27.7
--- NOTE | 2024-11-13 | PTCARENOTE ---
assessment remains unchanged. VSS. U/O >0.5ml/kg/h.
[2024-11-13] MEDS: FLEXERIL 5 MG PO ×2 (03:25→19:33)
[2024-11-13] MEDS: ROXICODONE 2.5 MG PO ×2 (03:25→08:45)
--- NOTE | 2024-11-13 04:00 | PTCARENOTE ---
no acute changes. VSS. AM labs collected and sent. POx 92-95% on RA.
[2024-11-13 04:16] LABS: Hematocrit 26.8 % (39.0-52.0); Hemoglobin 8.8 g/dL (13.0-18.0); Mean Corp Hgb Conc. 32.8 g/dL (33.0-37.0); Mean Corpuscular Volume 89.0 fL (80.0-94.0); Platelet Count 217 10^3/uL (130-400); Red Cell Dist. Width 15.2 % (11.5-14.5)
[2024-11-13 04:32] LABS: Blood Urea Nitrogen 44 mg/dl (9-20); Calcium 7.5 mg/dl (8.4-10.2); Carbon Dioxide 35 mmol/L (22-30); Chloride 96 mmol/L (98-107); Estimated Creatinine Clearance 43 ml/min; Glucose 125 mg/dl (70-99); Magnesium 2.2 mg/dl (1.6-2.3); Potassium 3.5 mmol/L (3.5-5.1); Sodium 135 mmol/L (135-145); eGFR 48.55
--- NOTE | 2024-11-13 05:23 | W.PN.CT ---
Addendum entered and electronically signed by Tacho Wilks MD 11/13/24 09:44:
I saw and examined the patient.
The PA's note was reviewed and I agree with the note.
Comment:
POD#4 s/p CABG x 4, ELAA, ARIAS
Doing well. No overnight events.
Creat down to 1.5 today
Start midodrine for orthostatic hypotension
OOB/IS/ambulate
Original Note:
Today's Communication / Plan
-
-pod #4
-av-paced on tele
-diuresed with 2 mg iv Bumex on 11/12 (UO 2450)
-Cr trend 1.8->1.5 today
-now K down to 3.5 today
-holding BB d/t low BP 90s
-holding Colchicine, Farxiga, and Mg d/t elevated Cr
-encourage IS, OOB
Assessment / Plan
-
- s/p CABG x 4 (JUSTIN to LAD, GSV to D1, GSV to OM2 upper branch, GSV to OM2 lower branch); ELAA (45mm AtriClip); Lysis of pericardial adhesions w/ blunt & electrocautery dissection; Lysis of left pleural-pleural adhesions w/ electrocautery on
11/09/[address] Wilks, pod #4
- Pre-CHLOE: LVEF 31%, [id number] MR, mild AI
- Post-CHLOE: LVEF 40%, unchanged valves, SHEMAR confirmed excluded
-Severe 3v CAD
-Inferior NC
-Weakness/Fatigue
-Syncopal episode
-HFrEF/ICM (LVEF 35%; was 50-55% per echo 04/2014)
-CHB S/P Transvenous pacer, 11/01/24
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
-Mild-moderate TR
-HTN
-Hyperlipidemia
-Hypothyroidism
-T2DM (hgb A1C 9.0)
-ROSANGELA (peaked @ 2.1)
-Transaminitis
-Small pericardial effusion, per CTA 11/06
-Small bilateral pleural effusion, per CTA 11/06
-Former tobacco use (quit 20 years ago, ~40 pk/yr)
-Diplopia S/p cataract surgery
-[place] S/P hearing aids
-Renal calculi S/P cystoscopy with renal stents
-S/P T&A
-S/P Appendectomy
-Acute postop blood loss anemia
-Acute postop atelectasis
-Acute postop pericarditis
-Acute postop hyperkalemia
-Acute postop hypovolemia with subsequent hypervolemia
Subjective
-
Date of Service: November 13, 2024
Objective Data
-
Lab Results
11/13/24 03:36
11/13/24 03:36
PT 21.3 Sec (11.4-14.6) H 11/09/24 14:28
INR 1.79 11/09/24 14:28
APTT 33.9 Sec (23.4-35.0) 11/09/24 14:28
Vital Signs
Vital Signs
Temp Pulse Resp BP Pulse Ox
98 F 80 14 98/61 92
11/13/24 00:00 11/13/24 05:00 11/13/24 04:00 11/13/24 05:00 11/13/24 04:00
CT Intake/Output/Weight
11/12/24 11/12/24 11/13/24
06:59 18:59 06:59
Intake Total 330 / 1115.9 480 / 590 110 / 590
Output Total 640 / 2290 1485 / 2490 1005 / 2490
Balance -310 / -1174.1 -1005 / -1900 -895 /
SaO2: 92
Physical Exam
-
General: Awake, Oriented and AOx3
Cardiovascular: Regular rate & rhythm and No Murmurs
Respiratory: Clear, Equal and Decreased Breath Sounds
Sternum: Stable
Incision: Clean and Intact
Extremities: Edema +1
Data Reviewed
-
Lab Results: Results Reviewed
Medications: Active Meds Reviewed
Chest X-Ray: Report Reviewed
ECG: Report Reviewed
[2024-11-13] MEDS: TYLENOL 1000 MG PO ×2 (06:07→13:03)
[2024-11-13 07:53] LABS: Glucose - Point of Care 125 mg/dl (70-99)
--- NOTE | 2024-11-13 08:00 | PTCARENOTE ---
report received from previous RN. Pt OOB in chair. AAOX3. pt reports mild sternal pain- prn oxycodone given. 100% Av paced on telemetry heart rate 80s. pulses palpable +1 edema in lower extremities. pt on 2L nasal cannula, sat 97%. lung sounds
diminished in bases. active bowel sounds tolerating diet. salinas draining clear yellow urine. surgical sites CDI. right IJ cordis infusing KVO. see worklist for full nursing assessment and interventions.
[2024-11-13] MEDS: SYMBICORT 160/4.5 MCG INHALER 2 PUFF INH ×2 (08:21→17:39)
[2024-11-13] MEDS: NOVOLOG FLEXPEN-MODERATE RESISTANCE SC (08:34)
[2024-11-13] MEDS: LIDOCAINE 4% PATCH TOPICAL (08:35)
[2024-11-13] MEDS: PACERONE 200 MG PO ×3 (08:35→21:57)
[2024-11-13] MEDS: LOW STRENGTH ASPIRIN 81 MG PO (08:35)
[2024-11-13] MEDS: VITAMIN D3 (cholecalciferol) 50 MCG PO (08:35)
[2024-11-13] MEDS: PLAVIX 75 MG PO (08:35)
[2024-11-13] MEDS: BACTROBAN 2% OINTMENT 1 APPLIC NASAL (08:36)
[2024-11-13] MEDS: SENOKOT-S 1 TABLET PO ×2 (08:36→19:34)
[2024-11-13] MEDS: MUCINEX 600 MG PO ×2 (08:36→19:36)
[2024-11-13] MEDS: NOVOLOG FLEXPEN 4 UNITS SC ×3 (08:36→17:32)
[2024-11-13] MEDS: PROTONIX 40 MG PO (08:36)
[2024-11-13] MEDS: ZETIA 10 MG PO (08:36)
[2024-11-13] MEDS: KCL 20 MEQ PO (08:44)
[2024-11-13 11:43] LABS: Glucose - Point of Care 166 mg/dl (70-99)
[2024-11-13] MEDS: NOVOLOG FLEXPEN-MODERATE RESISTANCE 1 UNITS SC ×2 (11:44→17:32)
--- NOTE | 2024-11-13 11:48 | PTCARENOTE ---
pt remains OOB in chair. started on midodrine, low blood pressure noted whenever pt would stand. resting comfortably between care. no further changes in assessment noted.
--- NOTE | 2024-11-13 16:00 | PTCARENOTE ---
vitals stable. no changes in assessment noted.
[2024-11-13 16:25] LABS: Glucose - Point of Care 166 mg/dl (70-99)
[2024-11-13] MEDS: PRAVACHOL 40 MG PO (17:31)
[2024-11-13] MEDS: NSS 500 IV (17:33)
[2024-11-13] MEDS: TYLENOL 650 MG PO (19:34)
--- NOTE | 2024-11-13 21:00 | PTCARENOTE ---
Assumed care of patient at 1900. OOB to chair, Family at bedside. Patient alet and oriented, Follows all commands. Baseline tremors. 100% AV paced, pulses normal on palpitation. on 2 L NC, Lungs clear diminished at bases. Bowels sounds present,
belly soft non tender, round. Cordis and 2 PIVs patent, dressing CDI, Strenal dressing in place, Chest tube site open to air. Patient bathed, shaved and had CHG bath, linens changes, and ambulated back to bed with 1 person assist. Unstable on
feet, walker used England output is clear and yellow, England care completed.
[2024-11-13] MEDS: LANTUS 0.25 UNITS SC (21:58)
[2024-11-13 22:00] LABS: Glucose - Point of Care 150 mg/dl (70-99)
[2024-11-13] MEDS: ROXICODONE 5 MG PO (22:03)
[2024-11-13] MEDS: REMOVE LIDOCAINE PATCH REMOVE (23:47)
[2024-11-13] MEDS: TYLENOL PO (23:47)
[2024-11-14] VITALS (22 sets, daily range): BP systolic 83–140; BP diastolic 53–90; PULSE 82–94; O2SAT 99; BMI 27.8
--- NOTE | 2024-11-14 | PTCARENOTE ---
patient resting comfortably. VVS. denies pain .
[2024-11-14 05:18] LABS: Hematocrit 26.2 % (39.0-52.0); Hemoglobin 8.7 g/dL (13.0-18.0); Mean Corp Hgb Conc. 33.2 g/dL (33.0-37.0); Mean Corpuscular Volume 91.3 fL (80.0-94.0); Platelet Count 267 10^3/uL (130-400); Red Cell Dist. Width 15.7 % (11.5-14.5)
[2024-11-14 05:21] LABS: Blood Urea Nitrogen 38 mg/dl (9-20); Calcium 7.5 mg/dl (8.4-10.2); Carbon Dioxide 34 mmol/L (22-30); Chloride 99 mmol/L (98-107); Estimated Creatinine Clearance 50 ml/min; Glucose 107 mg/dl (70-99); Potassium 3.6 mmol/L (3.5-5.1); Sodium 137 mmol/L (135-145); eGFR 57.65
--- NOTE | 2024-11-14 05:22 | PTCARENOTE ---
Labs drawn, patietn resting, AV paced, Vital signs stable.
--- NOTE | 2024-11-14 05:24 | W.PN.CT ---
Addendum entered and electronically signed by Tacho Wilks MD 11/14/24 07:05:
I saw and examined the patient.
The PA's note was reviewed and I agree with the note.
Comment:
BP currently 140/90.
Creat improving
Continue diuresis
OOB
Original Note:
Today's Communication / Plan
-
-pod #5
-PPM, av-paced on tele
-diuresed with 2 mg iv Bumex on 11/13 (UOP 975 in 24 hrs)
-Cr trend 1.8->1.5->1.3 today
-holding BB d/t low BP 90s, was orthostatic 11/13 and started [id number] mg TID
-holding Colchicine, Farxiga, and Mg d/t elevated Cr
-encourage IS, OOB
Assessment / Plan
-
- s/p CABG x 4 (JUSTIN to LAD, GSV to D1, GSV to OM2 upper branch, GSV to OM2 lower branch); ELAA (45mm AtriClip); Lysis of pericardial adhesions w/ blunt & electrocautery dissection; Lysis of left pleural-pleural adhesions w/ electrocautery on
11/09/[address] Wilks, pod #5
- Pre-CHLOE: LVEF 31%, ariax-cv-ronv MR, mild AI
- Post-CHLOE: LVEF 40%, unchanged valves, SHEMAR confirmed excluded
-Severe 3v CAD
-Inferior IL
-Weakness/Fatigue
-Syncopal episode
-HFrEF/ICM (LVEF 35%; was 50-55% per echo 04/2014)
-CHB S/P Transvenous pacer, 11/01/24
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
-Mild-moderate TR
-HTN
-Hyperlipidemia
-Hypothyroidism
-T2DM (hgb A1C 9.0)
-ROSANGELA (peaked @ 2.1)
-Transaminitis
-Small pericardial effusion, per CTA 11/06
-Small bilateral pleural effusion, per CTA 11/06
-Former tobacco use (quit 20 years ago, ~40 pk/yr)
-Diplopia S/p cataract surgery
-[place] S/P hearing aids
-Renal calculi S/P cystoscopy with renal stents
-S/P T&A
-S/P Appendectomy
-Acute postop blood loss anemia
-Acute postop atelectasis
-Acute postop pericarditis
-Acute postop hyperkalemia
-Acute postop hypovolemia with subsequent hypervolemia
Subjective
-
Date of Service: November 14, 2024
Objective Data
-
Lab Results
11/14/24 04:36
11/14/24 04:36
PT 21.3 Sec (11.4-14.6) H 11/09/24 14:28
INR 1.79 11/09/24 14:28
APTT 33.9 Sec (23.4-35.0) 11/09/24 14:28
Vital Signs
Vital Signs
Temp Pulse Resp BP Pulse Ox
98.3 F 82 20 102/66 92
11/13/24 19:00 11/14/24 05:00 11/14/24 05:00 11/14/24 05:00 11/14/24 05:00
CT Intake/Output/Weight
11/13/24 11/13/24 11/14/24
06:59 18:59 06:59
Intake Total 120 / 610 110 / 420 310 / 420
Output Total 1040 / 2555 430 / 1070 640 / 1070
Balance -920 / -1945 -320 / -650 -330 / -650
SaO2: 92
Physical Exam
-
General: Awake and Oriented
Cardiovascular: Regular rate & rhythm and No Murmurs
Respiratory: Clear and Equal
Sternum: Stable
Incision: Clean, Dry and Intact
Extremities: No Edema and No Erythema
Data Reviewed
-
Lab Results: Results Reviewed
Medications: Active Meds Reviewed
Chest X-Ray: Report Reviewed
ECG: Report Reviewed
[2024-11-14] MEDS: VENTOLIN NEBULES 2.5 MG INH (05:58)
[2024-11-14] MEDS: ATIVAN 0.5 MG IV (06:02)
[2024-11-14] MEDS: BUMEX 2 MG IV ×2 (06:05→13:06)
[2024-11-14] MEDS: TYLENOL 1000 MG PO ×2 (06:05→22:18)
--- NOTE | 2024-11-14 06:40 | PTCARENOTE ---
535am -patient called stated he felt SOB and couldn't breathe, Provider at bedside. Xray order and completed, Neb treatment done, Ativan .5mg given. Patietn lung sounds diminished andwet, with expiatory wheeze.
--- NOTE | 2024-11-14 07:46 | PN.DE.MGMTRT ---
Insulin Management
- -
11/14/2024: Diabetes Management Follow up
Patient admitted 10/31 with c/o weakness; NSTEMI, complete heart block. Cardiac cath 11/01 - severe multivessel CAD.
PMH: HTN, HLD, T2DM and Hypothyroid. Prior to admission was taking Lantus 40 units @ hs, Metformin 1000 mg BID, Januvia 100 mg daily. A1C on admission 9%. Cr 1, eGFR > 60 today.
POD # 5 s/p CABG x 4. Patient is awake alert and oriented. resting in bed, flat affect, able to discuss diabetes care. at bedside, very supportive.
Patient transitioned from glycemic protocol to Lantus 25 units @ HS with novolog 4 units with moderate corrective AC. Glucose range 11/13 125 to 166.
11/14 Fasting glucose 107. Will continue Lantus 25 units @ hs, increase AC novolopg to 5 units.
Will cont to follow. Discussed with nurse
Patient's brought in his DexCom G6, explained to pt and that we will assist him in placing the device once plans for surgery have been finalized.
Diabetes History
- -
Type of Diabetes: 2 requiring insulin
Pre-Admission Diabetes Regimen
11/14/24
04:36
Creatinine 1.3
Lab Results
Hemoglobin A1c 9.0 % (4.0-5.6) H 11/01/24 04:18
Insulin Pump Settings
IP Diabetes Regimen
11/13/24 11/13/24 11/13/24
07:51 11:42 16:24
Glucose
POC Glucose 125 H 166 H 166 H
11/13/24 11/14/24
21:59 04:36
Glucose 107 H
POC Glucose 150 H
Meal type: Dinner
Meal type: Breakfast
Amount consumed: 90%
Amount consumed: 100%
Patient Education
[2024-11-14] MEDS: SYMBICORT 160/4.5 MCG INHALER 2 PUFF INH ×2 (08:04→20:21)
[2024-11-14] MEDS: NOVOLOG FLEXPEN-MODERATE RESISTANCE SC ×2 (08:31→16:44)
[2024-11-14 08:32] LABS: Glucose - Point of Care 121 mg/dl (70-99)
[2024-11-14] MEDS: MUCINEX 600 MG PO ×2 (09:11→20:18)
[2024-11-14] MEDS: PROTONIX 40 MG PO (09:11)
[2024-11-14] MEDS: VITAMIN D3 (cholecalciferol) 50 MCG PO (09:12)
[2024-11-14] MEDS: SENOKOT-S 1 TABLET PO ×2 (09:12→20:19)
[2024-11-14] MEDS: ZETIA 10 MG PO (09:12)
[2024-11-14] MEDS: PLAVIX 75 MG PO (09:12)
[2024-11-14] MEDS: LOW STRENGTH ASPIRIN 81 MG PO (09:12)
[2024-11-14] MEDS: PACERONE 200 MG PO ×3 (09:12→22:18)
[2024-11-14] MEDS: NOVOLOG FLEXPEN 4 UNITS SC ×2 (09:13→11:48)
[2024-11-14] MEDS: LIDOCAINE 4% PATCH TOPICAL (09:13)
[2024-11-14] MEDS: KCL 40 MEQ PO ×2 (09:17→13:06)
--- NOTE | 2024-11-14 10:07 | PTCARENOTE ---
Patient received from power and recovery shift engineer resting in bed, sleepy but arousable, recent Ativan administration. Neuro wnl. AV paced via cm, SaO2 @ 97% on 2lnc. RIJ Cordis w/kvo infusing. [place] catheter to gravity. All procedural sites stable. After brief nap,
patient more awake and alert - assisted oob to chair for breakfast. Patient updated to plan of care for the day, in agreement. See work list for full assessment and interventions performed.
[2024-11-14 11:48] LABS: Glucose - Point of Care 207 mg/dl (70-99)
[2024-11-14] MEDS: NOVOLOG FLEXPEN-MODERATE RESISTANCE 3 UNITS SC (11:48)
--- NOTE | 2024-11-14 11:54 | W.PN.CD ---
Today's Communication / Plan
-
Continue IV diuresis
GDMT on hold for orthostasis requiring midodrine
Impression / Plan
-
Background: 74M with HTN & NIDDM who presented with upper back and shoulder tightness then had syncope and developed SOB prompting evaluation -> recent inferior STEMI based on clinical data and EKG -> LHC with MVCAD
Outpatient Electrical And Electronic Assembler: will be Dr. Bueno
PCP: Sabina Dior, DO
CAD, recent inferior STEMI found to have multivessel disease:
-LHC: Severe LAD, Diag, LCx/OM, and 100% RCA
-now s/p CABG x 4 (JUSTIN to LAD, GSV to D1, GSV to OM2 upper branch, GSV to OM2 lower branch) and ELAA (45mm AtriClip), Dr. Wilks 11/09/24
-CT's and England removed
-post-op EKG and tele paced rhythm
-intra-op CHLOE EF 31%
-ASA, statin
-All GDMT on hold for orthostasis requiring midodrine
HFrEF (EF 35%) - acute on chronic
Ischemic cardiomyopathy
-LVEDP at cath 28 - Diuresed
-GDMT as able post-op
-continue IV diuresis
Symptomatic complete heart block - S/p bi-v ICD 11-04-24
-Device functioning normally, A sensed and V paced
-follow telemetry
Ventricular fibrillation - 30 minutes after ICD placement
-Spontaneous ventricular fibrillation cardiac arrest, terminated by ICD therapy.
-NSVT reported on note from yesterday, none now- follow telemetry. Can consider amiodarone.
Mixed hyperlipidemia
- TC 131, LDL 80, HDL 33, TG 94 -> started on pravastatin, consider high intensity statin prior to d/c
- Goal LDL now <55
ROSANGELA superimposed on CKD - resolved
- Likely from poor cardiac output with FL/LV dysfxn/bradycardia
- Baseline Cr 1.4 in 2021
- Cr better after cath and with pacing support
- creat now normal
Type II DM, longstanding, uncontrolled, Hgba1c 9.0%: diabetic provider following
History of HTN, follow
Elevated LFTs, improved
Former heavy smoker probably at least a 21-eouh-ogox history, continued cessation recommended .
Subjective:
Symptoms stable.
Physical Exam
Vital Signs/Labs
Vital Signs
Temp Pulse Resp BP Pulse Ox
98.2 F 80 21 108/63 97
11/14/24 07:25 11/14/24 11:00 11/14/24 08:19 11/14/24 11:00 11/14/24 09:55
11/13/24 11/14/24 11/15/24
06:59 06:59 06:59
Actual Weight 187 lb 6.287 oz 188 lb 4.396 oz
11/14/24 04:36
PT 21.3 Sec (11.4-14.6) H 11/09/24 14:28
INR 1.79 11/09/24 14:28
APTT 33.9 Sec (23.4-35.0) 11/09/24 14:28
Magnesium 2.2 mg/dl (1.6-2.3) 11/13/24 03:36
Triglycerides 94 mg/dl (10-149) 11/01/24 04:18
LDL Cholesterol, Calc 80 mg/dl 11/01/24 04:18
VLDL Cholesterol, Calc 18 mg/dl (0-30) 11/01/24 04:18
HDL Cholesterol 33 mg/dl 11/01/24 04:18
TSH 3.13 uIU/ml (0.47-4.68) 10/31/24 21:54
Free T4 1.66 ng/dl (0.78-2.19) 10/31/24 21:54
Physical Exam
Constitutional: No acute distress and Comfortable
Cardiovascular: Rhythm & rate is regular, Pedal edema present (Left greater than right), S1S2 is normal and Murmur/rub/gallop absent
Respiratory: Respiratory effort normal and Crackles Present
Neuro/Psych: AO x 3
Other: Other (Sternal bandage in place)
Data Reviewed
-
Date of Service: November 14, 2024
Medical Decision Making: Reviewed Test Results, Independent Historian Assessment, Test Interpretation and Review of Case with other Provider
EKG: Tracing Personally Visualized and interpreted
Echo: Report Reviewed by me
Labs: Labs Reviewed by me
--- NOTE | 2024-11-14 12:05 | PTCARENOTE ---
VS obtained, assessment unchanged. MANSI updated to status. Labs obtained. at bedside for visit.
[2024-11-14 12:33] LABS: Blood Urea Nitrogen 37 mg/dl (9-20); Calcium 7.4 mg/dl (8.4-10.2); Carbon Dioxide 35 mmol/L (22-30); Chloride 98 mmol/L (98-107); Estimated Creatinine Clearance 50 ml/min; Glucose 183 mg/dl (70-99); Magnesium 2.1 mg/dl (1.6-2.3); Potassium 3.7 mmol/L (3.5-5.1); Sodium 137 mmol/L (135-145); eGFR 57.65
[2024-11-14] MEDS: CALCIUM CHLORIDE 10% SYRINGE 60 MG IV (13:19)
[2024-11-14] MEDS: NSS IV (13:20)
[2024-11-14] MEDS: TYLENOL PO (13:47)
--- NOTE | 2024-11-14 16:01 | PTCARENOTE ---
VS obtained, assessment stable. Patient w/frequent voids since afternoon Bumex administration. Dozing intermittently. Cordis d/c'd. at bedside, dinner ordered.
[2024-11-14 16:43] LABS: Glucose - Point of Care 110 mg/dl (70-99)
[2024-11-14] MEDS: NOVOLOG FLEXPEN 5 UNITS SC (16:44)
[2024-11-14] MEDS: PRAVACHOL 40 MG PO (17:54)
[2024-11-14] MEDS: CALCIUM GLUCONATE 130 MG IV (20:18)
[2024-11-14] MEDS: REMOVE LIDOCAINE PATCH REMOVE (20:19)
--- NOTE | 2024-11-14 20:36 | PTCARENOTE ---
received pt from previous rn. pt AAOx4, VSS, 100% A/V paced per tele monitor HR 80, trace generalized edema, +pulses, pox 97% on 1L NC, lungs diminished w/ expiratory wheeze, +bs, pt voiding clear yellow urine in urinal. all surgical sites intact.
pivx2 intact, plan of care discussed and questions encouraged.
[2024-11-14 22:09] LABS: Glucose - Point of Care 85 mg/dl (70-99)
[2024-11-14] MEDS: LANTUS SC (22:27)
[2024-11-14 23:12] LABS: Glucose - Point of Care 97 mg/dl (70-99)
[2024-11-15] VITALS (20 sets, daily range): BP systolic 87–156; BP diastolic 54–137; PULSE 81; BMI 26.9
--- NOTE | 2024-11-15 00:12 | PTCARENOTE ---
pt resting comfortably in bed, VSS, 100% A/V paced per tele monitor HR 80. assessment remains unchanged.
--- NOTE | 2024-11-15 00:57 | W.PN.CT ---
Today's Communication / Plan
-
Plan:
-No major issues overnight. Hemodynamically and neurologically intact
-Has been hypotensive postop requiring midodrine, currently on hold given improved BP
-Had some orthostasis with attempt to ambulate with PT/OT yesterday
-Postop confusion has resolved after discontinuation of Ativan
-Postop ROSANGELA has resolved, cr 1.3 peaked to 1.8, 0.8-1.2 preop
-Tolerated Bumex 2mg IV BID yesterday, check wt today
-Held Lantus last night, glucose was 85 mg/dl, it's 97 this AM
-Encourage use of IS
-OOB into chair
-PT/OT following
-Acute rehab vs home in 1-2 days
Assessment / Plan
-
- s/p CABG x 4 (JUSTIN to LAD, GSV to D1, GSV to OM2 upper branch, GSV to OM2 lower branch); ELAA (45mm AtriClip); Lysis of pericardial adhesions w/ blunt & electrocautery dissection; Lysis of left pleural-pleural adhesions w/ electrocautery on
11/09/[address] Wilks, pod #6
- Pre-CHLOE: LVEF 31%, [id number] MR, mild AI
- Post-CHLOE: LVEF 40%, unchanged valves, SHEMAR confirmed excluded
-Severe 3v CAD
-Inferior [place]
-Weakness/Fatigue
-Syncopal episode
-HFrEF/ICM (LVEF 35%; was 50-55% per echo 04/2014)
-CHB S/P Transvenous pacer, 11/01/24
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
-Mild-moderate TR
-HTN
-Hyperlipidemia
-Hypothyroidism
-T2DM (hgb A1C 9.0)
-ROSANGELA (peaked @ 2.1)
-Transaminitis
-Small pericardial effusion, per CTA 11/06
-Small bilateral pleural effusion, per CTA 11/06
-Former tobacco use (quit 20 years ago, ~40 pk/yr)
-Diplopia S/p cataract surgery
-WAMPANOAG S/P hearing aids
-Renal calculi S/P cystoscopy with renal stents
-S/P T&A
-S/P Appendectomy
-Acute postop blood loss anemia
-Acute postop atelectasis
-Acute postop pericarditis
-Acute postop hyperkalemia
-Acute postop hypovolemia with subsequent hypervolemia
-Acute postop Orthostasis
-Acute postop confusion/delirium
-Acute postop ROSANGELA
Discussed patient care with: Cardiology, Nursing, Respiratory Therapy, Pharmacy and Care Team
Subjective
-
Date of Service: November 15, 2024
Pt c/o mild incisional pain, otherwise feels well
Objective Data
-
PT 21.3 Sec (11.4-14.6) H 11/09/24 14:28
INR 1.79 11/09/24 14:28
APTT 33.9 Sec (23.4-35.0) 11/09/24 14:28
Vital Signs
Vital Signs
Temp Pulse Resp BP Pulse Ox
98.2 F 80 20 107/65 97
11/15/24 00:06 11/15/24 00:00 11/15/24 00:06 11/14/24 20:25 11/15/24 00:06
CT Intake/Output/Weight
11/14/24 11/14/24 11/15/24
06:59 18:59 06:59
Intake Total 320 / 430 680 / 680
Output Total 700 / 1305 3215 / 3465 250 / 3465
Balance -380 / -875 -2535 / -2785 -250 / -2785
SaO2: 97 (2L)
Physical Exam
-
General: Awake, Oriented and AOx3
Cardiovascular: Regular rate & rhythm, No Murmurs, No Rub and No Gallop
Respiratory: Decreased Breath Sounds (at bases, otherwise clear)
Sternum: Stable
Incision: Clean, Dry, Intact and Dressing Intact
Extremities: Other (+trace edema)
Data Reviewed
-
Lab Results: Results Reviewed
Medications: Active Meds Reviewed
Chest X-Ray: Report Reviewed and Image Reviewed
ECG: Report Reviewed and Image Reviewed
[2024-11-15 03:57] LABS: Hematocrit 26.5 % (39.0-52.0); Hemoglobin 8.7 g/dL (13.0-18.0); Mean Corp Hgb Conc. 32.8 g/dL (33.0-37.0); Mean Corpuscular Volume 90.4 fL (80.0-94.0); Platelet Count 295 10^3/uL (130-400); Red Cell Dist. Width 15.9 % (11.5-14.5)
--- NOTE | 2024-11-15 04:16 | PTCARENOTE ---
routine labs obtained, VSS, 100% A/V per tele monitor
[2024-11-15 04:18] LABS: Blood Urea Nitrogen 32 mg/dl (9-20); Calcium 8.6 mg/dl (8.4-10.2); Carbon Dioxide 35 mmol/L (22-30); Chloride 98 mmol/L (98-107); Estimated Creatinine Clearance 50 ml/min; Glucose 97 mg/dl (70-99); Magnesium 2.0 mg/dl (1.6-2.3); Potassium 3.8 mmol/L (3.5-5.1); Sodium 139 mmol/L (135-145); eGFR 57.65
[2024-11-15] MEDS: CALCIUM GLUCONATE 130 MG IV (05:47)
[2024-11-15] MEDS: TYLENOL 1000 MG PO ×3 (05:48→22:11)
[2024-11-15] MEDS: KCL 40 MEQ PO (05:48)
[2024-11-15] MEDS: SYMBICORT 160/4.5 MCG INHALER 2 PUFF INH ×2 (07:28→20:14)
[2024-11-15] MEDS: MUCINEX 600 MG PO ×2 (07:36→20:11)
[2024-11-15] MEDS: SENOKOT-S 1 TABLET PO ×2 (07:36→20:11)
[2024-11-15] MEDS: PROTONIX 40 MG PO (07:37)
[2024-11-15] MEDS: PACERONE 200 MG PO ×3 (07:37→22:11)
[2024-11-15] MEDS: ZETIA 10 MG PO (07:37)
[2024-11-15] MEDS: VITAMIN D3 (cholecalciferol) 50 MCG PO (07:37)
[2024-11-15] MEDS: LOW STRENGTH ASPIRIN 81 MG PO (07:37)
[2024-11-15] MEDS: PLAVIX 75 MG PO (07:37)
[2024-11-15 07:42] LABS: Glucose - Point of Care 110 mg/dl (70-99)
[2024-11-15] MEDS: LIDOCAINE 4% PATCH TOPICAL (07:44)
[2024-11-15] MEDS: NOVOLOG FLEXPEN-MODERATE RESISTANCE SC ×2 (07:44→16:50)
[2024-11-15] MEDS: NOVOLOG FLEXPEN 5 UNITS SC ×3 (07:45→16:51)
--- NOTE | 2024-11-15 08:24 | PN.DE.MGMTRT ---
Insulin Management
- -
11/15/2024: Diabetes Management Follow up
Patient admitted 10/31 with c/o weakness; NSTEMI, complete heart block. Cardiac cath 11/01 - severe multivessel CAD.
PMH: HTN, HLD, T2DM and Hypothyroid. Prior to admission was taking Lantus 40 units @ hs, Metformin 1000 mg BID, Januvia 100 mg daily. A1C on admission 9%. Cr 1, eGFR > 60 today.
POD # 6 s/p CABG x 4. Patient is awake alert and oriented. resting in bed, flat affect, able to discuss diabetes care. at bedside, very supportive.
Patient transitioned from glycemic protocol to Lantus 25 units @ HS with novolog 4 units with moderate corrective AC. Glucose range 11/14 1207 to 85. HS lantus held. Patient states he had a very light dinner, described dinner as only having ~ 15
grams CHO.
11/15 Fasting glucose 110. Will reduce Lantus 22 units @ hs, continue AC novolog 5 units with low corrective..
Will cont to follow. Discussed with nurse
Patient's brought in his DexCom G6, explained to pt and that we will assist him in placing the device once plans for surgery have been finalized.
Diabetes History
- -
Type of Diabetes: 2 requiring insulin
Pre-Admission Diabetes Regimen
11/14/24 11/15/24
12:02 03:47
Creatinine 1.3 1.3
Lab Results
Hemoglobin A1c 9.0 % (4.0-5.6) H 11/01/24 04:18
Insulin Pump Settings
IP Diabetes Regimen
11/14/24 11/14/24 11/14/24
08:29 11:46 12:02
Glucose 183 H
POC Glucose 121 H 207 H
11/14/24 11/14/24 11/14/24
16:41 22:08 23:09
Glucose
POC Glucose 110 H 85 97
11/15/24 11/15/24
03:47 07:41
Glucose 97
POC Glucose 110 H
Meal type: Dinner
Meal type: Lunch
Meal type: Breakfast
Amount consumed: 100%
Amount consumed: 100%
Amount consumed: 100%
Patient Education
[2024-11-15] MEDS: BUMEX 2 MG IV (08:46)
[2024-11-15] MEDS: KCL 20 MEQ PO ×2 (08:47→16:00)
--- NOTE | 2024-11-15 08:49 | W.PN.CD ---
Today's Communication / Plan
-
Agree with care
In the office we will lower pacing rate to 70 soon and in 3 months will lower to 60 bpm
Will add gdmt for CAD/HFrEF as he recovers
Impression / Plan
-
Background: 74M with HTN & NIDDM who presented with upper back and shoulder tightness then had syncope and developed SOB prompting evaluation -> recent inferior STEMI based on clinical data and EKG -> [facility] with [facility]
Outpatient Retort Unloader: will be Dr. Bueno
PCP: Sabina Dior, DO
CAD, recent inferior STEMI found to have multivessel disease:
-LHC: Severe LAD, Diag, LCx/OM, and 100% RCA
-now s/p CABG x 4 (JUSTIN to LAD, GSV to D1, GSV to OM2 upper branch, GSV to OM2 lower branch) and ELAA (45mm AtriClip), Dr. Wilks 11/09/24
-CT's and [place] removed
-post-op EKG and tele paced rhythm
-intra-op CHLOE EF 31%
-ASA, statin
-All GDMT on hold for orthostasis requiring midodrine
HFrEF (EF 35%) - acute on chronic
Ischemic cardiomyopathy
-LVEDP at cath 28 - Diuresed
-GDMT as able post-op
-continue IV diuresis
Symptomatic complete heart block - S/p bi-v ICD 11-04-24
-Device functioning normally, A sensed and V paced
-follow telemetry
Ventricular fibrillation - 30 minutes after ICD placement
-Spontaneous ventricular fibrillation cardiac arrest, terminated by ICD therapy.
-NSVT days after MA and days after ICD implant
- If sustained VT/VF recurs will consider a longer course of amio
Amio
- Stop amio per usual CT protocol
Mixed hyperlipidemia
- TC 131, LDL 80, HDL 33, TG 94 -> started on pravastatin, consider high intensity statin prior to d/c
- Goal LDL now <55
ROSANGELA superimposed on CKD - resolved
- Likely from poor cardiac output with MA/LV dysfxn/bradycardia
- Baseline Cr 1.4 in 2021
- Cr better after cath and with pacing support
- creat now normal
Type II DM, longstanding, uncontrolled, Hgba1c 9.0%: diabetic provider following
History of HTN, follow
Elevated LFTs, improved
Former heavy smoker probably at least a [id number]-geky history, continued cessation recommended .
Subjective:
Feels better
Physical Exam
Vital Signs/Labs
Vital Signs
Temp Pulse Resp BP Pulse Ox
98.0 F 80 18 104/61 95
11/15/24 04:15 11/15/24 07:39 11/15/24 07:39 11/15/24 07:37 11/15/24 07:39
11/14/24 11/15/24 11/16/24
06:59 06:59 06:59
Actual Weight 85.4 kg 82.6 kg
11/15/24 03:47
11/15/24 03:47
PT 21.3 Sec (11.4-14.6) H 11/09/24 14:28
INR 1.79 11/09/24 14:28
APTT 33.9 Sec (23.4-35.0) 11/09/24 14:28
Magnesium 2.0 mg/dl (1.6-2.3) 11/15/24 03:47
Triglycerides 94 mg/dl (10-149) 11/01/24 04:18
LDL Cholesterol, Calc 80 mg/dl 11/01/24 04:18
VLDL Cholesterol, Calc 18 mg/dl (0-30) 11/01/24 04:18
HDL Cholesterol 33 mg/dl 11/01/24 04:18
TSH 3.13 uIU/ml (0.47-4.68) 10/31/24 21:54
Free T4 1.66 ng/dl (0.78-2.19) 10/31/24 21:54
Physical Exam
Constitutional: No acute distress
EENT: Anicteric
Cardiovascular: Rhythm & rate is regular and Pedal edema is absent
Respiratory: Respiratory effort normal and Lungs clear to auscul.
GI: Soft and Distention absent
Data Reviewed
-
Date of Service: November 15, 2024
--- NOTE | 2024-11-15 09:33 | PTCARENOTE ---
Pt received from printing services coordinator RN. Pt Ox3, he's upset bc he feels that he is no longer progressing in his recovery. Reviewed the progress that we have already made today but pt still discouraged. He also tells me he feels like his days/nights are
flipped, he plans to try and stay awake during the day today, turning all lights on, watching tv, etc. 100% AV paced on tele, midodrine given, TEDs in place. Pt walked with PT without feeling dizzy. Towards the end of therapy, he did start feeling
SOB with his sat dropping to 87% on RA. 2L NC placed, O2 quickly rebounded to 98%. Pt using urinal without difficulty, 2mg Bumex IV given. Incisional sites intact. Call salazar within reach, Pt makes needs known.
[2024-11-15] MEDS: LANTUS 0.1 UNITS SC (11:21)
[2024-11-15 11:22] LABS: Glucose - Point of Care 223 mg/dl (70-99)
[2024-11-15] MEDS: NOVOLOG FLEXPEN-MODERATE RESISTANCE 3 UNITS SC (11:22)
[2024-11-15] MEDS: NSS IV (12:17)
[2024-11-15] MEDS: FARXIGA 10 MG PO (14:38)
[2024-11-15] MEDS: BUMEX 2 MG PO (16:00)
--- NOTE | 2024-11-15 16:00 | PTCARENOTE ---
Received from Pat RN; AAOx3, responds spontaneously to RN and follows commands; ANVIK; Tremors throughout all extremities; Anxious, flat, and very discouraged; VSS; AV paced on monitor; Left chest AICD and PPM in place - settings DDDR 60-130; Trace
B/L LE; +1 DP and +2 radial pulses; Shallow respirations; Lungs diminished at bases; Frequent urination; Surgical incisions intact; PIVx2 - #22 RAC, #18 right hand; See nursing documentation for further information
--- NOTE | 2024-11-15 16:11 | CM ---
CM following for DC planning needs.
Met w/ patient and spouse at bedside.
We reviewed DC plan for home w/ PT versus ARU versus SNF. Pt. very resistant initially to consider rehab. He states that he will be going home. I expressed concern that he is an assist x2 with only his spouse at home. He then stated 'send me
wherever, I am an old man'. Emotional support provided. We reviewed different levels of inpatient rehab to include SNF versus Acute and some options.
I reiterated that the decision is his and we do not have to make a decision at this moment. I told him that we can see how he progresses in therapy and go from there.
Will follow.
[2024-11-15 16:51] LABS: Glucose - Point of Care 128 mg/dl (70-99)
[2024-11-15] MEDS: PRAVACHOL 40 MG PO (17:39)
[2024-11-15] MEDS: REMOVE LIDOCAINE PATCH 1 PATCH REMOVE (20:12)
[2024-11-15 22:11] LABS: Glucose - Point of Care 135 mg/dl (70-99)
[2024-11-15] MEDS: LANTUS 0.22 UNITS SC (22:15)
[2024-11-16] VITALS (18 sets, daily range): BP systolic 97–157; BP diastolic 59–124; PULSE 80–81; O2SAT 91–93
[2024-11-16 04:59] LABS: Hematocrit 28.1 % (39.0-52.0); Hemoglobin 9.2 g/dL (13.0-18.0); Mean Corp Hgb Conc. 32.7 g/dL (33.0-37.0); Mean Corpuscular Volume 90.4 fL (80.0-94.0); Platelet Count 332 10^3/uL (130-400); Red Cell Dist. Width 16.6 % (11.5-14.5)
[2024-11-16 05:14] LABS: Blood Urea Nitrogen 30 mg/dl (9-20); Calcium 8.4 mg/dl (8.4-10.2); Carbon Dioxide 35 mmol/L (22-30); Chloride 98 mmol/L (98-107); Estimated Creatinine Clearance 41 ml/min; Glucose 82 mg/dl (70-99); Magnesium 1.9 mg/dl (1.6-2.3); Potassium 3.4 mmol/L (3.5-5.1); Sodium 139 mmol/L (135-145); eGFR 44.93
[2024-11-16] MEDS: TYLENOL 1000 MG PO ×3 (06:14→22:20)
--- NOTE | 2024-11-16 06:42 | W.PN.CT ---
Today's Communication / Plan
-
-pod#7
-no issues overnight, overall looks better. Hemodynamically and neurologically intact
-getting Midodrine tid for orthostasis with ambulation. Pt has chronic vertigo as well
-diuresed with Bumex 2 mg iv bid on 11/15
-elevated bicarb- ? Diamox
-Cr 1.6 today (up from 1.3)
-Lantus was decreased
-encourage IS, OOB
-continue PT/OT
-appreciate everyone's input
Assessment / Plan
-
- s/p CABG x 4 (JUSTIN to LAD, GSV to D1, GSV to OM2 upper branch, GSV to OM2 lower branch); ELAA (45mm AtriClip); Lysis of pericardial adhesions w/ blunt & electrocautery dissection; Lysis of left pleural-pleural adhesions w/ electrocautery on
11/09/[address] Wilks, pod #7
- Pre-CHLOE: LVEF 31%, [id number]-rp-[id number] MR, mild AI
- Post-CHLOE: LVEF 40%, unchanged valves, SHEMAR confirmed excluded
-Severe 3v CAD
-Inferior [place]
-Weakness/Fatigue
-Syncopal episode
-HFrEF/ICM (LVEF 35%; was 50-55% per echo 04/2014)
-CHB S/P Transvenous pacer, 11/01/24
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
-Mild-moderate TR
-HTN
-Hyperlipidemia
-Hypothyroidism
-T2DM (hgb A1C 9.0)
-ROSANGELA (peaked @ 2.1)
-Transaminitis
-Small pericardial effusion, per CTA 11/06
-Small bilateral pleural effusion, per CTA 11/06
-Former tobacco use (quit 20 years ago, ~40 pk/yr)
-Diplopia S/p cataract surgery
-IGIUGIG S/P hearing aids
-Renal calculi S/P cystoscopy with renal stents
-S/P T&A
-S/P Appendectomy
-Hx Vertigo
-Acute postop blood loss anemia
-Acute postop atelectasis
-Acute postop pericarditis
-Acute postop hyperkalemia
-Acute postop hypovolemia with subsequent hypervolemia
-Acute postop Orthostasis
-Acute postop confusion/delirium
-Acute postop ROSANGELA
Discussed patient care with: Nursing and Care Team
Subjective
-
Date of Service: November 16, 2024
Objective Data
-
Lab Results
11/16/24 04:16
11/16/24 04:16
PT 21.3 Sec (11.4-14.6) H 11/09/24 14:28
INR 1.79 11/09/24 14:28
APTT 33.9 Sec (23.4-35.0) 11/09/24 14:28
Vital Signs
Vital Signs
Temp Pulse Resp BP Pulse Ox
98.1 F 81 18 112/73 99
11/15/24 23:00 11/15/24 23:00 11/15/24 23:00 11/15/24 22:11 11/15/24 23:00
CT Intake/Output/Weight
11/15/24 11/15/24 11/16/24
06:59 18:59 06:59
Intake Total 400 / 400
Output Total 575 / 3790 1075 / 1875 800 / 1875
Balance -575 / -3110 -1075 / -1475 -400 / -1475
SaO2: 99
Physical Exam
-
General: Awake and AOx3
Cardiovascular: Regular rate & rhythm (av-paced), No Murmurs and No Rub
Respiratory: Decreased Breath Sounds
Sternum: Stable
Incision: Clean, Dry and Intact
Extremities: Edema +1 (TEDs on b/l)
Abomen: soft, nontender, nondistended, no nausea, + bowel sounds, +BMs x3 on 11/15
Data Reviewed
-
Lab Results: Results Reviewed
Medications: Active Meds Reviewed
Chest X-Ray: Report Reviewed and Image Reviewed
ECG: Report Reviewed and Image Reviewed
--- NOTE | 2024-11-16 07:43 | PN.DE.MGMTRT ---
Insulin Management
- -
11/16/2024: Diabetes Management Follow up
Patient admitted 10/31 with c/o weakness; NSTEMI, complete heart block. Cardiac cath 11/01 - severe multivessel CAD.
PMH: HTN, HLD, T2DM and Hypothyroid. Prior to admission was taking Lantus 40 units @ hs, Metformin 1000 mg BID, Januvia 100 mg daily. A1C on admission 9%. Cr 1, eGFR > 60 today.
POD # 7 s/p CABG x 4. Patient is awake alert and oriented. resting in bed, flat affect, able to discuss diabetes care. at bedside, very supportive.
11/14 Glucose range 207 to 85 @ HS. HS lantus held. Patient states he had a very light dinner, described dinner as only having ~ 15 grams CHO.
11/15 Fasting glucose 110. HS Lantus reduced to 22 units, continued AC novolog 5 units with low corrective. Glucose pre lunch 223. 10 units lantus administered ~ 12pm due to lantus being held previous HS.
11/16 Fasting glucose 82. Will further reduce lantus to 20 units. Will continue 5 units novolog AC.
Will cont to follow. Discussed with nurse
Patient's brought in his DexCom G6, explained to pt and that we will assist him in placing the device once he is closer to discharge.
Diabetes History
- -
Type of Diabetes: 2 requiring insulin
Pre-Admission Diabetes Regimen
11/16/24
04:16
Creatinine 1.6 H
Lab Results
Hemoglobin A1c 9.0 % (4.0-5.6) H 11/01/24 04:18
Insulin Pump Settings
IP Diabetes Regimen
11/15/24 11/15/24 11/15/24
11:19 16:48 22:10
Glucose
POC Glucose 223 H 128 H 135 H
11/16/24
04:16
Glucose 82
POC Glucose
Meal type: Dinner
Amount consumed: 90%
Patient Education
[2024-11-16 07:49] LABS: Glucose - Point of Care 85 mg/dl (70-99)
[2024-11-16] MEDS: SYMBICORT 160/4.5 MCG INHALER 2 PUFF INH ×2 (07:52→19:42)
--- NOTE | 2024-11-16 08:00 | PTCARENOTE ---
received pt from previous rn. walking rounds completed. AAOx3. Anxious. Flat. VSS, 100% A/V paced on monitor HR 80. +pulses. trace generalized edema. pox 97% on 2L. 95% RA while in chair. lungs diminished but clear. appetite fair. pt voiding clear
yellow urine in urinal. received IV bumex this AM. all surgical sites intact. pivx2 patent. will continue to monitor.
[2024-11-16] MEDS: BUMEX 2 MG IV (09:09)
[2024-11-16] MEDS: VITAMIN D3 (cholecalciferol) 50 MCG PO (09:10)
[2024-11-16] MEDS: PLAVIX 75 MG PO (09:10)
[2024-11-16] MEDS: FARXIGA 10 MG PO (09:11)
[2024-11-16] MEDS: ZETIA 10 MG PO (09:11)
[2024-11-16] MEDS: PROTONIX 40 MG PO (09:11)
[2024-11-16] MEDS: LOW STRENGTH ASPIRIN 81 MG PO (09:12)
[2024-11-16] MEDS: LIDOCAINE 4% PATCH TOPICAL (09:12)
[2024-11-16] MEDS: PACERONE 200 MG PO ×3 (09:12→22:21)
[2024-11-16] MEDS: MUCINEX 600 MG PO ×2 (09:12→20:00)
[2024-11-16] MEDS: NSS IV (09:13)
[2024-11-16] MEDS: SENOKOT-S PO (09:13)
[2024-11-16] MEDS: NOVOLOG FLEXPEN-MODERATE RESISTANCE SC (09:13)
[2024-11-16] MEDS: KCL 20 MEQ PO (09:20)
[2024-11-16] MEDS: NOVOLOG FLEXPEN 5 UNITS SC ×3 (09:21→17:32)
[2024-11-16] MEDS: CALCIUM GLUCONATE 100 IV (09:21)
[2024-11-16] MEDS: VENTOLIN NEBULES 2.5 MG INH (10:03)
--- NOTE | 2024-11-16 10:41 | W.PN.CD ---
Today's Communication / Plan
-
Meds limited by symptomatic orthostasis
Plan to stop AMIO per usual CT protocol
As improves will add GDMT for HFrEF
Impression / Plan
-
Background: 74M with HTN & NIDDM who presented with upper back and shoulder tightness then had syncope and developed SOB prompting evaluation -> recent inferior STEMI based on clinical data and EKG -> [facility] with [facility]
Outpatient Tractor Trailer Moving Van Driver: will be Dr. Bueno
PCP: Sabina Dior, DO
Orthostasis
- Likely will need rehab
- Increasing activity will help
ROSANGELA
- Perhaps over diuresed
CAD
- recent inferior STEMI, found to have multivessel disease:
- now s/p CABG
HFrEF
- LVEF about 35% preop
- Intraop CHLOE prior to CABG LVEF 31%
- Intraop CHLOE post CABG/on support LVEF 40%
Ischemic cardiomyopathy
-LVEDP at cath 28 - Diuresed
Symptomatic complete heart block
- S/p bi-v ICD 11/04/2024
Ventricular fibrillation, about 30 minutes after ICD placement
Amio: Stop amio per usual CT protocol.
Mixed hyperlipidemia, goal LDL now <55
Type II DM, longstanding, uncontrolled, Hgba1c 9.0%: diabetic provider following
History of HTN, follow
Former heavy smoker probably at least a 93-[id number]-uyxf history, continued cessation recommended .
Subjective:
Feels better
Physical Exam
Vital Signs/Labs
Vital Signs
Temp Pulse Resp BP Pulse Ox
98 F 85 18 97/67 92
11/16/24 08:00 11/16/24 10:04 11/16/24 10:04 11/16/24 09:09 11/16/24 10:04
06/17/25 06/18/25 06/19/25
06:59 06:59 06:59
Actual Weight 82.6 kg
11/16/24 04:16
11/16/24 04:16
PT 21.3 Sec (11.4-14.6) H 11/09/24 14:28
INR 1.79 11/09/24 14:28
APTT 33.9 Sec (23.4-35.0) 11/09/24 14:28
Magnesium 1.9 mg/dl (1.6-2.3) 11/16/24 04:16
Triglycerides 94 mg/dl (10-149) 11/01/24 04:18
LDL Cholesterol, Calc 80 mg/dl 11/01/24 04:18
VLDL Cholesterol, Calc 18 mg/dl (0-30) 11/01/24 04:18
HDL Cholesterol 33 mg/dl 11/01/24 04:18
TSH 3.13 uIU/ml (0.47-4.68) 10/31/24 21:54
Free T4 1.66 ng/dl (0.78-2.19) 10/31/24 21:54
Physical Exam
Constitutional: No acute distress
Cardiovascular: Rhythm & rate is regular and Pedal edema is absent
Respiratory: Respiratory effort normal and Lungs clear to auscul.
GI: Soft and Distention absent
Other: Cardiac Device Site (Normal. steri strips intact)
Data Reviewed
-
Date of Service: November 16, 2024
--- NOTE | 2024-11-16 11:59 | PTCARENOTE ---
moved to 2241. report given to Amelia JUAREZ.
[2024-11-16 12:18] LABS: Glucose - Point of Care 182 mg/dl (70-99)
[2024-11-16] MEDS: NOVOLOG FLEXPEN-MODERATE RESISTANCE 1 UNITS SC (12:18)
--- NOTE | 2024-11-16 12:19 | CM ---
CM following for DC planning needs.
PT completed re-eval today. Recommendation continues to be for acute rehab. Per PT, patient is now agreeable.
Met w/ patient at bedside. Spouse also present. Pt. now is agreeable to rehab. His preference would be for [facility] . He would prefer not to leave .
I initiated referrals to [facility] as alternative choice.
I have requested PMR evaluation.
Plan is for acute rehab placement; preference is for [facility].
Will need [employer] authorization.
Will follow.
--- NOTE | 2024-11-16 12:39 | PTCARENOTE ---
Received patient as a transfer from CVICU into 2240. Patient was transferred while sitting in his recliner chair, his at the bedside. He denies any pain but states that he 'just doesn't sleep'. CT surgery INTERNATIONAL LOGISTICS MANAGER in to speak with him about a psych
consult, which he is agreeable to. Affect flat and appears very discouraged. 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 Tried to use the urinal while
in the chair but unsuccessful and requested to walk to the bathroom. Assisted with the rolling walker to the bathroom. Passed a small soft bowel movement. Does appear POLLACK and requested O2, states he feels better with oxygen on, he was not
orthostatic. Pulse ox on RA 92%, placed on 2L NC. Call salazar in reach, eating lunch now.
[2024-11-16] MEDS: DIAMOX 125 MG PO (13:21)
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
--- NOTE | 2024-11-16 16:17 | PTCARENOTE ---
Rec'd Pt A,A+OX3, denies pain presently. AV paced on the monitor tech. Pt assisted to BR, once he is standing he ambulates well. He does have some difficulty getting out of chair and required assist of 1 to stand.
[2024-11-16 17:00] LABS: Glucose - Point of Care 208 mg/dl (70-99)
[2024-11-16] MEDS: NOVOLOG FLEXPEN-MODERATE RESISTANCE 3 UNITS SC (17:31)
[2024-11-16] MEDS: PRAVACHOL 40 MG PO (17:31)
[2024-11-16] MEDS: SENOKOT-S 1 TABLET PO (20:00)
[2024-11-16] MEDS: FLUSH (NSS) 1 FLUSH IV (20:01)
[2024-11-16] MEDS: REMOVE LIDOCAINE PATCH 1 PATCH REMOVE (20:17)
--- NOTE | 2024-11-16 21:00 | PTCARENOTE ---
Received pt at change of shift resting in bed, family at bedside. AV-paced on the monitor, HR in the 80's. Surgical sites C.D.I. pt denies any pain. Sternal precautions maintained. pt on 2LO2, satting 98%. IS performed, with result of 1,000.
Informed pt to call before getting OOB. Call salazar within reach.
[2024-11-16 22:05] LABS: Glucose - Point of Care 259 mg/dl (70-99)
[2024-11-16] MEDS: ATIVAN 0.5 MG PO (22:20)
[2024-11-16] MEDS: LANTUS 0.2 UNITS SC (22:22)
[2024-11-17] VITALS (11 sets, daily range): BP systolic 96–135; BP diastolic 62–79; PULSE 78–81; O2SAT 97; BMI 26.0
[2024-11-17 03:26] LABS: Hematocrit 28.9 % (39.0-52.0); Hemoglobin 9.2 g/dL (13.0-18.0); Mean Corp Hgb Conc. 31.8 g/dL (33.0-37.0); Mean Corpuscular Volume 91.5 fL (80.0-94.0); Platelet Count 371 10^3/uL (130-400); Red Cell Dist. Width 16.4 % (11.5-14.5)
[2024-11-17 03:55] LABS: Blood Urea Nitrogen 29 mg/dl (9-20); Calcium 8.7 mg/dl (8.4-10.2); Carbon Dioxide 34 mmol/L (22-30); Chloride 98 mmol/L (98-107); Estimated Creatinine Clearance 34 ml/min; Glucose 138 mg/dl (70-99); Magnesium 2.0 mg/dl (1.6-2.3); Potassium 3.7 mmol/L (3.5-5.1); Sodium 140 mmol/L (135-145); eGFR 36.56
[2024-11-17] MEDS: TYLENOL 1000 MG PO ×3 (06:04→21:52)
[2024-11-17 06:47] LABS: Glucose - Point of Care 114 mg/dl (70-99)
[2024-11-17] MEDS: NOVOLOG FLEXPEN-MODERATE RESISTANCE SC ×2 (07:27→16:41)
[2024-11-17] MEDS: SYMBICORT 160/4.5 MCG INHALER 2 PUFF INH ×2 (07:41→21:00)
--- NOTE | 2024-11-17 07:59 | W.PN.CT ---
Today's Communication / Plan
-
-pod#8
-no issues overnight, overall looks better. Hemodynamically and neurologically intact
-Midodrine was decreased to 5 bid for orthostasis with ambulation. Pt has chronic vertigo as well
-diuresed with Bumex 2 mg iv and Diamox on 11/16
-Cr is trending up - 1.9 today (up from 1.6 on 11/16 and 1.3 on 11/15)
-wt is 175 lbs, which if what it was preop. Will hold off on diuresis
-Lantus was decreased
-await Physiatry eval
-encourage IS, OOB
-continue PT/OT
-appreciate everyone's input
Assessment / Plan
-
- s/p CABG x 4 (JUSTIN to LAD, GSV to D1, GSV to OM2 upper branch, GSV to OM2 lower branch); ELAA (45mm AtriClip); Lysis of pericardial adhesions w/ blunt & electrocautery dissection; Lysis of left pleural-pleural adhesions w/ electrocautery on
11/09/[address] Wilks, pod #8
- Pre-CHLOE: LVEF 31%, [id number] MR, mild AI
- Post-CHLOE: LVEF 40%, unchanged valves, SHEMAR confirmed excluded
-Severe 3v CAD
-Inferior PA
-Weakness/Fatigue
-Syncopal episode
-HFrEF/ICM (LVEF 35%; was 50-55% per echo 04/2014)
-CHB S/P Transvenous pacer, 11/01/24
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
-Mild-moderate TR
-HTN
-Hyperlipidemia
-Hypothyroidism
-T2DM (hgb A1C 9.0)
-ROSANGELA (peaked @ 2.1)
-Transaminitis
-Small pericardial effusion, per CTA 11/06
-Small bilateral pleural effusion, per CTA 11/06
-Former tobacco use (quit 20 years ago, ~40 pk/yr)
-Diplopia S/p cataract surgery
-[place] [place] S/P hearing aids
-Renal calculi S/P cystoscopy with renal stents
-S/P T&A
-S/P Appendectomy
-Hx Vertigo
-Acute postop blood loss anemia
-Acute postop atelectasis
-Acute postop pericarditis
-Acute postop hyperkalemia
-Acute postop hypovolemia with subsequent hypervolemia
-Acute postop Orthostasis
-Acute postop confusion/delirium
-Acute postop ROSANGELA
Discussed patient care with: Nursing and Care Team
Subjective
-
Date of Service: November 17, 2024
Objective Data
-
Lab Results
11/17/24 03:01
11/17/24 03:01
PT 21.3 Sec (11.4-14.6) H 11/09/24 14:28
INR 1.79 11/09/24 14:28
APTT 33.9 Sec (23.4-35.0) 11/09/24 14:28
Vital Signs
Vital Signs
Temp Pulse Resp BP Pulse Ox
97.7 F 80 16 106/66 98
11/17/24 06:40 11/17/24 07:44 11/17/24 07:44 11/17/24 06:42 11/17/24 07:44
CT Intake/Output/Weight
11/16/24 11/17/24 11/17/24
18:59 06:59 18:59
Intake Total 600 / 840 240 / 840
Output Total 1125 / 1675 550 / 1675 200 / 200
Balance -525 / -835 -310 / -835 -200 / -200
SaO2: 98
Physical Exam
-
General: Awake and AOx3
Cardiovascular: Regular rate & rhythm (av-paced), No Murmurs and No Rub
Respiratory: Decreased Breath Sounds
Sternum: Stable
Incision: Clean, Dry and Intact
Abomen: soft, nontender, nondistended, no nausea, + bowel sounds, +BMs
Extremities: Edema +1 (TEDs on b/l)
Data Reviewed
-
Lab Results: Results Reviewed
Medications: Active Meds Reviewed
Chest X-Ray: Report Reviewed and Image Reviewed
ECG: Report Reviewed and Image Reviewed
[2024-11-17] MEDS: ARMOUR THYROID 15 MG PO (08:00)
--- NOTE | 2024-11-17 08:34 | PTCARENOTE ---
Patient resting in bed this morning, appears calm, states he did sleep last night. Breakfast ordered, agreeable to get oob when it arrives.
[2024-11-17] MEDS: FARXIGA PO ×2 (08:45→09:30)
[2024-11-17] MEDS: MUCINEX 600 MG PO ×2 (08:45→20:05)
[2024-11-17] MEDS: LOW STRENGTH ASPIRIN 81 MG PO (08:45)
[2024-11-17] MEDS: PROTONIX 40 MG PO (08:46)
[2024-11-17] MEDS: PLAVIX 75 MG PO (08:46)
[2024-11-17] MEDS: PACERONE 200 MG PO ×3 (08:46→21:52)
[2024-11-17] MEDS: VITAMIN D3 (cholecalciferol) 50 MCG PO (08:46)
[2024-11-17] MEDS: ZETIA 10 MG PO (08:46)
[2024-11-17] MEDS: SENOKOT-S 1 TABLET PO ×2 (08:46→20:05)
[2024-11-17] MEDS: ZOLOFT 25 MG PO (08:47)
--- NOTE | 2024-11-17 08:47 | PN.DE.MGMTRT ---
Insulin Management
- -
11/17/2024: Diabetes Management Follow up
Patient admitted 10/31 with c/o weakness; NSTEMI, complete heart block. Cardiac cath 11/01 - severe multivessel CAD.
PMH: HTN, HLD, T2DM and Hypothyroid. Prior to admission was taking Lantus 40 units @ hs, Metformin 1000 mg BID, Januvia 100 mg daily. A1C on admission 9%. Cr 1.9, eGFR > 36.56 today.
POD # 8 s/p CABG x 4. Patient is awake alert and oriented. resting in bed, flat affect, able to discuss diabetes care. at bedside, very supportive.
11/16 Fasting glucose 82. Pre meal glucose 182 to 208. Received 20 units lantus @ HS with 5 units novolog AC.
11/17 Fasting glucose 138 venous. Will continue lantus 20 units @ HS. Will consider increasing AC novolog to 6 units if pre lunch glucose elevated.
Will cont to follow. Discussed with nurse
Patient's brought in his DexCom G6, explained to pt and that we will assist him in placing the device once he is closer to discharge.
Diabetes History
- -
Type of Diabetes: 2 requiring insulin
Pre-Admission Diabetes Regimen
11/17/24
03:01
Creatinine 1.9 H
Lab Results
Hemoglobin A1c 9.0 % (4.0-5.6) H 11/01/24 04:18
Insulin Pump Settings
IP Diabetes Regimen
11/16/24 11/16/24 11/16/24
12:17 16:58 22:04
Glucose
POC Glucose 182 H 208 H 259 H
11/17/24 11/17/24
03:01 06:46
Glucose 138 H
POC Glucose 114 H
Meal type: Dinner
Meal type: Lunch
Amount consumed: 100%
Amount consumed: 75%
Patient Education
[2024-11-17] MEDS: FLUSH (NSS) 2 FLUSH IV (08:48)
[2024-11-17] MEDS: LIDOCAINE 4% PATCH 1 PATCH TOPICAL (08:48)
[2024-11-17] MEDS: NOVOLOG FLEXPEN 5 UNITS SC (08:49)
--- NOTE | 2024-11-17 09:08 | W.PN.CD ---
Today's Communication / Plan
-
- creatinine 1.9
- stop Bumex and monitor
-I reviewed with the nurse . he did not receive diuretic this morning
Impression / Plan
-
Background: 74M with HTN & NIDDM who presented with upper back and shoulder tightness then had syncope and developed SOB prompting evaluation -> recent inferior STEMI based on clinical data and EKG -> [facility] with [facility]
Outpatient Assistant Chief Train Dispatcher: will be Dr. Bueno
PCP: Sabina Dior, DO
Orthostasis
- Likely will need rehab
- Increasing activity will help
ROSANGELA
- creatinine 1.9
- stop Bumex and monitor
CAD
- recent inferior STEMI, found to have multivessel disease:
- now s/p CABG
HFrEF
- LVEF about 35% preop
- Intraop CHLOE prior to CABG LVEF 31%
- Intraop CHLOE post CABG/on support LVEF 40%
Ischemic cardiomyopathy
-LVEDP at cath 28 - Diuresed
Symptomatic complete heart block
- S/p bi-v ICD 11/04/2024
Ventricular fibrillation, about 30 minutes after ICD placement
Amio: Stop amio per usual CT protocol.
Mixed hyperlipidemia, goal LDL now <55
Type II DM, longstanding, uncontrolled, Hgba1c 9.0%: diabetic provider following
History of HTN, follow
Former heavy smoker probably at least a [id number]-bfzo history, continued cessation recommended .
Subjective:
Feels better
Physical Exam
Vital Signs/Labs
Vital Signs
Temp Pulse Resp BP Pulse Ox
97.7 F 80 16 106/66 98
11/17/24 06:40 11/17/24 07:44 11/17/24 07:44 11/17/24 06:42 11/17/24 08:02
11/16/24 11/17/2411/18/25
06:59 06:59 06:59
Actual Weight 79.8 kg
11/17/24 03:01
11/17/24 03:01
PT 21.3 Sec (11.4-14.6) H 11/09/24 14:28
INR 1.79 11/09/24 14:28
APTT 33.9 Sec (23.4-35.0) 11/09/24 14:28
Magnesium 2.0 mg/dl (1.6-2.3) 11/17/24 03:01
Triglycerides 94 mg/dl (10-149) 11/01/24 04:18
LDL Cholesterol, Calc 80 mg/dl 11/01/24 04:18
VLDL Cholesterol, Calc 18 mg/dl (0-30) 11/01/24 04:18
HDL Cholesterol 33 mg/dl 11/01/24 04:18
TSH 3.13 uIU/ml (0.47-4.68) 10/31/24 21:54
Free T4 1.36 ng/dl (0.78-2.19) 11/17/24 03:01
Physical Exam
Constitutional: No acute distress
Cardiovascular: Rhythm & rate is regular
Respiratory: Wheeze Absent, Rhonchi Absent and Other (decreasedat bases )
GI: Soft
Neuro/Psych: Alert
Data Reviewed
-
Date of Service: November 17, 2024
Medical Decision Making: Reviewed Test Results
X-Ray/CT/US/MRI/NUC/PET: Report Reviewed by me
Medical Tests (PFT, Pathology etc): Report Reviewed by me
Labs: Labs Reviewed by me
[2024-11-17 12:00] LABS: Glucose - Point of Care 203 mg/dl (70-99)
--- NOTE | 2024-11-17 12:12 | PTCARENOTE ---
Patient ambulated in the rivero with PT/OT using rolling walker and O2 2L NC. Patient needs lots of encouragement, very anxious. Returned to bed and dressing removed from his right neck and sternal aquacel removed and open to air. Informed patient
that he is far enough out post op that he could shower later this afternoon, resting now and seems to be considering it.
[2024-11-17] MEDS: NOVOLOG FLEXPEN SC (12:15)
[2024-11-17] MEDS: NOVOLOG FLEXPEN-MODERATE RESISTANCE 3 UNITS SC (12:16)
[2024-11-17] MEDS: NOVOLOG FLEXPEN 6 UNITS SC ×2 (12:17→16:40)
[2024-11-17] MEDS: NSS IV (14:49)
--- NOTE | 2024-11-17 15:28 | W.PN.UPDATE ---
Update Note
Progress Note Update
patient seen chart reviewed. spoke with nursing. wiife at bedside. patient is very willing if not eager to talk about his painful childhood and how it impacted his life. he cannot dispel the notion that he is worthless and has done nothing with his
life despite significant evidence to the contrary. sometimes he feels he has become his dad and he used the example of being short with his this am (which the nurse had told me about) 'how can i change who i am?' discussed with him that he
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
) and he is not the person his family made him out to be. strongly encourage him to engage in psychotherapy. have added melatonin 5 mg to hs meds. he did sleep five or six hours with ativan eventually. continue zoloft. increase depending on
response will follow
[2024-11-17 16:33] LABS: Glucose - Point of Care 133 mg/dl (70-99)
[2024-11-17] MEDS: PRAVACHOL 40 MG PO (17:22)
[2024-11-17] MEDS: REMOVE LIDOCAINE PATCH 1 PATCH REMOVE (20:05)
[2024-11-17] MEDS: MELATONIN 5 MG PO (21:52)
[2024-11-17] MEDS: LANTUS 0.2 UNITS SC (21:52)
[2024-11-17 21:53] LABS: Glucose - Point of Care 145 mg/dl (70-99)
[2024-11-17] MEDS: ATIVAN 0.5 MG PO (21:53)
--- NOTE | 2024-11-17 23:24 | PTCARENOTE ---
Patient received at change of shift resting in the bed. Reports mild pain to his right buttocks which has been ongoing problem for him. Repositioned for comfort. AV paced on telemetry. Oxygen saturation 97-98% on 2L, patient requesting to keep
oxygen on for comfort. Surgical sites intact, see worklist intervention. PRN lorazepam given due to anxiety. Plan of care discussed. Sternal precautions discussed. Call salazar within reach. Care ongoing.
[2024-11-18] VITALS (11 sets, daily range): BP systolic 107–150; BP diastolic 69–90; PULSE 82; BMI 26.0
[2024-11-18 04:38] LABS: Blood Urea Nitrogen 29 mg/dl (9-20); Calcium 8.7 mg/dl (8.4-10.2); Carbon Dioxide 32 mmol/L (22-30); Chloride 102 mmol/L (98-107); Estimated Creatinine Clearance 36 ml/min; Glucose 116 mg/dl (70-99); Potassium 3.7 mmol/L (3.5-5.1); Sodium 141 mmol/L (135-145); eGFR 39.01
--- NOTE | 2024-11-18 04:58 | W.PN.CT ---
Today's Communication / Plan
-
-pod#9
-no issues overnight, hemodynamically and neurologically intact. Looks and feels more SOB today
-diuresed with Bumex 2 mg iv and Diamox on 11/16- diuretics were held 11/17 d/t rising Cr upto 1.9- Cr 1.8 today
-wt is 176 lbs today, was 175 preop.
-Midodrine was decreased to 5 bid for orthostasis with ambulation. Pt has chronic vertigo as well
-await Physiatry eval
-encourage IS, OOB
-continue PT/OT
-appreciate everyone's input
Assessment / Plan
-
- s/p CABG x 4 (JUSTIN to LAD, GSV to D1, GSV to OM2 upper branch, GSV to OM2 lower branch); ELAA (45mm AtriClip); Lysis of pericardial adhesions w/ blunt & electrocautery dissection; Lysis of left pleural-pleural adhesions w/ electrocautery on
11/09/[address] Wilks, pod #9
- Pre-CHLOE: LVEF 31%, [id number] MR, mild AI
- Post-CHLOE: LVEF 40%, unchanged valves, SHEMAR confirmed excluded
-Severe 3v CAD
-Inferior SC
-Weakness/Fatigue
-Syncopal episode
-HFrEF/ICM (LVEF 35%; was 50-55% per echo 04/2014)
-CHB S/P Transvenous pacer, 11/01/24
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
-Mild-moderate TR
-HTN
-Hyperlipidemia
-Hypothyroidism
-T2DM (hgb A1C 9.0)
-ROSANGELA (peaked @ 2.1)
-Transaminitis
-Small pericardial effusion, per CTA 11/06
-Small bilateral pleural effusion, per CTA 11/06
-Former tobacco use (quit 20 years ago, ~40 pk/yr)
-Diplopia S/p cataract surgery
-[place] S/P hearing aids
-Renal calculi S/P cystoscopy with renal stents
-S/P T&A
-S/P Appendectomy
-Hx Vertigo
-Acute postop blood loss anemia
-Acute postop atelectasis
-Acute postop pericarditis
-Acute postop hyperkalemia
-Acute postop hypovolemia with subsequent hypervolemia
-Acute postop Orthostasis
-Acute postop confusion/delirium
-Acute postop ROSANGELA
Discussed patient care with: Nursing and Care Team
Subjective
-
Date of Service: November 18, 2024
Objective Data
-
Lab Results
11/17/24 03:01
11/18/24 03:49
PT 21.3 Sec (11.4-14.6) H 11/09/24 14:28
INR 1.79 11/09/24 14:28
APTT 33.9 Sec (23.4-35.0) 11/09/24 14:28
Vital Signs
Vital Signs
Temp Pulse Resp BP Pulse Ox
97.4 F 80 18 108/70 96
11/18/24 03:41 11/18/24 03:40 11/18/24 03:41 11/18/24 03:40 11/18/24 03:41
CT Intake/Output/Weight
11/17/24 11/17/24 11/18/24
06:59 18:59 06:59
Intake Total 240 / 840 400 / 400
Output Total 550 / 1675 200 / 1000 800 / 1000
Balance -310 / -835 200 / -600 -800 / -600
SaO2: 96
Physical Exam
-
General: Awake and AOx3
Cardiovascular: Regular rate & rhythm (av-paced), No Murmurs and No Rub
Respiratory: Decreased Breath Sounds
Sternum: Stable
Incision: Clean, Dry and Intact
Abomen: soft, nontender, nondistended, no nausea, + bowel sounds, +BMs
Extremities: Edema +1 (TEDs on b/l)
Data Reviewed
-
Lab Results: Results Reviewed
Medications: Active Meds Reviewed
Chest X-Ray: Report Reviewed and Image Reviewed
ECG: Report Reviewed and Image Reviewed
[2024-11-18] MEDS: TYLENOL 1000 MG PO ×3 (05:11→22:34)
[2024-11-18] MEDS: SYMBICORT 160/4.5 MCG INHALER 2 PUFF INH ×2 (07:45→19:35)
--- NOTE | 2024-11-18 07:51 | PN.DE.MGMTRT ---
Insulin Management
- -
11/18/2024: Diabetes Management Follow up
Patient admitted 10/31 with c/o weakness; NSTEMI, complete heart block. Cardiac cath 11/01 - severe multivessel CAD.
PMH: HTN, HLD, T2DM and Hypothyroid. Prior to admission was taking Lantus 40 units @ hs, Metformin 1000 mg BID, Januvia 100 mg daily. A1C on admission 9%. Cr 1.9, eGFR > 36.56 today.
POD # 9 s/p CABG x 4. Patient is awake alert and oriented. resting in bed, flat affect, able to discuss diabetes care. at bedside, very supportive.
11/17 Fasting glucose 116 venous. Pre meal glucose yesterday 133 and 145 with one pre lunch elevation requiring corrective, Novolog AC increased to 6 units with dinner. Will continue lantus 20 units @ HS with AC novolog to 6 units.
Will cont to follow. Discussed with nurse
Patient's brought in his DexCom G6, explained to pt and that we will assist him in placing the device once he is closer to discharge.
Diabetes History
- -
Type of Diabetes: 2 requiring insulin
Pre-Admission Diabetes Regimen
11/18/24
03:49
Creatinine 1.8 H
Lab Results
Hemoglobin A1c 9.0 % (4.0-5.6) H 11/01/24 04:18
Insulin Pump Settings
IP Diabetes Regimen
11/17/24 11/17/24 11/17/24
11:58 16:32 21:51
Glucose
POC Glucose 203 H 133 H 145 H
11/18/24
03:49
Glucose 116 H
POC Glucose
Meal type: Dinner
Meal type: Lunch
Meal type: Breakfast
Amount consumed: 50%
Amount consumed: 100%
Amount consumed: 100%
Patient Education
[2024-11-18 07:59] LABS: Glucose - Point of Care 113 mg/dl (70-99)
[2024-11-18] MEDS: NOVOLOG FLEXPEN 6 UNITS SC ×3 (09:17→16:56)
[2024-11-18] MEDS: NOVOLOG FLEXPEN-MODERATE RESISTANCE SC ×2 (09:18→12:13)
[2024-11-18] MEDS: ZETIA 10 MG PO (09:18)
[2024-11-18] MEDS: ZOLOFT 25 MG PO (09:19)
[2024-11-18] MEDS: VITAMIN D3 (cholecalciferol) 50 MCG PO (09:19)
[2024-11-18] MEDS: LOW STRENGTH ASPIRIN 81 MG PO (09:19)
[2024-11-18] MEDS: PROTONIX 40 MG PO (09:19)
[2024-11-18] MEDS: ARMOUR THYROID 15 MG PO (09:20)
[2024-11-18] MEDS: PLAVIX 75 MG PO (09:24)
[2024-11-18] MEDS: MUCINEX 600 MG PO ×2 (09:24→20:22)
[2024-11-18] MEDS: PACERONE 200 MG PO ×3 (09:24→22:34)
[2024-11-18] MEDS: SENOKOT-S 1 TABLET PO ×2 (09:25→20:22)
[2024-11-18] MEDS: LIDOCAINE 4% PATCH TOPICAL (09:30)
--- NOTE | 2024-11-18 10:48 | W.PN.CD ---
Today's Communication / Plan
-
Recommend increasing midodrine back to 5 mg 3 times daily
Continue to hold diuresis
Impression / Plan
-
Background: 74M with HTN & NIDDM who presented with upper back and shoulder tightness then had syncope and developed SOB prompting evaluation -> recent inferior STEMI based on clinical data and EKG -> [facility] with [facility]
Outpatient Principal Network Architect: will be Dr. Bueno
PCP: Sabina Dior, DO
Orthostasis
- Likely will need rehab
- Increasing activity will help
- Increase midodrine back 5mg TID. May need 10mg
ROSANGELA
- creatinine improving with holding diuretics
CAD
- recent inferior STEMI, found to have multivessel disease:
- now s/p CABG
- continue ASA, statin, Zetia
- BB on hold for orhtostasis
HFrEF
- LVEF about 35% preop
- Intraop CHLOE prior to CABG LVEF 31%
- Intraop CHLOE post CABG/on support LVEF 40%
- add back GDMT as tolerated
Ischemic cardiomyopathy
-LVEDP at cath 28 - Diuresed
Symptomatic complete heart block
- S/p bi-v ICD 11/04/2024
Ventricular fibrillation, about 30 minutes after ICD placement
Mixed hyperlipidemia, goal LDL now <55
Type II DM, longstanding, uncontrolled, Hgba1c 9.0%: diabetic provider following
History of HTN, follow
Former heavy smoker probably at least a 04-efux-ydie history, continued cessation recommended .
Subjective:
Still clammy, SOB, lightheaded with activity
Physical Exam
Vital Signs/Labs
Vital Signs
Temp Pulse Resp BP Pulse Ox
97.7 F 83 16 113/63 96
11/18/24 06:55 11/18/24 09:24 11/18/24 07:47 11/18/24 09:24 11/18/24 07:47
11/17/24 11/18/24 11/19/24
06:59 06:59 06:59
Actual Weight 175 lb 14.862 oz 176 lb 2.389 oz
11/17/24 03:01
11/18/24 03:49
PT 21.3 Sec (11.4-14.6) H 11/09/24 14:28
INR 1.79 11/09/24 14:28
APTT 33.9 Sec (23.4-35.0) 11/09/24 14:28
Magnesium 2.0 mg/dl (1.6-2.3) 11/17/24 03:01
Triglycerides 94 mg/dl (10-149) 11/01/24 04:18
LDL Cholesterol, Calc 80 mg/dl 11/01/24 04:18
VLDL Cholesterol, Calc 18 mg/dl (0-30) 11/01/24 04:18
HDL Cholesterol 33 mg/dl 11/01/24 04:18
TSH 3.13 uIU/ml (0.47-4.68) 10/31/24 21:54
Free T4 1.36 ng/dl (0.78-2.19) 11/17/24 03:01
Physical Exam
Constitutional: No acute distress and Comfortable
Cardiovascular: Rhythm & rate is regular, Pedal edema present, S1S2 is normal and Murmur/rub/gallop absent
Respiratory: Respiratory effort normal and Crackles Present
Neuro/Psych: AO x 3
Data Reviewed
-
Date of Service: November 18, 2024
Medical Decision Making: Reviewed Test Results, Independent Historian Assessment, Test Interpretation and Review of Case with other Provider
EKG: Tracing Personally Visualized and interpreted
Echo: Report Reviewed by me
Labs: Labs Reviewed by me
[2024-11-18] MEDS: ATIVAN 0.5 MG PO ×2 (12:13→20:22)
[2024-11-18 12:14] LABS: Glucose - Point of Care 118 mg/dl (70-99)
[2024-11-18] MEDS: NSS IV (12:28)
--- NOTE | 2024-11-18 14:56 | CM ---
Reviewed chart. Mr Ceballos was transferred to IVU. Met with Mr. and Mrs. Domingo to review discharge plans. He states he is not feeling well today. Telephone call to [facility] to review. [facility] liaison states he is a candidate for acute
rehab. pending approval form insurance. Awaiting PM&&R evaluation. He will need pre-cert with [employer]. Referral made to [facility] and [facility] if he is not approved for acute rehab. Gave Mrs. Domingo my
card. Prior to admission he resides with his spouse in a two story home with one step to enter. He has a full flight of steps to get to bedroom/full bathroom. He has a powder room ont he first floor. Prior to admission he was independent with
ambulation and adls. He does not have any DME in the home. He has a prescription plan and uses [facility]. Medical work-up in progress. The discharge plan is to go to [facility]. if approved for admission and approved by insurance when
medically stable.
[2024-11-18 16:55] LABS: Glucose - Point of Care 257 mg/dl (70-99)
[2024-11-18] MEDS: NOVOLOG FLEXPEN-MODERATE RESISTANCE 5 UNITS SC (16:55)
[2024-11-18] MEDS: PRAVACHOL 40 MG PO (17:38)
--- NOTE | 2024-11-18 18:08 | PTCARENOTE ---
pt continues to be paced on the monitor, hr in the 80s, vss. Pt ambulated with PT/OT using rolling walker and O2 1L NC. Pt OOB to chair and tolerated well. Pt needs lots of encouragement, very anxious. Ativan given as ordered, see MAR. Pt educated
on plan of care and pt verbalized understanding. at bedside to visit. call salazar within reach.
[2024-11-18] MEDS: FLUSH (NSS) 1 FLUSH IV (20:22)
[2024-11-18] MEDS: KCL 40 MEQ PO (20:22)
[2024-11-18] MEDS: REMOVE LIDOCAINE PATCH REMOVE (21:24)
[2024-11-18 21:44] LABS: Glucose - Point of Care 148 mg/dl (70-99)
[2024-11-18] MEDS: MELATONIN 5 MG PO (22:34)
[2024-11-18] MEDS: LANTUS 0.2 UNITS SC (22:35)
[2024-11-19] VITALS (12 sets, daily range): BP systolic 107–154; BP diastolic 66–93; PULSE 87–97; BMI 26.0
--- NOTE | 2024-11-19 01:46 | PTCARENOTE ---
Received pt at change of shift OOB in the chair. AV-paced on tele, HR in the 80's. Surgical sites C.D.I. Sternal precautions maintained. pt denies any pain. pt POLLACK, on 1LO2 satting 97%. Weaned down to RA, pt satting 93%. pt requested O2 for comfort.
1L reapplied. IS encouraged and pt performed with result of 1,000. PRN Ativan given per pt request. Fall risk precautions maintained, pt calls appropriately. Call salazar within reach.
[2024-11-19 03:50] LABS: Glucose - Point of Care 121 mg/dl (70-99)
[2024-11-19 04:15] LABS: Blood Urea Nitrogen 27 mg/dl (9-20); Calcium 8.8 mg/dl (8.4-10.2); Carbon Dioxide 38 mmol/L (22-30); Chloride 103 mmol/L (98-107); Estimated Creatinine Clearance 43 ml/min; Glucose 128 mg/dl (70-99); Magnesium 2.2 mg/dl (1.6-2.3); Potassium 4.1 mmol/L (3.5-5.1); Sodium 143 mmol/L (135-145); eGFR 48.55
--- NOTE | 2024-11-19 04:15 | PTCARENOTE ---
patient called for assistance of the RN to get pulled up in bed. patient states getting some sleep overnight. patient appeared diaphoretic. denies any lightheadedness/dizziness. blood sugar checked- 121. low urine output-mira urine. bladder scan-
140. patient denies any discomfort. bp stable. AM labs completed and sent.
--- NOTE | 2024-11-19 05:30 | W.PN.CT ---
Today's Communication / Plan
-
Plan:
-No major issues overnight. Hemodynamically and neurologically intact
-On Midodrine given soft BP postop/orthostasis
-Creatinine is improving, 1.5 today, was 1.8 yesterday
-Awaiting Physiatry evaluation
-OOB into chair/Ambulate
-PT/OT f/u
-Diabetes education/management f/u
-Replete electrolytes
-Eventual acute rehab placement
Assessment / Plan
-
- s/p CABG x 4 (JUSTIN to LAD, GSV to D1, GSV to OM2 upper branch, GSV to OM2 lower branch); ELAA (45mm AtriClip); Lysis of pericardial adhesions w/ blunt & electrocautery dissection; Lysis of left pleural-pleural adhesions w/ electrocautery on
11/09/[address] Wilks, pod #11
- Pre-CHLOE: LVEF 31%, [id number] MR, mild AI
- Post-CHLOE: LVEF 40%, unchanged valves, SHEMAR confirmed excluded
-Severe 3v CAD
-Inferior SC
-Weakness/Fatigue
-Syncopal episode
-HFrEF/ICM (LVEF 35%; was 50-55% per echo 04/2014)
-CHB S/P Transvenous pacer, 11/01/24
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
-Mild-moderate TR
-HTN
-Hyperlipidemia
-Hypothyroidism
-T2DM (hgb A1C 9.0)
-ROSANGELA (peaked @ 2.1)
-Transaminitis
-Small pericardial effusion, per CTA 11/06
-Small bilateral pleural effusion, per CTA 11/06
-Former tobacco use (quit 20 years ago, ~40 pk/yr)
-Diplopia S/p cataract surgery
-[place] S/P hearing aids
-Renal calculi S/P cystoscopy with renal stents
-S/P T&A
-S/P Appendectomy
-Hx Vertigo
-Acute postop blood loss anemia
-Acute postop atelectasis
-Acute postop pericarditis
-Acute postop hyperkalemia
-Acute postop hypovolemia with subsequent hypervolemia
-Acute postop Orthostasis
-Acute postop confusion/delirium
-Acute postop ROSANGELA
Discussed patient care with: Cardiology, Nursing, Respiratory Therapy, Pharmacy and Care Team
Subjective
-
Date of Service: November 19, 2024
Objective Data
-
Lab Results
11/17/24 03:01
11/19/24 03:44
PT 21.3 Sec (11.4-14.6) H 11/09/24 14:28
INR 1.79 11/09/24 14:28
APTT 33.9 Sec (23.4-35.0) 11/09/24 14:28
Vital Signs
Vital Signs
Temp Pulse Resp BP Pulse Ox
97.8 F 80 22 107/89 96
11/19/24 03:40 11/19/24 05:00 11/19/24 03:40 11/19/24 03:40 11/19/24 03:40
CT Intake/Output/Weight
11/18/24 11/18/24 11/19/24
06:59 18:59 06:59
Intake Total 240 / 720 480 / 720
Output Total 800 / 1000 200 / 200
Balance -800 / -600 240 / 520 280 / 520
SaO2: 96
Physical Exam
-
General: Awake, Oriented and AOx3
Cardiovascular: Regular rate & rhythm (A/V paced), No Murmurs, No Rub and No Gallop
Respiratory: Decreased Breath Sounds
Sternum: Stable
Incision: Clean, Dry, Intact and Dressing Intact
Extremities: Other (+trace edema)
Data Reviewed
-
Lab Results: Results Reviewed
Medications: Active Meds Reviewed
Chest X-Ray: Report Reviewed and Image Reviewed
ECG: Report Reviewed and Image Reviewed
[2024-11-19] MEDS: TYLENOL 1000 MG PO (06:06)
[2024-11-19] MEDS: CALCIUM GLUCONATE 130 MG IV ×2 (06:06→23:31)
[2024-11-19 06:58] LABS: Glucose - Point of Care 132 mg/dl (70-99)
[2024-11-19] MEDS: SYMBICORT 160/4.5 MCG INHALER 2 PUFF INH ×2 (07:47→19:40)
[2024-11-19] MEDS: ATIVAN 0.5 MG PO ×2 (08:21→19:39)
[2024-11-19] MEDS: NOVOLOG FLEXPEN 6 UNITS SC ×3 (08:21→17:37)
[2024-11-19] MEDS: NOVOLOG FLEXPEN-MODERATE RESISTANCE SC ×3 (08:21→17:38)
[2024-11-19] MEDS: SENOKOT-S 1 TABLET PO ×2 (08:22→19:39)
[2024-11-19] MEDS: PLAVIX 75 MG PO (08:22)
[2024-11-19] MEDS: PROTONIX 40 MG PO (08:22)
[2024-11-19] MEDS: ARMOUR THYROID 15 MG PO (08:23)
[2024-11-19] MEDS: VITAMIN D3 (cholecalciferol) 50 MCG PO (08:23)
[2024-11-19] MEDS: ZOLOFT 25 MG PO (08:23)
[2024-11-19] MEDS: MUCINEX 600 MG PO ×2 (08:24→19:39)
[2024-11-19] MEDS: PACERONE 200 MG PO ×3 (08:24→22:42)
[2024-11-19] MEDS: ZETIA 10 MG PO (08:24)
[2024-11-19] MEDS: LOW STRENGTH ASPIRIN 81 MG PO (08:25)
[2024-11-19] MEDS: LIDOCAINE 4% PATCH TOPICAL (08:25)
--- NOTE | 2024-11-19 11:28 | W.PN.UPDATE ---
Update Note
Progress Note Update
Pt seen with present, chart reviewed. Pt sitting up in chair, alert and oriented, calm, interacting, affect/mood dysphoric, no acute distress. Pt c/o feeling anxious and having trouble sleeping here. Received prn Ativan last night at HS and
at 821 this morning, which reportedly helps. Pt is tolerating trial of Zoloft/Sertraline, denies side effects, states appetite is good.
Imp: Unspecified depression, anxiety, R/o PTSD
Rec: continue Sertraline 25 mg daily
Outpatient therapy when medically stable/upon return to outpatient setting
Will follow
[2024-11-19 11:58] LABS: Glucose - Point of Care 119 mg/dl (70-99)
[2024-11-19] MEDS: TYLENOL 650 MG PO (13:19)
[2024-11-19] MEDS: NSS IV (13:25)
--- NOTE | 2024-11-19 13:37 | PTCARENOTE ---
pt is av paced on the monitor, hr n the 80s, vss. pt oob to chair for breakfast. pt worked w/ pt today and ambulated in room. pts 02 down to 87% on RA. Pt c/o feeling dizzy. Pt sat in chair and recovered well. Pt put on 1 LO2 NC. Pt now 96% on RA.
Pt resting in chair and visiting w/ . pt and educated on plan of care and both verbalized understanding. call salazar within reach.
--- NOTE | 2024-11-19 13:39 | W.PN.CD ---
Today's Communication / Plan
-
Cont Midodrine
likely diuresis tomorrow
OOB when able
Impression / Plan
-
Background: 74M with HTN & NIDDM who presented with upper back and shoulder tightness then had syncope and developed SOB prompting evaluation -> recent inferior STEMI based on clinical data and EKG -> [facility] with [facility]
Outpatient [place]: will be Dr. Bueno
PCP: Sabina Dior, DO
Orthostasis
- Likely will need rehab
- Increasing activity will help
- Increase midodrine back 5mg TID. May need 10mg
ROSANGELA
- creatinine improving with holding diuretics
- likley restart tomorrow
CAD
- recent inferior STEMI, found to have multivessel disease:
- now s/p CABG
- continue ASA, statin, Zetia
- BB on hold for orhtostasis
HFrEF
- LVEF about 35% preop
- Intraop CHLOE prior to CABG LVEF 31%
- Intraop CHLOE post CABG/on support LVEF 40%
- add back GDMT as tolerated
- Cr improving
- likely resume diuretics tomorrow
- weight stable
Ischemic cardiomyopathy
-LVEDP at cath 28 - Diuresed
Symptomatic complete heart block
- S/p bi-v ICD 11/04/2024
Ventricular fibrillation, about 30 minutes after ICD placement
Mixed hyperlipidemia, goal LDL now <55
Type II DM, longstanding, uncontrolled, Hgba1c 9.0%: diabetic provider following
History of HTN, follow
Former heavy smoker probably at least a 13-uajh-ixqg history, continued cessation recommended .
Subjective:
SOB lightheaded slow interval improvements
Physical Exam
Vital Signs/Labs
Vital Signs
Temp Pulse Resp BP Pulse Ox
97.8 F 84 18 118/73 96
11/19/24 11:59 11/19/24 13:22 11/19/24 11:59 11/19/24 13:22 11/19/24 11:59
11/18/24 11/19/24 11/20/24
06:59 06:59 06:59
Actual Weight 176 lb 2.389 oz 175 lb 14.862 oz
11/17/24 03:01
11/19/24 03:44
PT 21.3 Sec (11.4-14.6) H 11/09/24 14:28
INR 1.79 11/09/24 14:28
APTT 33.9 Sec (23.4-35.0) 11/09/24 14:28
Magnesium 2.2 mg/dl (1.6-2.3) 11/19/24 03:44
Triglycerides 94 mg/dl (10-149) 11/01/24 04:18
LDL Cholesterol, Calc 80 mg/dl 11/01/24 04:18
VLDL Cholesterol, Calc 18 mg/dl (0-30) 11/01/24 04:18
HDL Cholesterol 33 mg/dl 11/01/24 04:18
TSH 3.13 uIU/ml (0.47-4.68) 10/31/24 21:54
Free T4 1.36 ng/dl (0.78-2.19) 11/17/24 03:01
Physical Exam
Constitutional: No acute distress
EENT: Anicteric
Cardiovascular: Rhythm & rate is regular and Pedal edema present
Respiratory: Other (poor air movement b/l )
GI: Soft
Neuro/Psych: Alert and Oriented
Data Reviewed
-
Date of Service: November 19, 2024
Medical Decision Making: Reviewed Test Results
EKG: Tracing Personally Visualized and interpreted (paced)
Echo: Report Reviewed by me
Labs: Labs Reviewed by me
[2024-11-19 17:36] LABS: Glucose - Point of Care 144 mg/dl (70-99)
[2024-11-19] MEDS: DIAMOX 250 MG PO (17:38)
[2024-11-19] MEDS: PRAVACHOL 40 MG PO (17:38)
--- NOTE | 2024-11-19 18:04 | PTCARENOTE ---
pt c/o 'feeling like needing to urinate but only going 15/20 mL at a time.' notified Aniyah Brown, ordered UA sent as ordered. pt continues to be paced on the monitor, hr in the 80s, vss. 02 95% on 2L NC. pt educated on plan of care and pt
verbalized understanding. call salazar within reach.
[2024-11-19 18:06] LABS: Urine Character Clear (Clear)
[2024-11-19 18:15] LABS: Urine Squamous Cell 0-2 /LPF (Few)
[2024-11-19 18:16] LABS: Urine White Cell 30-40 /HPF (0-5)
[2024-11-19] MEDS: BUMEX 2 MG IV ×2 (19:27→23:12)
[2024-11-19] MEDS: KCL 40 MEQ PO (19:39)
[2024-11-19] MEDS: DUONEB 3 ML INH (19:39)
[2024-11-19] MEDS: REMOVE LIDOCAINE PATCH REMOVE (19:43)
--- NOTE | 2024-11-19 22:00 | PTCARENOTE ---
Patient received at change of shift resting in the bed. Patient reportedly feels short of breath while at rest, states he does not feel well overall. Oxygen saturation on 3L NC 97-99%. The patient does appear tachypneic with labored breathing. Stat
Bumex given as ordered. Respiratory therapist in to administer breathing treatment. Patient repositioned to high-fowlers. The patient also reports feeling anxious, PRN lorazepam given. UOP 100cc since being given diuretic, CT surgery PADionisioC aware and
in to evaluate patient. AV paced on telemetry. Pain minimal and well controlled on current pain regimen per patient. Plan of care discussed including sternal precautions. See worklist and interventions for further information. Call salazar within
reach. Care ongoing.
--- NOTE | 2024-11-19 22:27 | PTCARENOTE ---
Patient voided 10cc urine, bladder scan post void 164cc. CT surgery PAFelicita aware. Stat labs ordered, drawn and sent.
[2024-11-19 22:37] LABS: Glucose - Point of Care 182 mg/dl (70-99)
[2024-11-19] MEDS: MELATONIN 5 MG PO (22:42)
[2024-11-19] MEDS: BENADRYL 25 MG PO (22:42)
[2024-11-19] MEDS: LANTUS 0.2 UNITS SC (22:43)
[2024-11-19 22:48] LABS: Blood Urea Nitrogen 31 mg/dl (9-20); Calcium 8.8 mg/dl (8.4-10.2); Carbon Dioxide 32 mmol/L (22-30); Chloride 102 mmol/L (98-107); Estimated Creatinine Clearance 38 ml/min; Glucose 169 mg/dl (70-99); Magnesium 2.0 mg/dl (1.6-2.3); Potassium 4.4 mmol/L (3.5-5.1); Sodium 141 mmol/L (135-145); eGFR 41.78
[2024-11-19] MEDS: MORPHINE SULFATE 1 MG IV (23:08)
[2024-11-20] VITALS (8 sets, daily range): BP systolic 116–135; BP diastolic 67–87; BMI 25.8
--- NOTE | 2024-11-20 03:16 | PTCARENOTE ---
Urine output from indwelling urinary catheter 1175mL, clear yellow. Patient reports continued shortness of breath. Oxygen saturation on 3L NC 98%. Patient continues to appear tachypneic and dyspneic at rest. AM labs drawn and sent. Bed scale weight
obtained due to patient's continued SOB and generalized weakness. CXR ordered for this morning by CT surgery SHAN. Care ongoing.
[2024-11-20 03:31] LABS: Hematocrit 31.3 % (39.0-52.0); Hemoglobin 9.4 g/dL (13.0-18.0); Mean Corp Hgb Conc. 30.0 g/dL (33.0-37.0); Mean Corpuscular Volume 94.6 fL (80.0-94.0); Platelet Count 390 10^3/uL (130-400); Red Cell Dist. Width 16.9 % (11.5-14.5)
[2024-11-20 03:58] LABS: Blood Urea Nitrogen 30 mg/dl (9-20); Calcium 9.6 mg/dl (8.4-10.2); Carbon Dioxide 33 mmol/L (22-30); Chloride 101 mmol/L (98-107); Estimated Creatinine Clearance 41 ml/min; Glucose 170 mg/dl (70-99); Magnesium 2.0 mg/dl (1.6-2.3); Potassium 4.5 mmol/L (3.5-5.1); Sodium 141 mmol/L (135-145); eGFR 44.93
--- NOTE | 2024-11-20 05:44 | W.PN.CT ---
Today's Communication / Plan
-
Plan:
-No major issues overnight. Hemodynamically and neurologically intact
-Pt c/o feeling SOB yesterday despite O2sats of 98% on 3L Nasal Cannula, noted to be tachypneic and belly breathing at times
-Suspected pulmonary edema with ProBnP 24795 pg/ml. Unable to fully empty bladder, salinas placed by me with 2mg IV Lasix given
-24hrs u/o 2000 mL (1325 mL post salinas reinsertion). Will check cxr and ABG, may need Pulmonary consult
-On Midodrine given soft BP postop/orthostasis. Consider decreasing and weaning off, BP has improved
-Creatinine is improving, 1.6 today 1.7 yesterday
-Awaiting Physiatry evaluation
-OOB into chair/Ambulate
-PT/OT f/u
-Diabetes education/management f/u
-Eventual acute rehab placement
Assessment / Plan
-
- s/p CABG x 4 (JUSTIN to LAD, GSV to D1, GSV to OM2 upper branch, GSV to OM2 lower branch); ELAA (45mm AtriClip); Lysis of pericardial adhesions w/ blunt & electrocautery dissection; Lysis of left pleural-pleural adhesions w/ electrocautery on
11/09/[address] Wilks, pod #12
- Pre-CHLOE: LVEF 31%, [id number] MR, mild AI
- Post-CHLOE: LVEF 40%, unchanged valves, SHEMAR confirmed excluded
-Severe 3v CAD
-Inferior [place]
-Weakness/Fatigue
-Syncopal episode
-HFrEF/ICM (LVEF 35%; was 50-55% per echo 04/2014)
-CHB S/P Transvenous pacer, 11/01/24
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
-Mild-moderate TR
-HTN
-Hyperlipidemia
-Hypothyroidism
-T2DM (hgb A1C 9.0)
-ROSANGELA (peaked @ 2.1)
-Transaminitis
-Small pericardial effusion, per CTA 11/06
-Small bilateral pleural effusion, per CTA 11/06
-Former tobacco use (quit 20 years ago, ~40 pk/yr)
-Diplopia S/p cataract surgery
-[place] S/P hearing aids
-Renal calculi S/P cystoscopy with renal stents
-S/P T&A
-S/P Appendectomy
-Hx Vertigo
-Acute postop blood loss anemia
-Acute postop atelectasis
-Acute postop pericarditis
-Acute postop hyperkalemia
-Acute postop hypovolemia with subsequent hypervolemia
-Acute postop Orthostasis
-Acute postop confusion/delirium
-Acute postop ROSANGELA
Discussed patient care with: Cardiology, Nursing, Respiratory Therapy, Pharmacy and Care Team
Subjective
-
Date of Service: November 20, 2024
Pt c/o SOB despite O2sats of 98% on 3L nasal cannula
Objective Data
-
Lab Results
11/20/24 03:10
11/20/24 03:10
PT 21.3 Sec (11.4-14.6) H 11/09/24 14:28
INR 1.79 11/09/24 14:28
APTT 33.9 Sec (23.4-35.0) 11/09/24 14:28
Vital Signs
Vital Signs
Temp Pulse Resp BP Pulse Ox
97.7 F 80 24 128/68 98
11/20/24 03:03 11/20/24 05:00 11/20/24 03:03 11/20/24 03:01 11/20/24 03:03
CT Intake/Output/Weight
11/19/24 11/19/24 11/20/24
06:59 18:59 06:59
Intake Total 480 / 720 240 / 370 130 / 370
Output Total 400 / 400 325 / 1800 1475 / 1800
Balance 80 / 320 -85 / -1430 -1345 / -1430
SaO2: 98 (3L)
Physical Exam
-
General: Awake, Oriented and AOx3
Cardiovascular: Regular rate & rhythm, No Murmurs and No Gallop
Respiratory: Decreased Breath Sounds (rhonchi on left)
Sternum: Stable
Incision: Clean, Dry, Intact and Dressing Intact
Extremities: Other (+trace edema)
Data Reviewed
-
Lab Results: Results Reviewed
Medications: Active Meds Reviewed
Chest X-Ray: Report Reviewed and Image Reviewed
ECG: Report Reviewed and Image Reviewed
[2024-11-20 07:01] LABS: B.E. 7.3 mmol/L; HCO3 33.7 mmol/L (21-28); O2 Saturation % 99.5 % (94-98); PCO2 57 mmHg (35-48); PO2 99 mmHg (83-108)
[2024-11-20] MEDS: SYMBICORT 160/4.5 MCG INHALER 2 PUFF INH ×2 (07:39→19:57)
[2024-11-20 07:40] LABS: Glucose - Point of Care 153 mg/dl (70-99)
[2024-11-20 09:06] LABS: Procalcitonin 0.05 ng/ml (0.0-0.25)
[2024-11-20] MEDS: NOVOLOG FLEXPEN 6 UNITS SC ×2 (09:11→11:52)
[2024-11-20] MEDS: NOVOLOG FLEXPEN-MODERATE RESISTANCE 1 UNITS SC (09:12)
[2024-11-20] MEDS: MUCINEX 600 MG PO ×2 (09:14→19:48)
[2024-11-20] MEDS: PACERONE 200 MG PO ×3 (09:14→21:58)
[2024-11-20] MEDS: LOW STRENGTH ASPIRIN 81 MG PO (09:14)
[2024-11-20] MEDS: ZETIA 10 MG PO (09:15)
[2024-11-20] MEDS: PLAVIX 75 MG PO (09:15)
[2024-11-20] MEDS: SENOKOT-S 1 TABLET PO ×2 (09:15→19:48)
[2024-11-20] MEDS: PROTONIX 40 MG PO (09:15)
[2024-11-20] MEDS: VITAMIN D3 (cholecalciferol) 50 MCG PO (09:15)
[2024-11-20] MEDS: ZOLOFT 25 MG PO (09:16)
[2024-11-20] MEDS: LIDOCAINE 4% PATCH TOPICAL (09:16)
[2024-11-20] MEDS: ARMOUR THYROID 15 MG PO (09:16)
[2024-11-20] MEDS: FLUSH (NSS) 2 FLUSH IV ×2 (09:17→16:16)
--- NOTE | 2024-11-20 10:26 | PTCARENOTE ---
Received patient this morning resting in bed, ABG sent by prior shift. Patient is pale and diaphoretic appearing, he feels like his breathing is labored. 98% on 3L NC. Patient seen by Dr. Wilks, awaiting pulmonary consult. at the bedside now
and updated.
[2024-11-20 11:52] LABS: Glucose - Point of Care 113 mg/dl (70-99)
[2024-11-20] MEDS: NOVOLOG FLEXPEN-MODERATE RESISTANCE SC ×2 (11:52→16:32)
--- NOTE | 2024-11-20 12:07 | W.PN.UPDATE ---
Update Note
Progress Note Update
patient seen chart reviewed discussed with nursing. at bedside. the patient is disappointed that he is not feeling very well at all. complained of shortness of breath and expressed that he felt no one was hearing him. i reminded him that two
physicians had been attending to him before i came into his room and tried to reassure him that his sx were being taken very seriously but sometimes it takes some time to figure out what is going on and relieve the symptoms. the reality is that he
has just had some serious surgery and while he is hopefully on the way to recovery it will be some time before he feels like himself. discussed inc in zoloft to 50 mg daily. he is using ativan prn once daily. psych will continue to follow
--- NOTE | 2024-11-20 12:40 | W.PN.PUL3 ---
Today's Communication / Plan
-
- Bedside POCUS suggestive of bilateral pleural effusion, left greater than right, may consider left-sided thoracentesis
- Patient volume overloaded, recommend additional diuresis
- Incentive spirometry, hold off antibiotics for now
Assessment
-
Patient is a 74-year-old gentleman with long history of diabetes who developed nonspecific symptoms of upper back and shoulder pain 3 days prior to her presentation to the hospital. Also reported syncope episode. He also reported significant
fatigue which eventually brought him to the emergency room. Further workup was suggestive of a complete heart block as well as elevated troponin consistent with acute myocardial infarction. Patient was noted to have inferior wall ST elevation KS.
He was taken to [facility] and had coronary angiography performed which showed 100% RCA stenosis and significant otherwise coronary artery disease. He also had a temporary pacemaker placed. Postprocedure he was admitted to ICU and customs brokerage manager
consultation was requested for further input.
Patient was subsequently taken for AICD placement and later had coronary artery bypass graft performed on 11/09. Over the last few days, patient reports some shortness of breath minimal cough, clear to whitish expectoration. X-ray was suggestive
of left lower lobe opacity and pulmonary consultation was requested for further input regarding possible antibiotics.
#1. Pulmonary edema, left lower lobe compressive atelectasis with left greater than right pleural effusions
- Patient is currently afebrile, has minimal cough, expectoration is either clear or whitish, procalcitonin is less than 0.05 making a bacterial pneumonia very unlikely
- Bedside POCUS was performed shows a moderate left-sided pleural effusion and a small right-sided pleural effusion. Patient also has bilateral 2+ pitting edema and very elevated BNP suggestive of volume overload
- Can check influenza and COVID-19 screen, hold off antibiotics for now
- Patient needs additional diuresis, will defer to cardiology and cardiothoracic surgery, can consider IR guided left-sided thoracentesis for symptomatic relief
- If patient develops fever, increasing cough or expectoration starts to turn more purulent, can start antibiotics
- Incentive spirometry, patient barely able to pull about 400 ml volume on bedside incentive spirometer. Increase activity as tolerated.
#2. Acute on chronic heart failure with reduced ejection fraction, LVEF 31%
- Patient currently hypervolemic on exam, 2+ bilateral pedal edema, bilateral pleural effusion, left greater than right, [place] [id number]
- Currently on fark [employer] and received IV diuretic overnight, discussed with cardiology and cardiothoracic surgery, recommend additional diuresis
- GMDT once patient able to tolerate
#3. History of smoking and suspected underlying COPD.
- Patient will need outpatient pulmonary function testing and 6-minute walk test for further evaluation
- Currently on Symbicort twice a day, no wheezing on exam, continue as needed DuoNeb
Other medical diagnoses:
- Inferior wall STEMI with multivessel coronary artery disease, s/p coronary artery bypass graft and left atrial appendage exclusion on 11/09
- Complete heart block, status post permanent pacemaker placement
- V-fib arrest s/p AICD firing, soon after AICD placement on 11/04
- ROSANGELA with chronic kidney disease
- Diabetes mellitus
- Hypertension
- Hypothyroidism
- History of smoking and suspected underlying COPD
Subjective Data
-
Date of Service:
Date of Service: November 20, 2024
Subjective:
Patient comfortably lying in bed in no acute distress. During my evaluation, patient was on supplemental oxygen at 2 L, doing well not in any respiratory distress, work of breathing normal.
Review of Systems
Genitourinary: Other (Reports minimal cough, no chest pain, clear to whitish expectoration, no pleuritic discomfort. No fever or chills.)
Objective Data
Data Reviewed
Vital Signs / I&O / Oxygen:
Vital Signs
Temp Pulse Resp BP Pulse Ox
97.5 F 80 20 116/70 97
11/20/24 11:03 11/20/24 11:03 11/20/24 11:03 11/20/24 11:03 11/20/24 11:03
Intake and Output
11/19/24 11/20/24 11/21/24
06:59 06:59 06:59
Intake Total 720 / 720 370 / 370
Output Total 400 / 400 1800 / 1800
Balance 320 / 320 -1430 / -1430
SaO2 [SIMV] 100
SaO2 97
Nasal Cannula flow liters per 3
minute
Physical Exam
General: Comfortable
HEENT: Normocephalic
Cardiovascular: S1-S2 and Peripheral Edema (2+ bilateral pedal edema)
Respiratory: Crackles and Other (Decreased air entry in the left lower hemithorax, also somewhat decreased air entry in the right lower hemithorax)
GI: Soft and Non Distended
Neurology: Awake and Alert
Skin: Warm
Labs/Micro/Reports
Lab Data
11/20/24 03:10
11/20/24 03:10
Laboratory Results
11/20/24
06:49
pH 7.38
pCO2 57 H
pO2 99
HCO3 33.7 H
O2 Delivery Level
[2024-11-20] MEDS: NSS IV (12:53)
--- NOTE | 2024-11-20 13:49 | W.PN.CD ---
Today's Communication / Plan
-
Thoracentesis
Encourage OOB and ambulate
Impression / Plan
-
Background: 74M with HTN & NIDDM who presented with upper back and shoulder tightness then had syncope and developed SOB prompting evaluation -> recent inferior STEMI based on clinical data and EKG -> [facility] with [facility]
Outpatient Slotter [place]: will be Dr. Bueno
PCP: Sabina Dior, DO
Orthostasis
- Likely will need rehab
- Increasing activity will help
- Increase midodrine back 5mg TID. May need 10mg
Pleural effusions
- thoracentesis
ROSANGELA
- restarted bumex yesterday Cr 1.6 today
- monitor
CAD
- recent inferior STEMI, found to have multivessel disease:
- now s/p CABG
- continue ASA, statin, Zetia
- BB on hold for orhtostasis
HFrEF
- LVEF about 35% preop
- Intraop CHLOE prior to CABG LVEF 31%
- Intraop CHLOE post CABG/on support LVEF 40%
- add back GDMT as tolerated
- Cr 1.6
- weight stable
Ischemic cardiomyopathy
-LVEDP at cath 28 - Diuresed
Symptomatic complete heart block
- S/p bi-v ICD 11/04/2024
Ventricular fibrillation, about 30 minutes after ICD placement
Mixed hyperlipidemia, goal LDL now <55
Type II DM, longstanding, uncontrolled, Hgba1c 9.0%: diabetic provider following
History of HTN, follow
Former heavy smoker probably at least a 25-bxwn-ylks history, continued cessation recommended .
Subjective:
SOB lightheaded feeling worse today
Physical Exam
Vital Signs/Labs
Vital Signs
Temp Pulse Resp BP Pulse Ox
97.5 F 80 20 116/70 97
11/20/24 11:03 11/20/24 11:03 11/20/24 11:03 11/20/24 11:03 11/20/24 11:03
11/19/24 11/20/24 11/21/24
06:59 06:59 06:59
Actual Weight 175 lb 14.862 oz 174 lb 13.225 oz
11/20/24 03:10
11/20/24 03:10
PT 21.3 Sec (11.4-14.6) H 11/09/24 14:28
INR 1.79 11/09/24 14:28
APTT 33.9 Sec (23.4-35.0) 11/09/24 14:28
Magnesium 2.0 mg/dl (1.6-2.3) 11/20/24 03:10
Triglycerides 94 mg/dl (10-149) 11/01/24 04:18
LDL Cholesterol, Calc 80 mg/dl 11/01/24 04:18
VLDL Cholesterol, Calc 18 mg/dl (0-30) 11/01/24 04:18
HDL Cholesterol 33 mg/dl 11/01/24 04:18
TSH 3.13 uIU/ml (0.47-4.68) 10/31/24 21:54
Free T4 1.36 ng/dl (0.78-2.19) 11/17/24 03:01
11/19/24
22:11
Odg-S-Pyegucfnnml Pept 34814
Physical Exam
Constitutional: No acute distress
EENT: Anicteric
Cardiovascular: Rhythm & rate is regular and Pedal edema present
Respiratory: Other (decreased b/s b/l )
GI: Soft
Neuro/Psych: Alert and Oriented
Data Reviewed
-
Date of Service: November 20, 2024
EKG: Tracing Personally Visualized and interpreted (paced)
Labs: Labs Reviewed by me
--- NOTE | 2024-11-20 15:36 | PTCARENOTE ---
Patient seen by pulmonary, ultrasound done at the bedside, confirming pleural effusions. IR consulted for thoracentesis. Patient and updated. Patient states he does not feel well, decreased appetite. Mentioned that his difficulty breathing is
like when he had a reaction with inderal and wanted the physicians aware in case this could be a drug reaction. Franca on the floor at the time and notified, TT sent to cardiology, pulmonary and CT surgery RN REVIEW with patient's input. Resting in bed now,
refuses to get oob, using IS but only able to get to 500, encouraged to continue.
[2024-11-20] MEDS: BUMEX 2 MG IV ×2 (16:16→21:57)
[2024-11-20 16:31] LABS: Glucose - Point of Care 70 mg/dl (70-99)
[2024-11-20] MEDS: NOVOLOG FLEXPEN SC (17:07)
[2024-11-20] MEDS: PRAVACHOL 40 MG PO (17:07)
[2024-11-20] MEDS: ROXICODONE 2.5 MG PO (17:48)
[2024-11-20] MEDS: REMOVE LIDOCAINE PATCH REMOVE (19:29)
--- NOTE | 2024-11-20 21:04 | PTCARENOTE ---
Patient received at change of shift resting in the bed. Sinus rhythm on telemetry. Oxygen saturation on 3L NC 95-98%. Patient states his pain is well controlled and feels that his breathing has slightly improved. The patient does still appear
tachypneic and dyspneic at rest with labored breathing. Remains pale and diaphoretic, afebrile. Surgical sites intact. Indwelling urinary catheter draining clear yellow urine, catheter care completed. Discussed plan of care with patient. Call salazar
within reach. Care ongoing.
[2024-11-20 21:54] LABS: Glucose - Point of Care 85 mg/dl (70-99)
[2024-11-20] MEDS: LANTUS 0.2 UNITS SC (21:57)
[2024-11-20] MEDS: MELATONIN 5 MG PO (21:57)
[2024-11-20] MEDS: TYLENOL 650 MG PO (21:57)
[2024-11-20] MEDS: KCL 20 MEQ PO (21:58)
[2024-11-20] MEDS: ATIVAN 0.5 MG PO (21:58)
[2024-11-21] VITALS (14 sets, daily range): BP systolic 88–127; BP diastolic 57–90; PULSE 80; O2SAT 100; BMI 25.2
[2024-11-21] MEDS: ROXICODONE 2.5 MG PO ×3 (02:46→22:52)
[2024-11-21 03:06] LABS: Hematocrit 30.6 % (39.0-52.0); Hemoglobin 9.6 g/dL (13.0-18.0); Mean Corp Hgb Conc. 31.4 g/dL (33.0-37.0); Mean Corpuscular Volume 93.0 fL (80.0-94.0); Platelet Count 336 10^3/uL (130-400); Red Cell Dist. Width 17.2 % (11.5-14.5)
[2024-11-21 03:23] LABS: Blood Urea Nitrogen 32 mg/dl (9-20); Calcium 8.5 mg/dl (8.4-10.2); Carbon Dioxide 34 mmol/L (22-30); Chloride 99 mmol/L (98-107); Estimated Creatinine Clearance 38 ml/min; Glucose 68 mg/dl (70-99); Magnesium 1.9 mg/dl (1.6-2.3); Potassium 3.7 mmol/L (3.5-5.1); Sodium 141 mmol/L (135-145); eGFR 41.78
[2024-11-21 04:21] LABS: Glucose - Point of Care 70 mg/dl (70-99)
--- NOTE | 2024-11-21 05:31 | W.PN.CT ---
Today's Communication / Plan
-
Plan:
-No major issues overnight. Hemodynamically and neurologically intact
-Pt c/o feeling SOB, stating has improved compared to 2 days ago, noted to be tachypneic and belly breathing at times
-Suspected pulmonary edema with ProBnP 87089 pg/ml. Unable to fully empty bladder, salinas reinserted by me 11/19, now responding to diuresis
-24hrs u/o 2000 mL. CXR this AM shows bilateral left basilar opacification > @ left base, suspect atelectasis/pleural effusion, f/u official report
-Pulm is following and doubt Pneumonia or need for antibiotics, procalcitonin negative
-Poor efforts with incentive spirometry (500 mL max)
-Will likely benefit from Left thoracentesis today, IR consulted
-On Midodrine given soft BP postop/orthostasis. Consider decreasing and weaning off, BP has improved
-Creatinine is 1.7 today, was 1.6 yesterday
-Awaiting Physiatry evaluation
-OOB into chair/Ambulate
-PT/OT f/u
-Diabetes education/management f/u
-Eventual acute rehab placement
-Encourage use of IS
Assessment / Plan
-
- s/p CABG x 4 (JUSTIN to LAD, GSV to D1, GSV to OM2 upper branch, GSV to OM2 lower branch); ELAA (45mm AtriClip); Lysis of pericardial adhesions w/ blunt & electrocautery dissection; Lysis of left pleural-pleural adhesions w/ electrocautery on
11/09/[address] Wilks, pod #13
- Pre-CHLOE: LVEF 31%, [id number] MR, mild AI
- Post-CHLOE: LVEF 40%, unchanged valves, SHEMAR confirmed excluded
-Severe 3v CAD
-Inferior [place]
-Weakness/Fatigue
-Syncopal episode
-HFrEF/ICM (LVEF 35%; was 50-55% per echo 04/2014)
-CHB S/P Transvenous pacer, 11/01/24
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
-Mild-moderate TR
-HTN
-Hyperlipidemia
-Hypothyroidism
-T2DM (hgb A1C 9.0)
-ROSANGELA (peaked @ 2.1)
-Transaminitis
-Small pericardial effusion, per CTA 11/06
-Small bilateral pleural effusion, per CTA 11/06
-Former tobacco use (quit 20 years ago, ~40 pk/yr)
-Diplopia S/p cataract surgery
-[place] S/P hearing aids
-Renal calculi S/P cystoscopy with renal stents
-S/P T&A
-S/P Appendectomy
-Hx Vertigo
-Acute postop blood loss anemia
-Acute postop atelectasis
-Acute postop pericarditis
-Acute postop hyperkalemia
-Acute postop hypovolemia with subsequent hypervolemia
-Acute postop Orthostasis
-Acute postop confusion/delirium
-Acute postop ROSANGELA
Discussed patient care with: Cardiology, Nursing, Respiratory Therapy and Care Team
Subjective
-
Date of Service: November 21, 2024
Pt c/o SOB, although he states it has improved from previous days
Objective Data
-
Lab Results
11/21/24 02:43
11/21/24 02:43
PT 21.3 Sec (11.4-14.6) H 11/09/24 14:28
INR 1.79 11/09/24 14:28
APTT 33.9 Sec (23.4-35.0) 11/09/24 14:28
Vital Signs
Vital Signs
Temp Pulse Resp BP Pulse Ox
97.3 F 80 20 104/65 96
11/21/24 02:32 11/21/24 05:00 11/21/24 02:32 11/21/24 02:32 11/21/24 02:32
CT Intake/Output/Weight
11/20/24 11/20/24 11/21/24
06:59 18:59 06:59
Intake Total 130 / 370 480 / 480
Output Total 1475 / 1800 500 / 1950 1450 / 1950
Balance -1345 / -1430 -20 / -1470 -1450 / -1470
SaO2: 96
Physical Exam
-
General: Awake, Oriented and AOx3
Cardiovascular: No Rub and No Gallop
Respiratory: Decreased Breath Sounds (rhonchi @ left base)
Sternum: Stable
Incision: Clean, Dry, Intact and Dressing Intact
Extremities: Other (+trace edema)
Data Reviewed
-
Lab Results: Results Reviewed
Medications: Active Meds Reviewed
Chest X-Ray: Report Reviewed and Image Reviewed
ECG: Report Reviewed and Image Reviewed
[2024-11-21] MEDS: KCL 40 MEQ PO (05:59)
[2024-11-21 06:04] LABS: Glucose - Point of Care 108 mg/dl (70-99)
--- NOTE | 2024-11-21 07:09 | PN.DE.MGMTRT ---
Insulin Management
- -
11/21/2024: Diabetes Management Follow up
Patient admitted 10/31 with c/o weakness; NSTEMI, complete heart block. Cardiac cath 11/01 - Severe multivessel CAD.
PMH: HTN, HLD, T2DM and Hypothyroid. Prior to admission was taking Lantus 40 units @ HS, Metformin 1000 mg BID, Januvia 100 mg daily. A1C on admission 9%. Cr 1.7, eGFR 41.78 today.
POD # 12 s/p CABG x 4. Patient is awake alert and oriented, resting in bed, flat affect, able to discuss diabetes care. at bedside, very supportive.
S/P 1L thoracentesis this morning, states he feels a lot better. Reports very poor appetite with <50% food consumption.
Noted for an episode of hypoglycemia as low as 68 this AM. HS glucose was 85. Will reduce Lantus to 16 units @ HS.
Pre meal glucose yesterday was 70 to 113. Will reduce AC NovoLog to 4 units.
Will cont to follow. Discussed with nurse
Patient's brought in his DexCom G6, explained to pt and that we will assist him in placing the device once he is closer to discharge.
Diabetes History
- -
Type of Diabetes: 2 requiring insulin
Pre-Admission Diabetes Regimen
11/21/24
02:43
Creatinine 1.7 H
Lab Results
Hemoglobin A1c 9.0 % (4.0-5.6) H 11/01/24 04:18
Insulin Pump Settings
IP Diabetes Regimen
11/20/24 11/20/24 11/20/24
07:39 11:50 16:29
Glucose
POC Glucose 153 H 113 H 70
11/20/24 11/21/24 11/21/24
21:53 02:43 04:20
Glucose 68 L
POC Glucose 85 70
11/21/24
06:03
Glucose
POC Glucose 108 H
Meal type: Dinner
Meal type: Lunch
Meal type: Breakfast
Amount consumed: Patient refused
Amount consumed: 50%
Amount consumed: 70%
Patient Education
[2024-11-21] MEDS: SYMBICORT 160/4.5 MCG INHALER 2 PUFF INH ×2 (07:30→17:57)
[2024-11-21] MEDS: NOVOLOG FLEXPEN SC ×2 (07:52→09:00)
[2024-11-21 08:03] LABS: Glucose - Point of Care 94 mg/dl (70-99)
[2024-11-21 08:26] LABS: ALT (SGPT) 38 U/L (0-50); AST (SGOT) 25 U/L (17-59)
[2024-11-21] MEDS: ZETIA 10 MG PO (08:56)
[2024-11-21] MEDS: LIDOCAINE 4% PATCH TOPICAL (08:56)
[2024-11-21] MEDS: MAGNESIUM OXIDE 500 MG PO ×2 (08:56→20:03)
[2024-11-21] MEDS: ARMOUR THYROID 15 MG PO (08:56)
[2024-11-21] MEDS: MUCINEX 600 MG PO ×2 (08:56→20:03)
[2024-11-21] MEDS: LOW STRENGTH ASPIRIN 81 MG PO (08:56)
[2024-11-21] MEDS: SENOKOT-S 1 TABLET PO ×2 (08:57→20:03)
[2024-11-21] MEDS: ZOLOFT 50 MG PO (08:57)
[2024-11-21] MEDS: PROTONIX 40 MG PO (08:58)
[2024-11-21] MEDS: PLAVIX 75 MG PO (08:58)
[2024-11-21] MEDS: VITAMIN D3 (cholecalciferol) 50 MCG PO (08:58)
[2024-11-21] MEDS: PACERONE 200 MG PO ×3 (08:59→22:56)
[2024-11-21] MEDS: FLUSH (NSS) 2 FLUSH IV (08:59)
[2024-11-21] MEDS: NOVOLOG FLEXPEN-MODERATE RESISTANCE SC ×3 (09:00→17:08)
[2024-11-21 09:03] LABS: Glucose - Point of Care 97 mg/dl (70-99)
[2024-11-21] MEDS: TYLENOL 650 MG PO ×2 (10:47→20:07)
[2024-11-21 11:12] LABS: Glucose - Point of Care 107 mg/dl (70-99)
[2024-11-21] MEDS: NOVOLOG FLEXPEN 4 UNITS SC ×2 (12:03→17:08)
[2024-11-21] MEDS: KCL 20 MEQ PO (12:03)
[2024-11-21] MEDS: NSS IV (12:05)
--- NOTE | 2024-11-21 12:24 | W.PN.CD ---
Today's Communication / Plan
-
thora today
diruesis goal negative 1L
intensive PT
wean midodrine
will slowly reintroduce GDMT once weaned off midodrine
Impression / Plan
-
Background: 74M with HTN & NIDDM who presented with upper back and shoulder tightness then had syncope and developed SOB prompting evaluation -> recent inferior STEMI based on clinical data and EKG -> [facility] with MVCAD now s/p CRTD with Dr. Bueno and
CABG with Dr. Wilks.
Outpatient [employer]: will be Dr. Bueno
PCP: Sabina Dior, DO
Orthostasis
- Likely will need rehab
- Increasing activity will help
- can wean midodrine as tolerated
Pleural effusions
- thoracentesis today
- would continue diuresis for goal negative 1L daily
ROSANGELA
- cont. to monitor with diuresis
CAD
- recent inferior STEMI, found to have multivessel disease:
- now s/p CABG
- continue ASA, statin, Zetia, had possible weakness with crestor, will need to get on higher intensity statin prior to discharge
- BB on hold for orhtostasis, retrial as tolerated
HFrEF
ICM
- LVEF about 35% preop
- Intraop CHLOE prior to CABG LVEF 31%
- Intraop CHLOE post CABG/on support LVEF 40%
- add back GDMT as tolerated and once euvolemic
- Cr 1.6
- weight stable
Symptomatic complete heart block
- S/p bi-v ICD 11/04/2024
Ventricular fibrillation, about 30 minutes after ICD placement
Mixed hyperlipidemia, goal LDL now <55
Type II DM, longstanding, uncontrolled, Hgba1c 9.0%: diabetic provider following
History of HTN, follow
Former heavy smoker probably at least a 01-rjon-qifm history, continued cessation recommended .
Subjective:
SOB worse today
Physical Exam
Vital Signs/Labs
Vital Signs
Temp Pulse Resp BP Pulse Ox
36.6 C 80 18 103/68 96
11/21/24 11:04 11/21/24 11:07 11/21/24 11:04 11/21/24 11:07 11/21/24 11:07
11/20/24 11/21/24 11/22/24
06:59 06:59 06:59
Actual Weight 79.3 kg 77.5 kg
11/21/24 02:43
11/21/24 02:43
PT 21.3 Sec (11.4-14.6) H 11/09/24 14:28
INR 1.79 11/09/24 14:28
APTT 33.9 Sec (23.4-35.0) 11/09/24 14:28
Magnesium 1.9 mg/dl (1.6-2.3) 11/21/24 02:43
Triglycerides 94 mg/dl (10-149) 11/01/24 04:18
LDL Cholesterol, Calc 80 mg/dl 11/01/24 04:18
VLDL Cholesterol, Calc 18 mg/dl (0-30) 11/01/24 04:18
HDL Cholesterol 33 mg/dl 11/01/24 04:18
TSH 3.13 uIU/ml (0.47-4.68) 10/31/24 21:54
Free T4 1.36 ng/dl (0.78-2.19) 11/17/24 03:01
11/19/24
22:11
Bgp-[id number] Pept [id number]
Physical Exam
Constitutional: No acute distress
Cardiovascular: Rhythm & rate is regular
Respiratory: Respiratory effort normal
Neuro/Psych: AO x 3
Data Reviewed
-
Date of Service: November 21, 2024
Medical Decision Making: Reviewed Test Results
X-Ray/CT/US/MRI/NUC/PET: Image Personally Visualized and interpreted
Labs: Labs Reviewed by me
--- NOTE | 2024-11-21 12:30 | PTCARENOTE ---
Patient returned from IR after left thoracentesis. Band aid is dry and intact left posterior back. Breathing does appear less labored and patient stated it was not painful and he tolerated procedure well. Medicated with tylenol and oxycodone for
pain upon return with relief. Resting in bed now, his assisting him with lunch, appetite has been poor. PT/OT requesting to work with the patient.
--- NOTE | 2024-11-21 13:15 | W.PN.UPDATE ---
Update Note
Progress Note Update
Pt seen with present. Pt again sitting up in chair, alert and oriented, calm, interacting, affect/mood mildly dysphoric, no acute distress. Pt states they drained a liter of fluid from his lung. Pt is tolerating trial of Zoloft/Sertraline-
increased starting today to 50 mg daily, denies side effects, states appetite remains good.
Imp: Unspecified depression, anxiety, R/o PTSD
Rec: continue Sertraline trial, increased to 50 mg daily
Outpatient therapy when medically stable/upon return to outpatient setting
Will follow
--- NOTE | 2024-11-21 13:54 | W.PN.PUL3 ---
Today's Communication / Plan
-
- Post-thoracentesis chest x-ray significantly improved
- Continue diuresis as tolerated, continue to monitor off antibiotics
- Pulmonary team will sign off, please call as needed
Assessment
-
Patient is a 74-year-old gentleman with long history of diabetes who developed nonspecific symptoms of upper back and shoulder pain 3 days prior to her presentation to the hospital. Also reported syncope episode. He also reported significant
fatigue which eventually brought him to the emergency room. Further workup was suggestive of a complete heart block as well as elevated troponin consistent with acute myocardial infarction. Patient was noted to have inferior wall ST elevation NH.
He was taken to [facility] and had coronary angiography performed which showed 100% RCA stenosis and significant otherwise coronary artery disease. He also had a temporary pacemaker placed. 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
consultation was requested for further input.
Patient was subsequently taken for AICD placement and later had coronary artery bypass graft performed on 11/09. Over the last few days, patient reports some shortness of breath minimal cough, clear to whitish expectoration. X-ray was suggestive
of left lower lobe opacity and pulmonary consultation was requested for further input regarding possible antibiotics.
#1. Pulmonary edema, left lower lobe compressive atelectasis with left greater than right pleural effusions
- Patient is currently afebrile, has minimal cough, expectoration is either clear or whitish, procalcitonin is less than 0.05 making a bacterial pneumonia very unlikely
- Bedside POCUS was performed 11/20, shows a moderate left-sided pleural effusion and a small right-sided pleural effusion. Patient also has bilateral 2+ pitting edema and very elevated BNP suggestive of volume overload
- S/p IR guided thoracentesis 11/21, 1 L fluid removed, post-thoracentesis x-ray shows normal reexpansion of left lung without evidence of pulmonary infiltrate on the left side.
- Patient needs additional diuresis, will defer to cardiology and cardiothoracic surgery
- If patient develops fever, increasing cough or expectoration starts to turn more purulent, can start antibiotics
- Incentive spirometry. Increase activity as tolerated.
#2. Acute on chronic heart failure with reduced ejection fraction, LVEF 31%
- Patient currently hypervolemic on exam, 2+ bilateral pedal edema, bilateral pleural effusion, left greater than right, [place] [address]
- Currently on Farxiga and received IV diuretic intermittently
- GMDT once patient able to tolerate
#3. History of smoking and suspected underlying COPD.
- Patient will need outpatient pulmonary function testing and 6-minute walk test for further evaluation
- Currently on Symbicort twice a day, no wheezing on exam, continue as needed DuoNeb
Other medical diagnoses:
- Inferior wall STEMI with multivessel coronary artery disease, s/p coronary artery bypass graft and left atrial appendage exclusion on 11/09
- Complete heart block, status post permanent pacemaker placement
- V-fib arrest s/p AICD firing, soon after AICD placement on 11/04
- ROSANGELA with chronic kidney disease
- Diabetes mellitus
- Hypertension
- Hypothyroidism
- History of smoking and suspected underlying COPD
Total time spent on this consultation/encounter __48__ minutes which includes review of history, physical exam, medications, laboratory data, personal review of imaging, extensive review of outpatient records, discussion with care team and
respiratory therapy.
Subjective Data
-
Date of Service:
Date of Service: November 21, 2024
Subjective:
Patient comfortably sitting in bed in no acute distress, reports feeling better after thoracentesis.
Review of Systems
Genitourinary: Other (No new pulmonary symptoms reported)
Objective Data
Data Reviewed
Vital Signs / I&O / Oxygen:
Vital Signs
Temp Pulse Resp BP Pulse Ox
97.8 F 80 18 103/68 96
11/21/24 11:04 11/21/24 11:07 11/21/24 11:04 11/21/24 11:07 11/21/24 11:07
Intake and Output
11/20/24 11/21/2425
06:59 06:59 06:59
Intake Total 370 / 370 720 / 720
Output Total 1800 / 1800 2150 / 2150
Balance -1430 / -1430 -1430 / -1430
SaO2 [SIMV] 100
SaO2 96
Nasal Cannula flow liters per 3
minute
Physical Exam
General: Comfortable
HEENT: Normocephalic
Cardiovascular: S1-S2 and Peripheral Edema (2+ bilateral pedal edema, minimal improvement over last 24 hours)
Respiratory: Crackles (Air entry much improved on the left side, few inspiratory crackles in the right lower lobe)
GI: Soft and Non Distended
Neurology: Awake and Alert
Skin: Warm
Labs/Micro/Reports
Lab Data
11/21/24 02:43
11/21/24 02:43
Microbiology
11/19/24 17:42 Urine Urine Culture - Preliminary
Gram negative bacilli
Yeast
[2024-11-21 16:40] LABS: Glucose - Point of Care 114 mg/dl (70-99)
[2024-11-21] MEDS: PRAVACHOL 40 MG PO (17:07)
[2024-11-21] MEDS: REMOVE LIDOCAINE PATCH REMOVE (19:06)
[2024-11-21] MEDS: MILK OF MAGNESIA 30 ML PO (20:03)
[2024-11-21] MEDS: FLEXERIL 5 MG PO (20:07)
--- NOTE | 2024-11-21 21:22 | PTCARENOTE ---
Patient received at change of shift resting in the bed. Reports his breathing feels better after having a thoracentesis today. He was questioning why he had to be woken up as he was previously asleep, explained vital sign schedule in addition to
scheduled medications, assessment, and general care. Wound care completed. Surgical sites intact. Indwelling urinary catheter draining mira urine, [place] care completed. The patient declined to be turned at this time as he is on a Q2 turn schedule
to prevent pressure injuries. Bilateral heels foams applied and heels elevated on pillows. PRN acetaminophen and Flexeril given for pain, see MAR. AV paced on telemetry. Oxygen saturation 95-96% on 3L NC. Discussed plan of care. Call salazar within
reach. Care ongoing.
[2024-11-21] MEDS: MELATONIN 5 MG PO (22:52)
[2024-11-21 22:56] LABS: Glucose - Point of Care 194 mg/dl (70-99)
[2024-11-21] MEDS: LANTUS 0.16 UNITS SC (22:57)
[2024-11-22] VITALS (14 sets, daily range): BP systolic 79–121; BP diastolic 60–85; PULSE 91–92; O2SAT 98; BMI 25.0
[2024-11-22 04:44] LABS: Blood Urea Nitrogen 36 mg/dl (9-20); Calcium 8.3 mg/dl (8.4-10.2); Carbon Dioxide 37 mmol/L (22-30); Chloride 100 mmol/L (98-107); Estimated Creatinine Clearance 43 ml/min; Glucose 117 mg/dl (70-99); Magnesium 2.4 mg/dl (1.6-2.3); Potassium 4.2 mmol/L (3.5-5.1); Sodium 141 mmol/L (135-145); eGFR 48.55
--- NOTE | 2024-11-22 06:38 | W.PN.CT ---
Today's Communication / Plan
-
Plan:
-No major issues overnight. Hemodynamically and neurologically intact
-Pt c/o feeling SOB postop, underwent left thoracentesis (evacuation of 1g serosanguineous pleural fluid) yesterday 11/21, states his SOB has improved
-F/U cxr looks much improved
-Encourage use of IS
-Poor efforts with incentive spirometry (500 mL max)
-On Midodrine given soft BP postop/orthostasis. Consider decreasing and weaning off, BP has improved
-Creatinine is 1.5 today, was 1.7 yesterday
-Awaiting Physiatry evaluation
-OOB into chair/Ambulate
-PT/OT f/u
-Diabetes education/management f/u
-Eventual acute rehab placement
-Encourage use of IS
Assessment / Plan
-
- s/p CABG x 4 (JUSTIN to LAD, GSV to D1, GSV to OM2 upper branch, GSV to OM2 lower branch); ELAA (45mm AtriClip); Lysis of pericardial adhesions w/ blunt & electrocautery dissection; Lysis of left pleural-pleural adhesions w/ electrocautery on
11/09/[address] Wilks, pod #14
-S/P Left thoracentesis (1000 cc of serosanguineous pleural fluid) by IR 11/21/24
- Pre-CHLOE: LVEF 31%, [id number] MR, mild AI
- Post-CHLOE: LVEF 40%, unchanged valves, SHEMAR confirmed excluded
-Severe 3v CAD
-Inferior NC
-Weakness/Fatigue
-Syncopal episode
-HFrEF/ICM (LVEF 35%; was 50-55% per echo 04/2014)
-CHB S/P Transvenous pacer, 11/01/24
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
-Mild-moderate TR
-HTN
-Hyperlipidemia
-Hypothyroidism
-T2DM (hgb A1C 9.0)
-ROSANGELA (peaked @ 2.1)
-Transaminitis
-Small pericardial effusion, per CTA 11/06
-Small bilateral pleural effusion, per CTA 11/06
-Former tobacco use (quit 20 years ago, ~40 pk/yr)
-Diplopia S/p cataract surgery
-[place] S/P hearing aids
-Renal calculi S/P cystoscopy with renal stents
-S/P T&A
-S/P Appendectomy
-Hx Vertigo
-Acute postop blood loss anemia
-Acute postop atelectasis
-Acute postop pericarditis
-Acute postop hyperkalemia
-Acute postop hypovolemia with subsequent hypervolemia
-Acute postop Orthostasis
-Acute postop confusion/delirium
-Acute postop ROSANGELA
Discussed patient care with: Cardiology, Nursing, Respiratory Therapy, Pharmacy and Care Team
Subjective
-
Date of Service: November 22, 2024
States SOB has improved following thoracentesis yesterday
Objective Data
-
Lab Results
11/21/24 02:43
11/22/24 04:03
PT 21.3 Sec (11.4-14.6) H 11/09/24 14:28
INR 1.79 11/09/24 14:28
APTT 33.9 Sec (23.4-35.0) 11/09/24 14:28
Vital Signs
Vital Signs
Temp Pulse Resp BP Pulse Ox
97.5 F 80 18 110/85 100
11/22/24 03:58 11/22/24 06:00 11/22/24 03:58 11/22/24 03:59 11/22/24 06:00
CT Intake/Output/Weight
11/21/24 11/21/24 11/22/24
06:59 18:59 06:59
Intake Total 240 / 720 120 / 120
Output Total 1650 / 2150 250 / 700 450 / 700
Balance -1410 / -1430 -250 / -580 -330 / -580
SaO2: 100 (2L)
Physical Exam
-
General: Awake, Oriented and AOx3
Cardiovascular: Regular rate & rhythm, No Murmurs and No Gallop
Respiratory: Decreased Breath Sounds
Incision: Clean, Dry, Intact and Dressing Intact
Extremities: Other (+trace edema)
Data Reviewed
-
Lab Results: Results Reviewed
Medications: Active Meds Reviewed
Chest X-Ray: Report Reviewed and Image Reviewed
ECG: Report Reviewed and Image Reviewed
[2024-11-22 07:39] LABS: Glucose - Point of Care 105 mg/dl (70-99)
[2024-11-22] MEDS: SYMBICORT 160/4.5 MCG INHALER 2 PUFF INH ×2 (08:20→19:58)
[2024-11-22] MEDS: MUCINEX 600 MG PO ×2 (08:58→20:29)
[2024-11-22] MEDS: ZOLOFT 50 MG PO (08:58)
[2024-11-22] MEDS: SENOKOT-S 1 TABLET PO ×2 (08:58→20:29)
[2024-11-22] MEDS: ARMOUR THYROID 15 MG PO (08:58)
[2024-11-22] MEDS: PLAVIX 75 MG PO (08:59)
[2024-11-22] MEDS: LOW STRENGTH ASPIRIN 81 MG PO (08:59)
[2024-11-22] MEDS: PROTONIX 40 MG PO (08:59)
[2024-11-22] MEDS: LIDOCAINE 4% PATCH TOPICAL (08:59)
[2024-11-22] MEDS: VITAMIN D3 (cholecalciferol) 50 MCG PO (08:59)
[2024-11-22] MEDS: PACERONE 200 MG PO ×3 (08:59→23:02)
[2024-11-22] MEDS: CALCIUM GLUCONATE 130 MG IV ×2 (09:00→20:30)
[2024-11-22] MEDS: ZETIA 10 MG PO (09:01)
[2024-11-22] MEDS: FLUSH (NSS) 3 FLUSH IV (09:02)
[2024-11-22] MEDS: TYLENOL 650 MG PO (09:03)
[2024-11-22] MEDS: NOVOLOG FLEXPEN-MODERATE RESISTANCE SC ×2 (09:04→13:08)
[2024-11-22] MEDS: NOVOLOG FLEXPEN 4 UNITS SC ×3 (09:05→17:37)
--- NOTE | 2024-11-22 09:33 | PN.DE.MGMTRT ---
Insulin Management
- -
11/22/2024: Diabetes Management Follow up
Patient admitted 10/31 with c/o weakness; NSTEMI, complete heart block. Cardiac cath 11/01 - Severe multivessel CAD.
PMH: HTN, HLD, T2DM and Hypothyroid. Prior to admission was taking Lantus 40 units @ HS, Metformin 1000 mg BID, Januvia 100 mg daily. A1C on admission 9%. Cr 1.7, eGFR 41.78 today.
POD # 14 s/p CABG x 4. Patient is awake alert and oriented, resting in bed, flat affect, able to discuss diabetes care.
S/P 1L thoracentesis, states he feels a lot better. Reports appetite a little better today.
11/21 Noted for an episode of hypoglycemia as low as 68. Pre meal glucose yesterday was 97 to 194. Lantus reduced from 20 units to 16 units @ HS.
11/22 Fasting glucose 117 venous, 105 POC. Will continue AC NovoLog 4 units; HOLD if patient does not eat meal. Continue lantus 16 units @ HS..
Will cont to follow. Discussed with nurse
Patient's brought in his DexCom G6, explained to pt and that we will assist him in placing the device once he is closer to discharge.
Diabetes History
- -
Type of Diabetes: 2 requiring insulin
Pre-Admission Diabetes Regimen
11/22/24
04:03
Creatinine 1.5 H
Lab Results
Hemoglobin A1c 9.0 % (4.0-5.6) H 11/01/24 04:18
Insulin Pump Settings
IP Diabetes Regimen
11/21/24 11/21/24 11/21/24
11:10 16:39 22:55
Glucose
POC Glucose 107 H 114 H 194 H
11/22/24 11/22/24
04:03 07:37
Glucose 117 H
POC Glucose 105 H
Meal type: Breakfast
Meal type: Dinner
Meal type: Lunch
Amount consumed: 90%
Amount consumed: 75%
Amount consumed: 100%
Patient Education
[2024-11-22] MEDS: BUMEX 1 MG PO (09:41)
--- NOTE | 2024-11-22 10:12 | PTCARENOTE ---
In to assess the patient. He is aaox4, vitals signs are stable. 100% AQVP is noted on the monitor. I weaned his O2 to 1L. His oxygen sat is 94%. He has a weak productive cough that's producing white sputum. Right lung base is decreased with
scattered crackles on the left. I encouraged deep breathing as he only gets his IS to 500. His incisions are scabbed and healing well. He complains of right buttock pain and rates it a 9/10 on scale. His sacrum is red but blanchable. I applied a
protective foam dressing to his sacrum. Tylenol given for his pain. A turning schedule is in placed. I encouraged the patient to turn on his own too.
--- NOTE | 2024-11-22 10:24 | PTCARENOTE ---
The patient voided 150ml of mira colred urine post salinas removale.
--- NOTE | 2024-11-22 10:25 | PTCARENOTE ---
The patient voided 150ml of mira colored urine post [place] removable.
--- NOTE | 2024-11-22 10:37 | W.PN.UPDATE ---
Update Note
Progress Note Update
Patient seen at bedside, chart reviewed, discussed with staff. Mr. Henson tells me he feels lousy today. He is 'lethargic' and feels weak and tired. He does feel he is sleeping well overall. He is mild to moderately dysphoric but cooperative. He
tells us that he is excited to get home to his pups. 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 He admits he gives PT a 'hard time'. We encourage him to try his hardest to help him
recover and get out of here. Zoloft initiated and increased to now 50mg with no reported side effects, Reiterated that it will take a few weeks to feel benefit and may need to be further increased. He tells us his DIL takes this med and it has been
helpful for her.
Impression/Recommendations: Unspecified depression, anxiety, R/O PTSD - continue Sertraline 50 mg daily. Outpatient therapy when medically stable/upon return to outpatient setting. Will follow.
--- NOTE | 2024-11-22 11:26 | PTCARENOTE ---
We attempted to walk the patient to the bathroom to wash up. He sat himself up in the bed with minimal assistance and he bianca quickly to a standing position. Upon standing, he became dizzy and we sat him in the chair. His BP was 79/60 with a HR of
102. In addition, his pulse ox dropped to 85% on 1L. I increased his oxygen to to 2L and had him take deep breaths in his nose. In addition, I elevated his feet in the chair and put his head back slightly. After a couple of minutes his BP recovered
to 115/73 with a HR of 98. Also his oxygen sat improved to 94% on 2L of O2. His dizziness passed while sitting in the chair.
A CHG cloth bath was given to the patient and he did his own oral care.
[2024-11-22 12:43] LABS: Glucose - Point of Care 101 mg/dl (70-99)
[2024-11-22] MEDS: NSS IV (13:19)
--- NOTE | 2024-11-22 16:42 | W.PN.CD ---
Today's Communication / Plan
-
wean midodrine
needs GDMT
cont. diruesis
work towards rehab
Impression / Plan
-
Background: 74M with HTN & NIDDM who presented with upper back and shoulder tightness then had syncope and developed SOB prompting evaluation -> recent inferior STEMI based on clinical data and EKG -> [facility] with MVCAD now s/p CRTD with Dr. Bueno and
CABG with Dr. Wilks.
Outpatient 911 Emergency Dispatcher: will be Dr. Bueno
PCP: Sabina Dior, DO
HFrEF
ICM
- LVEF about 35% preop
- Intraop CHLOE prior to CABG LVEF 31%
- Intraop CHLOE post CABG/on support LVEF 40%
- most recent EF 25%
- GDMT is critical to promote EF recovery - he's approaching euvolemia, would reattempt low dose BB and restart dapagliflozin, next would add low dose ARB if tolerate
CAD
- recent inferior STEMI, found to have multivessel disease:
- now s/p CABG
- continue ASA, statin, Zetia, had possible weakness with crestor, will need to get on higher intensity statin prior to discharge
- BB as above
Orthostasis
- will need rehab
- Increasing activity will help
- can wean midodrine, BP improving
Pleural effusions
- thoracentesis yesterday with significant improvement in shortness of breath and CXR
- would continue diuresis for goal negative 1L daily
ROSANGELA, imporving
- cont. to monitor with diuresis
Symptomatic complete heart block
- S/p bi-v ICD 11/04/2024
Ventricular fibrillation, about 30 minutes after ICD placement
Mixed hyperlipidemia, goal LDL now <55
Type II DM, longstanding, uncontrolled, Hgba1c 9.0%: diabetic provider following
History of HTN, follow
Former heavy smoker probably at least a 19-jybi-mbne history, continued cessation recommended .
Subjective:
SOB much imporved s/p thora
Physical Exam
Vital Signs/Labs
Vital Signs
Temp Pulse Resp BP Pulse Ox
36.5 C 100 18 96/67 97
11/22/24 16:05 11/22/24 15:05 11/22/24 16:05 11/22/24 15:05 11/22/24 16:05
11/21/24 11/22/24 11/23/24
06:59 06:59 06:59
Actual Weight 77.5 kg 76.6 kg
11/21/24 02:43
11/22/24 04:03
PT 21.3 Sec (11.4-14.6) H 11/09/24 14:28
INR 1.79 11/09/24 14:28
APTT 33.9 Sec (23.4-35.0) 11/09/24 14:28
Magnesium 2.4 mg/dl (1.6-2.3) H 11/22/24 04:03
Triglycerides 94 mg/dl (10-149) 11/01/24 04:18
LDL Cholesterol, Calc 80 mg/dl 11/01/24 04:18
VLDL Cholesterol, Calc 18 mg/dl (0-30) 11/01/24 04:18
HDL Cholesterol 33 mg/dl 11/01/24 04:18
TSH 3.13 uIU/ml (0.47-4.68) 10/31/24 21:54
Free T4 1.36 ng/dl (0.78-2.19) 11/17/24 03:01
11/19/24
22:11
[id number]-[id number] Pept [id number]
Physical Exam
Constitutional: No acute distress
Cardiovascular: Rhythm & rate is regular
Respiratory: Respiratory effort normal
Neuro/Psych: AO x 3
Data Reviewed
-
Date of Service: November 22, 2024
Medical Decision Making: Reviewed Test Results
Labs: Labs Reviewed by me
[2024-11-22 16:49] LABS: Glucose - Point of Care 229 mg/dl (70-99)
[2024-11-22] MEDS: ROXICODONE 2.5 MG PO ×2 (17:37→23:01)
[2024-11-22] MEDS: PRAVACHOL 40 MG PO (17:37)
[2024-11-22] MEDS: NOVOLOG FLEXPEN-MODERATE RESISTANCE 3 UNITS SC (17:38)
--- NOTE | 2024-11-22 19:30 | PTCARENOTE ---
Received pt at change of shift resting in bed, family at bedside. AV-paced on tele, HR in the 80's. 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 Sternal precautions maintained. Right radial site C,D,I. Positive pulses. pt on 2L02 satting 96%. IS encouraged and
performed by pt with result of 500. pt on Q2H turn schedule. PRN Nely administered per pt request.--see JUL. pt educated on activity restrictions and to call if needing to ambulate. Fall risk precautions maintained, pt calls appropriately. Call salazar
within reach.
[2024-11-22] MEDS: FLUSH (NSS) 1 FLUSH IV (20:30)
[2024-11-22] MEDS: REMOVE LIDOCAINE PATCH REMOVE (20:32)
[2024-11-22 22:31] LABS: Glucose - Point of Care 152 mg/dl (70-99)
[2024-11-22] MEDS: MELATONIN 5 MG PO (22:59)
[2024-11-22] MEDS: LANTUS 0.16 UNITS SC (23:00)
[2024-11-23] VITALS (10 sets, daily range): BP systolic 102–120; BP diastolic 61–81; PULSE 81–82; O2SAT 92–93; BMI 24.9
--- NOTE | 2024-11-23 04:41 | W.PN.CT ---
Today's Communication / Plan
-
Plan:
-No major issues overnight. Hemodynamically and neurologically intact
-Pt c/o feeling SOB postop, underwent left thoracentesis (evacuation of 1L serosanguineous pleural fluid) on 11/21, states his SOB has improved
-F/U cxr looks much improved
-Encourage use of IS
-Poor efforts with incentive spirometry (500 mL max)
-On Midodrine given soft BP postop/orthostasis. Consider decreasing and weaning off, BP has improved
-Creatinine is 1.3 today, was 1.5 yesterday
-Cont. diuresis
-Awaiting Physiatry evaluation
-OOB into chair/Ambulate
-PT/OT f/u
-Diabetes education/management f/u
-Eventual acute rehab placement
-Encourage use of IS
Assessment / Plan
-
- s/p CABG x 4 (JUSTIN to LAD, GSV to D1, GSV to OM2 upper branch, GSV to OM2 lower branch); ELAA (45mm AtriClip); Lysis of pericardial adhesions w/ blunt & electrocautery dissection; Lysis of left pleural-pleural adhesions w/ electrocautery on
11/09/[address] Wilks, pod #15
-S/P Left thoracentesis (1000 cc of serosanguineous pleural fluid) by IR 11/21/24
- Pre-CHLOE: LVEF 31%, [id number] MR, mild AI
- Post-CHLOE: LVEF 40%, unchanged valves, SHEMAR confirmed excluded
-Severe 3v CAD
-Inferior NE
-Weakness/Fatigue
-Syncopal episode
-HFrEF/ICM (LVEF 35%; was 50-55% per echo 04/2014)
-CHB S/P Transvenous pacer, 11/01/24
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
-Mild-moderate TR
-HTN
-Hyperlipidemia
-Hypothyroidism
-T2DM (hgb A1C 9.0)
-ROSANGELA (peaked @ 2.1)
-Transaminitis
-Small pericardial effusion, per CTA 11/06
-Small bilateral pleural effusion, per CTA 11/06
-Former tobacco use (quit 20 years ago, ~40 pk/yr)
-Diplopia S/p cataract surgery
-[place] S/P hearing aids
-Renal calculi S/P cystoscopy with renal stents
-S/P T&A
-S/P Appendectomy
-Hx Vertigo
-Acute postop blood loss anemia
-Acute postop atelectasis
-Acute postop pericarditis
-Acute postop hyperkalemia
-Acute postop hypovolemia with subsequent hypervolemia
-Acute postop Orthostasis
-Acute postop confusion/delirium
-Acute postop ROSANGELA
Discussed patient care with: Cardiology, Nursing, Respiratory Therapy, Pharmacy and Care Team
Subjective
-
Date of Service: November 23, 2024
No issues overnight. States SOB has improved following L thoracentesis
Objective Data
-
PT 21.3 Sec (11.4-14.6) H 11/09/24 14:28
INR 1.79 11/09/24 14:28
APTT 33.9 Sec (23.4-35.0) 11/09/24 14:28
Vital Signs
Vital Signs
Temp Pulse Resp BP Pulse Ox
97.9 F 80 18 103/64 97
11/23/24 04:21 11/22/24 23:02 11/23/24 04:21 11/22/24 23:02 11/23/24 04:21
CT Intake/Output/Weight
11/22/24 11/22/24 11/23/24
06:59 18:59 06:59
Intake Total 120 / 120 130 / 260 130 / 260
Output Total 450 / 700 1000 / 1475 475 / 1475
Balance -330 / -580 -870 / -1215 -345 / -1215
SaO2: 97 (2L)
Physical Exam
-
General: Awake, Oriented and AOx3
Cardiovascular: Regular rate & rhythm, No Murmurs, No Rub and No Gallop
Respiratory: Decreased Breath Sounds (at bases, otherwise clear )
Sternum: Stable
Incision: Clean, Dry, Intact and Dressing Intact
Extremities: Other (+trace edema)
Data Reviewed
-
Lab Results: Results Reviewed
Medications: Active Meds Reviewed
Chest X-Ray: Report Reviewed and Image Reviewed
ECG: Report Reviewed and Image Reviewed
[2024-11-23 04:57] LABS: Hematocrit 29.3 % (39.0-52.0); Hemoglobin 9.3 g/dL (13.0-18.0); Mean Corp Hgb Conc. 31.7 g/dL (33.0-37.0); Mean Corpuscular Volume 94.5 fL (80.0-94.0); Platelet Count 309 10^3/uL (130-400); Red Cell Dist. Width 17.2 % (11.5-14.5)
[2024-11-23 05:26] LABS: Blood Urea Nitrogen 33 mg/dl (9-20); Calcium 8.9 mg/dl (8.4-10.2); Carbon Dioxide 38 mmol/L (22-30); Chloride 99 mmol/L (98-107); Estimated Creatinine Clearance 50 ml/min; Glucose 110 mg/dl (70-99); Magnesium 2.1 mg/dl (1.6-2.3); Potassium 3.8 mmol/L (3.5-5.1); Sodium 141 mmol/L (135-145); eGFR 57.65
[2024-11-23] MEDS: ROXICODONE 2.5 MG PO (06:20)
[2024-11-23] MEDS: SYMBICORT 160/4.5 MCG INHALER 2 PUFF INH ×2 (07:47→19:40)
--- NOTE | 2024-11-23 08:00 | PTCARENOTE ---
Patient sitting oob in the chair this morning, medicated for right buttocks pain by prior shift. Patient states pain medication is no longer working for the right buttocks discomfort. Has had this pain since before coming to the hospital according
to his , which she feels might be due from when he fell at home. Will notify attending of continued pain. Waiting for his breakfast, call salazar in reach.
--- NOTE | 2024-11-23 08:04 | PN.DE.MGMTRT ---
Insulin Management
- -
11/23/2024: Diabetes Management Follow up
Patient admitted 10/31 with c/o weakness; NSTEMI, complete heart block. Cardiac cath 11/01 - Severe multivessel CAD.
PMH: HTN, HLD, T2DM and Hypothyroid. Prior to admission was taking Lantus 40 units @ HS, Metformin 1000 mg BID, Januvia 100 mg daily. A1C on admission 9%. Cr 1.7, eGFR 41.78 today.
POD # 15 s/p CABG x 4. Patient is awake alert and oriented, resting in bed, flat affect, able to discuss diabetes care.
S/P 1L thoracentesis, states he feels a lot better. Reports appetite a little better today.
11/23 Glucose stable, one elevation pre dinner, 229. CR 1.3 eGFR 57.65. Will continue 4 units novolog AC, HOLD if patient does not eat meal. Continue lantus 16 units @ HS. Will resume Farxiga 10 mg daily today.
Will cont to follow. Discussed with nurse
Patient's brought in his DexCom G6, explained to pt and that we will assist him in placing the device once he is closer to discharge.
Diabetes History
- -
Type of Diabetes: 2 requiring insulin
Pre-Admission Diabetes Regimen
11/23/24
04:28
Creatinine 1.3
Lab Results
Hemoglobin A1c 9.0 % (4.0-5.6) H 11/01/24 04:18
Insulin Pump Settings
IP Diabetes Regimen
11/22/24 11/22/24 11/22/24
12:42 16:48 22:30
Glucose
POC Glucose 101 H 229 H 152 H
11/23/24
04:28
Glucose 110 H
POC Glucose
Meal type: Dinner
Meal type: Lunch
Meal type: Breakfast
Amount consumed: 75%
Amount consumed: 50%
Amount consumed: 90%
Patient Education
[2024-11-23 08:26] LABS: Glucose - Point of Care 147 mg/dl (70-99)
--- NOTE | 2024-11-23 09:00 | CON.MD ---
Documented by User: Graciela Chester PA-C 11/23/24 19:26
Consultation - Medical
-
Referring Provider:�Dr. Wilks
Chief Complaint:�CABG
�
History of Present Illness:�Patient is a 74 year old male with PMH of ( HTN, NIDDM, double vision, cataracts)who presented to the hospital on 10/31/24 with fatigue, myalgia, syncope, SOB prompting evaluation. Workup suggestive of complete heart block
as well as elevated troponin consistent with acute myocardial infarction. EKG noted inferior wall ST elevation [place]. He was taken to [facility] for coronary angiography showing 100% RCA stenosis and multi vessel coronary artery disease. He had a
temporary pacemaker placed then admitted to ICU.
He was subsequently taken for AICD placement on 11/[address] Bueno and later had coronary artery bypass graft by Dr. Wilks on 11/09 with LVEF about 35% preop. Intraop CHLOE prior to CABG 31% and CHLOE post CABG/on support 40%.
Post op developed sob. X-ray was suggestive of left lower lobe opacity and pulmonary was consulted for further input regarding possible antibiotics. Bedside POCUS on 11/20, showed pulmonary edema, left lobe compressive atelectasis with moderate
left-sided pleural effusion and small right-sided pleural effusion. Patient was with bilateral 2+ pitting edema and very elevated BNP suggestive of volume overload. He underwent IR guided thoracentesis on 11/21, yielding 1 L of serosanguineous
pleural fluid with significant improvement of symptom and post-thoracentesis x-ray showing normal reexpansion of left lung without evidence of pulmonary infiltrate and New partial atelectasis versus pneumonia in right lung base. This is accompanied
by small right pleural effusion. Pulmonary recommended Incentive spirometry, increase activity as tolerated and if patient develops fever, increasing cough or expectoration becomes more purulent, can start antibiotics and deferred further diuresis
to cardiology.
Patient seen in his room, seated in chair on 2 L oxygen. Has essential tremors. Looks frail. Says that he does not feel good. Complaining of feeling tired and gets a headache, dizziness with sob when standing. He reports appetite to be good, moving
his bowels and urinating without issues. He denies chest pain, headache, palpitations, nausea, vomiting, dysuria, abdominal pain. He is complaining of pain in his right buttocks that has been present for the past month. Denied radiation down the
legs, numbness, tingling.
Past Medical History:�HTN, NIDDM , CAD, double vision, cataracts, hypothyroid
Procedure History:�ICD�11/04/2024, CABG x 4 atrial clip-11/09/24
Family History:�Heart disease�all family members, mom and sister�cancer
�
Social History:�
Functional Level Premorbidly:�Independent with all activities�
Functional Level Currently:�(11/23) Seen by PT and OT together for safety as patient may not tolerate separate sessions. Transfers�min assist, ambulated with rolling walker 20 feet x 2 with min assist, seated rest breaks between walks. Grooming�mod
assist-requiring encouragement and assist of 2 for safety and poor endurance, toileting�min assist, toilet transfer�min assist
�
Tobacco: Former smoker, 40 pack/year
Alcohol:�Denies�
Drug use:�Denies�
�
Lives with:�
24-hour assistance available:�
Number of floors:�2
# steps to enter:�1
# steps to second floor:14
Potential First floor set up:�No
Driving:�Yes
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
�
�
Allergies:�
Allergy/AdvReac Type Severity Reaction Status Date / Time
Iodinated Contrast Media Allergy iv contrast Verified 11/01/24 18:18
propranolol Allergy Shortness Verified 11/10/24 16:45
of Breath
rosuvastatin (From Crestor) Allergy Weakness Verified 11/10/24 16:45
�
Review of Systems:�
Constitutional: (x) abNormal _fatigue
Eye: (x) Normal _
Ear/Nose/Throat: (x) Normal _
Respiratory: (x) abNormal _sob,
Cardiovascular: (x) abNormal _dizziness,
Gastrointestinal: (x) Normal _
Genitourinary: (x) Normal _
Musculoskeletal: (x)ab Normal _right buttocks pain
Integumentary: (x) Normal _
Neurologic: (x) abNormal _headache
Psychiatric: (x) Normal _
Endocrine: (x) abNormal _uncontroled DM
Hematologic/Lymphatic: (x) Normal _
Allergic/Immunologic: (x) Normal _
�
Medications:�
Active Current Visit Medication List
Category Date Time Status
Acetaminophen [Tylenol] Med 11/09/24 13:58 Active
650 mg PO Q4HPRN PRN
Amiodarone [Pacerone] Med 11/09/24 16:00 Active
200 mg PO TID
Aspirin Chewable [Low Strength Aspirin] Med 11/10/24 08:00 Active
81 mg PO DAILY
Bisacodyl [Dulcolax] Med 11/09/24 13:58 Active
10 mg RECTAL DAILYPRN PRN
Budesonide/Formoterol 160/4.5 [Symbicort 160/4.5 Mcg Med 11/03/24 10:30 Active
Inhaler]
2 puff INH R BID
Bumetanide [Bumex] Med 11/22/24 09:00 Active
1 mg PO DAILY
Cholecalciferol (Vitamin D3) [VITAMIN D3 ( Med 11/05/24 08:00 Active
cholecalciferol)]
50 mcg PO DAILY
Clopidogrel Bisulfate [Plavix] Med 11/10/24 08:00 Active
75 mg PO DAILY
Cyclobenzaprine HCl [Flexeril] Med 11/09/24 13:58 Active
5 mg PO Q8HPRN PRN
Dapagliflozin [Farxiga] Med 11/23/24 10:00 Active
10 mg PO DAILY
Dextrose 50%-Water [Dextrose 50% Syringe] Med 11/11/24 08:00 Active
12.5 grams IV [id number] PRN
Docusate W/Senna [Senokot-S] Med 11/09/24 20:00 Active
1 tablet PO Q12
Ezetimibe [Zetia] Med 11/02/24 08:00 Active
10 mg PO DAILY
Flush (0.9% Sodium Chloride) [Flush (Nss)] Med 11/09/24 15:00 Active
See Dose Instructions IV PER PROTOCOL
Glucagon [GlucaGen] Med 11/11/24 08:00 Active
1 mg IM PRN PRN
Guaifenesin [Mucinex] Med 11/10/24 08:00 Active
600 mg PO Q12
Insulin Aspart Corrective Mod [Novolog Flexpen-Moderate Med 11/11/24 16:30 Active
Resistance]
See Protocol SC AC
Insulin Aspart Pen [Novolog Flexpen] Med 11/21/24 08:00 Active
4 units SC AC
Insulin Glargine Lantus [Lantus] 16 units Med 11/21/24 22:00 Active
Subcutaneous Insulin Syringe [Syringe-Insulin] 0 unit
SC HS
Ipratropium/Albuterol Sulfate [Duoneb] Med 11/20/24 12:48 Active
3 ml INH R Q4HPRN PRN
Lidocaine [Lidocaine 4% Patch] Med 11/10/24 08:00 Active
1 patch TOPICAL DAILY
Lorazepam [Ativan] Med 11/16/24 14:39 Active
0.5 mg PO Q8HPRN PRN
Magnesium Hydroxide [Milk of Magnesia] Med 11/09/24 13:58 Active
30 ml PO BIDPRN PRN
Magnesium Oxide Med 11/10/24 08:00 Hold
500 mg PO BID
Melatonin Med 11/17/24 22:00 Active
5 mg PO HS
Metoprolol Xl [Toprol Xl] Med 11/23/24 10:00 Active
12.5 mg PO DAILY
Midodrine [ProAmatine] Med 11/18/24 12:00 Active
5 mg PO TID @ 0800,1200,1700
Oxycodone [Roxicodone] Med 11/09/24 13:58 Active
2.5 mg PO Q4HPRN PRN
Pantoprazole [Protonix] Med 11/10/24 08:00 Active
40 mg PO DAILY
Pravastatin Sodium [Pravachol] Med 11/05/24 18:00 Active
40 mg PO QPM
Remove Patch [Remove Lidocaine Patch] Med 11/10/24 20:00 Active
See Dose Instructions REMOVE DAILY@1999
Sertraline HCl [Zoloft] Med 11/21/24 08:00 Active
50 mg PO DAILY
Thyroid [[place] Thyroid] Med 11/17/24 08:00 Active
15 mg PO DAILY
�
Vitals:�
Temp Pulse Resp BP Pulse Ox
97.5 F 80 16 110/69 96
11/23/24 07:27 11/23/24 07:52 11/23/24 07:52 11/23/24 07:22 11/23/24 07:52
Height 5 ft 9 in
Actual Weight 76.3 kg
Body Mass Index (BMI) 24.9
�
Physical Exam:�
General Appearance/Observation: Well-developed, well-nourished individual in no apparent distress, but looks frail, lethargic on 2L oxygen via cannula.�
Pain/Comfort Assessment: Right buttocks
Mood/Affect:tired
�
Integumentary/Operative Site:�Sternal incision, ICD incision with Steri-Strips, petechiae looking rash all over both legs and part of upper extremities
�� Pressure Ulcer Evaluation: absent over heels.�
��
�� Other Type of Wound: absent�
��
�
Eyes: Conjunctiva/Lids: normal���� Pupils: pupils equal round and reactive to light and Accommodation�
Ears/Nose/Throat: oral mucosa moist,� throat clear.������������ Lips/Teeth/Gums: normal�
Neck: No muscle spasm or tenderness�
Cardiovascular: Heart: regular, no murmur�
Pulses: dorsalis pedis 2+ bilaterally�
Respiratory: Respiratory Effort/Chest Expansion: normal������� Auscultation: coarse sounds right lower lobe, diminished BS bilaterally�
Gastrointestinal: abdomen not tender, no distension, normal abdominal bowel sounds
Genitourinary: No [place]�
Extremities:�Edema: right foot 1+, left foot trace�Cyanosis: None�Trophic�changes: None
�
Neurology Exam:
Orientation: Alert, Oriented to self, Time, Place�
Memory: Intact for immediate medical concerns
Comprehension: Intact
Two step command: Intact
Naming: Intact
Cranial Nerves:
�� CNII:�Pupillary light reflex: Intact����Visual Field: NT
�� CN III, IV, : Extraocular muscles: Intact�
�� CN V:�Facial Sensation�at�Forehead: Intact,�Maxilla: Intact,�Mandible: Intact
�� CN VII:�Facial movement: Symmetric
�� CN VIII:�Hearing: a little [place]
�� CN IX/X:�Speech & swallow: Normal,�Position of Uvula: Midline
�� CN XI:�Shoulder shrug: Symmetric
�� CN XII:�Tongue protrusion: Midline
Sensory:
�� Light touch: Intact in bilateral upper and lower extremities
��
�
Reflexes:
�� Biceps: 1+ bilaterally
�� Brachioradialis: absent bilaterally
�� Triceps: 1+ bilaterally
�� Patellar: 2+ bilaterally
�� Achilles: absent bilaterally
�� Babinski: Down going right, no response on left
�� Clonus: None
�� Josesito: Negative bilaterally�
Cerebellar: Dysmetria/Ataxia: None�
Musculoskeletal:
Motor: (Manual muscle scale 0-5)�
Muscle SA EF WE EE FF FA HF KE DF EHL PF
Right� 3+ 3+ 4 5 5 5 5 5
Left 3+ 3+ 4 5 5 5 5 5
�
Tone: Normal in all extremities�
Range of Motion: Passively within normal limits. Deferred bilateral upper extremities due to recent surgery
�
Lab Results
Labs
WBC 11.2 10^3/uL (4.8-10.8) H 11/23/24 04:28
RBC 3.10 10^6/uL (4.70-6.10) L 11/23/24 04:28
Hgb 9.3 g/dL (13.0-18.0) L 11/23/24 04:28
Hct 29.3 % (39.0-52.0) L 11/23/24 04:28
MCV 94.5 fL (80.0-94.0) H 11/23/24 04:28
MCH 30.0 pg (27.0-31.0) 11/23/24 04:28
MCHC 31.7 g/dL (33.0-37.0) L 11/23/24 04:28
RDW 17.2 % (11.5-14.5) H 11/23/24 04:28
Plt Count 309 10^3/uL (130-400) 11/23/24 04:28
MPV 9.8 fL (7.4-10.4) 11/23/24 04:28
Abs Immat Gran (auto) 0.1 10^3/uL (0-0.05) H 10/31/24 21:54
Absolute Neuts (auto) 18.2 10^3/uL (1.4-6.5) H 10/31/24 21:54
Absolute Lymphs (auto) 1.8 10^3/uL (1.2-3.4) 10/31/24 21:54
Absolute Monos (auto) 2.3 10^3/uL (0.1-0.6) H 10/31/24 21:54
Absolute Eos (auto) 0.0 10^3/uL (0-0.7) 10/31/24 21:54
Absolute Basos (auto) 0.1 10^3/uL (0-0.2) 10/31/24 21:54
CBC Comment Cancelled 11/01/24 00:51
Immature Gran % 0.5 % (0-0.5) 10/31/24 21:54
Neutrophils % 81.1 % (42.2-75.2) H 10/31/24 21:54
Lymphocytes % 7.9 % (20.5-51.1) L 10/31/24 21:54
Monocytes % 10.1 % (1.7-9.3) H 10/31/24 21:54
Eosinophils % 0.1 % (0-6) 10/31/24 21:54
Basophils % 0.3 % (0-2) 10/31/24 21:54
Nucleated RBC % 0 % (-) 10/31/24 21:54
PT 21.3 Sec (11.4-14.6) H 11/09/24 14:28
INR 1.79 11/09/24 14:28
APTT 33.9 Sec (23.4-35.0) 11/09/24 14:28
pH 7.38 (7.35-7.45) 11/20/24 06:49
pCO2 57 mmHg (35-48) H 11/20/24 06:49
pO2 99 mmHg (83-108) 11/20/24 06:49
HCO3 33.7 mmol/L (21-28) H 11/20/24 06:49
Base Excess 7.3 mmol/L 11/20/24 06:49
ABG O2 Sat (Measured) 99.5 % (94-98) H 11/20/24 06:49
POC ABG O2 Sat (Calc) 99.2 % (94-98) H 11/09/24 18:39
Mixed VBG O2 Saturation 59.0 % 11/11/24 02:57
Sodium 135 mMOL/L (136-145) L 11/09/24 14:28
Potassium 4.7 mMOL/L (3.5-5.1) 11/10/24 21:39
O2 Delivery Level 11/20/24 06:49
Sodium 141 mmol/L (135-145) 11/23/24 04:28
Potassium 3.8 mmol/L (3.5-5.1) 11/23/24 04:28
Chloride 99 mmol/L (98-107) 11/23/24 04:28
Carbon Dioxide 38 mmol/L (22-30) H 11/23/24 04:28
BUN 33 mg/dl (9-20) H 11/23/24 04:28
Creatinine 1.3 mg/dL (0.7-1.3) 11/23/24 04:28
Estimated Creat Clear 50 ml/min 11/23/24 04:28
eGFR 57.65 11/23/24 04:28
Glucose 110 mg/dl (70-99) H 11/23/24 04:28
Hemoglobin A1c 9.0 % (4.0-5.6) H 11/01/24 04:18
Calcium 8.9 mg/dl (8.4-10.2) 11/23/24 04:28
Ionized Calcium 1.04 mMOL/L (1.15-1.33) L 11/22/24 04:03
Phosphorus 4.1 mg/dl (2.5-4.5) 11/02/24 01:57
Magnesium 2.1 mg/dl (1.6-2.3) 11/23/24 04:28
Total Bilirubin 0.5 mg/dl (0.2-1.3) 11/09/24 04:30
Direct Bilirubin 0.4 mg/dl (0.0-0.4) 11/03/24 04:00
AST 25 U/L (17-59) 11/21/24 02:43
ALT 38 U/L (0-50) 11/21/24 02:43
Alkaline Phosphatase 80 U/L (38-126) 11/09/24 04:30
Creatine Kinase 293 U/L (55-170) H 11/01/24 04:18
Troponin I Cancelled 11/01/24 16:30
Mzw-C-Lfcosntyots Pept 25399 pg/ml 11/19/24 22:11
Total Protein 6.0 g/dl (6.3-8.2) L 11/09/24 04:30
Albumin 3.1 g/dl (3.5-5.0) L 11/09/24 04:30
Triglycerides 94 mg/dl (10-149) 11/01/24 04:18
Total Cholesterol 131 mg/dl (50-199) 11/01/24 04:18
LDL Cholesterol, Calc 80 mg/dl 11/01/24 04:18
VLDL Cholesterol, Calc 18 mg/dl (0-30) 11/01/24 04:18
HDL Cholesterol 33 mg/dl 11/01/24 04:18
Vitamin B12 490 pg/ml (239-931) 11/03/24 04:00
Vitamin D 25-Hydroxy 24.4 ng/mL (30-80) L 11/03/24 04:00
Procalcitonin 0.05 ng/ml (0.0-0.25) 11/20/24 08:03
TSH 3.13 uIU/ml (0.47-4.68) 10/31/24 21:54
TSH (Reflex) 3.88 uIU/ml (0.47-4.68) 11/05/24 03:28
Free T4 1.36 ng/dl (0.78-2.19) 11/17/24 03:01
Urine Color Yellow 11/19/24 17:42
Urine Clarity Clear (Clear) 11/19/24 17:42
Urine pH 5.0 (5.0-9.0) 11/19/24 17:42
Ur Specific Richards 1.025 (<1.030) 11/19/24 17:42
Urine Ketones Negative (Negative) 11/19/24 17:42
Ur Occult Blood Reflex 2+ (Negative) A 11/19/24 17:42
Urine Nitrite (Reflex) Negative (Negative) 11/19/24 17:42
Urine Bilirubin Negative (Negative) 11/19/24 17:42
Urine Urobilinogen 1+ (Neg - 1+) 11/19/24 17:42
Leukocyte Esterase Rfl 1+ (Negative) A 11/19/24 17:42
Urine RBC 11-15 /HPF (0-2) A 11/19/24 17:42
Urine WBC (Reflex) 30-40 /HPF (0-5) A 11/19/24 17:42
Ur Squamous Epith Cells 0-2 /LPF (Few) 11/19/24 17:42
Urine Bacteria (Reflex) Few (Negative) A 11/19/24 17:42
Hyaline Casts 0-2 /LPF (0-2) 11/19/24 17:42
Urine Glucose 3+ (Negative) A 11/19/24 17:42
Urine Albumin (Reflex) 3+ (Neg - Trace) A 11/19/24 17:42
Hepatitis C Antibody Negative (Negative) 11/01/24 04:18
Specimen Type Arterial 11/09/24 18:39
POC ABG Comment Warm 11/09/24 12:26
POC pH 7.41 (7.35-7.45) 11/09/24 18:39
POC Base Excess -0.4 mmol/L 11/09/24 18:39
POC pO2 140 mmHg (83-108) H 11/09/24 18:39
POC pCO2 39 mmHg (35-48) 11/09/24 18:39
POC HCO3 24 mmol/L (21-28) 11/09/24 18:39
POC Glucose 147 mg/dl (70-99) H 11/23/24 08:24
POC Glucose 86 mg/dl (70-99) 11/09/24 18:39
POC Sodium 146 mmol/L (136-145) H 11/09/24 18:39
POC Potassium 3.6 mmol/L (3.5-5.1) 11/09/24 18:39
POC Chloride 111 mmol/L (96-111) 11/09/24 18:39
POC BUN 14 mg/dl (3-120) 11/09/24 18:39
POC Ionized Calcium 1.13 mmol/L (1.15-1.33) L 11/09/24 18:39
POC Lactate 1.62 mmol/L (0.36-0.75) H 11/09/24 18:39
POC Creatinine 0.83 mg/dl (0.3-1.0) 11/09/24 18:39
POC ACT+ 123 Seconds (82-134) 11/09/24 13:12
POC Hemoglobin Calc 6.7 11/09/24 18:39
POC Hematocrit 20 % PCV (42-52) L 11/09/24 18:39
POC Hemodilution No 11/09/24 18:39
Blood Type AB NEG 11/08/24 03:24
Blood Type Confirm AB NEG 11/08/24 04:20
Antibody Screen Negative (Negative) 11/08/24 03:24
Crossmatch IS Only See Detail 11/08/24 03:24
�
Diagnostic Results:�as per HPI�
�
Assessment: 74 year old male with multi vessel CAD, s/p CABG and ICD placement
�
Plan�
PM&R�PT/OT to increase independence with ADLs, improve balance, coordination, endurance, strength, mobility, community reintegration, decreased burden of care on others and family education.�
Debility: PT/OT
STEMI S/P CABG x4, atria clip:by Efe Puga on 11/09/24 ,Sternal precautions.� Aspirin 81 mg daily, statin, Plavix 75 mg daily, amiodarone 200 mg 3 times daily, BP control.� Monitor incision, pain control.�
�Coronary artery disease�:
- recent inferior STEMI, found to have multivessel disease:
- now s/p CABG
- continue ASA, statin, Zetia, had possible weakness with Crestor, on Pravastatin.
HTN: continue medications, monitor closely�
Orthostasis: post op- on Midodrine 5 mg 3 times daily at 0800, 1200, 1700.
HLD: Zetia 10 mg daily, pravastatin 40 mg every afternoon
Symptomatic complete heart block
- S/p bi-v ICD 11/04/2024
Ventricular fibrillation, about 30 minutes after ICD placement
CHF: LVEF about 35% preop
- Intraop CHLOE prior to CABG LVEF 31%
- Intraop CHLOE post CABG/on support LVEF 40%
- most recent EF 25%. Cardio recommending- reattempting Beta Ulises, and Farxiga for improvement of EF and consideration of ARB if tolerate. Started on Farxiga 10 mg daily, metoprolol XL 12.5 daily, Bumex 1 mg daily
Pulmonary edema/sob: Symbicort 160/4.5 mcg 2 puff twice a day, DuoNeb 3 mL every 4 hours as needed. Mucinex 60 mg p.o. Q12
DM II: Longstanding, uncontrolled, Hgba1c 9.0%: Accu-Cheks, ssi-moderate resistance, glargine 16 units at bedtime, aspart 4 units SC AC (home meds-Lantus 40 units at bedtime, metformin 1000 twice daily, Januvia 100 daily
Hypothyroidism: [place] Thyroid 15 mg daily�
Bilateral lower extremity edema: Consider TEDS as able. Increased fluid will cause more force requirement to move lower extremities which requires more strength and increases fatigue.�
Anemia: post op and likely multifactorial.� Continue to monitor.�
Psych/anxiety/depression: Lorazepam 0.5 Q8 as needed. Zoloft 50 mg daily monitor mood, adjust medications as needed.�
Insomnia: Melatonin bedtime
Skin: monitor for pressure sores/rashes/lesions.�
Pain: acetaminophen as needed. Flexeril 5 mg Q8 as needed, oxycodone 2.5 every 4 as needed, lidocaine patch
Bowel: Colace and Senna, PRN bisacodyl.�
Bladder: Time void, PVRs, PRN straight cath.�
GI Prophylaxis: Pantoprazole�
DVT Prophylaxis: Please comment on chemical prophylaxis restrictions if any
Pulmonary: Incentive spirometry�
Safety: Continue to reinforce assistance with all transfers.�
Code Status:� Full code
Dispo�(date/plan/equipment needs): Home with family care.� Social history reviewed.�
�
Functional and Medical Goals:�Modified Independent with ADL�s, ambulation, transfers�
�
Discharge Destination:�Patient currently not medically stable for acute or subacute rehab as he is symptomatic with dizziness, headache and sob upon standing. Per therapy notes not able to do PT and OT in 2 separate sessions. Would recommend
checking orthostatic vitals, placing TEDS on as he did not have them on. If orthostatic adjusting Midodrine dose and /or blood pressure medications as necessary. Would appreciate pulmonary and cardiology inputs related to above symptoms, in relation
to most recent chest xray findings. May be a candidate for acute inpatient rehabilitation if his endurance, and symptoms improve in order to tolerate 3 hour of intense daily therapy once medically stable.
�
Summary of recommendations:
DVT Prophylaxis: Please comment on chemical prophylaxis restrictions if any
GI Prophylaxis:could add Pantoprazole�to regiment
Pulmonary: Incentive spirometry�
Thank you for allowing me to care for your patient. Please contact me with any questions or concerns.

Documented by User: Lenny Crouch MD 11/23/24 22:25
Consultation - Medical
-
Referring Provider:�Dr. Wilks
Chief Complaint:�CABG
�
History of Present Illness:�Patient is a 74 year old male with PMH of (HTN, NIDDM, double vision, cataracts)who presented to the hospital on 10/31/24 with fatigue, myalgia, syncope, SOB prompting evaluation. Workup suggestive of complete heart block
as well as elevated troponin consistent with acute myocardial infarction. EKG noted inferior wall ST elevation [place]. He was taken to [facility] for coronary angiography showing 100% RCA stenosis and multi vessel coronary artery disease. He had a
temporary pacemaker placed then admitted to ICU.
He was subsequently taken for AICD placement on 11/[address] Bueno and later had coronary artery bypass graft by Dr. Wilks on 11/09 with LVEF about 35% preop. Intraop CHLOE prior to CABG 31% and CHLOE post CABG/on support 40%.
Post op developed sob. X-ray was suggestive of left lower lobe opacity and pulmonary was consulted for further input regarding possible antibiotics. Bedside POCUS on 11/20, showed pulmonary edema, left lobe compressive atelectasis with moderate
left-sided pleural effusion and small right-sided pleural effusion. Patient was with bilateral 2+ pitting edema and very elevated BNP suggestive of volume overload. He underwent IR guided thoracentesis on 11/21, yielding 1 L of serosanguineous
pleural fluid with significant improvement of symptom and post-thoracentesis x-ray showing normal reexpansion of left lung without evidence of pulmonary infiltrate and New partial atelectasis versus pneumonia in right lung base. This is accompanied
by small right pleural effusion. Pulmonary recommended Incentive spirometry, increase activity as tolerated and if patient develops fever, increasing cough or expectoration becomes more purulent, can start antibiotics and deferred further diuresis
to cardiology.
Patient seen in his room, seated in chair on 2 L oxygen. Has essential tremors. Says that he does not feel good. Complaining of feeling tired and gets a headache, dizziness with sob when standing yesterday. Feeling better today. He reports
appetite to be good, moving his bowels and urinating without issues. He denies chest pain, headache, palpitations, nausea, vomiting, dysuria, abdominal pain. He is complaining of pain in his right buttocks that has been present for the past month.
Denied radiation down the legs, numbness, tingling.
Past Medical History:�HTN, NIDDM , CAD, double vision, cataracts, hypothyroid
Procedure History:�ICD�11/04/2024, CABG x 4 atrial clip-11/09/24
Family History:�Heart disease�all family members, mom and sister�cancer
�
Social History:�
Functional Level Premorbidly:�Independent with all activities�
Functional Level Currently:�(11/23) Seen by PT and OT together for safety as patient may not tolerate separate sessions. Transfers�min assist, ambulated with rolling walker 20 feet x 2 with min assist, seated rest breaks between walks. Grooming�mod
assist-requiring encouragement and assist of 2 for safety and poor endurance, toileting�min assist, toilet transfer�min assist
�
Tobacco: Former smoker, 40 pack/year
Alcohol:�Denies�
Drug use:�Denies�
�
Lives with:�
24-hour assistance available:�Yes
Number of floors:�2
# steps to enter:�1
# steps to second floor:14
Potential First floor set up:�No
Driving:�Yes
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
�
�
Allergies:�
Allergy/AdvReac Type Severity Reaction Status Date / Time
Iodinated Contrast Media Allergy iv contrast Verified 11/01/24 18:18
propranolol Allergy Shortness Verified 11/10/24 16:45
of Breath
rosuvastatin (From Crestor) Allergy Weakness Verified 11/10/24 16:45
�
Review of Systems:�
Constitutional: (x) abNormal _fatigue
Eye: (x) Normal _
Ear/Nose/Throat: (x) Normal _
Respiratory: (x) abNormal _sob,
Cardiovascular: (x) abNormal _dizziness,
Gastrointestinal: (x) Normal _
Genitourinary: (x) Normal _
Musculoskeletal: (x)ab Normal _right buttocks pain
Integumentary: (x) Normal _
Neurologic: (x) abNormal _headache
Psychiatric: (x) Normal _
Endocrine: (x) abNormal _uncontroled DM
Hematologic/Lymphatic: (x) Normal _
Allergic/Immunologic: (x) Normal _
�
Medications:�
Active Current Visit Medication List
Category Date Time Status
Acetaminophen [Tylenol] Med 11/09/24 13:58 Active
650 mg PO Q4HPRN PRN
Amiodarone [Pacerone] Med 11/09/24 16:00 Active
200 mg PO TID
Aspirin Chewable [Low Strength Aspirin] Med 11/10/24 08:00 Active
81 mg PO DAILY
Bisacodyl [Dulcolax] Med 11/09/24 13:58 Active
10 mg RECTAL DAILYPRN PRN
Budesonide/Formoterol 160/4.5 [Symbicort 160/4.5 Mcg Med 11/03/24 10:30 Active
Inhaler]
2 puff INH R BID
Bumetanide [Bumex] Med 11/22/24 09:00 Active
1 mg PO DAILY
Cholecalciferol (Vitamin D3) [VITAMIN D3 ( Med 11/05/24 08:00 Active
cholecalciferol)]
50 mcg PO DAILY
Clopidogrel Bisulfate [Plavix] Med 11/10/24 08:00 Active
75 mg PO DAILY
Cyclobenzaprine HCl [Flexeril] Med 11/09/24 13:58 Active
5 mg PO Q8HPRN PRN
Dapagliflozin [Farxiga] Med 11/23/24 10:00 Active
10 mg PO DAILY
Dextrose 50%-Water [Dextrose 50% Syringe] Med 11/11/24 08:00 Active
12.5 grams IV [id number] PRN
Docusate W/Senna [Senokot-S] Med 11/09/24 20:00 Active
1 tablet PO Q12
Ezetimibe [Zetia] Med 11/02/24 08:00 Active
10 mg PO DAILY
Flush (0.9% Sodium Chloride) [Flush (Nss)] Med 11/09/24 15:00 Active
See Dose Instructions IV PER PROTOCOL
Glucagon [GlucaGen] Med 11/11/24 08:00 Active
1 mg IM PRN PRN
Guaifenesin [Mucinex] Med 11/10/24 08:00 Active
600 mg PO Q12
Insulin Aspart Corrective Mod [Novolog Flexpen-Moderate Med 11/11/24 16:30 Active
Resistance]
See Protocol SC AC
Insulin Aspart Pen [Novolog Flexpen] Med 11/21/24 08:00 Active
4 units SC AC
Insulin Glargine Lantus [Lantus] 16 units Med 11/21/24 22:00 Active
Subcutaneous Insulin Syringe [Syringe-Insulin] 0 unit
SC HS
Ipratropium/Albuterol Sulfate [Duoneb] Med 11/20/24 12:48 Active
3 ml INH R Q4HPRN PRN
Lidocaine [Lidocaine 4% Patch] Med 11/10/24 08:00 Active
1 patch TOPICAL DAILY
Lorazepam [Ativan] Med 11/16/24 14:39 Active
0.5 mg PO Q8HPRN PRN
Magnesium Hydroxide [Milk of Magnesia] Med 11/09/24 13:58 Active
30 ml PO BIDPRN PRN
Magnesium Oxide Med 11/10/24 08:00 Hold
500 mg PO BID
Melatonin Med 11/17/24 22:00 Active
5 mg PO HS
Metoprolol Xl [Toprol Xl] Med 11/23/24 10:00 Active
12.5 mg PO DAILY
Midodrine [ProAmatine] Med 11/18/24 12:00 Active
5 mg PO TID @ 0800,1200,1700
Oxycodone [Roxicodone] Med 11/09/24 13:58 Active
2.5 mg PO Q4HPRN PRN
Pantoprazole [Protonix] Med 11/10/24 08:00 Active
40 mg PO DAILY
Pravastatin Sodium [Pravachol] Med 11/05/24 18:00 Active
40 mg PO QPM
Remove Patch [Remove Lidocaine Patch] Med 11/10/24 20:00 Active
See Dose Instructions REMOVE DAILY@1999
Sertraline HCl [Zoloft] Med 11/21/24 08:00 Active
50 mg PO DAILY
Thyroid [[place] Thyroid] Med 11/17/24 08:00 Active
15 mg PO DAILY
�
Vitals:�
Temp Pulse Resp BP Pulse Ox
97.5 F 80 16 110/69 96
11/23/24 07:27 11/23/24 07:52 11/23/24 07:52 11/23/24 07:22 11/23/24 07:52
Height 5 ft 9 in
Actual Weight 76.3 kg
Body Mass Index (BMI) 24.9
�
Physical Exam:�
General Appearance/Observation: Well-developed, well-nourished individual in no apparent distress, but looks frail, lethargic on 2L oxygen via cannula.�
Pain/Comfort Assessment: Right buttocks for last month
Mood/Affect:tired
�
Integumentary/Operative Site:�Sternal incision, ICD incision with Steri-Strips, Right leg incision below knee with glue, clean dry and intact, no erythema. Petechiae looking rash all over both legs and part of upper extremities
�� Pressure Ulcer Evaluation: absent over heels.�
��
Eyes: Conjunctiva/Lids: normal���� Pupils: pupils equal round and reactive to light and Accommodation�
Ears/Nose/Throat: oral mucosa moist,� throat clear.������������ Lips/Teeth/Gums: normal�
Neck: No muscle spasm or tenderness�
Cardiovascular: Heart: regular, no murmur�
Pulses: dorsalis pedis 2+ bilaterally�
Respiratory: Respiratory Effort/Chest Expansion: normal������� Auscultation: coarse sounds right lower lobe, diminished BS bilaterally�
Gastrointestinal: abdomen not tender, no distension, normal abdominal bowel sounds
Genitourinary: No [place]�
Extremities:�Edema: right foot 1+, left foot trace�Cyanosis: None�Trophic�changes: None
�
Neurology Exam:
Orientation: Alert, Oriented to self, Time, Place�
Memory: Intact for immediate medical concerns
Comprehension: Intact
Two step command: Intact
Naming: Intact
Cranial Nerves:
�� CNII:�Pupillary light reflex: Intact����Visual Field: NT
�� CN III, IV, : Extraocular muscles: Intact�
�� CN V:�Facial Sensation�at�Forehead: Intact,�Maxilla: Intact,�Mandible: Intact
�� CN VII:�Facial movement: Symmetric
�� CN VIII:�Hearing: a little [place]
�� CN IX/X:�Speech & swallow: Normal,�Position of Uvula: Midline
�� CN XI:�Shoulder shrug: Symmetric
�� CN XII:�Tongue protrusion: Midline
Sensory:
�� Light touch: Intact in bilateral upper and lower extremities
��
�
Reflexes:
�� Biceps: 2+ bilaterally
�� Brachioradialis: 2+ bilaterally
�� Triceps: 2+ bilaterally
�� Patellar: 2+ bilaterally
�� Achilles: absent bilaterally
�� Babinski: Down going right, no response on left
�� Clonus: None
�� Josesito: Negative bilaterally�
Cerebellar: Dysmetria/Ataxia: None�
Musculoskeletal: Motor: (Manual muscle scale 0-5)�
Muscle SA EF WE EE FF FA HF KE DF EHL PF
Right� >3+ >3+ 4 5 5 5 5
Left >3+ >3+ 4 5 5 5 5
�
Tone: Normal in all extremities�
Range of Motion: Passively within normal limits. Deferred bilateral upper extremities due to recent surgery
�
Lab Results
Labs
WBC 11.2 10^3/uL (4.8-10.8) H 11/23/24 04:28
RBC 3.10 10^6/uL (4.70-6.10) L 11/23/24 04:28
Hgb 9.3 g/dL (13.0-18.0) L 11/23/24 04:28
Hct 29.3 % (39.0-52.0) L 11/23/24 04:28
MCV 94.5 fL (80.0-94.0) H 11/23/24 04:28
MCH 30.0 pg (27.0-31.0) 11/23/24 04:28
MCHC 31.7 g/dL (33.0-37.0) L 11/23/24 04:28
RDW 17.2 % (11.5-14.5) H 11/23/24 04:28
Plt Count 309 10^3/uL (130-400) 11/23/24 04:28
MPV 9.8 fL (7.4-10.4) 11/23/24 04:28
Abs Immat Gran (auto) 0.1 10^3/uL (0-0.05) H 10/31/24 21:54
Absolute Neuts (auto) 18.2 10^3/uL (1.4-6.5) H 10/31/24 21:54
Absolute Lymphs (auto) 1.8 10^3/uL (1.2-3.4) 10/31/24 21:54
Absolute Monos (auto) 2.3 10^3/uL (0.1-0.6) H 10/31/24 21:54
Absolute Eos (auto) 0.0 10^3/uL (0-0.7) 10/31/24 21:54
Absolute Basos (auto) 0.1 10^3/uL (0-0.2) 10/31/24 21:54
CBC Comment Cancelled 11/01/24 00:51
Immature Gran % 0.5 % (0-0.5) 10/31/24 21:54
Neutrophils % 81.1 % (42.2-75.2) H 10/31/24 21:54
Lymphocytes % 7.9 % (20.5-51.1) L 10/31/24 21:54
Monocytes % 10.1 % (1.7-9.3) H 10/31/24 21:54
Eosinophils % 0.1 % (0-6) 10/31/24 21:54
Basophils % 0.3 % (0-2) 10/31/24 21:54
Nucleated RBC % 0 % (-) 10/31/24 21:54
PT 21.3 Sec (11.4-14.6) H 11/09/24 14:28
INR 1.79 11/09/24 14:28
APTT 33.9 Sec (23.4-35.0) 11/09/24 14:28
pH 7.38 (7.35-7.45) 11/20/24 06:49
pCO2 57 mmHg (35-48) H 11/20/24 06:49
pO2 99 mmHg (83-108) 11/20/24 06:49
HCO3 33.7 mmol/L (21-28) H 11/20/24 06:49
Base Excess 7.3 mmol/L 11/20/24 06:49
ABG O2 Sat (Measured) 99.5 % (94-98) H 11/20/24 06:49
POC ABG O2 Sat (Calc) 99.2 % (94-98) H 11/09/24 18:39
Mixed VBG O2 Saturation 59.0 % 11/11/24 02:57
Sodium 135 mMOL/L (136-145) L 11/09/24 14:28
Potassium 4.7 mMOL/L (3.5-5.1) 11/10/24 21:39
O2 Delivery Level 11/20/24 06:49
Sodium 141 mmol/L (135-145) 11/23/24 04:28
Potassium 3.8 mmol/L (3.5-5.1) 11/23/24 04:28
Chloride 99 mmol/L (98-107) 11/23/24 04:28
Carbon Dioxide 38 mmol/L (22-30) H 11/23/24 04:28
BUN 33 mg/dl (9-20) H 11/23/24 04:28
Creatinine 1.3 mg/dL (0.7-1.3) 11/23/24 04:28
Estimated Creat Clear 50 ml/min 11/23/24 04:28
eGFR 57.65 11/23/24 04:28
Glucose 110 mg/dl (70-99) H 11/23/24 04:28
Hemoglobin A1c 9.0 % (4.0-5.6) H 11/01/24 04:18
Calcium 8.9 mg/dl (8.4-10.2) 11/23/24 04:28
Ionized Calcium 1.04 mMOL/L (1.15-1.33) L 11/22/24 04:03
Phosphorus 4.1 mg/dl (2.5-4.5) 11/02/24 01:57
Magnesium 2.1 mg/dl (1.6-2.3) 11/23/24 04:28
Total Bilirubin 0.5 mg/dl (0.2-1.3) 11/09/24 04:30
Direct Bilirubin 0.4 mg/dl (0.0-0.4) 11/03/24 04:00
AST 25 U/L (17-59) 11/21/24 02:43
ALT 38 U/L (0-50) 11/21/24 02:43
Alkaline Phosphatase 80 U/L (38-126) 11/09/24 04:30
Creatine Kinase 293 U/L (55-170) H 11/01/24 04:18
Troponin I Cancelled 11/01/24 16:30
Mat-J-Zuybiblhkvf Pept 06804 pg/ml 11/19/24 22:11
Total Protein 6.0 g/dl (6.3-8.2) L 11/09/24 04:30
Albumin 3.1 g/dl (3.5-5.0) L 11/09/24 04:30
Triglycerides 94 mg/dl (10-149) 11/01/24 04:18
Total Cholesterol 131 mg/dl (50-199) 11/01/24 04:18
LDL Cholesterol, Calc 80 mg/dl 11/01/24 04:18
VLDL Cholesterol, Calc 18 mg/dl (0-30) 11/01/24 04:18
HDL Cholesterol 33 mg/dl 11/01/24 04:18
Vitamin B12 490 pg/ml (239-931) 11/03/24 04:00
Vitamin D 25-Hydroxy 24.4 ng/mL (30-80) L 11/03/24 04:00
Procalcitonin 0.05 ng/ml (0.0-0.25) 11/20/24 08:03
TSH 3.13 uIU/ml (0.47-4.68) 10/31/24 21:54
TSH (Reflex) 3.88 uIU/ml (0.47-4.68) 11/05/24 03:28
Free T4 1.36 ng/dl (0.78-2.19) 11/17/24 03:01
Urine Color Yellow 11/19/24 17:42
Urine Clarity Clear (Clear) 11/19/24 17:42
Urine pH 5.0 (5.0-9.0) 11/19/24 17:42
Ur Specific Richards 1.025 (<1.030) 11/19/24 17:42
Urine Ketones Negative (Negative) 11/19/24 17:42
Ur Occult Blood Reflex 2+ (Negative) A 11/19/24 17:42
Urine Nitrite (Reflex) Negative (Negative) 11/19/24 17:42
Urine Bilirubin Negative (Negative) 11/19/24 17:42
Urine Urobilinogen 1+ (Neg - 1+) 11/19/24 17:42
Leukocyte Esterase Rfl 1+ (Negative) A 11/19/24 17:42
Urine RBC 11-15 /HPF (0-2) A 11/19/24 17:42
Urine WBC (Reflex) 30-40 /HPF (0-5) A 11/19/24 17:42
Ur Squamous Epith Cells 0-2 /LPF (Few) 11/19/24 17:42
Urine Bacteria (Reflex) Few (Negative) A 11/19/24 17:42
Hyaline Casts 0-2 /LPF (0-2) 11/19/24 17:42
Urine Glucose 3+ (Negative) A 11/19/24 17:42
Urine Albumin (Reflex) 3+ (Neg - Trace) A 11/19/24 17:42
Hepatitis C Antibody Negative (Negative) 11/01/24 04:18
Specimen Type Arterial 11/09/24 18:39
POC ABG Comment Warm 11/09/24 12:26
POC pH 7.41 (7.35-7.45) 11/09/24 18:39
POC Base Excess -0.4 mmol/L 11/09/24 18:39
POC pO2 140 mmHg (83-108) H 11/09/24 18:39
POC pCO2 39 mmHg (35-48) 11/09/24 18:39
POC HCO3 24 mmol/L (21-28) 11/09/24 18:39
POC Glucose 147 mg/dl (70-99) H 11/23/24 08:24
POC Glucose 86 mg/dl (70-99) 11/09/24 18:39
POC Sodium 146 mmol/L (136-145) H 11/09/24 18:39
POC Potassium 3.6 mmol/L (3.5-5.1) 11/09/24 18:39
POC Chloride 111 mmol/L (96-111) 11/09/24 18:39
POC BUN 14 mg/dl (3-120) 11/09/24 18:39
POC Ionized Calcium 1.13 mmol/L (1.15-1.33) L 11/09/24 18:39
POC Lactate 1.62 mmol/L (0.36-0.75) H 11/09/24 18:39
POC Creatinine 0.83 mg/dl (0.3-1.0) 11/09/24 18:39
POC ACT+ 123 Seconds (82-134) 11/09/24 13:12
POC Hemoglobin Calc 6.7 11/09/24 18:39
POC Hematocrit 20 % PCV (42-52) L 11/09/24 18:39
POC Hemodilution No 11/09/24 18:39
Blood Type AB NEG 11/08/24 03:24
Blood Type Confirm AB NEG 11/08/24 04:20
Antibody Screen Negative (Negative) 11/08/24 03:24
Crossmatch IS Only See Detail 11/08/24 03:24
�
Diagnostic Results:�as per HPI�
�
Assessment: 74 year old male with multi vessel CAD, s/p CABG and ICD placement
�
Plan�
PM&R�PT/OT to increase independence with ADLs, improve balance, coordination, endurance, strength, mobility, community reintegration, decreased burden of care on others and family education.�
Debility: PT/OT
STEMI S/P CABG x4, atria clip:by Efe Puga on 11/09/24 ,Sternal precautions.� Aspirin 81 mg daily, statin, Plavix 75 mg daily, amiodarone 200 mg 3 times daily, BP control.� Monitor incision, pain control.�
�Coronary artery disease�:
- recent inferior STEMI, found to have multivessel disease:
- Zetia, had possible weakness with Crestor, on Pravastatin.
HTN: bumetanide, metoprolol for cardiac concerns. Midodrine for recent symptomatic orthostasis. Monitor closely�
-Orthostasis: post op- on Midodrine 5 mg 3 times daily at 0800, 1200, 1700.
HLD: Zetia 10 mg daily, pravastatin 40 mg every afternoon
Symptomatic complete heart block
- S/p bi-ventricular ICD 11/04/2024
-Ventricular fibrillation, about 30 minutes after ICD placement
CHF: LVEF about 35% preop
- Intraop CHLOE prior to CABG LVEF 31%
- Intraop CHLOE post CABG/on support LVEF 40%
- most recent EF 25%. Cardio recommending- reattempting Beta Ulises, and Farxiga for improvement of EF and consideration of ARB if tolerate. Started on Farxiga 10 mg daily, metoprolol XL 12.5 daily, Bumex 1 mg daily
Pulmonary edema/sob: Symbicort 160/4.5 mcg 2 puff twice a day, DuoNeb 3 mL every 4 hours as needed. Mucinex 60 mg p.o. Q12
DM II: Longstanding, uncontrolled, Hgba1c 9.0%: Accu-Cheks, ssi-moderate resistance, glargine 16 units at bedtime, aspart 4 units SC AC (home meds-Lantus 40 units at bedtime, metformin 1000 twice daily, Januvia 100 daily
Hypothyroidism: [place] Thyroid 15 mg daily�
Bilateral lower extremity edema: Consider TEDS as able. Increased fluid will cause more force requirement to move lower extremities which requires more strength and increases fatigue.�
Anemia: post op and likely multifactorial.� Continue to monitor.�
Psych/anxiety/depression: Lorazepam 0.5 Q8 as needed. Zoloft 50 mg daily monitor mood, adjust medications as needed.�
Insomnia: Melatonin bedtime
Skin: monitor for pressure sores/rashes/lesions.�
Pain: acetaminophen as needed. Flexeril 5 mg Q8 as needed, oxycodone 2.5 every 4 as needed, lidocaine patch
Bowel: Colace and Senna, PRN bisacodyl.�
Bladder: Time void, PVRs, PRN straight cath.�
GI Prophylaxis: Pantoprazole�
DVT Prophylaxis: mechanical, suggest chemoprophylaxis. If contraindicated please note why.
Pulmonary: Incentive spirometry�
Safety: Continue to reinforce assistance with all transfers.�
Code Status:� Full code
Dispo�(date/plan/equipment needs): Home with family care.� Social history reviewed.�
Functional and Medical Goals:�Modified Independent with ADL�s, ambulation, transfers�
Discharge Destination:�Acute inpatient rehabilitation. Patient currently doing better with midodrine. Would recommend checking orthostatic vitals, placing TEDS on as he did not have them on.
�
Summary of recommendations:
Discharge Destination:�Acute inpatient rehabilitation.
DVT Prophylaxis: Please comment on chemical prophylaxis restrictions if any
GI Prophylaxis:could add Pantoprazole�to regiment
Pulmonary: Incentive spirometry�
Attending Statement: I saw and examined the patient today.� Reviewed care plan with patient, therapy, nursing, and physician care management assistant.� I agree with the above subjective and physical exam, and plan as documented by JHON Chester with adjustments
made as necessary. A total of 60 minutes were spent with the patient preparing for the evaluation, obtaining history, performing examination and evaluation, counseling, data review, case management, care coordination, field recorder, and EMR
documentation.
Thank you for allowing me to care for your patient. Please contact me with any questions or concerns.
[2024-11-23] MEDS: KCL 40 MEQ PO (09:23)
[2024-11-23] MEDS: NOVOLOG FLEXPEN 4 UNITS SC ×3 (09:24→17:37)
[2024-11-23] MEDS: NOVOLOG FLEXPEN-MODERATE RESISTANCE SC (09:24)
[2024-11-23] MEDS: ARMOUR THYROID 15 MG PO (09:25)
[2024-11-23] MEDS: MUCINEX 600 MG PO ×2 (09:27→19:46)
[2024-11-23] MEDS: VITAMIN D3 (cholecalciferol) 50 MCG PO (09:27)
[2024-11-23] MEDS: SENOKOT-S 1 TABLET PO ×2 (09:27→19:46)
[2024-11-23] MEDS: ZETIA 10 MG PO (09:27)
[2024-11-23] MEDS: PROTONIX 40 MG PO (09:27)
[2024-11-23] MEDS: PACERONE 200 MG PO ×3 (09:28→21:17)
[2024-11-23] MEDS: PLAVIX 75 MG PO (09:28)
[2024-11-23] MEDS: LOW STRENGTH ASPIRIN 81 MG PO (09:28)
[2024-11-23] MEDS: BUMEX 1 MG PO (09:28)
[2024-11-23] MEDS: LIDOCAINE 4% PATCH TOPICAL (09:28)
[2024-11-23] MEDS: ZOLOFT 50 MG PO (09:29)
[2024-11-23] MEDS: FLUSH (NSS) 2 FLUSH IV (09:30)
[2024-11-23] MEDS: TOPROL XL 12.5 MG PO (10:12)
[2024-11-23] MEDS: FARXIGA 10 MG PO (10:12)
[2024-11-23 12:03] LABS: Glucose - Point of Care 176 mg/dl (70-99)
--- NOTE | 2024-11-23 12:09 | W.PN.UPDATE ---
Update Note
Progress Note Update
patient seen chart reviewed. discussed with nursing. at bedside .patient told me 'they took a liter of fluid from my lungs' when i last saw patient on thursday as this was being addressed he was in significant distress. he appears at this
moment much more comfortable and more hopeful about his future. son visited recently and that too buoyed his spirits. hopefully he will continue to improve and be ready to work in rehab. zoloft dose is now 50 mg. it is still rather early to see
an effect although and patient feel mood is better. that may be the effect of thoracentesis rather than zoloft. he has not used ativan prn since 11/20 will continue to follow
[2024-11-23] MEDS: NOVOLOG FLEXPEN-MODERATE RESISTANCE 1 UNITS SC ×2 (12:10→17:37)
--- NOTE | 2024-11-23 13:56 | CM ---
CM following for DC planning needs.
Met w/ patient + spouse at bedside. DC plan is for acute rehab, preference is for [facility].
Spoke w/ [facility], beds are tight but may be avail. Th or Fri.
Advised to call back [facility] later today.
Continue to await PMR evaluation.
Will need this for insurance authorization.
Will cont. to follow closely.
--- NOTE | 2024-11-23 15:47 | PTCARENOTE ---
Patient notified nurse earlier of need to use the bathroom. Assisted to the bathroom with the rolling walker, once standing he requires minimal assistance. Was able to move his bowels. After returning to the bed to rest patient is now agreeable to
go down to the visitor's lounge with his . Transported via the wheel chair, on 2L NC.
--- NOTE | 2024-11-23 16:17 | W.PN.CD ---
Today's Communication / Plan
-
start Toprol XL 12.5mg daily, farxiga 10mg daily
Impression / Plan
-
Background: 74M with HTN & NIDDM who presented with upper back and shoulder tightness then had syncope and developed SOB prompting evaluation -> recent inferior STEMI based on clinical data and EKG -> [facility] with [facility] now s/p REED MAN-D with Dr. Bueno and
CABG with Dr. Wilks.
Outpatient [employer]: will be Dr. Bueno
PCP: Sabina Dior, DO
HFrEF
ICM
- LVEF about 35% preop
- Intraop CHLOE prior to CABG LVEF 31%
- Intraop HCLOE post CABG/on support LVEF 40%
- most recent EF 25%
- GDMT is critical to promote EF recovery. Limited by BP. Weaning midodrine.
-start Toprol XL 12.5mg daily, farxiga 10mg daily
-continue bumex 1mg PO daily
CAD
- recent inferior STEMI, found to have multivessel disease:
- now s/p CABG 11/09
- continue ASA, pravastatin, Zetia; had possible weakness with crestor
- BB as above
Orthostasis
- will need rehab
- Increasing activity will help
- can wean midodrine, BP improving
Pleural effusions
- thoracentesis 11/21 with significant improvement in shortness of breath and CXR
ROSANGELA, improving
- cont. to monitor with diuresis
Symptomatic complete heart block
- S/p bi-v ICD 11/04/2024
Ventricular fibrillation, about 30 minutes after ICD placement
Mixed hyperlipidemia, goal LDL now <55
Type II DM, longstanding, uncontrolled, Hgba1c 9.0%: diabetic provider following
History of HTN, follow
Former heavy smoker probably at least a 75-kmzy-rbod history, continued cessation recommended .
Physical Exam
Vital Signs/Labs
Vital Signs
Temp Pulse Resp BP Pulse Ox
97.5 F 80 16 103/67 97
11/23/24 15:21 11/23/24 15:00 11/23/24 15:21 11/23/24 14:41 11/23/24 15:21
11/22/24 11/23/24 11/24/24
06:59 06:59 06:59
Actual Weight 76.6 kg 76.3 kg
11/23/24 04:28
11/23/24 04:28
PT 21.3 Sec (11.4-14.6) H 11/09/24 14:28
INR 1.79 11/09/24 14:28
APTT 33.9 Sec (23.4-35.0) 11/09/24 14:28
Magnesium 2.1 mg/dl (1.6-2.3) 11/23/24 04:28
Triglycerides 94 mg/dl (10-149) 11/01/24 04:18
LDL Cholesterol, Calc 80 mg/dl 11/01/24 04:18
VLDL Cholesterol, Calc 18 mg/dl (0-30) 11/01/24 04:18
HDL Cholesterol 33 mg/dl 11/01/24 04:18
TSH 3.13 uIU/ml (0.47-4.68) 10/31/24 21:54
Free T4 1.36 ng/dl (0.78-2.19) 11/17/24 03:01
11/19/24
22:11
Eqt-Y-Uefjdcgnpyk Pept 76403
Physical Exam
Constitutional: No acute distress
EENT: Moist mucous membranes
Cardiovascular: Rhythm & rate is regular, Systolic murmur absent, Pedal edema present and JVD present
Respiratory: Respiratory effort normal
Neuro/Psych: Alert and Oriented
Data Reviewed
-
Date of Service: November 23, 2024
EKG: Other (Tele: AV paced; 4 beats NSVT)
Labs: Labs Reviewed by me
[2024-11-23 16:42] LABS: Glucose - Point of Care 152 mg/dl (70-99)
[2024-11-23] MEDS: PRAVACHOL 40 MG PO (17:39)
[2024-11-23] MEDS: REMOVE LIDOCAINE PATCH REMOVE (19:24)
[2024-11-23 20:53] LABS: Glucose - Point of Care 171 mg/dl (70-99)
[2024-11-23] MEDS: LANTUS 0.16 UNITS SC (21:16)
[2024-11-23] MEDS: MELATONIN 5 MG PO (21:17)
[2024-11-23 23:18] LABS: Urine Character Clear (Clear)
--- NOTE | 2024-11-23 23:20 | PTCARENOTE ---
Tele remains AV paced on monitor. Patient sating 97% on 2L O2 and denies any SOB at this time. Patient reports a burning sensation and voiding frequently w/ small outputs. Gasper FERREIRA aware, and orders obtained/carried out for urine sample.
Sternal precautions maintained. Call salazar in reach.
[2024-11-24] VITALS (9 sets, daily range): BP systolic 96–121; BP diastolic 58–80; O2SAT 97; BMI 24.8
[2024-11-24 00:01] LABS: Urine Squamous Cell >30 /LPF (Few)
[2024-11-24 00:02] LABS: Urine White Cell 16-20 /HPF (0-5)
[2024-11-24 00:03] LABS: Urine Red Blood Cell 0-2 /HPF (0-2)
[2024-11-24 03:13] LABS: Blood Urea Nitrogen 30 mg/dl (9-20); Calcium 8.4 mg/dl (8.4-10.2); Carbon Dioxide 37 mmol/L (22-30); Chloride 102 mmol/L (98-107); Estimated Creatinine Clearance 50 ml/min; Glucose 124 mg/dl (70-99); Potassium 3.8 mmol/L (3.5-5.1); Sodium 141 mmol/L (135-145); eGFR 57.65
[2024-11-24 07:09] LABS: Glucose - Point of Care 138 mg/dl (70-99)
[2024-11-24] MEDS: SYMBICORT 160/4.5 MCG INHALER 2 PUFF INH ×2 (07:16→19:48)
--- NOTE | 2024-11-24 08:40 | W.PN.CT ---
Today's Communication / Plan
-
-pod #15
-feels better after L thoracentesis
-c/o feeling burning with urination, frequency and voiding small amounts since yesterday 11/23 - UA +cx were sent 11/23. Afebrile, wbc trending down. Noted urine cx from 11/19 growing Klebsiella and yeast- consider abx
-[place] came out 11/22/24
-Cr stable - 1.3
-on Midodrine 5 tid for hypotension
-diuresing with 1 mg daily Bumex, continue Toprol, Farxiga
-Appreciate Physiatry evaluation 11/23
-OOB into chair/Ambulate
-PT/OT f/u
-Diabetes education/management f/u
-Eventual acute rehab placement
-Encourage use of IS
-appreciate everyone input
Assessment / Plan
-
- s/p CABG x 4 (JUSTIN to LAD, GSV to D1, GSV to OM2 upper branch, GSV to OM2 lower branch); ELAA (45mm AtriClip); Lysis of pericardial adhesions w/ blunt & electrocautery dissection; Lysis of left pleural-pleural adhesions w/ electrocautery on
11/09/[address] Wilks, pod #15
-S/P Left thoracentesis (1000 cc of serosanguineous pleural fluid) by IR 11/21/24
- Pre-CHLOE: LVEF 31%, wnyca-of-gdmk MR, mild AI
- Post-CHLOE: LVEF 40%, unchanged valves, SHEMAR confirmed excluded
-Severe 3v CAD
-Inferior MD
-Weakness/Fatigue
-Syncopal episode
-HFrEF/ICM (LVEF 35%; was 50-55% per echo 04/2014)
-CHB S/P Transvenous pacer, 11/01/24
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
-Mild-moderate TR
-HTN
-Hyperlipidemia
-Hypothyroidism
-T2DM (hgb A1C 9.0)
-ROSANGELA (peaked @ 2.1)
-Transaminitis
-Small pericardial effusion, per CTA 11/06
-Small bilateral pleural effusion, per CTA 11/06
-Former tobacco use (quit 20 years ago, ~40 pk/yr)
-Diplopia S/p cataract surgery
-DOUGLAS S/P hearing aids
-Renal calculi S/P cystoscopy with renal stents
-S/P T&A
-S/P Appendectomy
-Hx Vertigo
-Acute postop blood loss anemia
-Acute postop atelectasis
-Acute postop pericarditis
-Acute postop hyperkalemia
-Acute postop hypovolemia with subsequent hypervolemia
-Acute postop Orthostasis
-Acute postop confusion/delirium
-Acute postop ROSANGELA
-S/p L thoracentesis on 1L serosanguineous fluid on 11/21/24
Discussed patient care with: Nursing and Care Team
Subjective
-
Date of Service: November 24, 2024
Objective Data
-
Lab Results
11/23/24 04:28
11/24/24 02:27
PT 21.3 Sec (11.4-14.6) H 11/09/24 14:28
INR 1.79 11/09/24 14:28
APTT 33.9 Sec (23.4-35.0) 11/09/24 14:28
Vital Signs
Vital Signs
Temp Pulse Resp BP Pulse Ox
97.8 F 80 16 113/70 96
11/24/24 07:04 11/24/24 07:18 11/24/24 07:18 11/24/24 07:04 11/24/24 07:18
CT Intake/Output/Weight
06/11/24/24 11/24/24
18:59 06:59 18:59
Intake Total 1780 / 1780
Output Total 900 / 1200 300 / 1200
Balance 880 / 580 -300 / 580
SaO2: 96
Physical Exam
-
General: Awake and AOx3
Cardiovascular: Regular rate & rhythm, No Murmurs and No Rub
Respiratory: Decreased Breath Sounds
Sternum: Stable
Incision: Clean, Dry and Intact
Extremities: Edema +1 (much improved)
Abdomen: soft, nontender, nondistended, +bowel sounds
Data Reviewed
-
Lab Results: Results Reviewed
Medications: Active Meds Reviewed
Chest X-Ray: Report Reviewed and Image Reviewed
ECG: Report Reviewed and Image Reviewed
[2024-11-24] MEDS: NOVOLOG FLEXPEN-MODERATE RESISTANCE SC ×2 (08:53→12:52)
[2024-11-24] MEDS: TOPROL XL 12.5 MG PO (08:54)
[2024-11-24] MEDS: PACERONE 200 MG PO ×3 (08:55→23:13)
[2024-11-24] MEDS: ARMOUR THYROID 15 MG PO (08:55)
[2024-11-24] MEDS: ZETIA 10 MG PO (08:55)
[2024-11-24] MEDS: BUMEX 1 MG PO (08:55)
[2024-11-24] MEDS: MACRODANTIN 50 MG PO ×4 (08:56→23:12)
[2024-11-24] MEDS: SENOKOT-S 1 TABLET PO ×2 (08:56→20:01)
[2024-11-24] MEDS: VITAMIN D3 (cholecalciferol) 50 MCG PO (08:56)
[2024-11-24] MEDS: MUCINEX 600 MG PO ×2 (08:56→20:01)
[2024-11-24] MEDS: LOW STRENGTH ASPIRIN 81 MG PO (08:56)
[2024-11-24] MEDS: PROTONIX 40 MG PO (08:56)
[2024-11-24] MEDS: FARXIGA 10 MG PO (08:56)
[2024-11-24] MEDS: PLAVIX 75 MG PO (08:56)
[2024-11-24] MEDS: ZOLOFT 50 MG PO (08:56)
[2024-11-24] MEDS: LIDOCAINE 4% PATCH TOPICAL (09:01)
--- NOTE | 2024-11-24 09:02 | PN.DE.MGMTRT ---
Insulin Management
- -
11/24/2024: Diabetes Management Follow up
Patient admitted 10/31 with c/o weakness; NSTEMI, complete heart block. Cardiac cath 11/01 - Severe multivessel CAD.
PMH: HTN, HLD, T2DM and Hypothyroid. Prior to admission was taking Lantus 40 units @ HS, Metformin 1000 mg BID, Januvia 100 mg daily. A1C on admission 9%. Cr 1.7, eGFR 41.78 today.
POD # 16 s/p CABG x 4. Patient is awake alert and oriented, resting in bed, flat affect, able to discuss diabetes care.
S/P 1L thoracentesis, states he feels a lot better. Reports appetite a little better today.
11/24 Glucose stable, 110 to 176, CR 1.3 eGFR 57.65. Will continue 4 units novolog AC, HOLD if patient does not eat meal. Continue lantus 16 units @ HS. Will continue Farxiga 10 mg daily today.
Will cont to follow. Discussed with nurse
Patient's brought in his DexCom G6, explained to pt and that we will assist him in placing the device once he is closer to discharge.
Diabetes History
- -
Type of Diabetes: 2 requiring insulin
Pre-Admission Diabetes Regimen
11/24/24
02:27
Creatinine 1.3
Lab Results
Hemoglobin A1c 9.0 % (4.0-5.6) H 11/01/24 04:18
Insulin Pump Settings
IP Diabetes Regimen
11/23/24 11/23/24 11/23/24
12:02 16:41 20:52
Glucose
POC Glucose 176 H 152 H 171 H
11/24/24 11/24/24
02:27 07:07
Glucose 124 H
POC Glucose 138 H
Meal type: Dinner
Meal type: Lunch
Meal type: Breakfast
Amount consumed: 50%
Amount consumed: 50%
Amount consumed: 100%
Patient Education
[2024-11-24] MEDS: NOVOLOG FLEXPEN 2 UNITS SC (09:34)
--- NOTE | 2024-11-24 10:06 | W.DCSUMMARY ---
Discharge Summary
Discharge Data
Date of Admission: 10/31/24
Date of Discharge: 11/29/24
-
Pending Results: No
Hospital Course
Primary care physician: Jessica Dior
Outpatient wet crown blocking operator: Brandon Bueno
Inpatient consultants: [facility] Cardiology, Pulmonary bullard operator, diabetes nurse practitioner, psychiatry, PT/OT, rehab medicine, Internal medicine
Procedures:
1. CABG, left atrial appendage clip (11/09/24)
2. Medtronic Bi-V ICD (11/04/24)
3. transvenous pacer (11/01/24)
4. left thoracentesis (11/21/24)
Primary Diagnosis:
1. multivessel coronary artery disease
Secondary Diagnoses:
1. complete heart block requiring transvenous pacer (11/01/24)
2. V-fib arrest S/P ICD Medtronic Bi-V ICD placement 11/04/24
3. Acute systolic ischemic cardiomyopathy (HF R EF 31%)
4. Type 2 diabetes (A1c 9)
5. Hypothyroidism
6. Hypertension
7. Depression/anxiety
8. Acute postoperative hyperkalemia
9. Acute postop blood loss anemia
10. Acute postop furtive hypotension
11. Acute postoperative ROSANGELA (creat peaked @ 2.1)
12. Acute postoperative deconditioning
13. Acute postop confusion/delirium
14. Acute acute postoperative urinary retention
15. left pleural effusion s/p thoracentesis 11/21
16. Former tobacco use (quit 20 years ago, ~40 pk/yr)
17 MINTO S/P hearing aids evaluated for cochlear implant
18. Renal calculi S/P cystoscopy with renal stents
19. S/P T&A
20. S/P Appendectomy
21.Hx Vertigo
22. Severe/very severe COPD with centrilobular emphysema (moderate severity predominantly in the upper lobes via CT chest on 11/06/2024). Post-bronchodilator FEV1: 0.75 L / 25% predicted
23. Acute postop hypovolemia with subsequent hypervolemia
24. UTI (Klebsiella)- tx with Macrodantin
25. Acute post-op s
HPI: 74 y/o male with PMHx of HTN, T2DM on lantus and oral meds, double vision, MINTO presents to the ED after syncopal episode and generalized weakness for several days. 6 days ago, pt returned home from food shopping and had a syncopal episode
while home alone. He awoke without recollection of the event. He did hit his head and has a small bruise medial to his right eyebrow. He reports shoulder and joint pain and had nausea with 2 episodes of near-vomiting. Overnight he had chills and
diaphoresis. He called his PCP's office the next day, but was unable to speak to her. He and his felt he might have a viral illness. He took a COVID test the following day and it was negative, but he thought it might be too early to tell, so he
planned to repeat it in 48 hours, per instructions on the test. He continued to have weakness and fatigue throughout the weekend, and 2 days later, had difficulty getting out of bed. His repeat COVID test was negative. At this point, his called
911 and he was brought to [facility] via ambulance.
Hospital course: Patient was found to be in complete heart block and underwent a transvenous pacer placement. On 11/04, patient had spontaneous ventricular fibrillation arrest and required defib times once. Patient underwent a Medtronic BiV ICD
implantation. Patient was evaluated pre and postoperatively by the diabetic nurse practitioner who adjusted insulin. A1c was uncontrolled at 9.0%. Patient underwent preoperative workup and ultimately went to surgery on 11/09/2024 for CABG x 4 (JUSTIN
to LAD, GSV to D1, GSV to OM2 upper branch, GSV to OM2 lower branch) and left atrial appendage exclusion with #45 mm Atricure clip by Dr. Tacho Wilks. For further details please see operative report. Patient required 1 PRBC and 1 pooled
platelets intraoperatively. Preop CHLOE reported an EF of 31% which improved to 40% postoperatively on epinephrine. He returned to CVICU on epinephrine and Levophed. Defibrillator function was turned back on by device technical sales representatives. Patient was
extubated at 1845 the day of surgery. On postoperative day #1, patient experienced hyperkalemia which improved with diuretics and lokalma. On postoperative day #2, hemoglobin was 7.6 and patient required transfusion with 1 PRBC. Levophed was
weaned off. Insulin was weaned off and patient transitioned to Lantus and aspart. Gabapentin was discontinued due to lethargy and delirium. Hawthorne-Sadie catheter and arterial lines were removed. Patient continued to require daily diuretic and blood
pressure support with midodrine. Patient was evaluated by psychiatry on postoperative day #8 and Zoloft initiated for depression. Pulmonary was reconsulted on postoperative day #12 for tachypnea and patchy infiltrate on left lung. POCUS exam
reported moderate left effusion. BNP was 16,000. Procalcitonin level was 0.04 effectively ruling out pneumonia. Interventional radiology was consulted and patient underwent a left thoracentesis for 1 L of serosanguineous drainage on postoperative
day #13. A follow-up TTE was completed on 11/21/2024 and reported an EF of 25-30%. Akinesis of basal to mid inferoseptal, basal to apical, and inferior and inferior lateral segments. Patient was treated with beta-freddie, aspirin, Plavix,
pravastatin, Zetia, Farxiga, and Bumex. Further goal-directed medical therapy was not instituted due to continued low blood pressure. Patient required much encouragement to get out of bed. Patient was evaluated by PT/OT and physiatry and deemed
appropriate for inpatient rehab. He experienced no skin breakdown of the sacral region. His mood was depressed, stating he will not get better despite objective evidence of progress. Patient was evaluated by psychiatry and Zoloft initiated. A urine
culture reported Klebsiella UTI and Macrobid was ordered with end date 12/08/24. Patient deemed stable for discharge to [place] inpatient rehab on 11/24/24 but was denied by [employer] insurance. Patient was evaluated by pulmonary team for continued need for
low-dose oxygen and wheezing over the weekend. Patient was prescribed steroid taper. He requires 1-2L NC to maintain O2 saturation>90%. A swie-ey-cjer review was requested for 11/25/24 and again denied acute inpatient rehab. He will continue on
novolog 6 units AC with lantus 22 units @ hs and Farxiga 10 mg daily per diabetes nurse practitioner and he has his own glucose monitor. Metoprolol converted to Toprol 25mg daily and Aldactone 12.5mg daily added by cardiology. BP stable and
Midodrine discontinued. Patient secured a bed at senior care facility and discharged in fair condition on 11/29/2024 as per discussion with Dr Mitchell.
Home medication changes:
For current discharge list, See below
Discharge Plan
-
Patient Disposition: Senior Care/SNF
Discharge Diagnosis/Procedures: CABG x 4/ left atrial appendage clip; Bi-V ICD implant (11/04)
Condition: Fair
Diet: Low Cholesterol, Low Sodium and Diabetic, Carb Controlled
Activity: No strenuous activity
Driving Restrictions: Not until seen by your Dr
Bathing Restrictions: OK to Shower
Others Tests: CT scan of the chest 8 to 12 qbuqa-ermaas-to
Other Services: Cardiac Rehab
Specialty Instructions: Weigh Daily- Call MD for wt gain/loss 3 lbs overnight/5 lbs in 1 week
Stand Alone Forms: DC Inst - Implanted Device
Referrals:
CT Transitional Care Nurse [Outside]
Referral Note: The Cardiothoracic Transitional Care Nurse will call you to set up a visit in 1-2 days.
[facility] [Outside] - 12/21/24 10:00 am
Referral Note: Cardiac Rehab Orientation appointment is on Thursday, December 21 at 10am.
The Cardiac Rehab gym is located on the first floor of the [facility].
Jael Abrams CRNP [Specified Professional Personl, Cardiology] - 12/26/24 10:00 am
Mary Duke MD [Active, Pulmonary Medicine] - in one to two months
Becky Steinberg MD [Family Provider, Internal Medicine]
Yolanda Sheriff CRNP [Specified Professional Personl, Cardiac Surgery] - 01/04/25 1:00 pm
Additional Discharge Medication Instructions: Nasal cannula @2L prn pulse ox <90%; nitrofurantoin end date 12/08
Prescriptions:
New
nitrofurantoin macrocrystal 50 mg Capsule
50 mg PO QID Qty: 0 0RF
pravastatin 40 mg Tablet
40 mg PO QPM Qty: 0 0RF
clopidogrel 75 mg Tablet
75 mg PO DAILY Qty: 0 0RF
aspirin 81 mg Tablet,Chewable
81 mg PO DAILY Qty: 0 0RF
ezetimibe 10 mg Tablet
10 mg PO DAILY Qty: 0 0RF
acetaminophen 325 mg Tablet
650 mg PO Q4HPRN PRN (Reason: mild pain,headache,temp >101F ) Qty: 0 0RF
lorazepam 0.5 mg Tablet
0.5 mg PO Q8HPRN PRN (Reason: anxiety) Qty: 0 0RF
pantoprazole 40 mg Tablet,Delayed Release (Dr/Ec)
40 mg PO DAILY Qty: 0 0RF
bumetanide 1 mg Tablet
1 mg PO DAILY Qty: 0 0RF
dapagliflozin propanediol 10 mg Tablet
10 mg PO DAILY Qty: 0 0RF
cholecalciferol (vitamin D3) 50 mcg (2,000 unit) Tablet
50 mcg PO DAILY Qty: 0 0RF
melatonin 5 mg Tablet
5 mg PO HS Qty: 0 0RF
spironolactone 25 mg Tablet
12.5 mg PO DAILY Qty: 0 0RF
prednisone 20 mg tablet
10 mg PO DAILY Qty: 20 0RF
Rx Instructions:
30mg daily x 3 (11/30-12/02), then 20mg daily x 3 (12/03-12/05), then 10mg daily x 3 (12/06-12/08), then stop
Insulin Glargine Lantus [Lantus] 22 UNITS
Subcutaneous Insulin Syringe [Syringe-Insulin] 0 UNIT
As Directed mls/hr SC HS
Reason for use: Diabetes
Ordered By: Aniyah Brown CRNP
Last Taken: 11/28/24 22:45 0.22 mls
insulin aspart U-100 100 unit/mL (3 mL) Insulin Pen
6 unit SC AC Qty: 0 0RF
albuterol sulfate 1.25 mg/3 mL Solution For Nebulization
1.25 mg inhalation R Q4HPRN PRN (Reason: SOB/wheezing) Qty: 0 0RF
sertraline 100 mg Tablet
100 mg PO DAILY Qty: 0 0RF
metoprolol succinate 25 mg Tablet Extended Release 24 Hr
25 mg PO BID Qty: 0 0RF
Stiolto Respimat 2.5-2.5 mcg/actuation mist
2 puff inhalation DAILY Qty: 4 0RF
Continued
thyroid (pork) [LOAD DROPPER Thyroid] 15 mg Tablet
15 mg PO DAILY
Discontinued
losartan [Cozaar] 50 MG tablet
25 mg PO DAILY
metformin 500 MG tablet extended release 24 hr
1,000 mg PO BID
insulin glargine [Lantus Solostar U-100 Insulin] 300 UNITS/3 ML insulin pen
40 units SC HS
Januvia 100 mg Tablet
100 mg PO BID
Discharge Orders:
Discharge Patient (As Directed); Ordered 11/29/24
Ordered By: Aniyah Brown
Care Plan Goals
Care Plan Goals:
Problem: Readiness for enhanced knowledge related to diagnosis and treatment plan
Goal: Understand your diagnosis and treatment plan needs, including medications if applicable.
Instructions: Know your diagnosis, underlying causes and treatment plan options, including medications if applicable. Consult with your health care team to learn about your diagnosis and treatment plan, including medications if applicable.
Discharge Date and Time
Print Language: KITTITIAN
--- NOTE | 2024-11-24 10:19 | W.PN.CD ---
Today's Communication / Plan
-
BP appears stable with med adjustments made yesterday. Debra is on Toprol and Farxiag.
he reported some lightheadedness when standing. Check orthostatics and hold midodrine at current dose as we assess
Continue PT
Impression / Plan
-
Background: 74M with HTN & NIDDM who presented with upper back and shoulder tightness then had syncope and developed SOB prompting evaluation -> recent inferior STEMI based on clinical data and EKG -> [facility] with [facility] now s/p [place] MAKEUP ARTIST-D with Dr. Bueno and
CABG with Dr. Wilks.
Outpatient Process Control Manager: will be Dr. Bueno
PCP: Sabina Dior,
HFrEF
ICM
- LVEF about 35% preop
- Intraop CHLOE prior to CABG LVEF 31%
- Intraop CHLOE post CABG/on support LVEF 40%
- most recent EF 25%
- GDMT is critical to promote EF recovery. Limited by BP. .
- Toprol XL 12.5mg daily, farxiga 10mg daily recently started
- Plan to wean midodrine as tolerated
-continue bumex 1mg PO daily
CAD
- recent inferior STEMI, found to have multivessel disease:
- now s/p CABG 11/09
- continue ASA, pravastatin, Zetia; had possible weakness with crestor
- BB as above
Orthostasis
- will need rehab
- Increasing activity will help
- can wean midodrine, as tolerated. 11/24/24 he reported some lightheadedness when standing. Check orhtostatics and hold midodrine at current dose as we assess
Pleural effusions
- thoracentesis 11/21 with significant improvement in shortness of breath and CXR
ROSANGELA, improving
- cont. to monitor with diuresis
Symptomatic complete heart block
- S/p bi-v ICD 11/04/2024
Ventricular fibrillation, about 30 minutes after ICD placement
Mixed hyperlipidemia, goal LDL now <55
Type II DM, longstanding, uncontrolled, Hgba1c 9.0%: diabetic provider following
History of HTN, follow
Former heavy smoker probably at least a 70-dbjh-ruyx history, continued cessation recommended .
Physical Exam
Vital Signs/Labs
Vital Signs
Temp Pulse Resp BP Pulse Ox
97.8 F 84 16 113/70 96
11/24/24 07:04 11/24/24 08:56 11/24/24 07:18 11/24/24 08:56 11/24/24 08:51
11/23/24 11/24/24 11/25/24
06:59 06:59 06:59
Actual Weight 76.3 kg 76.1 kg
11/23/24 04:28
11/24/24 02:27
PT 21.3 Sec (11.4-14.6) H 11/09/24 14:28
INR 1.79 11/09/24 14:28
APTT 33.9 Sec (23.4-35.0) 11/09/24 14:28
Magnesium 2.1 mg/dl (1.6-2.3) 11/23/24 04:28
Triglycerides 94 mg/dl (10-149) 11/01/24 04:18
LDL Cholesterol, Calc 80 mg/dl 11/01/24 04:18
VLDL Cholesterol, Calc 18 mg/dl (0-30) 11/01/24 04:18
HDL Cholesterol 33 mg/dl 11/01/24 04:18
TSH 3.13 uIU/ml (0.47-4.68) 10/31/24 21:54
Free T4 1.36 ng/dl (0.78-2.19) 11/17/24 03:01
11/19/24
22:11
Ydi-L-Msebnrxlnrp Pept [id number]
Physical Exam
Constitutional: No acute distress
Cardiovascular: Rhythm & rate is regular
Respiratory: Wheeze Absent and Rhonchi Absent
GI: Soft
Neuro/Psych: Alert
Data Reviewed
-
Date of Service: November 24, 2024
Medical Decision Making: Reviewed Test Results
Medical Tests (PFT, Pathology etc): Report Reviewed by me
Labs: Labs Reviewed by me
[2024-11-24 10:50] LABS: Glucose - Point of Care 189 mg/dl (70-99)
--- NOTE | 2024-11-24 11:15 | CM ---
Addendum entered by ELLIS Calzada 11/24/24 11:40:
I updated both patient and spouse at bedside.
Original Note:
CM following for DC planning needs.
Per CT Surg, patient is ready for transfer to acute rehab.
Bed avail. at [facility] @ , either today/tomorrow.
I have initiated prior auth from [place], pending ref# [id number]. Faxed clinical information as requested. Need to await [place] RN to call me.
I have not spoken to patient yet to update. Updated RN.
Will follow closely.
[2024-11-24 12:53] LABS: Glucose - Point of Care 139 mg/dl (70-99)
[2024-11-24] MEDS: NOVOLOG FLEXPEN 4 UNITS SC ×2 (12:56→16:51)
--- NOTE | 2024-11-24 14:07 | W.PN.UPDATE ---
Update Note
Progress Note Update
patient seen chart reviewed. discussed with nursing. at bedside. nursing reports patient is struggling to be more actively engaged in his rx. the patient admits he is very very frustrated with his hospital course feeling it is one setback
after another.....needed thoracentesis on weekend now w uti ( he said the need for frequent urination makes it difficult for him to be in a chair as he cannot get the urinal under his penis to urinate without missing the urinal). he wishes often
that he would just never wake up. began to cry. he said he thought she would be better off without him. she pleaded a different case. patient does feel he is not getting well. pointed out he had a good day yesterday. encouraged patient
to express his questions and concerns to the doctors treating him. i am trying to tread the line between assuming patient's difficulties have to do with depression which they may not and giving credence to his feeling that he is not progressing as
well as one would expect bc of physical issues in encouraging him to channel his energy into cooperating with PT and nsg to inc his activity. will check b12 and folate. t4 is okay will increase zoloft to 100 mg daily . will continue to offer
support
[2024-11-24 16:31] LABS: Glucose - Point of Care 162 mg/dl (70-99)
[2024-11-24] MEDS: NOVOLOG FLEXPEN-MODERATE RESISTANCE 1 UNITS SC (16:50)
[2024-11-24] MEDS: PRAVACHOL 40 MG PO (18:33)
--- NOTE | 2024-11-24 19:31 | PTCARENOTE ---
~3525-3502: Handoff report received from nightshift RN. Pt AOx4, AV paced on tele 80s, 2L NC satting 96%, pursed lip breathing, IS encouraged. Attempt to wean patient to 1L NC, however pt c/o SOB and SpO2 88%. L lung with course crackles and fine
crackles in R base as well. Patient very flat affect and needs lot of encouragement to get OOB and move, encouragement provided. Patient refused to get OOB to sit in chair to eat breakfast because his 'butt hurts.' Bottom intact, pink and blanches.
When patient given encouragement to ambulate and use IS, patient states 'then I just won't eat.' After more encouragement, Patient agreeable to sit on edge of bed to eat breakfast. Pt worked with PT and stood at side of bed for standing BP, pt c/o
dizziness, BP 96/59, privider made aware by PT. Essential tremors present per patient baseline. Sternal incision ANATOMICAL EMBALMER, Chest tube sites GHAZAL and scabbed, L upper chest with steristrips, CDI, L back thoracenthesis site, bandage removed and site GHAZAL, R
knee incision GHAZAL with skin glue, R lower leg slit dressing CDI, BLE and RUE petechiae present as well. All needs met at this time, call salazar within reach.
~9096-2178: Psych visited patient, Zoloft adjusted. Patient rested in bed. Ambulated out into the rivero with Ax2 walker on 2L NC. Patient tolerated well and then sat at side of bed for about 20 mins total. IS encouraged and repeat education provided.
All needs met at this time, call salazar within reach.
~9115-8230: Patient in stable condition with at bedside. I/Os charted. Pt does not c/o pain at this time. Patient stood up at side of the bed to readjust positioning and move up in the bed. Patient sat at edge of bed for about 30 mins,
tolerated well. All needs met at this time, VSS. handoff report given to nightshift RN.
[2024-11-24] MEDS: REMOVE LIDOCAINE PATCH REMOVE (20:00)
[2024-11-24 22:59] LABS: Glucose - Point of Care 150 mg/dl (70-99)
[2024-11-24] MEDS: LANTUS 0.16 UNITS SC (23:12)
[2024-11-24] MEDS: MELATONIN 5 MG PO (23:13)
--- NOTE | 2024-11-24 23:45 | PTCARENOTE ---
Received patient at change of shift. AV paced on the monitor, HR in the 80s. VSS on 2L nasal cannula. Pt out of bed to chair, assisted pt with bathing cloths and changed linens. No complaints from patient at this time, call salazar within reach.
[2024-11-25] VITALS (9 sets, daily range): BP systolic 103–141; BP diastolic 69–120; O2SAT 90–96; BMI 24.5
[2024-11-25 04:14] LABS: Hematocrit 30.3 % (39.0-52.0); Hemoglobin 9.4 g/dL (13.0-18.0); Mean Corp Hgb Conc. 31.0 g/dL (33.0-37.0); Mean Corpuscular Volume 94.4 fL (80.0-94.0); Platelet Count 293 10^3/uL (130-400); Red Cell Dist. Width 17.2 % (11.5-14.5)
[2024-11-25 04:41] LABS: Blood Urea Nitrogen 32 mg/dl (9-20); Calcium 8.4 mg/dl (8.4-10.2); Carbon Dioxide 32 mmol/L (22-30); Chloride 103 mmol/L (98-107); Estimated Creatinine Clearance 50 ml/min; Glucose 126 mg/dl (70-99); Potassium 3.9 mmol/L (3.5-5.1); Sodium 142 mmol/L (135-145); eGFR 57.65
[2024-11-25 07:09] LABS: Glucose - Point of Care 113 mg/dl (70-99)
[2024-11-25] MEDS: SYMBICORT 160/4.5 MCG INHALER 2 PUFF INH ×2 (07:59→19:36)
--- NOTE | 2024-11-25 08:00 | PN.DE.MGMTRT ---
Insulin Management
- -
11/25/2024: Diabetes Management Follow up
Patient admitted 10/31 with c/o weakness; NSTEMI, complete heart block. Cardiac cath 11/01 - Severe multivessel CAD.
PMH: HTN, HLD, T2DM and Hypothyroid. Prior to admission was taking Lantus 40 units @ HS, Metformin 1000 mg BID, Januvia 100 mg daily. A1C on admission 9%. Cr 1.7, eGFR 41.78 today.
POD # 17 s/p CABG x 4. Patient is awake alert and oriented, sitting up in chair, offers no complaints, flat affect, able to discuss diabetes care.
11/21 S/P 1L thoracentesis, states he feels a lot better. Reports appetite a little better today.
11/25 CR 1.3 eGFR 57.65. Glucose stable and in range, premeal 139 to 189, Fasting 113 POC this AM.
Will continue 4 units NovoLog AC, HOLD if patient does not eat meal.
Continue NovoLog 4 units AC, Farxiga 10 mg daily and Lantus 16 units @ HS.
Will cont to follow. Discussed with nurse
Patient's brought in his DexCom G6, explained to pt and that we will assist him in placing the device once he is closer to discharge.
Diabetes History
- -
Type of Diabetes: 2 requiring insulin
Pre-Admission Diabetes Regimen
11/25/24
03:40
Creatinine 1.3
Lab Results
Hemoglobin A1c 9.0 % (4.0-5.6) H 11/01/24 04:18
Insulin Pump Settings
IP Diabetes Regimen
11/24/24 11/24/24 11/24/24
10:49 12:51 16:30
Glucose
POC Glucose 189 H 139 H 162 H
11/24/24 11/25/24 11/25/24
22:58 03:40 07:07
Glucose 126 H
POC Glucose 150 H 113 H
Meal type: Breakfast
Amount consumed: 55%
Patient Education
[2024-11-25] MEDS: NOVOLOG FLEXPEN-MODERATE RESISTANCE SC ×2 (08:20→16:48)
[2024-11-25] MEDS: NOVOLOG FLEXPEN 2 UNITS SC (08:20)
[2024-11-25] MEDS: LIDOCAINE 4% PATCH TOPICAL (08:21)
[2024-11-25] MEDS: MACRODANTIN 50 MG PO ×4 (08:22→22:38)
[2024-11-25] MEDS: LOW STRENGTH ASPIRIN 81 MG PO (08:22)
[2024-11-25] MEDS: TOPROL XL 12.5 MG PO (08:22)
[2024-11-25] MEDS: MUCINEX 600 MG PO ×2 (08:23→19:55)
[2024-11-25] MEDS: ZOLOFT 100 MG PO (08:23)
[2024-11-25] MEDS: ARMOUR THYROID 15 MG PO (08:23)
[2024-11-25] MEDS: FARXIGA 10 MG PO (08:23)
[2024-11-25] MEDS: BUMEX 1 MG PO (08:23)
[2024-11-25] MEDS: ZETIA 10 MG PO (08:23)
[2024-11-25] MEDS: PACERONE 200 MG PO ×3 (08:24→22:38)
[2024-11-25] MEDS: PLAVIX 75 MG PO (08:24)
[2024-11-25] MEDS: SENOKOT-S 1 TABLET PO ×2 (08:24→19:55)
[2024-11-25] MEDS: VITAMIN D3 (cholecalciferol) 50 MCG PO (08:24)
[2024-11-25] MEDS: PROTONIX 40 MG PO (08:24)
--- NOTE | 2024-11-25 08:37 | W.PN.CT ---
Today's Communication / Plan
-
-pod #16
-no issues overnight
-started on Macrodantin for UTI
-[place] came out 11/22/24
-Cr stable - 1.3
-on Midodrine 5 tid for hypotension
-diuresing with 1 mg daily Bumex, continue Toprol, Farxiga
-Appreciate Physiatry evaluation 11/23
-OOB into chair/Ambulate
-PT/OT f/u
-Diabetes education/management f/u
-Eventual acute rehab placement
-Encourage use of IS
-appreciate everyone input
Assessment / Plan
-
- s/p CABG x 4 (JUSTIN to LAD, GSV to D1, GSV to OM2 upper branch, GSV to OM2 lower branch); ELAA (45mm AtriClip); Lysis of pericardial adhesions w/ blunt & electrocautery dissection; Lysis of left pleural-pleural adhesions w/ electrocautery on
11/09/[address] Wilks, pod #16
-S/P Left thoracentesis (1000 cc of serosanguineous pleural fluid) by IR 11/21/24
- Pre-CHLOE: LVEF 31%, [id number]-[id number] MR, mild AI
- Post-CHLOE: LVEF 40%, unchanged valves, SHEMAR confirmed excluded
-Severe 3v CAD
-Inferior [place]
-Weakness/Fatigue
-Syncopal episode
-HFrEF/ICM (LVEF 35%; was 50-55% per echo 04/2014)
-CHB S/P Transvenous pacer, 11/01/24
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
-Mild-moderate TR
-HTN
-Hyperlipidemia
-Hypothyroidism
-T2DM (hgb A1C 9.0)
-ROSANGELA (peaked @ 2.1)
-Transaminitis
-Small pericardial effusion, per CTA 11/06
-Small bilateral pleural effusion, per CTA 11/06
-Former tobacco use (quit 20 years ago, ~40 pk/yr)
-Diplopia S/p cataract surgery
-HOPI S/P hearing aids
-Renal calculi S/P cystoscopy with renal stents
-S/P T&A
-S/P Appendectomy
-Hx Vertigo
-Acute postop blood loss anemia
-Acute postop atelectasis
-Acute postop pericarditis
-Acute postop hyperkalemia
-Acute postop hypovolemia with subsequent hypervolemia
-Acute postop Orthostasis
-Acute postop confusion/delirium
-Acute postop ROSANGELA
-S/p L thoracentesis on 1L serosanguineous fluid on 11/21/24
-UTI (Klebsiella)
Discussed patient care with: Nursing and Care Team
Subjective
-
Date of Service: November 25, 2024
Objective Data
-
Lab Results
11/25/24 03:40
11/25/24 03:40
PT 21.3 Sec (11.4-14.6) H 11/09/24 14:28
INR 1.79 11/09/24 14:28
APTT 33.9 Sec (23.4-35.0) 11/09/24 14:28
Vital Signs
Vital Signs
Temp Pulse Resp BP Pulse Ox
98.1 F 80 16 108/77 98
11/25/24 07:01 11/25/24 08:24 11/25/24 08:02 11/25/24 08:24 11/25/24 08:02
CT Intake/Output/Weight
11/24/24 11/25/24 11/25/24
18:59 06:59 18:59
Intake Total 240 / 240
Output Total 875 / 1700 825 / 1700 150 / 150
Balance -635 / -1460 -825 / -1460 -150 / -150
SaO2: 98
Physical Exam
-
General: Awake and AOx3
Cardiovascular: Regular rate & rhythm, No Murmurs and No Rub
Respiratory: Decreased Breath Sounds
Sternum: Stable
Incision: Clean, Dry and Intact
Abdomen: soft, nontender, nondistended, +bowel sounds
Extremities: Edema +1 (much improved)
Data Reviewed
-
Lab Results: Results Reviewed
Medications: Active Meds Reviewed
Chest X-Ray: Report Reviewed and Image Reviewed
ECG: Report Reviewed and Image Reviewed
--- NOTE | 2024-11-25 09:22 | W.PN.CD ---
Today's Communication / Plan
-
if BP stable, try reducing midodrine to 2.5mg tid, and increasing Torpol XL to 25mg daily
Impression / Plan
-
Background: 74M with HTN & NIDDM who presented with upper back and shoulder tightness then had syncope and developed SOB prompting evaluation -> recent inferior STEMI based on clinical data and EKG -> [facility] with MVCAD now s/p FORGE TENDER-D with Dr. Bueno and
CABG with Dr. Wilks.
Outpatient Sql Database Developer: will be Dr. Bueno
PCP: Sabina Dior,
HFrEF
ICM
- LVEF about 35% preop
- Intraop CHLOE prior to CABG LVEF 31%
- Intraop CHLOE post CABG/on support LVEF 40%
- most recent EF 25%
- GDMT is critical to promote EF recovery. Limited by BP. .
- Toprol XL 12.5mg daily, farxiga 10mg daily recently started
- if BP stable, try reducing midodrine to 2.5mg tid, and increasing Torpol XL to 25mg daily
-continue bumex 1mg PO daily
CAD
- recent inferior STEMI, found to have multivessel disease:
- now s/p CABG 11/09
- continue ASA, pravastatin, Zetia; had possible weakness with crestor
- BB as above
Orthostasis: improved
- will need rehab
- Increasing activity will help
- wean midodrine
Pleural effusions
- thoracentesis 11/21 with significant improvement in shortness of breath and CXR
ROSANGELA, improving
- cont. to monitor with diuresis
Symptomatic complete heart block
- S/p bi-v ICD 11/04/2024
Ventricular fibrillation, about 30 minutes after ICD placement
Mixed hyperlipidemia, goal LDL now <55
Type II DM, longstanding, uncontrolled, Hgba1c 9.0%: diabetic provider following
History of HTN, follow
Former heavy smoker probably at least a 48-gvxr-cgxl history, continued cessation recommended .
Physical Exam
Vital Signs/Labs
Vital Signs
Temp Pulse Resp BP Pulse Ox
98.1 F 80 16 108/77 98
11/25/24 07:01 11/25/24 08:24 11/25/24 08:02 11/25/24 08:24 11/25/24 08:43
11/24/24 11/25/24 11/26/24
06:59 06:59 06:59
Actual Weight 76.1 kg
11/25/24 03:40
11/25/24 03:40
PT 21.3 Sec (11.4-14.6) H 11/09/24 14:28
INR 1.79 11/09/24 14:28
APTT 33.9 Sec (23.4-35.0) 11/09/24 14:28
Magnesium 2.1 mg/dl (1.6-2.3) 11/23/24 04:28
Triglycerides 94 mg/dl (10-149) 11/01/24 04:18
LDL Cholesterol, Calc 80 mg/dl 11/01/24 04:18
VLDL Cholesterol, Calc 18 mg/dl (0-30) 11/01/24 04:18
HDL Cholesterol 33 mg/dl 11/01/24 04:18
TSH 3.13 uIU/ml (0.47-4.68) 10/31/24 21:54
Free T4 1.36 ng/dl (0.78-2.19) 11/17/24 03:01
11/19/24
22:11
Bod-L-Gffgfpqpzbn Pept [id number]
Physical Exam
Constitutional: No acute distress
EENT: Moist mucous membranes
Cardiovascular: Rhythm & rate is regular, Pedal edema is absent, JVD pressure is normal and Systolic murmur absent
Respiratory: Respiratory effort normal
Data Reviewed
-
Date of Service: November 25, 2024
EKG: Other (Tele: AV paced 80)
Labs: Labs Reviewed by me
--- NOTE | 2024-11-25 11:24 | CM ---
Addendum entered by ELLIS Calzada 11/25/24 16:23:
Peer to peer unable to be completed today due to 'technical issues' on [employer]'s part. This was re-scheduled for Thursday, 11/28 at 9AM.
I have met with patient and spouse at bedside to update them.
If [employer] unable to approve ARU, plan will be for [facility]. CM to follow up with [facility] on Thursday if placement is needed and to confirm their bed availability.
CM to cont. to follow.
Original Note:
CM following for DC planning needs.
[place] has denied acute rehab request stating 'lacks support for approval'. JESSICA Dill agreed to complete peer to peer, ref# [id number]. This will be completed today at 3:30 PM. If approved, [facility] @ . If not
approved after peer to peer, will need to pursue SNF placement.
I met w/ patient at bedside and updated him on the above.
Will return to meet w/ spouse and obtain alternative SNF options in the event that acute is not approved.
[2024-11-25 12:29] LABS: Glucose - Point of Care 238 mg/dl (70-99)
--- NOTE | 2024-11-25 12:38 | W.PN.UPDATE ---
Update Note
Progress Note Update
patient seen chart reviewed. at bedside. the patient admitted to feeling better today! he cannot explain what has caused this sense of improved well being but he was engaged on a number of topics today very different from his social withdrawal
yesterday. would continue with current meds. just increased zoloft yesterday. he has no ill effects and just maybe it is starting to take effect. will follow
[2024-11-25] MEDS: NOVOLOG FLEXPEN-MODERATE RESISTANCE 3 UNITS SC (12:46)
[2024-11-25] MEDS: NOVOLOG FLEXPEN 4 UNITS SC ×2 (12:46→17:11)
[2024-11-25 16:46] LABS: Glucose - Point of Care 136 mg/dl (70-99)
[2024-11-25] MEDS: PRAVACHOL 40 MG PO (17:11)
--- NOTE | 2024-11-25 19:17 | PTCARENOTE ---
~[id number]: Handoff report received from nightshift RN. Pt AOx4, AV paced on tele 70s-80s, SBP 100s, 2L NC satting 98%. Patient weaned to 1L, tolerate well. Pt ambulated out into the rivero after breakfast with Ax1 and walker. OOB into chair after,
tolerated well. IS encouraged with f/u education provided, 500 achieved. Pt stated hx of vertigo, Aniyah MAINFRAME PROGRAMMER ANALYST made aware, antivert ordered PRN. All needs met at thius time, call salazar within reach.
~0328-7100: Patient tolerated being in chair. Ambulated out into the rivero with Ax1 and walker after lunch then back to bed. While ambulating, O2 placed at 2L for POLLACK and desatting. IS completed, tolerated well. O2 weaned to RA, satting 93%.
~4471-7713: Patient in bed, VSS, All needs met, call salazar within reach. Spouse at bedside.
~9443-9609: Patient ambulated to bathroom with Ax1 and walker. A,bulated on 2L NC for desating and POLLACK. Pt had a large BM. Patient ambulated to the chair after, tolerating well. O2 weaned back to RA, satting 93%. All needs met at this time, call
salazar within reach. Handoff report given to nightshift RN.
[2024-11-25] MEDS: REMOVE LIDOCAINE PATCH REMOVE (19:49)
--- NOTE | 2024-11-25 21:08 | PTCARENOTE ---
Received patient at change of shift. AV paced on the monitor, HR in the 70s. Surgical sites intact, ASSET MANAGEMENT LEAD. Pt out of bed in chair at start of shift, ambulated around room and then to bed with nurse and walker. No complaints from pt at this time, call
salazar within reach.
[2024-11-25 22:37] LABS: Glucose - Point of Care 145 mg/dl (70-99)
[2024-11-25] MEDS: LANTUS 0.16 UNITS SC (22:37)
[2024-11-25] MEDS: MELATONIN 5 MG PO (22:38)
[2024-11-26] VITALS (7 sets, daily range): BP systolic 113–126; BP diastolic 72–80; BMI 24.3
--- NOTE | 2024-11-26 02:56 | W.PN.CT ---
Addendum entered and electronically signed by Tacho Wilks MD 11/26/24 08:31:
I saw and examined the patient.
The PA's note was reviewed and I agree with the note.
Comment:
POD#17 s/p CABG x 4, ELAA, ARIAS
No issues.� Feels better.� Waiting approval for [facility] rehab
Original Note:
Today's Communication / Plan
-
-pod #17
-no issues overnight, feels better overall
-started on Macrodantin for UTI -sxs improved
-[place] came out 11/22/24
-Cr has been stable (1.3)
-on Midodrine 5 tid for hypotension
-diuresing with 1 mg daily Bumex, continue Toprol, Farxiga
-Appreciate Physiatry evaluation 11/23
-OOB into chair/Ambulate
-continue PT/OT
-Diabetes education/management f/u
-waiting for [employer] [id number] review on 11/28 to get approval for [place]
-Encourage use of IS
-appreciate everyone input
Assessment / Plan
-
- s/p CABG x 4 (JUSTIN to LAD, GSV to D1, GSV to OM2 upper branch, GSV to OM2 lower branch); ELAA (45mm AtriClip); Lysis of pericardial adhesions w/ blunt & electrocautery dissection; Lysis of left pleural-pleural adhesions w/ electrocautery on
11/09/[address] Wilks, pod #17
-S/P Left thoracentesis (1000 cc of serosanguineous pleural fluid) by IR 11/21/24
- Pre-CHLOE: LVEF 31%, ocbbj-oa-znhi MR, mild AI
- Post-CHLOE: LVEF 40%, unchanged valves, SHEMAR confirmed excluded
-Severe 3v CAD
-Inferior [place]
-Weakness/Fatigue
-Syncopal episode
-HFrEF/ICM (LVEF 35%; was 50-55% per echo 04/2014)
-CHB S/P Transvenous pacer, 11/01/24
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
-Mild-moderate TR
-HTN
-Hyperlipidemia
-Hypothyroidism
-T2DM (hgb A1C 9.0)
-ROSANGELA (peaked @ 2.1)
-Transaminitis
-Small pericardial effusion, per CTA 11/06
-Small bilateral pleural effusion, per CTA 11/06
-Former tobacco use (quit 20 years ago, ~40 pk/yr)
-Diplopia S/p cataract surgery
-[place] S/P hearing aids
-Renal calculi S/P cystoscopy with renal stents
-S/P T&A
-S/P Appendectomy
-Hx Vertigo
-Acute postop blood loss anemia
-Acute postop atelectasis
-Acute postop pericarditis
-Acute postop hyperkalemia
-Acute postop hypovolemia with subsequent hypervolemia
-Acute postop Orthostasis
-Acute postop confusion/delirium
-Acute postop ROSANGELA
-S/p L thoracentesis on 1L serosanguineous fluid on 11/21/24
-UTI (Klebsiella)- tx with Macrodantin
Discussed patient care with: Nursing and Care Team
Subjective
-
Date of Service: November 26, 2024
Objective Data
-
Lab Results
11/25/24 03:40
11/25/24 03:40
PT 21.3 Sec (11.4-14.6) H 11/09/24 14:28
INR 1.79 11/09/24 14:28
APTT 33.9 Sec (23.4-35.0) 11/09/24 14:28
Vital Signs
Vital Signs
Temp Pulse Resp BP Pulse Ox
98.1 F 81 20 112/74 98
11/26/24 02:37 11/25/24 22:38 11/26/24 02:37 11/25/24 22:38 11/26/24 02:37
CT Intake/Output/Weight
11/25/24 11/25/24 11/26/24
06:59 18:59 06:59
Output Total 825 / 1700 825 / 900 75 / 900
Balance -825 / -1460 -825 / -900 -75 / -900
SaO2: 98
Physical Exam
-
General: Awake and AOx3
Cardiovascular: Regular rate & rhythm, No Murmurs and No Rub
Respiratory: Decreased Breath Sounds
Sternum: Stable
Incision: Clean, Dry and Intact
Abdomen: soft, nontender, nondistended, +bowel sounds
Extremities: Edema trace b/l (much improved)
Data Reviewed
-
Lab Results: Results Reviewed
Medications: Active Meds Reviewed
Chest X-Ray: Report Reviewed and Image Reviewed
ECG: Report Reviewed and Image Reviewed
[2024-11-26 04:42] LABS: Vitamin D, 25-OH*** 23.8 ng/mL (30-80)
[2024-11-26 05:31] LABS: Folate 6.5 ng/ml (2.76-20); Vitamin B12 704 pg/ml (239-931)
[2024-11-26 07:07] LABS: Glucose - Point of Care 81 mg/dl (70-99)
[2024-11-26] MEDS: NOVOLOG FLEXPEN-MODERATE RESISTANCE SC (07:34)
[2024-11-26] MEDS: SYMBICORT 160/4.5 MCG INHALER 2 PUFF INH (08:42)
[2024-11-26] MEDS: NOVOLOG FLEXPEN 4 UNITS SC ×3 (08:53→16:59)
[2024-11-26] MEDS: PROTONIX 40 MG PO (08:54)
[2024-11-26] MEDS: TOPROL XL 12.5 MG PO ×2 (08:54→19:29)
[2024-11-26] MEDS: MUCINEX 600 MG PO ×2 (08:54→19:29)
[2024-11-26] MEDS: SENOKOT-S 1 TABLET PO ×2 (08:54→19:29)
[2024-11-26] MEDS: ZETIA 10 MG PO (08:55)
[2024-11-26] MEDS: PLAVIX 75 MG PO (08:55)
[2024-11-26] MEDS: ZOLOFT 100 MG PO (08:55)
[2024-11-26] MEDS: ARMOUR THYROID 15 MG PO (08:55)
[2024-11-26] MEDS: PACERONE 200 MG PO ×3 (08:55→22:19)
[2024-11-26] MEDS: VITAMIN D3 (cholecalciferol) 50 MCG PO (08:55)
[2024-11-26] MEDS: LIDOCAINE 4% PATCH TOPICAL (08:56)
[2024-11-26] MEDS: FARXIGA 10 MG PO (08:56)
[2024-11-26] MEDS: LOW STRENGTH ASPIRIN 81 MG PO (08:56)
[2024-11-26] MEDS: BUMEX 1 MG PO (08:58)
[2024-11-26] MEDS: MACRODANTIN 50 MG PO ×4 (08:58→22:19)
[2024-11-26] MEDS: TYLENOL 650 MG PO (08:58)
[2024-11-26] MEDS: FLUSH (NSS) 1 FLUSH IV (08:59)
--- NOTE | 2024-11-26 10:14 | PTCARENOTE ---
received patient this am, patient is awake, chief complaint is that when he moves he becomes SOB, patient remains on 2 LNC with an o2 sat of 97%. I/S very poor effort. I strongly encouraged patient to get OOB with each meal to start to build some
endurance, patient verbalizes understanding. we will start at lunch time. monitor shows AV paced, VSS, sternum GHAZAL, well approximated, CT sites TELEPATHIST no drainage, right leg TELEPATHIST. right do has dsg. on, no drainage noted on dressing. LCW sterri strips
intact. patient does have tremors, not new. call salazar within reach.
--- NOTE | 2024-11-26 10:51 | W.PN.CD ---
Today's Communication / Plan
-
reduce midodrine to 2.5mg tid, and increase Torpol XL to 12.5mg bid
Impression / Plan
-
Background: 74M with HTN & NIDDM who presented with upper back and shoulder tightness then had syncope and developed SOB prompting evaluation -> recent inferior STEMI based on clinical data and EKG -> [facility] with MVCAD now s/p BOWLING PIN REFINISHER-D with Dr. Bueno and
CABG with Dr. Wilks.
Outpatient Freelance Interpreter/Translator: will be Dr. Bueno
PCP: Sabina Dior DO
HFrEF
ICM
- LVEF about 35% preop
- Intraop CHLOE prior to CABG LVEF 31%
- Intraop CHLOE post CABG/on support LVEF 40%
- most recent EF 25%
- GDMT is critical to promote EF recovery. Limited by BP. .
- Toprol XL 12.5mg daily, farxiga 10mg daily recently started
- reduce midodrine to 2.5mg tid, and increase Torpol XL to 12.5mg bid
-continue bumex 1mg PO daily
CAD
- recent inferior STEMI, found to have multivessel disease:
- now s/p CABG 11/09
- continue ASA, pravastatin, Zetia; had possible weakness with crestor
- BB as above
Orthostasis: improved
- will need rehab
- Increasing activity will help
- wean midodrine
Pleural effusions
- thoracentesis 11/21 with significant improvement in shortness of breath and CXR
ROSANGELA, improving
- cont. to monitor with diuresis
Symptomatic complete heart block
- S/p bi-v ICD 11/04/2024
Ventricular fibrillation, about 30 minutes after ICD placement
Mixed hyperlipidemia, goal LDL now <55
Type II DM, longstanding, uncontrolled, Hgba1c 9.0%: diabetic provider following
History of HTN, follow
Former heavy smoker probably at least a 02-mrdg-bpmo history, continued cessation recommended .
Physical Exam
Vital Signs/Labs
Vital Signs
Temp Pulse Resp BP Pulse Ox
98.6 F 80 16 126/75 97
11/26/24 07:01 11/26/24 10:00 11/26/24 08:43 11/26/24 08:58 11/26/24 08:30
11/25/24 11/26/24 11/27/24
06:59 06:59 06:59
Actual Weight 74.5 kg
11/25/24 03:40
11/25/24 03:40
PT 21.3 Sec (11.4-14.6) H 11/09/24 14:28
INR 1.79 11/09/24 14:28
APTT 33.9 Sec (23.4-35.0) 11/09/24 14:28
Magnesium 2.1 mg/dl (1.6-2.3) 11/23/24 04:28
Triglycerides 94 mg/dl (10-149) 11/01/24 04:18
LDL Cholesterol, Calc 80 mg/dl 11/01/24 04:18
VLDL Cholesterol, Calc 18 mg/dl (0-30) 11/01/24 04:18
HDL Cholesterol 33 mg/dl 11/01/24 04:18
TSH 3.13 uIU/ml (0.47-4.68) 10/31/24 21:54
Free T4 1.36 ng/dl (0.78-2.19) 11/17/24 03:01
11/19/24
22:11
Xra-Z-Mbhouakypof Pept [id number]
Physical Exam
Constitutional: No acute distress and Comfortable
EENT: Moist mucous membranes
Cardiovascular: Rhythm & rate is regular, Pedal edema is absent, JVD pressure is normal and Systolic murmur absent
Respiratory: Respiratory effort normal
Data Reviewed
-
Date of Service: November 26, 2024
EKG: Other (Tele: AVpaced 80)
--- NOTE | 2024-11-26 11:40 | PTCARENOTE ---
chest xray completed in dept.
[2024-11-26 11:51] LABS: Glucose - Point of Care 153 mg/dl (70-99)
[2024-11-26] MEDS: NOVOLOG FLEXPEN-MODERATE RESISTANCE 1 UNITS SC ×2 (11:54→16:59)
--- NOTE | 2024-11-26 13:53 | W.PN.UPDATE ---
Update Note
Progress Note Update
Paient seen by me on 11/26/2024 from 1:35pm-1:50pm.
Chart reviewed. Last seen by Dr. Newell for unspecified depression and anxiety yesterday. Zoloft was increased to 100mg daily on 11/24. Patient reports having had a difficult morning with an episode of shortness of breath. He is however able to
enjoy his family who is visiting and states he looks forward to getting home and seeing his two dogs. We discussed risks and benefits of zoloft and that it takes several weeks to take full effect. He understands.
A/P- 74 yo male with unspecified depression and anxiety. Continue zoloft 100mg daily and melatonin 5mg HS. Await clinical response to recent dose increase.
--- NOTE | 2024-11-26 14:03 | PTCARENOTE ---
PFT's being completed at bedside.
[2024-11-26] MEDS: VENTOLIN NEBULES 2.5 MG INH (14:05)
--- NOTE | 2024-11-26 15:22 | W.PN.PUL3 ---
Today's Communication / Plan
-
Change Symbicort to Striverdi + Spiriva; discharge home on Anoro vs Stiolto
Start 5-day course of prednisone
Wean off of oxygen if possible with goal SpO2 88-94%
Encourage incentive spirometer use as large contributor to his hypoxia is also deconditioning with hypoventilation
PT/OT -> awaiting to go to [facility] for rehab
Outpatient full PFTs will be arranged + 6MWT
Pulmonary service will continue to follow along
Assessment
-
Patient is a 74-year-old gentleman with long history of diabetes who developed nonspecific symptoms of upper back and shoulder pain 3 days prior to her presentation to the hospital. Also reported syncope episode. He also reported significant
fatigue which eventually brought him to the emergency room. Further workup was suggestive of a complete heart block as well as elevated troponin consistent with acute myocardial infarction. Patient was noted to have inferior wall ST elevation AL.
He was taken to [facility] and had coronary angiography performed which showed 100% RCA stenosis and significant otherwise coronary artery disease. He also had a temporary pacemaker placed. Postprocedure he was admitted to ICU and baffle installer
consultation was requested for further input.
Patient was subsequently taken for AICD placement and later had coronary artery bypass graft performed on 11/09. Over the last few days, patient reports some shortness of breath minimal cough, clear to whitish expectoration. X-ray was suggestive
of left lower lobe opacity and pulmonary consultation was requested for further input regarding possible antibiotics. Patient has been managed in the IVU and now as of 11/26, pulmonary service reconsulted due to continued supplemental oxygen
requirement.
#1. Acute hypoxic respiratory failure � multifactorial due to deconditioning with hypoventilation, poor inspiratory effort, continued acute decompensated heart failure (albeit improved) and severe/very severe COPD with centrilobular emphysema
(moderate severity predominantly in the upper lobes via CT chest on 11/06/2024)
- Spirometry performed today at bedside and it was performed to the best of the patient's ability although it was not repeatable
- It does clearly show that he has a chronic obstructive lung defect which is very severe, with post-bronchodilator FEV1: 0.75 L / 25% predicted
- Considering that he still is hospitalized with recent CT surgery, this could be an overestimated severity and we should repeat this PFT as an outpatient to assess for improvement
- He is currently on Symbicort which he has been on for few months although he does not say he has been feeling better with his breathing since being on this
- Considering that he lacks a history of eosinophilia, I will change him from Symbicort to Striverdi + Spiriva, and he should be discharged home on Anoro versus Stiolto
- Will also trial a course of prednisone to see if this improves his O2 requirements, degree of dyspnea on exertion
- Maintain euglycemia while on steroids with goal BG >100 and <180
#2. Pulmonary edema, left lower lobe compressive atelectasis with left greater than right pleural effusions
- Patient is currently afebrile, has minimal cough, expectoration is either clear or whitish, procalcitonin (from 11/20/2024) is less than 0.05 making a bacterial pneumonia very unlikely
- Bedside POCUS was performed 11/20, shows a moderate left-sided pleural effusion and a small right-sided pleural effusion. Patient also has bilateral 2+ pitting edema and very elevated BNP suggestive of volume overload
- S/p IR guided thoracentesis 11/21, 1 L fluid removed, post-thoracentesis x-ray shows normal reexpansion of left lung without evidence of pulmonary infiltrate on the left side.
- CXR repeated today (11/26) showing continued left lower lobe pleural effusion with a small right pleural effusion, with improved interstitial edema compared to prior CXR on 11/22/2024
- Continue to diurese and maintain net negative fluid balance as tolerated - currently on bumex 1mg PO daily
- Re-check BNP
- If patient develops fever, increasing cough or expectoration starts to turn more purulent, can start antibiotics
- Incentive spirometry. Increase activity as tolerated.
#3. Acute on chronic heart failure with reduced ejection fraction, LVEF 25-30%
- Patient continues to have bibasilar rales although this could be atelectasis in addition to volume overload, and his lower extremity edema has improved
- Continue Bumex and maintain net negative fluid balance as tolerated
- Trend I/O and monitor UOP
- Recheck BNP
- Defer GDMT to cardiology
#4. History of smoking and severe/very severe COPD
- As stated above, spirometry performed today shows very severe persistent obstructive lung defect; obtain full PFTs as an outpatient
-Stop Symbicort and start Travert he + Spiriva while hospitalized and discharged home on Anoro vs Stiolto
- prn nebulized albuterol
- Prednisone course, 40mg mdaily x 5 days to see if we can wean him off O2
- Maintain SpO2 88% - 94%
- Patient will need outpatient pulmonary function testing and 6-minute walk test for further evaluation
Other medical diagnoses:
- Inferior wall STEMI with multivessel coronary artery disease, s/p coronary artery bypass graft and left atrial appendage exclusion on 11/09
- Complete heart block, status post permanent pacemaker placement
- V-fib arrest s/p AICD firing, soon after AICD placement on 11/04
- ROSANGELA with chronic kidney disease
- Diabetes mellitus
- Hypertension
- Hypothyroidism
- History of smoking and suspected underlying COPD
Total time spent today was 38 minutes for this encounter. Time includes reviewing laboratory test/imaging results, reviewing pertinent medical records, obtaining and reviewing medical history, performing an appropriate exam, ordering medications,
tests and procedures. Time also includes documentation of this encounter, coordinating patient care and communicating with other healthcare professionals. Total time does not include separately billed tests performed on this date of service.
Subjective Data
-
Date of Service:
Date of Service: November 26, 2024
Chief Complaint: Pulmonary Follow Up
Subjective:
We were asked to see this patient again due to hypoxia as he is unable to be weaned off his oxygen.
When I saw the patient he was resting in bed in no acute distress. Currently on 2 L/min nasal cannula, saturating 97%. He mainly complains that he is very weak and has fatigue. Per the nurse, he becomes very short of breath and desaturates to the
mid 80s when on room air. Patient currently denies chest pain, ARDON, nausea, fevers or chills.
Review of Systems
General: Other (Negative unless mentioned above)
Objective Data
Data Reviewed
Vital Signs / I&O / Oxygen:
Vital Signs
Temp Pulse Resp BP Pulse Ox
98.6 F 81 16 126/75 96
11/26/24 07:01 11/26/24 08:58 11/26/24 08:43 11/26/24 08:58 11/26/24 07:01
Intake and Output
11/25/24 11/26/24 11/27/24
06:59 06:59 06:59
Intake Total 240 / 240
Output Total 1700 / 1700 1050 / 1050
Balance -1460 / -1460 -1050 / -1050
SaO2 [SIMV] 100
SaO2 96
Nasal Cannula flow liters per 2
minute
Physical Exam
General: Respiratory Distress (negative), Comfortable, Chills (negtative), Sweats (negtative) and Other (Elderly male, deconditioned)
HEENT: Normocephalic and Anicteric
Cardiovascular: S1-S2 and Peripheral Edema (negative)
Respiratory: Wheeze (negative) and Crackles (Bibasilar)
GI: Soft, Non Distended, Non Tender and Normal Bowel Sounds
Neurology: Awake, Alert, Oriented and Tremors (negative)
Skin: Warm, Dry, Cyanosis (negative) and Jaundice (negative)
Labs/Micro/Reports
Lab Data
11/25/24 03:40
11/25/24 03:40
Microbiology
11/23/24 22:57 Urine Urine Culture - Final
NO GROWTH
--- NOTE | 2024-11-26 16:13 | PTCARENOTE ---
patient has tremors, patient sat in chair for approximately 3 hours, mena. well. patient just returned to bed with assist x 1.
[2024-11-26 16:58] LABS: Glucose - Point of Care 162 mg/dl (70-99)
[2024-11-26] MEDS: PRAVACHOL 40 MG PO (17:10)
[2024-11-26] MEDS: DELTASONE 40 MG PO (18:33)
[2024-11-26] MEDS: REMOVE LIDOCAINE PATCH REMOVE (19:23)
[2024-11-26 21:16] LABS: Glucose - Point of Care 191 mg/dl (70-99)
[2024-11-26] MEDS: LANTUS 0.16 UNITS SC (22:19)
[2024-11-26] MEDS: MELATONIN 5 MG PO (22:20)
--- NOTE | 2024-11-26 22:51 | PTCARENOTE ---
Received patient at change of shift. AV paced on the monitor, HR in the 80s. 97% on 2L. Surgical sites intact. No complaints from pt at this time, call salazar within reach.
[2024-11-27] VITALS (8 sets, daily range): BP systolic 109–158; BP diastolic 66–132; BMI 24.2
--- NOTE | 2024-11-27 01:00 | W.PN.CT ---
Addendum entered and electronically signed by Tacho Wilks MD 11/27/24 09:54:
I saw and examined the patient.
The PA's note was reviewed and I agree with the note.
Comment:
POD#[id number]
Greatly appreciate pulmonary input and expertise
Awaiting rehab
Original Note:
Today's Communication / Plan
-
-pod #18
-no issues overnight
-appreciate Cardiology input- 11/26 Midodrine was decreased to 2.5 tid with possible wean, Toprol increased to 12.5 mg bid
-appreciate Pulmonary input- 11/26 started on Prednisone 40 mg qd x 5 days, switched from Symbicort to Striverdi and Spiriva
-appreciate Psychiatry input - on Zoloft and Melatonin
-started on Macrodantin 11/24 for UTI -sxs improved
-[place] came out 11/22/24
-Cr has been stable (1.3)
-on Midodrine 5 tid for hypotension
-diuresing with 1 mg daily Bumex, continue Toprol, Farxiga
-Appreciate Physiatry evaluation 11/23
-OOB into chair/Ambulate
-continue PT/OT
-Diabetes education/management f/u
-waiting for [employer] [id number] review on 11/28 to get approval for [facility]
-Encourage use of IS
-appreciate everyone input
Assessment / Plan
-
- s/p CABG x 4 (JUSTIN to LAD, GSV to D1, GSV to OM2 upper branch, GSV to OM2 lower branch); ELAA (45mm AtriClip); Lysis of pericardial adhesions w/ blunt & electrocautery dissection; Lysis of left pleural-pleural adhesions w/ electrocautery on
11/09/[address] Wilks, pod #18
-S/P Left thoracentesis (1000 cc of serosanguineous pleural fluid) by IR 11/21/24
- Pre-CHLOE: LVEF 31%, [id number] MR, mild AI
- Post-CHLOE: LVEF 40%, unchanged valves, SHEMAR confirmed excluded
-Severe 3v CAD
-Inferior IA
-Weakness/Fatigue
-Syncopal episode
-HFrEF/ICM (LVEF 35%; was 50-55% per echo 04/2014)
-CHB S/P Transvenous pacer, 11/01/24
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
-Mild-moderate TR
-HTN
-Hyperlipidemia
-Hypothyroidism
-T2DM (hgb A1C 9.0)
-ROSANGELA (peaked @ 2.1)
-Transaminitis
-Small pericardial effusion, per CTA 11/06
-Small bilateral pleural effusion, per CTA 11/06
-Former tobacco use (quit 20 years ago, ~40 pk/yr)
-Diplopia S/p cataract surgery
-IGIUGIG S/P hearing aids
-Renal calculi S/P cystoscopy with renal stents
-S/P T&A
-S/P Appendectomy
-Hx Vertigo
-Severe/very severe COPD with centrilobular emphysema (moderate severity predominantly in the upper lobes via CT chest on 11/06/2024). Post-bronchodilator FEV1: 0.75 L / 25% predicted
-will need outpatient PFT
-Acute postop blood loss anemia
-Acute postop atelectasis
-Acute postop pericarditis
-Acute postop hyperkalemia
-Acute postop hypovolemia with subsequent hypervolemia
-Acute postop Orthostasis
-Acute postop confusion/delirium
-Acute postop ROSANGELA
-S/p L thoracentesis on 1L serosanguineous fluid on 11/21/24
-UTI (Klebsiella)- tx with Macrodantin
-Acute hypoxic respiratory failure � multifactorial due to deconditioning with hypoventilation, poor inspiratory effort, continued acute decompensated heart failure (albeit improved) and severe/very severe COPD with centrilobular emphysema (moderate
severity predominantly in the upper lobes via CT chest on 11/06/2024)- on 11/26 started on 5 day course of Prednisone, Striverdi and Spiriva
Discussed patient care with: Nursing and Care Team
Subjective
-
Date of Service: November 27, 2024
Objective Data
-
Lab Results
11/25/24 03:40
11/25/24 03:40
PT 21.3 Sec (11.4-14.6) H 11/09/24 14:28
INR 1.79 11/09/24 14:28
APTT 33.9 Sec (23.4-35.0) 11/09/24 14:28
Vital Signs
Vital Signs
Temp Pulse Resp BP Pulse Ox
97.9 F 81 18 117/75 97
11/26/24 22:25 11/26/24 22:19 11/26/24 22:25 11/26/24 22:19 11/26/24 22:25
CT Intake/Output/Weight
11/26/24 11/26/24 11/27/24
06:59 18:59 06:59
Intake Total 960 / 960
Output Total 225 / 1050 735 / 935 200 / 935
Balance -225 / -1050 225 / 25 -200 / 25
SaO2: 97
Physical Exam
-
General: Awake and AOx3
Cardiovascular: Regular rate & rhythm, No Murmurs and No Rub
Respiratory: Decreased Breath Sounds
Sternum: Stable
Incision: Clean, Dry and Intact
Abdomen: soft, nontender, nondistended, +bowel sounds
Extremities: Edema trace b/l (much improved)
Data Reviewed
-
Lab Results: Results Reviewed
Medications: Active Meds Reviewed
Chest X-Ray: Report Reviewed and Image Reviewed
ECG: Report Reviewed and Image Reviewed
[2024-11-27 03:19] LABS: Blood Urea Nitrogen 29 mg/dl (9-20); Calcium 8.0 mg/dl (8.4-10.2); Carbon Dioxide 32 mmol/L (22-30); Chloride 102 mmol/L (98-107); Estimated Creatinine Clearance 59 ml/min; Glucose 172 mg/dl (70-99); Potassium 4.5 mmol/L (3.5-5.1); Sodium 140 mmol/L (135-145); eGFR > 60.00
[2024-11-27] MEDS: TYLENOL 650 MG PO ×2 (06:25→23:47)
[2024-11-27] MEDS: NOVOLOG FLEXPEN 4 UNITS SC ×3 (08:19→16:51)
[2024-11-27 08:20] LABS: Glucose - Point of Care 130 mg/dl (70-99)
[2024-11-27] MEDS: NOVOLOG FLEXPEN-MODERATE RESISTANCE SC (08:20)
[2024-11-27] MEDS: ARMOUR THYROID 15 MG PO (08:38)
[2024-11-27] MEDS: FARXIGA 10 MG PO (08:39)
[2024-11-27] MEDS: ZOLOFT 100 MG PO (08:39)
[2024-11-27] MEDS: PROTONIX 40 MG PO (08:39)
[2024-11-27] MEDS: ZETIA 10 MG PO (08:39)
[2024-11-27] MEDS: TOPROL XL 12.5 MG PO ×2 (08:39→20:08)
[2024-11-27] MEDS: MUCINEX 600 MG PO ×2 (08:39→20:08)
[2024-11-27] MEDS: SENOKOT-S 1 TABLET PO ×2 (08:39→20:08)
[2024-11-27] MEDS: PLAVIX 75 MG PO (08:39)
[2024-11-27] MEDS: VITAMIN D3 (cholecalciferol) 50 MCG PO (08:39)
[2024-11-27] MEDS: PACERONE 200 MG PO ×3 (08:40→22:09)
[2024-11-27] MEDS: LOW STRENGTH ASPIRIN 81 MG PO (08:40)
[2024-11-27] MEDS: LIDOCAINE 4% PATCH TOPICAL (08:43)
[2024-11-27] MEDS: SPIRIVA RESPIMAT 2.5 MCG 2 PUFF INH (08:44)
[2024-11-27] MEDS: STRIVERDI RESPIMAT 2 PUFF INH (08:44)
[2024-11-27] MEDS: MACRODANTIN 50 MG PO ×4 (08:46→22:09)
[2024-11-27] MEDS: BUMEX 1 MG PO (08:46)
[2024-11-27] MEDS: DELTASONE 40 MG PO (08:46)
--- NOTE | 2024-11-27 08:56 | PTCARENOTE ---
received patient this am, patient stating, 'I just feel weak', patient has very flat affect, no motivation today. monitor shows AV paced, VSS. appetite ok but patient states, 'I get full quickly'. Dr. Tobin making rounds. will let patient rest this
am and then up to chair for lunch, patient likes the plan.
--- NOTE | 2024-11-27 09:02 | PTCARENOTE ---
Resp. therapist in room giving treatment, o2 sat on 2 LNC, 98%, decreased o2 to 1 LNC.
--- NOTE | 2024-11-27 09:14 | W.PN.CD ---
Today's Communication / Plan
-
stop midodrine: if BP stable, will continue to titrate Toprol XL
Impression / Plan
-
Background: 74M with HTN & NIDDM who presented with upper back and shoulder tightness then had syncope and developed SOB prompting evaluation -> recent inferior STEMI based on clinical data and EKG -> [facility] with [facility] now s/p DIRECTOR CHILD ABUSE THERAPY-D with Dr. Bueno and
CABG with Dr. Wilks.
Outpatient Automotive Painter: will be Dr. Bueno
PCP: Sabina Dior, DO
HFrEF
ICM
- LVEF about 35% preop
- Intraop CHLOE prior to CABG LVEF 31%
- Intraop CHLOE post CABG/on support LVEF 40%
- most recent EF 25%
- GDMT is critical to promote EF recovery. Limited by BP. .
- Toprol XL 12.5mg bid, farxiga 10mg daily recently
-stop midodrine: if BP stable, will continue to titrate Toprol XL
-continue bumex 1mg PO daily
CAD
- recent inferior STEMI, found to have multivessel disease:
- now s/p CABG 11/09
- continue ASA, pravastatin, Zetia; had possible weakness with crestor
- BB as above
Orthostasis: improved
- will need rehab
- Increasing activity will help
- wean midodrine
Pleural effusions
- thoracentesis 11/21 with significant improvement in shortness of breath and CXR
ROSANGELA, improving
- cont. to monitor with diuresis
Symptomatic complete heart block
- S/p bi-v ICD 11/04/2024
Ventricular fibrillation, about 30 minutes after ICD placement
Mixed hyperlipidemia, goal LDL now <55
Type II DM, longstanding, uncontrolled, Hgba1c 9.0%: diabetic provider following
History of HTN, follow
Former heavy smoker probably at least a [id number]-[id number] history, continued cessation recommended .
Physical Exam
Vital Signs/Labs
Vital Signs
Temp Pulse Resp BP Pulse Ox
97.5 F 82 16 114/66 98
11/27/24 06:59 11/27/24 08:49 11/27/24 08:49 11/27/24 08:46 11/27/24 08:49
11/26/24 11/27/24 11/28/24
06:59 06:59 06:59
Actual Weight 74.5 kg
11/25/24 03:40
11/27/24 02:13
PT 21.3 Sec (11.4-14.6) H 11/09/24 14:28
INR 1.79 11/09/24 14:28
APTT 33.9 Sec (23.4-35.0) 11/09/24 14:28
Magnesium 2.1 mg/dl (1.6-2.3) 11/23/24 04:28
Triglycerides 94 mg/dl (10-149) 11/01/24 04:18
LDL Cholesterol, Calc 80 mg/dl 11/01/24 04:18
VLDL Cholesterol, Calc 18 mg/dl (0-30) 11/01/24 04:18
HDL Cholesterol 33 mg/dl 11/01/24 04:18
TSH 3.13 uIU/ml (0.47-4.68) 10/31/24 21:54
Free T4 1.36 ng/dl (0.78-2.19) 11/17/24 03:01
11/19/24 11/27/24
22:11 02:13
Dxm-F-Lwrwtxfrwil Pept [id number]
Physical Exam
Constitutional: No acute distress
EENT: Moist mucous membranes
Cardiovascular: Rhythm & rate is regular, Pedal edema is absent, JVD pressure is normal and Systolic murmur absent
Respiratory: Respiratory effort normal
Neuro/Psych: Alert and Oriented
Data Reviewed
-
Date of Service: November 27, 2024
EKG: Other (Tele: AV paced 80)
Labs: Labs Reviewed by me
[2024-11-27 11:39] LABS: Glucose - Point of Care 229 mg/dl (70-99)
[2024-11-27] MEDS: NOVOLOG FLEXPEN-MODERATE RESISTANCE 3 UNITS SC ×2 (12:42→16:51)
[2024-11-27 12:51] LABS: Glucose - Point of Care 308 mg/dl (70-99)
--- NOTE | 2024-11-27 13:55 | W.PN.PUL3 ---
Today's Communication / Plan
-
Changed Symbicort to Striverdi + Spiriva; discharge home on Anoro vs Stiolto
Continue short 5-day course of prednisone
Goal BG >100 and <180
Wean off of oxygen if possible with goal SpO2 88-94%
Encourage incentive spirometer use as large contributor to his hypoxia is also deconditioning with hypoventilation
PT/OT -> awaiting to go to [place] for rehab
Outpatient full PFTs will be arranged + 6MWT
Pulmonary service will continue to follow along
Assessment
-
Patient is a 74-year-old gentleman with long history of diabetes who developed nonspecific symptoms of upper back and shoulder pain 3 days prior to her presentation to the hospital. Also reported syncope episode. He also reported significant
fatigue which eventually brought him to the emergency room. Further workup was suggestive of a complete heart block as well as elevated troponin consistent with acute myocardial infarction. Patient was noted to have inferior wall ST elevation GA.
He was taken to [facility]re[facility] Wheel [facility] and had coronary angiography performed which showed 100% RCA stenosis and significant otherwise coronary artery disease. He also had a temporary pacemaker placed. Postprocedure he was admitted to ICU and final canoe inspector
consultation was requested for further input.
Patient was subsequently taken for AICD placement and later had coronary artery bypass graft performed on 11/09. Over the last few days, patient reports some shortness of breath minimal cough, clear to whitish expectoration. X-ray was suggestive
of left lower lobe opacity and pulmonary consultation was requested for further input regarding possible antibiotics. Patient has been managed in the IVU and now as of 11/26, pulmonary service reconsulted due to continued supplemental oxygen
requirement.
#1. Acute hypoxic respiratory failure � multifactorial due to deconditioning with hypoventilation, poor inspiratory effort, continued acute decompensated heart failure (albeit improved) and severe/very severe COPD with centrilobular emphysema
(moderate severity predominantly in the upper lobes via CT chest on 11/06/2024)
- Spirometry performed today at bedside and it was performed to the best of the patient's ability although it was not repeatable
- It does clearly show that he has a chronic obstructive lung defect which is very severe, with post-bronchodilator FEV1: 0.75 L / 25% predicted
- Considering that he still is hospitalized with recent CT surgery, this could be an overestimated severity and we should repeat this PFT as an outpatient to assess for improvement
- He is currently on Symbicort which he has been on for few months although he does not say he has been feeling better with his breathing since being on this
- Considering that he lacks a history of eosinophilia, I changed him from Symbicort to Striverdi + Spiriva, and he should be discharged home on Anoro versus Stiolto
- Continue finite course of prednisone to see if this improves his O2 requirements, degree of dyspnea on exertion
- Maintain euglycemia while on steroids with goal BG >100 and <180
#2. Pulmonary edema, left lower lobe compressive atelectasis with left greater than right pleural effusions
- Patient is currently afebrile, has minimal cough, expectoration is either clear or whitish, procalcitonin (from 11/20/2024) is less than 0.05 making a bacterial pneumonia very unlikely
- Bedside POCUS was performed 11/20, shows a moderate left-sided pleural effusion and a small right-sided pleural effusion. Patient also has bilateral 2+ pitting edema and very elevated BNP suggestive of volume overload
- S/p IR guided thoracentesis 11/21, 1 L fluid removed, post-thoracentesis x-ray shows normal reexpansion of left lung without evidence of pulmonary infiltrate on the left side.
- CXR repeated on 11/26 showed continued left lower lobe pleural effusion with a small right pleural effusion, with improved interstitial edema compared to prior CXR on 11/22/2024
- Continue to diurese and maintain net negative fluid balance as tolerated - currently on bumex 1mg PO daily
- Occasionally trend BNP, which still remains elevated
- If patient develops fever, increasing cough or expectoration starts to turn more purulent, can start antibiotics
- Incentive spirometry encouraged; increase activity as tolerated
- PT/OT
#3. Acute on chronic heart failure with reduced ejection fraction, LVEF 25-30%
- Patient continues to have bibasilar rales although this could be atelectasis in addition to volume overload, and his lower extremity edema has improved
- Continue Bumex and maintain net negative fluid balance as tolerated
- Trend I/O and monitor UOP
- Recheck BNP
- Defer GDMT to cardiology
#4. History of smoking and severe/very severe COPD
- As stated above, spirometry performed on 11/26 showed very severe persistent obstructive lung defect; obtain full PFTs as an outpatient
- Stopped Symbicort and started Striverdi + Spiriva while hospitalized and discharged home on Anoro vs Stiolto
- prn nebulized albuterol
- Prednisone course, 40mg daily x 5 days to see if we can wean him off O2; may need to adjust lantus + aspart to keep BG <180
- Maintain SpO2 88% - 94%
- Patient will need outpatient pulmonary function testing and 6-minute walk test for further evaluation
Other medical diagnoses:
- Inferior wall STEMI with multivessel coronary artery disease, s/p coronary artery bypass graft and left atrial appendage exclusion on 11/09
- Complete heart block, status post permanent pacemaker placement
- V-fib arrest s/p AICD firing, soon after AICD placement on 11/04
- ROSANGELA with chronic kidney disease
- Diabetes mellitus
- Hypertension
- Hypothyroidism
- History of smoking and suspected underlying COPD
Total time spent today was 42 minutes for this encounter. Time includes reviewing laboratory test/imaging results, reviewing pertinent medical records, obtaining and reviewing medical history, performing an appropriate exam, ordering medications,
tests and procedures. Time also includes documentation of this encounter, coordinating patient care and communicating with other healthcare professionals. Total time does not include separately billed tests performed on this date of service.
Subjective Data
-
Date of Service:
Date of Service: November 27, 2024
Chief Complaint: Pulmonary Follow Up
Subjective:
Patient seen today at bedside (late note entry). Patient says he does not feel good today, feels weak, has a headache and is depressed. Patient's , [place], at bedside. Patient is currently on 2 L/min nasal cannula saturating 98%. He
currently denies chest pain, abdominal pain, nausea, fevers or chills.
Review of Systems
General: Other (Negative unless mentioned above)
Objective Data
Data Reviewed
Vital Signs / I&O / Oxygen:
Vital Signs
Temp Pulse Resp BP Pulse Ox
97.5 F 80 16 114/66 98
11/27/24 06:59 11/27/24 10:00 11/27/24 08:49 11/27/24 08:46 11/27/24 08:49
Intake and Output
11/26/24 11/27/24 11/28/24
06:59 06:59 06:59
Intake Total 960 / 960
Output Total 1050 / 1050 1135 / 1135
Balance -1050 / -1050 -175 / -175
SaO2 [SIMV] 100
SaO2 98
Nasal Cannula flow liters per 2
minute
Physical Exam
General: Respiratory Distress (negative), Comfortable, Chills (negtative), Sweats (negtative) and Other (Elderly male, deconditioned)
HEENT: Normocephalic and Anicteric
Cardiovascular: S1-S2 and Peripheral Edema (negative)
Respiratory: Wheeze (negative), Crackles (Bibasilar), Rhonchi (with expiration) and Non-Labored Respirations
GI: Soft, Non Distended, Non Tender and Normal Bowel Sounds
Neurology: Awake, Alert, Oriented, Tremors (negative) and Depressed
Skin: Warm, Dry, Cyanosis (negative) and Jaundice (negative)
Labs/Micro/Reports
Lab Data
11/25/24 03:40
11/27/24 02:13
Microbiology
06/25/25 22:57 Urine Urine Culture - Final
NO GROWTH
--- NOTE | 2024-11-27 15:39 | PTCARENOTE ---
dressing removed from coccyx area, no redness, no breakdown. left do dsg. removed, no open skin, left PRODUCTION FOREMAN. petechia noted on legs bilat, nothing new. shower completed by RN. patient returned back to his chair with a smile on his face. at
bedside.
[2024-11-27 16:51] LABS: Glucose - Point of Care 216 mg/dl (70-99)
[2024-11-27] MEDS: PRAVACHOL 40 MG PO (17:49)
[2024-11-27] MEDS: REMOVE LIDOCAINE PATCH REMOVE (20:08)
[2024-11-27 21:54] LABS: Glucose - Point of Care 201 mg/dl (70-99)
[2024-11-27] MEDS: LANTUS 0.22 UNITS SC (22:08)
[2024-11-27] MEDS: MELATONIN 5 MG PO (22:09)
--- NOTE | 2024-11-27 23:25 | PTCARENOTE ---
Rec'd pt. in bed at change of shift AAOx3, VSS, AV paced on the monitor. No complaints pain, just stating that he's exhausted and only wants to sleep following a busy day. Refused to get OOB to use BR, refusing oral care despite encouragement.
Uses urinal independently. Currently resting quietly.
[2024-11-28] VITALS (16 sets, daily range): BP systolic 94–156; BP diastolic 65–129; PULSE 81–97; O2SAT 97–98; BMI 24.4
--- NOTE | 2024-11-28 00:31 | W.PN.CT ---
Today's Communication / Plan
-
No issues overnight �
11/26 started on Prednisone 40 mg qd x 5 days, switched from Symbicort to Striverdi and Spiriva �
Macrodantin 11/24 for UTI -sxs improved�
Continue amiodarone, ASA, Bumex, Plavix, Farxiga, Zetia, Lantus, metoprolol, zoloft melatonin, pravachol�
OOB into chair/Ambulate�
continue PT/OT �
Cont Diabetes education/management f/u�
Waiting for [employer] [id number] review on 11/28 to get approval for [employer]�
Encourage use of IS/OOB�
Assessment / Plan
-
- s/p CABG x 4 (JUSTIN to LAD, GSV to D1, GSV to OM2 upper branch, GSV to OM2 lower branch); ELAA (45mm AtriClip); Lysis of pericardial adhesions w/ blunt & electrocautery dissection; Lysis of left pleural-pleural adhesions w/ electrocautery on
11/09/[address] Wilks, pod #19
-S/P Left thoracentesis (1000 cc of serosanguineous pleural fluid) by IR 11/21/24
- Pre-CHLOE: LVEF 31%, [id number] MR, mild AI
- Post-CHLOE: LVEF 40%, unchanged valves, SHEMAR confirmed excluded
-Severe 3v CAD
-Inferior [place]
-Weakness/Fatigue
-Syncopal episode
-HFrEF/ICM (LVEF 35%; was 50-55% per echo 04/2014)
-CHB S/P Transvenous pacer, 11/01/24
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
-Mild-moderate TR
-HTN
-Hyperlipidemia
-Hypothyroidism
-T2DM (hgb A1C 9.0)
-ROSANGELA (peaked @ 2.1)
-Transaminitis
-Small pericardial effusion, per CTA 11/06
-Small bilateral pleural effusion, per CTA 11/06
-Former tobacco use (quit 20 years ago, ~40 pk/yr)
-Diplopia S/p cataract surgery
-[place] S/P hearing aids
-Renal calculi S/P cystoscopy with renal stents
-S/P T&A
-S/P Appendectomy
-Hx Vertigo
-Severe/very severe COPD with centrilobular emphysema (moderate severity predominantly in the upper lobes via CT chest on 11/06/2024). Post-bronchodilator FEV1: 0.75 L / 25% predicted
-will need outpatient PFT
-Acute postop blood loss anemia
-Acute postop atelectasis
-Acute postop pericarditis
-Acute postop hyperkalemia
-Acute postop hypovolemia with subsequent hypervolemia
-Acute postop Orthostasis
-Acute postop confusion/delirium
-Acute postop ROSANGELA
-S/p L thoracentesis on 1L serosanguineous fluid on 11/21/24
-UTI (Klebsiella)- tx with Macrodantin
-Acute hypoxic respiratory failure � multifactorial due to deconditioning with hypoventilation, poor inspiratory effort, continued acute decompensated heart failure (albeit improved) and severe/very severe COPD with centrilobular emphysema (moderate
severity predominantly in the upper lobes via CT chest on 11/06/2024)- on 11/26 started on 5 day course of Prednisone, Striverdi and Spiriva
Subjective
-
Date of Service: November 28, 2024
Objective Data
-
Lab Results
11/25/24 03:40
11/27/24 02:13
PT 21.3 Sec (11.4-14.6) H 11/09/24 14:28
INR 1.79 11/09/24 14:28
APTT 33.9 Sec (23.4-35.0) 11/09/24 14:28
Vital Signs
Vital Signs
Temp Pulse Resp BP Pulse Ox
97.6 F 80 18 109/75 96
11/27/24 22:07 11/27/24 22:09 11/27/24 22:07 11/27/24 22:09 11/27/24 22:07
CT Intake/Output/Weight
11/27/24 11/27/24 11/28/24
06:59 18:59 06:59
Output Total 400 / 1135 700 / 1100 400 / 1100
Balance -400 / -175 -700 / -1100 -400 / -1100
SaO2: 96
Physical Exam
-
General: Awake
Cardiovascular: Regular rate & rhythm and Irregular rate & rhythm
Respiratory: Clear and Equal
Sternum: Stable
Incision: Clean, Dry and Intact
Extremities: No Edema
[2024-11-28 04:48] LABS: Hematocrit 32.1 % (39.0-52.0); Hemoglobin 10.0 g/dL (13.0-18.0); Mean Corp Hgb Conc. 31.2 g/dL (33.0-37.0); Mean Corpuscular Volume 94.4 fL (80.0-94.0); Platelet Count 265 10^3/uL (130-400); Red Cell Dist. Width 17.3 % (11.5-14.5)
[2024-11-28 05:14] LABS: Blood Urea Nitrogen 36 mg/dl (9-20); Calcium 8.3 mg/dl (8.4-10.2); Carbon Dioxide 33 mmol/L (22-30); Chloride 102 mmol/L (98-107); Estimated Creatinine Clearance 54 ml/min; Glucose 140 mg/dl (70-99); Potassium 4.1 mmol/L (3.5-5.1); Sodium 140 mmol/L (135-145); eGFR > 60.00
[2024-11-28] MEDS: STRIVERDI RESPIMAT 2 PUFF INH (07:09)
[2024-11-28] MEDS: SPIRIVA RESPIMAT 2.5 MCG 2 PUFF INH (07:09)
--- NOTE | 2024-11-28 07:19 | W.PN.PUL3 ---
Today's Communication / Plan
-
Primary complaint at this time is cough
Continue with negative fluid balance per cardiology, creatinine stable
Chest x-ray and exam consistent with left lower lobe pleural-parenchymal process
Continue with prednisone, no change at this time
Continue with maintenance inhaler therapy for COPD
Would require imaging sooner rather than later if symptoms worsen, otherwise recommend follow-up chest x-ray in the next 4 weeks
Would recommend pulmonary follow-up. Information left in chart
Will follow
Assessment
-
Patient is a 74-year-old gentleman with long history of diabetes who developed nonspecific symptoms of upper back and shoulder pain 3 days prior to her presentation to the hospital. Also reported syncope episode. He also reported significant
fatigue which eventually brought him to the emergency room. Further workup was suggestive of a complete heart block as well as elevated troponin consistent with acute myocardial infarction. Patient was noted to have inferior wall ST elevation VA.
He was taken to [facility] and had coronary angiography performed which showed 100% RCA stenosis and significant otherwise coronary artery disease. He also had a temporary pacemaker placed. 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
consultation was requested for further input.
Patient was subsequently taken for AICD placement and later had coronary artery bypass graft performed on 11/09. Over the last few days, patient reports some shortness of breath minimal cough, clear to whitish expectoration. X-ray was suggestive
of left lower lobe opacity and pulmonary consultation was requested for further input regarding possible antibiotics. Patient has been managed in the IVU and now as of 11/26, pulmonary service reconsulted due to continued supplemental oxygen
requirement.
#1. Acute hypoxic respiratory failure � multifactorial due to deconditioning with hypoventilation, poor inspiratory effort, continued acute decompensated heart failure (albeit improved) and severe/very severe COPD with centrilobular emphysema
(moderate severity predominantly in the upper lobes via CT chest on 11/06/2024)
- Spirometry performed today at bedside and it was performed to the best of the patient's ability although it was not repeatable
- It does clearly show that he has a chronic obstructive lung defect which is very severe, with post-bronchodilator FEV1: 0.75 L / 25% predicted
- Considering that he still is hospitalized with recent CT surgery, this could be an overestimated severity and we should repeat this PFT as an outpatient to assess for improvement
- He is currently on Symbicort which he has been on for few months although he does not say he has been feeling better with his breathing since being on this
- Considering that he lacks a history of eosinophilia, I changed him from Symbicort to Striverdi + Spiriva, and he should be discharged home on Anoro versus Stiolto
- Continue finite course of prednisone to see if this improves his O2 requirements, degree of dyspnea on exertion. Presently on 40 mg of prednisone
- Maintain euglycemia while on steroids with goal BG >100 and <180
#2. Pulmonary edema, left lower lobe compressive atelectasis with left greater than right pleural effusions
- Patient is currently afebrile, has minimal cough, expectoration is either clear or whitish, procalcitonin (from 11/20/2024) is less than 0.05 making a bacterial pneumonia very unlikely
- Bedside POCUS was performed 11/20, shows a moderate left-sided pleural effusion and a small right-sided pleural effusion. Patient also has bilateral 2+ pitting edema and very elevated BNP suggestive of volume overload
- S/p IR guided thoracentesis 11/21, 1 L fluid removed, post-thoracentesis x-ray shows normal reexpansion of left lung without evidence of pulmonary infiltrate on the left side.
- CXR repeated on 11/26 showed continued left lower lobe pleural effusion with a small right pleural effusion, with improved interstitial edema compared to prior CXR on 11/22/2024
- Continue to diurese and maintain net negative fluid balance as tolerated - currently on bumex 1mg PO daily
- Occasionally trend BNP, which still remains elevated
- If patient develops fever, increasing cough or expectoration starts to turn more purulent, can start antibiotics
- Incentive spirometry encouraged; increase activity as tolerated
- PT/OT
#3. Acute on chronic heart failure with reduced ejection fraction, LVEF 25-30%
- Patient continues to have bibasilar rales although this could be atelectasis in addition to volume overload, and his lower extremity edema has improved
- Continue Bumex and maintain net negative fluid balance as tolerated
- Trend I/O and monitor UOP
- Recheck BNP
- Defer GDMT to cardiology
- Amiodarone therapy as noted-
#4. History of smoking and severe/very severe COPD
- As stated above, spirometry performed on 11/26 showed very severe persistent obstructive lung defect; obtain full PFTs as an outpatient
- Stopped Symbicort and started Striverdi + Spiriva while hospitalized and discharged home on Anoro vs Stiolto
- prn nebulized albuterol
- Prednisone course, 40mg daily x 5 days to see if we can wean him off O2; may need to adjust lantus + aspart to keep BG <180
- Maintain SpO2 88% - 94%
- Patient will need outpatient pulmonary function testing and 6-minute walk test for further evaluation
- Presently 98% on 2 L. Wean oxygen as able
Other medical diagnoses:
- Inferior wall STEMI with multivessel coronary artery disease, s/p coronary artery bypass graft and left atrial appendage exclusion on 11/09
- Complete heart block, status post permanent pacemaker placement
- V-fib arrest s/p AICD firing, soon after AICD placement on 11/04
- ROSANGELA with chronic kidney disease
- Diabetes mellitus
- Hypertension
- Hypothyroidism
- History of smoking and suspected underlying COPD
Subjective Data
-
Date of Service:
Date of Service: November 28, 2024
Chief Complaint: Pulmonary Follow Up
Subjective:
Patient continues to have a cough, mildly productive. Denies hemoptysis, chest pain, nausea. 98% saturation. Negative fluid balance noted. Denies cough with eating or drinking. He does cough worse when lying flat
Objective Data
Data Reviewed
Vital Signs / I&O / Oxygen:
Vital Signs
Temp Pulse Resp BP Pulse Ox
97.8 F 80 16 108/69 98
11/28/24 06:44 11/28/24 07:13 11/28/24 07:13 11/28/24 03:51 11/28/24 07:13
Intake and Output
11/27/24 11/28/24 11/29/24
06:59 06:59 06:59
Intake Total 960 / 960 240 / 240
Output Total 1135 / 1135 1400 / 1400
Balance -175 / -175 -1160 / -1160
SaO2 [SIMV] 100
SaO2 98
Nasal Cannula flow liters per 2
minute
Physical Exam
General: Comfortable
HEENT: Normocephalic and Anicteric
Cardiovascular: S1-S2, Regular Rhythm, Murmur (n), Rub (n) and Peripheral Edema (negative)
Respiratory: Wheeze (negative), Crackles (Few at base, left greater than right, slightly decreased left base, no dullness), Rhonchi (n), Non-Labored Respirations and Stridor (n)
GI: Soft, Non Distended, Non Tender and Normal Bowel Sounds
Neurology: Awake, Alert and No Motor Deficits (Moves all extremities)
Skin: Warm, Dry, Cyanosis (negative) and Jaundice (negative)
Labs/Micro/Reports
Lab Data
11/28/24 04:41
11/28/24 04:41
Microbiology
11/23/24 22:57 Urine Urine Culture - Final
NO GROWTH
[2024-11-28 07:34] LABS: Glucose - Point of Care 132 mg/dl (70-99)
--- NOTE | 2024-11-28 08:47 | PN.DE.MGMTRT ---
Insulin Management
- -
11/28/2024: Diabetes Management Follow up
Patient admitted 10/31 with c/o weakness; NSTEMI, complete heart block. Cardiac cath 11/01 - Severe multivessel CAD.
PMH: HTN, HLD, T2DM and Hypothyroid. Prior to admission was taking Lantus 40 units @ HS, Metformin 1000 mg BID, Januvia 100 mg daily. A1C on admission 9%. Cr 1.7, eGFR 41.78 today.
Patient is awake alert and oriented, sitting up in chair, offers no complaints, flat affect, able to discuss diabetes care. at bedside.
POD # 21 s/p CABG x 4. 6/23 S/P 1L thoracentesis.Patient reports appetite has improved and he is eating a lot more now
11/26 Patient was started on a short course of steroids, contributing to Hyperglycemia.
Lantus dose was adjusted to 22 units @ HS. CR 1.2 eGFR >60. Patient remains on steroids, pred 40 mg daily, FBG 132 POC this AM.
11/27 Premeal glucose 216 to 308, required up to 3 units of corrective insulin with meals.
Will increase AC NovoLog to 6 units, 1st dose now. Continue Farxiga 10 mg daily and Lantus 22 units @ HS.
Will cont to follow. Discussed with nurse
Patient's brought in his DexCom G6, explained to pt and that we will assist him in placing the device once he is closer to discharge.
Diabetes History
- -
Type of Diabetes: 2 requiring insulin
Pre-Admission Diabetes Regimen
11/28/24
04:41
Creatinine 1.2
Lab Results
Hemoglobin A1c 9.0 % (4.0-5.6) H 11/01/24 04:18
Insulin Pump Settings
IP Diabetes Regimen
11/27/24 11/27/24 11/27/24
11:37 12:50 16:50
Glucose
POC Glucose 229 H 308 H 216 H
11/27/24 11/28/2411/28/25
21:53 04:41 07:32
Glucose 140 H
POC Glucose 201 H 132 H
Meal type: Lunch
Amount consumed: 50%
Patient Education
--- NOTE | 2024-11-28 09:03 | W.PN.CD ---
Today's Communication / Plan
-
increase Toprol XL to 25 mg bid
continue farxiga
midodrine stopped 11/27
Impression / Plan
-
Background: 74M with HTN & NIDDM who presented with upper back and shoulder tightness then had syncope and developed SOB prompting evaluation -> recent inferior STEMI based on clinical data and EKG -> [facility] with [facility] now s/p [employer]PLANE [employer]ER-D with Dr. Bueno and
CABG with Dr. Wilks.
Outpatient Scout Executive: will be Dr. Bueno
PCP: Sabina Dior,
HFrEF
ICM
- LVEF about 35% preop
- Intraop CHLOE prior to CABG LVEF 31%
- Intraop CHLOE post CABG/on support LVEF 40%
- most recent EF 25%
- GDMT is critical to promote EF recovery. Limited by BP. .
- increase Toprol XL to 25 mg bid
-continue farxiga
-midodrine stopped 11/27
-continue bumex 1mg PO daily
CAD
- recent inferior STEMI, found to have multivessel disease:
- now s/p CABG 11/09
- continue ASA, pravastatin, Zetia; had possible weakness with crestor
- BB as above
Orthostasis: improved
- will need rehab
- Increasing activity will help
- wean midodrine
Pleural effusions
- thoracentesis 11/21 with significant improvement in shortness of breath and CXR
ROSANGELA, improving
- cont. to monitor with diuresis
Symptomatic complete heart block
- S/p bi-v ICD 11/04/2024
Ventricular fibrillation, about 30 minutes after ICD placement
Mixed hyperlipidemia, goal LDL now <55
Type II DM, longstanding, uncontrolled, Hgba1c 9.0%: diabetic provider following
History of HTN, follow
Former heavy smoker probably at least a 84-chnt-aowz history, continued cessation recommended .
Physical Exam
Vital Signs/Labs
Vital Signs
Temp Pulse Resp BP Pulse Ox
97.8 F 80 16 104/71 98
11/28/24 06:44 11/28/24 08:00 11/28/24 07:13 11/28/24 06:46 11/28/24 07:13
11/27/24 11/28/24 11/29/24
06:59 06:59 06:59
Actual Weight 74.4 kg 75 kg
11/28/24 04:41
11/28/24 04:41
PT 21.3 Sec (11.4-14.6) H 11/09/24 14:28
INR 1.79 11/09/24 14:28
APTT 33.9 Sec (23.4-35.0) 11/09/24 14:28
Magnesium 2.1 mg/dl (1.6-2.3) 11/23/24 04:28
Triglycerides 94 mg/dl (10-149) 11/01/24 04:18
LDL Cholesterol, Calc 80 mg/dl 11/01/24 04:18
VLDL Cholesterol, Calc 18 mg/dl (0-30) 11/01/24 04:18
HDL Cholesterol 33 mg/dl 11/01/24 04:18
TSH 3.13 uIU/ml (0.47-4.68) 10/31/24 21:54
Free T4 1.36 ng/dl (0.78-2.19) 11/17/24 03:01
11/19/24 11/27/24
22:11 02:13
Aah-G-Beogkbwwpod Pept [id number]
Physical Exam
Constitutional: No acute distress
EENT: Moist mucous membranes
Cardiovascular: Rhythm & rate is regular, Pedal edema is absent, Systolic murmur absent and JVD present
Respiratory: Respiratory effort normal and Lungs clear to auscul.
Neuro/Psych: Alert and Oriented
Data Reviewed
-
Date of Service: November 28, 2024
EKG: Other (AV paced 80)
Labs: Labs Reviewed by me
[2024-11-28] MEDS: NOVOLOG FLEXPEN-MODERATE RESISTANCE SC (09:22)
[2024-11-28] MEDS: MUCINEX PO ×2 (09:23→20:44)
[2024-11-28] MEDS: NOVOLOG FLEXPEN 6 UNITS SC ×3 (09:23→18:04)
[2024-11-28] MEDS: DELTASONE 40 MG PO (09:24)
[2024-11-28] MEDS: PLAVIX 75 MG PO (09:25)
[2024-11-28] MEDS: FARXIGA 10 MG PO (09:25)
[2024-11-28] MEDS: ZETIA 10 MG PO (09:25)
[2024-11-28] MEDS: ZOLOFT 100 MG PO (09:25)
[2024-11-28] MEDS: ARMOUR THYROID 15 MG PO (09:25)
[2024-11-28] MEDS: MACRODANTIN 50 MG PO ×4 (09:26→22:45)
[2024-11-28] MEDS: BUMEX 1 MG PO (09:26)
[2024-11-28] MEDS: PROTONIX 40 MG PO (09:26)
[2024-11-28] MEDS: VITAMIN D3 (cholecalciferol) 50 MCG PO (09:26)
[2024-11-28] MEDS: PACERONE 200 MG PO ×3 (09:26→22:45)
[2024-11-28] MEDS: SENOKOT-S 1 TABLET PO ×2 (09:26→20:44)
[2024-11-28] MEDS: LOW STRENGTH ASPIRIN 81 MG PO (09:27)
[2024-11-28] MEDS: LIDOCAINE 4% PATCH TOPICAL (09:27)
[2024-11-28] MEDS: TOPROL XL 12.5 MG PO ×2 (09:27→09:40)
[2024-11-28] MEDS: NOVOLOG FLEXPEN SC (09:39)
--- NOTE | 2024-11-28 10:38 | PTCARENOTE ---
received patient this am, up, OOB to chair. flat affect, patient stated, 'I just feel not good, nonspecific'. monitor shows AV Paced, VSS. LCW steri strips intact, sternum TRAFFIC RATE CLERK well approximated, no drainage, 4 CT sites TRAFFIC RATE CLERK, no drainage, right leg
GHAZAL, petechiae remains on bilat legs and arms. lung parnell still coarse, able to bring up some sputum although refused Mucinex this am. o2 sat on 2 LNC 96%. patient voids small amounts at a time, mira colored urine. at bedside.
[2024-11-28] MEDS: NOVOLOG FLEXPEN-MODERATE RESISTANCE 3 UNITS SC (11:22)
[2024-11-28 11:24] LABS: Glucose - Point of Care 218 mg/dl (70-99)
--- NOTE | 2024-11-28 13:04 | W.PN.UPDATE ---
Update Note
Progress Note Update
CARDIAC SURGERY ATTENDING:
I was informed by my team that [employer] had denied Mr. Natanael Henson's acute rehab. This is criminal. In my opinion, [employer] is practicing medicine without a license. While I was in the OR, a qehr-tm-ctcy was conducted between my nurse
practitioner and and an unknown physician from [employer] to attempt to resolve this matter. This unknown physician denied acute rehab with very little clinical insight on Mr. Henson's current condition, medical comorbidities, and acute hospital stay.
I attempted to call [employer] ([phone]) and spoke with a woman named Naomy who refused to provide her last name. She stated that a dzgr-[id number]-zmji had already been completed and she would not allow me to speak with the physician who spoke with my
nurse practitioner. She stated that another claim would have to be filed, reviewed by a nurse, and scheduled for a wihc-io-phtl at a future date/time. I told her that I expected to hear from the physician that denied this claim within the hour.
She stated that that would not happen and became quite belligerent on the phone. After which, I told her that I would be telling the patient that he should seek legal action against his insurance provider.
The patient is not to be discharged from our institution at this time.
We will arrange for as aggressive inpatient rehab as our resources allow while we attempt to resolve this matter with his insurance provider.
Thank you.
Tacho Wilks MD
[phone]
--- NOTE | 2024-11-28 15:52 | CM ---
sent denial appeal to [phone] via fax. spoke to Dr Wilks who asked that i please include his note from 11/28 @ 130 in the fax. await determin, was told by [phone] that they have 72 hrs to respond.
[2024-11-28 17:05] LABS: Glucose - Point of Care 188 mg/dl (70-99)
[2024-11-28] MEDS: NOVOLOG FLEXPEN-MODERATE RESISTANCE 1 UNITS SC (18:04)
[2024-11-28] MEDS: PRAVACHOL 40 MG PO (18:06)
--- NOTE | 2024-11-28 19:08 | W.PN.UPDATE ---
Update Note
Progress Note Update
CARDIAC SURGERY ATTENDING:
PATIENT/HOSPITAL COURSE SUMMARY PROVIDED FOR BENEFIT OF RE-EVALUATION/SECOND [facility]JER-VI[employer]HL[facility] [employer].� Given this patients extremely complex medical history and recent hospital course (outlined below), coupled with the recommendation for
acute inpatient rehab by psyiatry on 11/23/2024, and the fact that prior to this hospitalization he was completely independent with all activities.� In my medical opinion, this patient will undeniably benefit from acute inpatient rehab.�
Thank you,
Tacho Wilks M.D.
[phone]
PMHx:���� ���������������
��������� New HFrEF (LVEF 25-30%)
��������� Delayed presentation of inferior WA
��������� CHB s/p Bi-V AICD (NSVT, VF arrest during hospitalization)�
��������� Recent ROSANGELA and ALI (resolved); CKD
��������� Recent UTI & urinary retention
��������� Hypothyroidism
��������� Nephrolithiasis � s/p prior cystoscopy & stents
��������� Poorly-controlled DM type II (Hgb A1c 9.0)
��������� Very severe COPD (see PFTs from 11/26/24) � former smoker (1.5-2 ppd x 20+ years; quit at 55 y/o)
��������� Hypertension
��������� Catarcts � s/p surgery w/ double-vision postoperatively
��������� Hx of appendectomy
��������� Hx of T/A
��������� FHx of premature CAD (brother WA in 30s, CABG, in 70s)
HOSPITAL COURSE:
10/31/2024: MR. CARTAGENA presents to our institution w/ c/o fatigue and myalgias x 4-5 days.� The �evening prior to presentation he also experienced upper back and shoulder pain/�tightness� that lasted approximately 1 hour (6pm-7pm) that was
associated with lightheadedness and culminated in a syncopal episode.� In ED, HR in 30s-40s.� Cardiology consulted.� EKG w/ CHB w/ ventricular rate @ 41 w/ basilia-infarct inferior ST-T changes consistent with recent WA.� His CTNI was 50.900.� He had
ROSANGELA (creat 2.1) and ALI (AST/ALT 123/66).�
11/01/2024: Cardiac catheterization performed w/ severe triple vessel CAD identified.� There was 100% occlusion of his RCA, complex bifurcation disease involving his proximal LAD, diagonal, and large circumflex OM branch.� His LV pressures were
significantly elevated.� There were no collaterals to the RCA territory.� A temporary pacing wire was placed at this time.� Echocardiogram had also revealed an LVEF of 35% w/ reduced RV function, eozb-ie-axfqucrg TR, and akinesis of hwimd-wo-hka
inferoseptal, inferior, and inferolateral stewart.� Cardiac surgery consulted.�
11/02/2024: Patient discussed in multidisciplinary fashion regarding options for coronary revascularization.� Diuresis and GDMT ongoing.� Initial plan was for medical therapy for several weeks to allow for inferior myocardial healing/scarring with
preop PPM placement and subsequent outpatient scheduling for CABG.�
11/04/2024: (~8 days post-WA)� BiV AICD placed without complication.� Pt. w/ two episodes of NSVT in preceding 24 hours (5/6 beats each/monomorphic). ��Pt. w/ LOC and seizure-type activity following BiV AICD.� ICD interrogated and revealed VF that was
terminated w/ ICD therapy.� Preoperative workup completed STS mortality/morbidity risks 4.92/18.7% respectively.� ROSANGELA had resolved (creat 0.9).� �ALI resolved.�
11/05/2024-11/08: Decision made to progress w/ early CABG.� Ongoing medical optimization
11/09/2024: OR: sternotomy, ARIAS (pleural & pericardial), CABG x 4 (JUSTIN to LAD, GSV to D1, GSV to OM2 (upper branch), and GSV to OM2 (lower branch), ELAA w/ 45mm AtriClip.�� Transfused 1U PRBC and 1pk PLTS intraoperatively.� To CVICU on epinephrine @
4 and levophed @ 2.�� He was extubated on POD#0
11/10/2024: POD#1: Weaning epinephrine and levophed.� Pt. creat initially stable (1.2 from 1.1/1.3).� Hyperkalemia � treated.�
11/11/2024: POD#2: Epi down to 1.5, levophed OFF.� Transfused 1U PRBC.� Diuresis.� Creat up to 1.7.� 11/12/2024: POD#3: OFF inotropes and vasopressors.� Creat 1.8.� De-lined.� Ongoing diuresis.
11/13/2024: POD#4: Creat down to 1.5.� Started on midodrine for orthostatic hypotension�
11/14/2024: POD#5: BP improved.� Creat down to 1.3.� Continued orthostatic hypotension limiting PT/OT
11/15/2024: POD#6: OOB to chair.� PT/OT still limited secondary to orthostasis
11/16/2024: POD#7: Slightly improved.� Midodrine TID.� Creat to 1.6.� Psychatry consulted for depression
11/17/2024: POD#8: GDMT for HFrEF meds limited secondary to symptomatic orthostasis.� Creat to 1.9
11/18/2024: POD#9: More tired/SOB. Physiatry eval pending.� PT/OT ongoing.�
11/19/2024: POD#10: Creat back down (1.5).�
11/20/2024: POD#11: More SOB.� ProBNP 16,200.� Urinary retention � [place] replaced.� Pulm consulted (Symbicort/ Duonebs)
11/21/2024: POD#12: U/S guided thoracentesis (-1000mL of serosang pleural fluid).� Ongoing diuresis
11/22/2024: POD#13: Pt. feels �lethargic�, �lousy�, �weak�, and �tired�.� Not sleeping well.�
11/23/2024: POD#14: Psyiatry eval completed:
PSYIATRY: (Lenny Crouch M.D. & Awa Howell.A.-C.:� SUMMARY OF RECOMMENDATIONS: Acute Inpatient Rehabilitation; Functional level premorbidly: INDEPENDENT with all activities.� Current functional level: Transfers: min assist, Ambulate:
rolling walker 20ft x 2 with min assist with seated rest breaks between walks.� Grooming � moderate assist w/ encouragement.� Poor endurance.� Toileting: min assist.�
11/24/2024: POD#15: UCx + Klebsiella & yeast w/ burning on urination.� � Started on ABX.�� Pt. frustrated often wishing that he �would just never wake up� and that his would be �better off without him��
11/25/2024: POD#16: Pt. mood improved.�
11/26/2024: POD#17: Feeling slightly better.� Awaiting rehab placement.� PFTs completed (FEV1: 0.75 (25%), FVC 1.38 (35%)
11/27/2024: POD#18: midodrine @ 2.5 TID w/ low-dose BB; started on Prednisone 40mg dD x 5 days; Striverdi and Spiriva
11/28/2024: POD#19: Continue to await insurance approval for rehab � DENIED.�
[2024-11-28] MEDS: REMOVE LIDOCAINE PATCH REMOVE (20:39)
[2024-11-28] MEDS: TOPROL XL 25 MG PO (20:44)
--- NOTE | 2024-11-28 21:59 | PTCARENOTE ---
Patient received at change of shift resting in the bed. Reports feeling 'lousy' and 'run down' but pain is minimal. Afebrile. VSS. SEAFOOD SPECIALIST on telemetry. Surgical sites intact. Oxygen saturation on 2L NC 98%. Plan of care discussed. Call salazar within
reach. Care ongoing.
[2024-11-28 22:21] LABS: Glucose - Point of Care 132 mg/dl (70-99)
[2024-11-28] MEDS: LANTUS 0.22 UNITS SC (22:45)
[2024-11-28] MEDS: MELATONIN 5 MG PO (22:45)
[2024-11-28] MEDS: ATIVAN 0.5 MG PO (22:48)
[2024-11-29 03:24] VITALS: BP 106/75
[2024-11-29 03:26] VITALS: BMI 24.1
--- NOTE | 2024-11-29 03:45 | W.PN.CT ---
Today's Communication / Plan
-
Plan:
-No major issues
-Cont. current meds (amiodarone, ASA, Bumex, Plavix, Farxiga, Bumex, Zetia, Lantus, Toprol xl, zoloft, melatonin, pravachol)�
-On Macrodantin 11/24 for Klebsiella UTI
-On Prednisone for pulmonary issues/SOB/COPD. Pulmonology following
-Cont. f/u by diabetes education/management
-Encourage use of IS poor efforts
-Wean off of O2, currently on 2L Nasal Cannula. Should be able to wean off today
-OOB into chair/PT/OT following
-Awaiting approval from insurance for placement at [facility]
Assessment / Plan
-
- s/p CABG x 4 (JUSTIN to LAD, GSV to D1, GSV to OM2 upper branch, GSV to OM2 lower branch); ELAA (45mm AtriClip); Lysis of pericardial adhesions w/ blunt & electrocautery dissection; Lysis of left pleural-pleural adhesions w/ electrocautery on
11/09/[address] Wilks, pod #[id number]
-S/P Left thoracentesis (1000 cc of serosanguineous pleural fluid) by IR 11/21/24
- Pre-CHLOE: LVEF 31%, hurrx-lq-duzs MR, mild AI
- Post-CHLOE: LVEF 40%, unchanged valves, SHEMAR confirmed excluded
-Severe 3v CAD
-Inferior ND
-Weakness/Fatigue
-Syncopal episode
-HFrEF/ICM (LVEF 35%; was 50-55% per echo 04/2014)
-CHB S/P Transvenous pacer, 11/01/24
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
-Mild-moderate TR
-HTN
-Hyperlipidemia
-Hypothyroidism
-T2DM (hgb A1C 9.0)
-ROSANGELA (peaked @ 2.1)
-Transaminitis
-Small pericardial effusion, per CTA 11/06
-Small bilateral pleural effusion, per CTA 11/06
-Former tobacco use (quit 20 years ago, ~40 pk/yr)
-Diplopia S/p cataract surgery
-[place] S/P hearing aids
-Renal calculi S/P cystoscopy with renal stents
-S/P T&A
-S/P Appendectomy
-Hx Vertigo
-Severe/very severe COPD with centrilobular emphysema (moderate severity predominantly in the upper lobes via CT chest on 11/06/2024). Post-bronchodilator FEV1: 0.75 L / 25% predicted
-will need outpatient PFT
-Acute postop blood loss anemia
-Acute postop atelectasis
-Acute postop pericarditis
-Acute postop hyperkalemia
-Acute postop hypovolemia with subsequent hypervolemia
-Acute postop Orthostasis
-Acute postop confusion/delirium
-Acute postop ROSANGELA
-S/p L thoracentesis on 1L serosanguineous fluid on 11/21/24
-UTI (Klebsiella)- tx with Macrodantin
-Acute hypoxic respiratory failure � multifactorial due to deconditioning with hypoventilation, poor inspiratory effort, continued acute decompensated heart failure (albeit improved) and severe/very severe COPD with centrilobular emphysema (moderate
severity predominantly in the upper lobes via CT chest on 11/06/2024)- on 11/26 started on 5 day course of Prednisone, Striverdi and Spiriva
Discussed patient care with: Cardiology, Nursing, Respiratory Therapy, Pharmacy and Care Team
Subjective
-
Date of Service: November 29, 2024
Pt feel well, slept well. C/O SOB only with long walks
Objective Data
-
Lab Results
11/28/24 04:41
PT 21.3 Sec (11.4-14.6) H 11/09/24 14:28
INR 1.79 11/09/24 14:28
APTT 33.9 Sec (23.4-35.0) 11/09/24 14:28
Vital Signs
Vital Signs
Temp Pulse Resp BP Pulse Ox
97.6 F 80 14 106/75 98
11/29/24 03:24 11/29/24 03:24 11/29/24 03:24 11/29/24 03:24 11/29/24 03:24
CT Intake/Output/Weight
11/28/24 11/28/24 11/29/24
06:59 18:59 06:59
Intake Total 240 / 240
Output Total 700 / 1400 200 / 475 275 / 475
Balance -460 / -1160 -200 / -475 -275 / -475
SaO2: 98 (2L)
Physical Exam
-
General: Awake, Oriented and AOx3
Cardiovascular: Regular rate & rhythm, No Murmurs, No Rub and No Gallop
Respiratory: Decreased Breath Sounds (at bases)
Sternum: Stable
Incision: Clean, Dry, Intact and Dressing Intact
Extremities: Edema +1 and Other
Data Reviewed
-
Lab Results: Results Reviewed
Medications: Active Meds Reviewed
Chest X-Ray: Report Reviewed and Image Reviewed
ECG: Report Reviewed and Image Reviewed
[2024-11-29 04:05] LABS: Blood Urea Nitrogen 40 mg/dl (9-20); Calcium 8.3 mg/dl (8.4-10.2); Carbon Dioxide 34 mmol/L (22-30); Chloride 103 mmol/L (98-107); Estimated Creatinine Clearance 54 ml/min; Glucose 87 mg/dl (70-99); Magnesium 2.2 mg/dl (1.6-2.3); Potassium 4.1 mmol/L (3.5-5.1); Sodium 142 mmol/L (135-145); eGFR > 60.00
[2024-11-29 06:59] VITALS: BP 101/70
[2024-11-29 07:04] LABS: Glucose - Point of Care 83 mg/dl (70-99)
[2024-11-29] MEDS: SPIRIVA RESPIMAT 2.5 MCG 2 PUFF INH (07:24)
[2024-11-29] MEDS: STRIVERDI RESPIMAT 2 PUFF INH (07:24)
[2024-11-29] MEDS: MUCINEX 600 MG PO (08:47)
[2024-11-29] MEDS: SENOKOT-S 1 TABLET PO ×2 (08:47→08:53)
[2024-11-29] MEDS: VITAMIN D3 (cholecalciferol) 50 MCG PO (08:47)
[2024-11-29] MEDS: PACERONE 200 MG PO ×2 (08:49→16:10)
[2024-11-29] MEDS: PROTONIX 40 MG PO (08:50)
[2024-11-29] MEDS: ARMOUR THYROID 15 MG PO (08:50)
[2024-11-29] MEDS: PLAVIX 75 MG PO (08:50)
[2024-11-29] MEDS: ZETIA 10 MG PO (08:50)
[2024-11-29] MEDS: FARXIGA 10 MG PO (08:50)
[2024-11-29] MEDS: TOPROL XL 25 MG PO (08:51)
[2024-11-29] MEDS: ZOLOFT 100 MG PO (08:52)
[2024-11-29] MEDS: LOW STRENGTH ASPIRIN 81 MG PO (08:52)
[2024-11-29] MEDS: NOVOLOG FLEXPEN 6 UNITS SC ×3 (08:52→17:11)
[2024-11-29] MEDS: NOVOLOG FLEXPEN-MODERATE RESISTANCE SC ×3 (08:53→16:18)
--- NOTE | 2024-11-29 08:53 | W.PN.CD ---
Today's Communication / Plan
-
add aldactone 12.5mg daily
Impression / Plan
-
Background: 74M with HTN & NIDDM who presented with upper back and shoulder tightness then had syncope and developed SOB prompting evaluation -> recent inferior STEMI based on clinical data and EKG -> [facility] with [facility] now s/p FRONT DESK LEAD-D with Dr. Bueno and
CABG with Dr. Wilks.
Outpatient Radio Journalist: will be Dr. Bueno
PCP: Sabina Dior, DO
HFrEF
ICM
- LVEF about 35% preop
- Intraop CHLOE prior to CABG LVEF 31%
- Intraop CHLOE post CABG/on support LVEF 40%
- most recent EF 25%
- GDMT is critical to promote EF recovery. Limited by BP. .
- increased Toprol XL to 25 mg bid 11/28
-continue farxiga
-add aldactone 12.5mg daily
-midodrine stopped 11/27
-continue bumex 1mg PO daily
CAD
- recent inferior STEMI, found to have multivessel disease:
- now s/p CABG 11/09
- continue ASA, pravastatin, Zetia; had possible weakness with crestor
- BB as above
Orthostasis: improved
- will need rehab
- Increasing activity will help
- wean midodrine
Pleural effusions
- thoracentesis 11/21 with significant improvement in shortness of breath and CXR
ROSANGELA, improving
- cont. to monitor with diuresis
Symptomatic complete heart block
- S/p bi-v ICD 11/04/2024
Ventricular fibrillation, about 30 minutes after ICD placement
Mixed hyperlipidemia, goal LDL now <55
Type II DM, longstanding, uncontrolled, Hgba1c 9.0%: diabetic provider following
History of HTN, follow
Former heavy smoker probably at least a 48-[id number]-ycxj history, continued cessation recommended .
Physical Exam
Vital Signs/Labs
Vital Signs
Temp Pulse Resp BP Pulse Ox
97.4 F 80 18 106/75 96
11/29/24 06:59 11/29/24 07:27 11/29/24 07:27 11/29/24 03:24 11/29/24 07:27
11/28/24 11/29/24 11/30/24
06:59 06:59 06:59
Actual Weight 75 kg 73.9 kg
11/28/24 04:41
11/29/24 03:31
PT 21.3 Sec (11.4-14.6) H 11/09/24 14:28
INR 1.79 11/09/24 14:28
APTT 33.9 Sec (23.4-35.0) 11/09/24 14:28
Magnesium 2.2 mg/dl (1.6-2.3) 11/29/24 03:31
Triglycerides 94 mg/dl (10-149) 11/01/24 04:18
LDL Cholesterol, Calc 80 mg/dl 11/01/24 04:18
VLDL Cholesterol, Calc 18 mg/dl (0-30) 11/01/24 04:18
HDL Cholesterol 33 mg/dl 11/01/24 04:18
TSH 3.13 uIU/ml (0.47-4.68) 10/31/24 21:54
Free T4 1.36 ng/dl (0.78-2.19) 11/17/24 03:01
11/19/24 11/27/24
22:11 02:13
Sqv-K-Ypstjuxgpzu Pept [id number]
Physical Exam
Constitutional: No acute distress and Comfortable
Cardiovascular: Rhythm & rate is regular, Pedal edema is absent, Systolic murmur absent and JVD present
Respiratory: Respiratory effort normal
Data Reviewed
-
Date of Service: November 29, 2024
EKG: Other (Tele: spike machine feeder 80)
Labs: Labs Reviewed by me
[2024-11-29] MEDS: BUMEX 1 MG PO (08:57)
[2024-11-29] MEDS: MACRODANTIN 50 MG PO ×3 (08:57→17:12)
--- NOTE | 2024-11-29 09:05 | PN.DE.MGMTRT ---
Insulin Management
- -
11/29/2024: Diabetes Management Follow up
Patient admitted 10/31 with c/o weakness; NSTEMI, complete heart block. Cardiac cath 11/01 - Severe multivessel CAD.
PMH: HTN, HLD, T2DM and Hypothyroid. Prior to admission was taking Lantus 40 units @ HS, Metformin 1000 mg BID, Januvia 100 mg daily. A1C on admission 9%. Cr 1.2, eGFR >60 today.
Patient is awake alert and oriented, sitting up in chair, offers no complaints, flat affect, able to discuss diabetes care.
POD # 21 s/p CABG x 4. 6/23 S/P 1L thoracentesis. Patient reports appetite has improved and he is eating a lot more now
11/26 Patient was started on a short course of steroids, pred 40 mg daily, contributing to Hyperglycemia.
Lantus dose was adjusted to 22 units @ HS.
11/28 AC NovoLog increased to 6 units, continue Farxiga 10 mg daily and Lantus 22 units @ HS.
11/29 Fasting glucose 87 Will continue novolog 6 units AC with lantus 22 units @ hs and Farxiga 10 mg daily.
Will cont to follow. Discussed with nurse
Patient's brought in his DexCom G6, explained to pt and that we will assist him in placing the device once he is closer to discharge.
Diabetes History
- -
Type of Diabetes: 2 requiring insulin
Pre-Admission Diabetes Regimen
11/29/24
03:31
Creatinine 1.2
Lab Results
Hemoglobin A1c 9.0 % (4.0-5.6) H 11/01/24 04:18
Insulin Pump Settings
IP Diabetes Regimen
11/28/24 11/28/24 11/28/24
11:20 17:04 22:19
Glucose
POC Glucose 218 H 188 H 132 H
11/29/24 11/29/24
03:31 07:03
Glucose 87
POC Glucose 83
Meal type: Dinner
Meal type: Dinner
Meal type: Lunch
Amount consumed: 100%
Amount consumed: 100%
Amount consumed: 100%
Patient Education
[2024-11-29] MEDS: LIDOCAINE 4% PATCH TOPICAL (09:08)
[2024-11-29] MEDS: DELTASONE 40 MG PO (09:11)
[2024-11-29] MEDS: ALDACTONE 12.5 MG PO (09:12)
[2024-11-29 12:32] LABS: Glucose - Point of Care 116 mg/dl (70-99)
[2024-11-29 12:33] VITALS: BP 102/69
--- NOTE | 2024-11-29 14:37 | W.PN.UPDATE ---
Update Note
Progress Note Update
Pt seen, reviewed with nursing. Reportedly tolerating increased Zoloft with no apparent side effects, still has dysphoric affect. Pt currently sleeping quietly in bed in reclining position- did not disturb him. Staff reports pt is being
discharged later today to [facility].
Imp: Unspecified depression, anxiety, R/o PTSD
Rec: continue Sertraline at 100 mg daily- increased on 11/25; will need monitoring over the next few weeks and possible tapering down if side effects emerge
Outpatient therapy when medically stable/upon return to outpatient setting
--- NOTE | 2024-11-29 16:04 | CM ---
skilled rehab approved for [facility]. spoke with pt and and they are agreeable. Dr Mitchell is aware and agreeable. transportation set up for today.
[2024-11-29 16:07] VITALS: BP 106/73
[2024-11-29 16:13] LABS: Glucose - Point of Care 101 mg/dl (70-99)
--- NOTE | 2024-11-29 16:45 | PTCARENOTE ---
Pt received this am with no c/o of any pain or sob. O2 on at 2LNC. Room air sat 85%. Assisted oob to the chair with the walker with one assist.
[2024-11-29] MEDS: PRAVACHOL 40 MG PO (17:11)
--- NOTE | 2024-11-29 18:07 | PTCARENOTE ---
Pt discharged to [facility] via ambulance. Report called to nurse receiving pt. Pt sent on 2LNC. No change in status.
== END 2024-11-29 18:00 | DRG 233 ==
LOC: IVU 23:27
PROVIDERS: Anesthesiology; Clinical Nurse Specialist Acute Care; Hospitalist; Internal Medicine Critical Care Medicine; Nurse Practitioner; Nurse Practitioner Family; Nurse Practitioner Gerontology; Nurse Practitioner Primary Care; Physician Assistant; Physician Assistant Medical; Radiology Vascular & Interventional Radiology; Student in an Organized Health Care Education/Training Program; ADMITTING PHYSICIAN Hospitalist; ATTENDING PHYSICIAN Thoracic Surgery (Cardiothoracic Vascular Surgery); CONSULT PHYSICIAN Internal Medicine; CONSULT PHYSICIAN Internal Medicine Cardiovascular Disease; CONSULT PHYSICIAN Physical Medicine & Rehabilitation; CONSULT PHYSICIAN Psychiatry & Neurology Psychiatry; EMERGENCY PHYSICIAN Student in an Organized Health Care Education/Training Program; FAMILY PHYSICIAN Internal Medicine
PROC: B2111ZZ Fluoroscopy of Multiple Coronary Arteries using Low Osmolar Contrast (ICD-10-PCS; 2024-11-01)
PROC: 4A023N7 Measurement of Cardiac Sampling and Pressure, Left Heart, Percutaneous Approach (ICD-10-PCS; 2024-11-01)
PROC: B2151ZZ Fluoroscopy of Left Heart using Low Osmolar Contrast (ICD-10-PCS; 2024-11-01)
PROC: 0JH609Z Insertion of Cardiac Resynchronization Defibrillator Pulse Generator into Chest Subcutaneous Tissue and Fascia, Open Approach (ICD-10-PCS; 2024-11-04)
PROC: 02H43KZ Insertion of Defibrillator Lead into Coronary Vein, Percutaneous Approach (ICD-10-PCS; 2024-11-04)
PROC: 4B02XTZ Measurement of Cardiac Defibrillator, External Approach (ICD-10-PCS; 2024-11-04)
PROC: 02H63KZ Insertion of Defibrillator Lead into Right Atrium, Percutaneous Approach (ICD-10-PCS; 2024-11-04)
PROC: 02HK3KZ Insertion of Defibrillator Lead into Right Ventricle, Percutaneous Approach (ICD-10-PCS; 2024-11-04)
PROC: B24BZZ4 Ultrasonography of Heart with Aorta, Transesophageal (ICD-10-PCS; 2024-11-09)
PROC: 02L70CK Occlusion of Left Atrial Appendage with Extraluminal Device, Open Approach (ICD-10-PCS; 2024-11-09)
PROC: 02100ZC Bypass Coronary Artery, One Artery from Thoracic Artery, Open Approach (ICD-10-PCS; 2024-11-09)
PROC: 021209W Bypass Coronary Artery, Three Arteries from Aorta with Autologous Venous Tissue, Open Approach (ICD-10-PCS; 2024-11-09)
PROC: 0BNP0ZZ Release Left Pleura, Open Approach (ICD-10-PCS; 2024-11-09)
PROC: 06BP4ZZ Excision of Right Saphenous Vein, Percutaneous Endoscopic Approach (ICD-10-PCS; 2024-11-09)
PROC: 30233N1 Transfusion of Nonautologous Red Blood Cells into Peripheral Vein, Percutaneous Approach (ICD-10-PCS; 2024-11-09)
PROC: 5A1221Z Performance of Cardiac Output, Continuous (ICD-10-PCS; 2024-11-09)
PROC: 02NN0ZZ Release Pericardium, Open Approach (ICD-10-PCS; 2024-11-09)
PROC: 30233R1 Transfusion of Nonautologous Platelets into Peripheral Vein, Percutaneous Approach (ICD-10-PCS; 2024-11-09)
PROC: 0W9B3ZZ Drainage of Left Pleural Cavity, Percutaneous Approach (ICD-10-PCS; 2024-11-21)
DX: I21.19 ST elevation (STEMI) myocardial infarction involving other coronary artery of inferior wall (principal); I46.2 Cardiac arrest due to underlying cardiac condition; I49.01 Ventricular fibrillation; I50.21 Acute systolic (congestive) heart failure; J96.01 Acute respiratory failure with hypoxia; I44.2 Atrioventricular block, complete; N17.9 Acute kidney failure, unspecified; I47.20 Ventricular tachycardia, unspecified; D62 Acute posthemorrhagic anemia; I24.1 Dressler's syndrome; J94.8 Other specified pleural conditions; I31.0 Chronic adhesive pericarditis; I13.0 Hypertensive heart and chronic kidney disease with heart failure and stage 1 through stage 4 chronic kidney disease, or unspecified chronic kidney disease; N39.0 Urinary tract infection, site not specified; F05 Delirium due to known physiological condition; J98.11 Atelectasis; E03.9 Hypothyroidism, unspecified; I25.10 Atherosclerotic heart disease of native coronary artery without angina pectoris; E78.00 Pure hypercholesterolemia, unspecified; N18.9 Chronic kidney disease, unspecified; E11.22 Type 2 diabetes mellitus with diabetic chronic kidney disease; F43.10 Post-traumatic stress disorder, unspecified; I25.5 Ischemic cardiomyopathy; E87.5 Hyperkalemia; B96.1 Klebsiella pneumoniae [K. pneumoniae] as the cause of diseases classified elsewhere; J43.2 Centrilobular emphysema; E86.1 Hypovolemia; E11.36 Type 2 diabetes mellitus with diabetic cataract; I95.1 Orthostatic hypotension; Z75.1 Person awaiting admission to adequate facility elsewhere; L89.151 Pressure ulcer of sacral region, stage 1; F32.A Depression, unspecified; F41.9 Anxiety disorder, unspecified; Z79.899 Other long term (current) drug therapy; Z79.4 Long term (current) use of insulin; Z82.49 Family history of ischemic heart disease and other diseases of the circulatory system; Z87.891 Personal history of nicotine dependence; Z97.4 Presence of external hearing-aid
CPT/HCPCS: 93308; 32555; 33225; 33249; 70450; 71045; 71046; 71250; 76700; 80048; 80053; 80061; 81003; 81015; 82248; 82306; 82330; 82550; 82565; 82607; 82746; 82805; 82810; 82947; 82962; 83036; 83735; 83880; 84100; 84132; 84145; 84302; 84439; 84443; 84450; 84460; 84484; 84520; 85014; 85018; 85025; 85027; 85049; 85610; 85730; 86803; 86850; 86900; 86901; 86920; 87077; 87086; 87186; 92610; 93005; 93306; 93312; 93320; 93325; 93458; 93880; 94002; 94060; 94640; 96374; 97010; 97110; 97116; 97163; 97167; 97530; 97535; 99152; 99153; 99291; C1713; C1769; C1777; C1882; C1887; C1892; C1894; C1898; C1900; P9016; P9045; P9047; P9073; Q9950; Q9967

== ENCOUNTER → 2024-12-10 05:00 | Outpatient (REF) | payer OTHER, SELFPAY | LOC: OLABN 05:00 | PROVIDERS: ATTENDING PHYSICIAN Student in an Organized Health Care Education/Training Program | DX: I50.22 Chronic systolic (congestive) heart failure (principal) | CPT/HCPCS: 83880 ==

== ENCOUNTER → 2024-12-13 10:17 | Outpatient (REF) | payer OTHER, SELFPAY | LOC: OLABN 10:17 | PROVIDERS: ATTENDING PHYSICIAN Student in an Organized Health Care Education/Training Program | DX: I50.22 Chronic systolic (congestive) heart failure (principal) | CPT/HCPCS: 36415; 83880 ==

== ENCOUNTER → 2024-12-20 16:59 | Outpatient (REF) | payer OTHER, SELFPAY ==
[2024-12-21 11:08] LABS: Urine Character Clear (Clear)
[2024-12-21 12:05] LABS: Urine Squamous Cell 16-20 /LPF (Few)
== END ==
LOC: OLABN 16:59
PROVIDERS: ATTENDING PHYSICIAN Student in an Organized Health Care Education/Training Program
DX: R30.9 Painful micturition, unspecified (principal)
CPT/HCPCS: 81003; 81015; 87086

== ENCOUNTER → 2024-12-23 10:25 | Outpatient (REF) | payer OTHER, SELFPAY ==
[2024-12-23 10:47] LABS: Urine Character Clear (Clear)
[2024-12-23 10:58] LABS: Urine Red Blood Cell 0-2 /HPF (0-2)
== END ==
LOC: OLABN 10:25
PROVIDERS: ATTENDING PHYSICIAN Student in an Organized Health Care Education/Training Program
DX: R30.9 Painful micturition, unspecified (principal)
CPT/HCPCS: 81003; 81015; 87086

== ENCOUNTER → 2025-01-20 09:59 | Outpatient (REF) | payer OTHER, SELFPAY ==
[2025-01-20 11:00] LABS: Hematocrit 40.3 % (39.0-52.0); Hemoglobin 12.4 g/dL (13.0-18.0); Mean Corp Hgb Conc. 30.8 g/dL (33.0-37.0); Mean Corpuscular Volume 87.8 fL (80.0-94.0); Nucleated Red Blood Cells % 0 % (-); Platelet Count 245 10^3/uL (130-400); Red Cell Dist. Width 16.0 % (11.5-14.5)
[2025-01-20 12:04] LABS: ALT (SGPT) 20 U/L (0-50); AST (SGOT) 29 U/L (17-59); Albumin 4.3 g/dl (3.5-5.0); Alkaline Phosphatase 90 U/L (38-126); Blood Urea Nitrogen 27 mg/dl (9-20); Calcium 9.7 mg/dl (8.4-10.2); Carbon Dioxide 30 mmol/L (22-30); Chloride 98 mmol/L (98-107); Glucose 86 mg/dl (70-99); Potassium 3.6 mmol/L (3.5-5.1); Sodium 139 mmol/L (135-145); Total Protein 7.5 g/dl (6.3-8.2); eGFR > 60.00
== END ==
LOC: REG 09:59
PROVIDERS: ATTENDING PHYSICIAN Internal Medicine Cardiovascular Disease; FAMILY PHYSICIAN Family Medicine
DX: R42 Dizziness and giddiness (principal); I25.2 Old myocardial infarction
CPT/HCPCS: 36415; 80053; 85025

== ENCOUNTER → 2025-03-20 11:21 | Outpatient (REF) | payer OTHER, SELFPAY | LOC: RCS 11:21 | PROVIDERS: ATTENDING PHYSICIAN Internal Medicine Cardiovascular Disease; FAMILY PHYSICIAN Family Medicine | DX: I25.2 Old myocardial infarction (principal) | CPT/HCPCS: 93306 ==

== ENCOUNTER → 2025-04-14 10:04 | Outpatient (REF) | payer OTHER, SELFPAY ==
[2025-04-14 11:55] LABS: HDL Cholesterol 46 mg/dl; LDL Cholesterol, Calculated 63 mg/dl; Very Low Density Lipoprotein 19 mg/dl (0-30)
[2025-04-14 12:47] LABS: Cortisol, Random 18.1 ug/dl
== END ==
LOC: REG 10:04
PROVIDERS: ATTENDING PHYSICIAN Internal Medicine Cardiovascular Disease; FAMILY PHYSICIAN Family Medicine
DX: R42 Dizziness and giddiness (principal); E78.2 Mixed hyperlipidemia; E03.9 Hypothyroidism, unspecified
CPT/HCPCS: 36415; 80061; 82533; 84443

== ENCOUNTER → 2025-05-15 13:30 | Outpatient (REF) | payer OTHER, SELFPAY | LOC: RAD 13:30 | PROVIDERS: ATTENDING PHYSICIAN Internal Medicine Critical Care Medicine; FAMILY PHYSICIAN Family Medicine | DX: J18.9 Pneumonia, unspecified organism (principal) | CPT/HCPCS: 71250 ==